=== PATIENT | male | born 1955 | race African-American/Black ===

== ENCOUNTER 2016-10-04 10:30 | Emergency (ER) | payer OTHER ==
--- NOTE | 2016-10-04 15:03 | RAD ---
HISTORY: upper and lower extremity paresthesia COMPARISONS: April 13, 2015 TECHNIQUE: Multiple contiguous axial CT scans were obtained of the head without intravenous contrast. FINDINGS: HEMORRHAGE/INFARCT: There is no hemorrhage or acute infarct. MASSES/SHIFT: There is no mass or shift. EXTRA-AXIAL SPACES: There are no extra-axial fluid collections. SULCI AND VENTRICLES: There is mild diffuse and proportional enlargement of the sulci and ventricles. CEREBRUM: There is a chronic lacunar infarct of the left basal ganglia, stable from 2015. BRAINSTEM: There are no focal parenchymal abnormalities. CEREBELLUM: There are no focal parenchymal abnormalities. VESSELS: The vessels are grossly normal. PARANASAL SINUSES: The paranasal sinuses are clear. ORBITS: The orbits are unremarkable. BONES AND SOFT TISSUE: No bone or soft tissue abnormalities are noted. OTHER: None IMPRESSION: NO ACUTE INTRACRANIAL PATHOLOGY. MILD DIFFUSE INVOLUTIONAL CHANGE WITH CHRONIC SMALL VESSEL ISCHEMIC CHANGES.
[2016-10-04 15:06] LABS: Hematocrit 42 % (42-52); Hemoglobin 14.1 g/dl (14.0-18.0); Mean Corpuscular HGB Conc 34 g/dl (31-36); Mean Corpuscular Hemoglobin 36 pg (27-31); Mean Platelet Volume 9 um3 (7.4-10.4); Red Cell Distribution Width 14 % (10.5-15)
--- NOTE | 2016-10-04 15:06 | RAD ---
HISTORY: upper and lower extremity paresthesia COMPARISONS: MRI of the cervical spine dated September 25, 2008 TECHNIQUE: Multiple contiguous axial CT scans were obtained of the cervical spine without intravenous contrast, with coronal and sagittal multiplanar reformations. FINDINGS: BRAIN: The visualized brain is unremarkable CENTRAL CANAL: Evaluation of the central canal is limited on CT technique; however, there is no obvious canalicular mass or epidural hemorrhage. ALIGNMENT: There is straightening of the cervical lordosis. VERTEBRAL BODIES: The odontoid process is intact. The atlantoaxial intervals are symmetric. The vertebral bodies are normal in attenuation, without fracture. There is multilevel anterolateral marginal osteophyte formation. JOINTS: There is osteoarthritis of the uncovertebral and facet joints. There is mild osteoarthritis of the atlantoaxial articulation. MUSCULATURE: Unremarkable INTERVERTEBRAL DISCS: There is diffuse loss of intervertebral disc height. AXIAL IMAGES: C2-C3: There is no osseous neural foraminal narrowing or central canal stenosis. C3-C4: There is bilateral uncovertebral and facet hypertrophy. There is moderate left and mild right neural foraminal narrowing. There is no osseous central canal stenosis. C4-C5: There is bilateral uncovertebral and facet hypertrophy. There is no significant osseous neural foraminal narrowing or central canal stenosis. C5-C6: There is bilateral uncovertebral and facet hypertrophy. There is no significant osseous neural foraminal narrowing or central canal stenosis. C6-C7: There is bilateral uncovertebral and facet hypertrophy. There is moderate right neural foraminal narrowing. There is no significant osseous central canal stenosis. C7-T1: There is bilateral uncovertebral and facet hypertrophy. There is no significant osseous neural foraminal narrowing or central canal stenosis. SOFT TISSUES: The visualized soft tissues of the neck are unremarkable. The prevertebral fat stripe is preserved. OTHER: None. IMPRESSION: 1. DEGENERATIVE DISC DISEASE AND OSTEOARTHRITIS. 2. THERE IS MULTILEVEL NEURAL FORAMINAL NARROWING DESCRIBED ABOVE. 3. THERE IS NO SIGNIFICANT OSSEOUS CENTRAL CANAL STENOSIS
[2016-10-04 15:07] LABS: Add Diff/Slide Review? Slide Review Added; Comments Flag Yes; White Blood Count 2.5 10^3/ul (3.5-10.8)
[2016-10-04 15:08] LABS: Mean Corpuscular Volume 107 fL (80-94)
[2016-10-04 15:23] LABS: Troponin I 0.01 ng/mL (<0.04)
[2016-10-04 15:35] LABS: ALT 169 U/L (7-52); AST 231 U/L (13-39); Albumin 4.4 g/dL (3.2-5.2); Alkaline Phosphatase 69 U/L (34-104); Anion Gap 11 mmol/L (2-11); BUN/Creatinine Ratio 11.2 (8-20); Blood Urea Nitrogen 10 mg/dL (6-24); CO2 Carbon Dioxide 28 mmol/L (22-32); Chloride 98 mmol/L (101-111); EGFR African American 111.4 (>60); EGFR Non-African American 86.6 (>60); Globulin 4.3 g/dL (2-4); Glucose 113 mg/dL (70-100); Magnesium 1.7 mg/dL (1.9-2.7); Potassium 3.5 mmol/L (3.5-5.0); Sodium 137 mmol/L (133-145); Total Protein 8.7 g/dL (6.4-8.9)
[2016-10-04 15:40] LABS: TSH (Thyroid Stimulating Horm) 3.71 mcIU/mL (0.34-5.60)
[2016-10-04 16:34] VITALS: BP 120/65
[2016-10-04 17:32] LABS: Folate > 20.00 ng/mL (>3.99)
[2016-10-04 17:33] LABS: Vitamin B12 538 pg/mL (180-914)
[2016-10-04] MEDS ORDERED: Magnesium Oxide TAB* 400 MG PO ONE (17:39)
[2016-10-04] MEDS ORDERED: Naproxen TAB* 250 MG PO ONE ×2 (18:11→18:22)
--- NOTE | 2016-10-04 19:23 | ED ---
Georgi Caba Janilya, scribed for Anay Esposito MD on 10/04/16 at 1637 . Lower Extremity - HPI Summary HPI Summary: A 61 y/o male came in to [facility] presenting w/ a gradual onset of waxing and waning pain and numbness of upper and lower extremities for about a year. Pt has tactile sensations and is able to ambulate. He has been here for this reason before. However, the pain has gotten progressively worse, but some days it doesn't bother the pt. Pt denies neck pain, recent injury, n/v/d. EtOH consumption is not as heavy as before. There is EtOH abuse in the past. - History of Current Complaint Chief Complaint: EDGeneral Stated Complaint: WEAKNESS ALL OVER Time Seen by Provider: 10/04/16 16:24 Hx Obtained From: Patient Onset of Pain: Days Onset/Duration: Weeks Severity Initially: Moderate Severity Currently: Moderate Associated Signs And Symptoms: Positive: Weakness - Risk Factors Gout Risk Factors: Age Over 40, Male, Alcohol Abuse DVT Risk Factors: Negative Septic Arthritis Risk Factor: Negative - Allergies/Home Medications Allergies/Adverse Reactions: Allergies Allergy/AdvReac Type Severity Reaction Status Date / Time No Known Allergies Allergy Verified 08/18/16 10:14 PMH/Surg Hx/FS Hx/Imm Hx Endocrine/Hematology History: Denies: Hx Anticoagulant Therapy, Hx Blood Disorders, Hx Blood Transfusions, Hx Bone Marrow Disease, Hx Diabetes, Hx Systemic Lupus Erythematosus, Hx Sickle Cell Disease, Hx Thyroid Disease, Hx Unexplained Bleeding, Other Endocrine/ Hematological Disorders Cardiovascular History: Reports: Hx Hypertension Denies: Hx Pacemaker/ICD Respiratory History: Reports: Hx Asthma GI History: Reports: Other GI Disorders - Hepatitis C, alcohol abuse Denies: Hx Cirrhosis, Hx Crohn's Disease, Hx Diverticulosis, Hx Gall Bladder Disease, Hx Gastroesophageal Reflux Disease, Hx Gastrointestinal Bleed, Hx Hiatal Hernia, Hx Irritable Bowel, Hx Jaundice, Hx Obstructive Bowel, Hx Ileostomy, Hx Pyloric Stenosis, Hx Ulcer History: Denies: Hx Acute Renal Failure, Hx Benign Prostatic Hyperplasia, Hx Chronic Renal Failure, Hx Dialysis, Hx Kidney Infection, Hx Kidney Stones, Other Problems/Disorders Musculoskeletal History: Denies: Hx Arthritis, Hx Back Problems, Hx Bursitis, Hx Congenital Bone Abnormalities, Hx Fibromyalgia, Hx Gout, Hx Orthopedic Injury, Hx Osteoporosis, Hx Scoliosis, Hx Tendonitis, Other Musculoskeletal History Sensory History: Reports: Hx Contacts or Glasses Opthamlomology History: Reports: Hx Contacts or Glasses Neurological History: Reports: Other Neuro Impairments/Disorders - neuropathy Psychiatric History: Reports: Hx Substance Abuse Denies: Hx Attention Deficit Hyperactivity Disorder, Hx Eating Disorder, Hx Depression, Hx Panic Disorder, Hx Post Traumatic Stress Disorder, Hx Inpatient Treatment, Hx Community Mental Health Tx, Hx Schizophrenia, Hx Bipolar Disorder , Hx Suicide Attempt, Hx of Violent Episodes Against Others, Other Psychiatric Issues/Disorders - Surgical History Surgery Procedure, Year, and Place: right ankle-2000 Hx Anesthesia Reactions: No Infectious Disease History: No Infectious Disease History: Reports: Hx Hepatitis Denies: Hx Clostridium Difficile, Hx Human Immunodeficiency Virus (HIV), Hx of Known/Suspected MRSA, Hx Shingles, Hx Tuberculosis, Hx Known/Suspected VRE, Hx Known/Suspected VRSA, History Other Infectious Disease, Traveled Outside the in Last 30 Days - Family History Known Family History: Negative: Cardiac Disease - Social History Alcohol Use: Daily Alcohol Amount: 6 pack and vodka. Hx Substance Use: No Substance Use Type: Reports: None Hx Tobacco Use: Yes Smoking Status (MU): Heavy Every Day Tobacco Smoker Type: Cigarettes Have You Smoked in the Last Year: Yes Review of Systems Constitutional: Other - pt denies any recent injury ENT: Negative - pt denies neck pain Negative: Vomiting, Diarrhea, Nausea Positive: Arthralgia - all extremities, Myalgia - all extremities Positive: Paresthesia - all extremities, Numbness - all extemities All Other Systems Reviewed And Are Negative: Yes Physical Exam Triage Information Reviewed: Yes Vital Signs On Initial Exam: Initial Vitals Temp Pulse Resp BP Pulse Ox 98.2 F 76 18 120/65 99 10/04/16 11:16 10/04/16 11:16 10/04/16 11:16 10/04/16 11:16 10/04/16 11:16 Vital Signs Reviewed: Yes Appearance: Positive: Well-Appearing, No Pain Distress Skin: Positive: Warm, Skin Color Reflects Adequate Perfusion, Dry Eyes: Positive: EOMI, TIMI ENT: Positive: Pharynx normal, TMs normal Neck: Positive: Supple, Nontender Respiratory/Lung Sounds: Positive: Clear to Auscultation, Breath Sounds Present. Negative: Rales, Rhonchi - no wheezes Cardiovascular: Positive: RRR. Negative: Murmur, Rub - no gallops Abdomen Description: Positive: Nontender, Soft. Negative: Distended, Guarding - no rebound Bowel Sounds: Positive: Present Musculoskeletal: Positive: Strength/ROM Intact, Pain @ - subjective pain of all extremities. Negative: Edema Left, Edema Right Neurological: Positive: Sensory/Motor Intact, Alert, Oriented to Person Place, Time, CN Intact II-III Psychiatric: Positive: Affect/Mood Appropriate Diagnostics - Vital Signs Vital Signs Temp Pulse Resp BP Pulse Ox 10/04/16 15:12 98.5 F 78 18 164/84 99 10/04/16 11:16 98.2 F 76 18 120/65 99 - Laboratory Lab Results: Lab Results 10/04/16 10/04/16 Range/Units 14:44 14:44 WBC 2.5 L (3.5-10.8) 10^3/ul RBC 3.90 L (4.0-5.4) 10^6/ul Hgb 14.1 (14.0-18.0) g/dl Hct 42 (42-52) % MCV 107 H (80-94) fL MCH 36 H (27-31) pg MCHC 34 (31-36) g/dl RDW 14 (10.5-15) % Plt Count 77 L (150-450) 10^3/ul MPV 9 (7.4-10.4) um3 Neut % (Auto) 55.5 (38-83) % Lymph % (Auto) 30.8 (25-47) % [place] % (Auto) 12.4 H (1-9) % Eos % (Auto) 0 (0-6) % Baso % (Auto) 1.3 (0-2) % Absolute Neuts (auto) 1.4 L (1.5-7.7) 10^3/ul Absolute Lymphs (auto) 0.8 L (1.0-4.8) 10^3/ul Absolute Monos (auto) 0.3 (0-0.8) 10^3/ul Absolute Eos (auto) 0 (0-0.6) 10^3/ul Absolute Basos (auto) 0 (0-0.2) 10^3/ul Absolute Nucleated RBC 0 10^3/ul Nucleated RBC % 0.1 Sodium 137 (133-145) mmol/L Potassium 3.5 (3.5-5.0) mmol/L Chloride 98 L (101-111) mmol/L Carbon Dioxide 28 (22-32) mmol/L Anion Gap 11 (2-11) mmol/L BUN 10 (6-24) mg/dL Creatinine 0.89 (0.67-1.17) mg/dL Est GFR ( Amer) 111.4 (>60) Est GFR (Non-Af Amer) 86.6 (>60) BUN/Creatinine Ratio 11.2 (8-20) Glucose 113 H (70-100) mg/dL Calcium 10.0 (8.6-10.3) mg/dL Magnesium 1.7 L (1.9-2.7) mg/dL Total Bilirubin 1.10 H (0.2-1.0) mg/dL AST 231 H (13-39) U/L ALT 169 H (7-52) U/L Alkaline Phosphatase 69 (34-104) U/L Troponin I 0.01 (<0.04) ng/mL Total Protein 8.7 (6.4-8.9) g/dL Albumin 4.4 (3.2-5.2) g/dL Globulin 4.3 H (2-4) g/dL Albumin/Globulin Ratio 1.0 (1-3) TSH 3.71 (0.34-5.60) mcIU/mL Result Diagrams: 10/04/16 14:44 10/04/16 14:44 Lab Statement: Any lab studies that have been ordered have been reviewed, and results considered in the medical decision making process. - CT brain CT Interpretation: No Acute Changes - IMPRESSION: NO ACUTE INTRACRANIAL PATHOLOGY. MILD DIFFUSE INVOLUTIONAL CHANGE WITH CHRONIC SMALL VESSEL ISCHEMIC CHANGES. CT Interpretation Completed By: Radiologist cervical spine CT Interpretation: Positive (See Comments) - IMPRESSION: 1. DEGENERATIVE DISC DISEASE AND OSTEOARTHRITIS. 2. THERE IS MULTILEVEL NEURAL FORAMINAL NARROWING DESCRIBED ABOVE. 3. 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 he reports cutting down on his alcohol use and does take a mvi and folate. he does have a low wbc that needs to be followed up on by pmd - Diagnoses Provider Diagnoses: Peripheral neuropathy, low white blood cell count Discharge - Discharge Plan Condition: Stable Disposition: HOME Patient Education Materials: Peripheral Neuropathy (ED) Referrals: Noble Gar MD [Primary Care Provider] - Additional Instructions: Follow up with your primary care provider if symptoms persist or worsen. The documentation as recorded by the Georgi ramirez Janilya accurately reflects the service I personally performed and the decisions made by me, Anay Esposito MD.
== END 2016-10-04 18:10 | disposition home or self-care (01) ==
LOC: ED 10:30
DX: G62.9 Polyneuropathy, unspecified (principal); M51.35 Other intervertebral disc degeneration, thoracolumbar region; R53.1 Weakness; D72.819 Decreased white blood cell count, unspecified; M19.90 Unspecified osteoarthritis, unspecified site
CPT/HCPCS: 36415; 70450; 72125; 80053; 82607; 82652; 82746; 83735; 84443; 84484; 85025; 99283; A9270-GY

== ENCOUNTER 2016-11-23 13:05 | Emergency (ER) | payer OTHER ==
--- NOTE | 2016-11-23 14:26 | ED ---
Medical Screening - HPI Summary HPI Summary: The patient is a 61 year old male presenting to ED for complaint of generalized weakness in bilateral legs "for a long time." Additional complaint of penile swelling after receiving oral sex 1 week ago. Denies trauma, fever, chills, diaphoresis, rhinorrhea, sore throat, cough, shortness of breath, chest pain, leg swelling, abdominal pain, nausea, vomiting, diarrhea, dysuria, change in voiding, hematuria, penile discharge, joint redness or swelling, rash. History of Hepatitis C, chronic alcoholism, resting tremor. Denies FH. SH: Lives alone. Current smoker, weekly alcohol use last used yesterday. Denies IVDU. - History of Current Complaint Chief Complaint: EDExtremityLower Stated Complaint: LEG PAIN PMH/Surg Hx/FS Hx/Imm Hx Endocrine/Hematology History: Denies: Hx Anticoagulant Therapy, Hx Blood Disorders, Hx Blood Transfusions, Hx Bone Marrow Disease, Hx Diabetes, Hx Systemic Lupus Erythematosus, Hx Sickle Cell Disease, Hx Thyroid Disease, Hx Unexplained Bleeding, Other Endocrine/ Hematological Disorders Cardiovascular History: Reports: Hx Hypertension Denies: Hx Pacemaker/ICD Respiratory History: Reports: Hx Asthma GI History: Reports: Other GI Disorders - Hepatitis C, alcohol abuse Denies: Hx Cirrhosis, Hx Crohn's Disease, Hx Diverticulosis, Hx Gall Bladder Disease, Hx Gastroesophageal Reflux Disease, Hx Gastrointestinal Bleed, Hx Hiatal Hernia, Hx Irritable Bowel, Hx Jaundice, Hx Obstructive Bowel, Hx Ileostomy, Hx Pyloric Stenosis, Hx Ulcer History: Denies: Hx Acute Renal Failure, Hx Benign Prostatic Hyperplasia, Hx Chronic Renal Failure, Hx Dialysis, Hx Kidney Infection, Hx Kidney Stones, Other Problems/Disorders Musculoskeletal History: Denies: Hx Arthritis, Hx Back Problems, Hx Bursitis, Hx Congenital Bone Abnormalities, Hx Fibromyalgia, Hx Gout, Hx Orthopedic Injury, Hx Osteoporosis, Hx Scoliosis, Hx Tendonitis, Other Musculoskeletal History Sensory History: Reports: Hx Contacts or Glasses Opthamlomology History: Reports: Hx Contacts or Glasses Neurological History: Reports: Other Neuro Impairments/Disorders - neuropathy Psychiatric History: Reports: Hx Substance Abuse Denies: Hx Attention Deficit Hyperactivity Disorder, Hx Eating Disorder, Hx Depression, Hx Panic Disorder, Hx Post Traumatic Stress Disorder, Hx Inpatient Treatment, Hx Community Mental Health Tx, Hx Schizophrenia, Hx Bipolar Disorder , Hx Suicide Attempt, Hx of Violent Episodes Against Others, Other Psychiatric Issues/Disorders - Surgical History Surgery Procedure, Year, and Place: right ankle-2000 Hx Anesthesia Reactions: No Infectious Disease History: Yes Infectious Disease History: Reports: Hx Hepatitis Denies: Hx Clostridium Difficile, Hx Human Immunodeficiency Virus (HIV), Hx of Known/Suspected MRSA, Hx Shingles, Hx Tuberculosis, Hx Known/Suspected VRE, Hx Known/Suspected VRSA, History Other Infectious Disease, Traveled Outside the [place] in Last 30 Days - Family History Known Family History: Negative: Cardiac Disease - Social History Alcohol Use: Daily Alcohol Amount: 6 pack and 1/2 pint of vodka. Hx Substance Use: No Substance Use Type: Reports: None Hx Tobacco Use: Yes Smoking Status (MU): Heavy Every Day Tobacco Smoker Type: Cigarettes Have You Smoked in the Last Year: Yes Review of Systems Positive: Fatigue. Negative: Fever, Chills ENT: Negative Cardiovascular: Negative Respiratory: Negative Gastrointestinal: Negative Genitourinary: Negative Positive: Myalgia. Negative: Decreased ROM, Edema Skin: Negative Neurological: Negative Psychological: Normal All Other Systems Reviewed And Are Negative: Yes Physical Exam Triage Information Reviewed: Yes Vital Signs On Initial Exam: Initial Vitals Temp Pulse Resp BP Pulse Ox 98.5 F 87 16 175/111 97 11/23/16 13:22 11/23/16 13:22 11/23/16 13:22 11/23/16 13:22 11/23/16 13:22 Vital Signs Reviewed: Yes Appearance: Positive: Well-Appearing, No Pain Distress, Thin Skin: Positive: Warm, Skin Color Reflects Adequate Perfusion, Dry Head/Face: Positive: Normal Head/Face Inspection Eyes: Positive: Normal, EOMI, TIMI, Conjunctiva Clear ENT: Positive: Normal ENT inspection, Hearing grossly normal, Pharynx normal, TMs normal. Negative: Nasal congestion, Nasal drainage Neck: Positive: Supple, Nontender, No Lymphadenopathy Respiratory/Lung Sounds: Positive: Clear to Auscultation, Breath Sounds Present. Negative: Decreased Breath Sounds, Rales, Rhonchi, Wheezes, Unable to speak in full sentences, Fatigue Cardiovascular: Positive: Normal, RRR, Pulses are Symmetrical in both Upper and Lower Extremities, S1, S2. Negative: Murmur, Rub, Leg Edema Left, Leg Edema Right, S3 Abdomen Description: Positive: Nontender, No Organomegaly, Soft. Negative: CVA Tenderness (R), CVA Tenderness (L), Distended, Guarding, Hepatomegaly, Pulsatile Mass, Splenomegaly Bowel Sounds: Positive: Present Male Genital Exam: Positive: no hernia, erythema, other - Performed with male dry house tender, Mahnaz De La Fuente. Poorly cleansed prepuce with debris in folds and faint erythema with 1+ edema of prepuce without phimosis or paraphimosis.. Negative: epididymal tenderness, hernia mass, inguinal tenderness, scrotum tenderness (R) , scrotum tenderness (L), testicular tenderness (R), testicular tenderness (L), urethral discharge Musculoskeletal: Positive: Normal, Strength/ROM Intact - 5/5 muscle strength UE/ LE bilaterally. Negative: Pain @ - no reproducible tenderness Neurological: Positive: Normal, Sensory/Motor Intact, Alert, Oriented to Person Place, Time, CN Intact II-III, Reflexes Intact - brachioradialis and patellar reflex 2+, Babinski Bilateral - downward, Facial Symmetry, Speech Normal. Negative: Babinski Left, Babinski Right, Facial Droop, Slurred Speech Psychiatric: Positive: Normal AVPU Assessment: Alert Diagnostics - Vital Signs Vital Signs Temp Pulse Resp BP Pulse Ox 11/23/16 13:22 98.5 F 87 16 175/111 97 - Laboratory Result Diagrams: 11/23/16 15:44 11/23/16 15:44 Lab Statement: Any lab studies that have been ordered have been reviewed, and results considered in the medical decision making process. Course/Dx - Course Assessment/Plan: The patient is a 61 year old male presenting for complaint of chronic bilateral leg pain and penile swelling. Afebrile without leukocytosis and does not appear to be septic. Labs significant for K 3.4 , Hgb 12.9, Hct 38 , MCV 105. When compared with prior labs anemia appears unchanged. Given KCL oral replacement. Penile exam with balanitis secondary to poor hygiene and marco. Educated on hygiene and use of clotrimazole cream. Advised to follow- up with PCP in 5-7 days. - Diagnoses Provider Diagnoses: Balanitis, Chronic leg pain, Hypokalemia Discharge - Discharge Plan Condition: Stable Disposition: HOME Prescriptions: Clotrimazole 1% CREAM* [Clotrimazole 1%*] 1 applic TOPICAL BID #[id number] Patient Education Materials: Chronic Pain (ED), Balanitis (ED), Hypokalemia (ED ) Referrals: Noble Gar MD [Primary Care Provider] - 5 Days
[2016-11-23 14:33] LABS: Urine Bilirubin Negative (Negative); Urine Glucose 1+(50 mg/dL) (Negative); Urine Nitrite Negative (Negative)
[2016-11-23 15:59] LABS: Add Diff/Slide Review? Slide Review Added; Comments Flag Yes; Hematocrit 38 % (42-52); Hemoglobin 12.9 g/dl (14.0-18.0); Mean Corpuscular HGB Conc 34 g/dl (31-36); Mean Corpuscular Hemoglobin 35 pg (27-31); Mean Corpuscular Volume 105 fL (80-94); Mean Platelet Volume 8 um3 (7.4-10.4); Red Blood Count 3.66 10^6/ul (4.0-5.4); Red Cell Distribution Width 14 % (10.5-15); White Blood Count 4.2 10^3/ul (3.5-10.8)
[2016-11-23 16:13] LABS: Calcium 9.7 mg/dL (8.6-10.3); EGFR African American 149.4 (>60); EGFR Non-African American 116.2 (>60); Potassium 3.4 mmol/L (3.5-5.0)
[2016-11-23] MEDS ORDERED: Potassium Chlor TAB* 20 MEQ TAB.ER PO ONE (16:15)
[2016-11-23 16:40] VITALS: BP 173/97
== END 2016-11-23 16:38 | disposition home or self-care (01) ==
LOC: ED 13:05
DX: N48.1 Balanitis (principal); M79.606 Pain in leg, unspecified; E87.6 Hypokalemia; R53.1 Weakness; F17.210 Nicotine dependence, cigarettes, uncomplicated
CPT/HCPCS: 36415; 80048; 81003; 85025; 99282; A9270-GY

== ENCOUNTER 2017-02-07 12:45 | Emergency (ER) | payer OTHER ==
--- NOTE | 2017-02-07 14:21 | RAD ---
INDICATION: Weakness COMPARISON: April 13, 2015 TECHNIQUE: An AP portable view obtained at 1400 hours is submitted. FINDINGS: Bones/Soft Tissues: There are no acute bony findings. Cardiomediastinal: The cardiomediastinal silhouette is normal. Lungs: There are no infiltrates. Pleura: There are no pleural effusions. Other: None IMPRESSION: NO ACTIVE DISEASE.
--- NOTE | 2017-02-07 14:46 | RAD ---
INDICATION: Difficulty walking COMPARISON: October 04, 2016 TECHNIQUE: Noncontrast axial source images were acquired from the skull base to the vertex. FINDINGS: Ventricles/sulci: There is advanced cortical atrophy with compensatory dilatation of the CSF spaces. Brain parenchyma: There is periventricular and subcortical white matter change compatible with chronic ischemia. There is an old left basal ganglia lacunar type infarct. Intracranial hemorrhage:None. Extra-axial spaces: There are no abnormal extra axial fluid collections or evidence of extra-axial mass. Calvarium: There is no calvarial fracture or other calvarial abnormality. Scalp: There is no evidence of scalp or extracalvarial soft tissue abnormality. Paranasal sinuses/mastoid: The paranasal sinuses and mastoid air cells are clear. Other: None. IMPRESSION: CORTICAL ATROPHY WITH CHRONIC MICROVASCULAR ISCHEMIC CHANGES. NO ACUTE FINDINGS.
[2017-02-07 15:05] LABS: Hematocrit 40 % (42-52); Hemoglobin 13.5 g/dl (14.0-18.0); Mean Corpuscular HGB Conc 34 g/dl (31-36); Mean Corpuscular Hemoglobin 36 pg (27-31); Mean Corpuscular Volume 105 fL (80-94); Mean Platelet Volume 9 um3 (7.4-10.4); Red Blood Count 3.79 10^6/ul (4.0-5.4); Red Cell Distribution Width 14 % (10.5-15); White Blood Count 4.3 10^3/ul (3.5-10.8)
[2017-02-07 15:07] LABS: Add Diff/Slide Review? Slide Review Added; Comments Flag Yes
[2017-02-07] MEDS ORDERED: NS 0.9% 1000 ML* 1,000 ML IV ONE (15:33)
[2017-02-07 15:39] LABS: Troponin I 0.01 ng/mL (<0.04)
[2017-02-07] MEDS ORDERED: LORazepam INJ* 2 MG/ML 1 ML VIAL IV PUSH ONE (15:42)
[2017-02-07 15:49] LABS: Urine Bacteria Absent (Absent); Urine Bilirubin Negative (Negative); Urine Glucose Negative (Negative); Urine Nitrite Negative (Negative)
[2017-02-07 16:06] LABS: ALT 126 U/L (7-52); Albumin 4.5 g/dL (3.2-5.2); Alkaline Phosphatase 61 U/L (34-104); BUN/Creatinine Ratio 10.3 (8-20); Blood Urea Nitrogen 9 mg/dL (6-24); C Reactive Protein < 1.00 mg/L (< 5.00); CO2 Carbon Dioxide 25 mmol/L (22-32); Calcium 10.4 mg/dL (8.6-10.3); Chloride 97 mmol/L (101-111); Creatine Kinase 160 U/L (10-223); EGFR African American 114.4 (>60); EGFR Non-African American 88.9 (>60); Globulin 4.8 g/dL (2-4); Glucose 104 mg/dL (70-100); Sodium 136 mmol/L (133-145); Total Protein 9.3 g/dL (6.4-8.9)
[2017-02-07 16:19] LABS: AST 196 U/L (13-39); Anion Gap 14 mmol/L (2-11); Potassium 4.6 mmol/L (3.5-5.0)
[2017-02-07 17:53] VITALS: BP 171/84
--- NOTE | 2017-02-07 18:12 | ED ---
I, Oh,Ashley, scribed for Anay Esposito MD on 02/07/17 at 1337 . Complex/Multi-Sys Presentation - HPI Summary HPI Summary: Somewhat limited HPI due to pt being poor historian. Pt is alert and oriented to self and time. This 61 y/o male presents to ED for pain in bilat legs and "can't walk" for "weeks". Negative pain at feet. Positive chills. PMHx includes HTN, Hep C, and EtOH abuse. He is not able to recall when the last time he drank. Primary care invovles Dr. Gar at [facility]. Current smoker and drinker. - History Of Current Complaint Chief Complaint: EDGeneral Time Seen by Provider: 02/07/17 13:15 Hx Obtained From: Patient, Medical Records Onset/Duration: Sudden Onset Timing: Constant Associated Signs And Symptoms: Positive: Nausea, Vomiting - Allergies/Home Medications Allergies/Adverse Reactions: Allergies Allergy/AdvReac Type Severity Reaction Status Date / Time No Known Allergies Allergy Verified 08/18/16 10:14 PMH/Surg Hx/FS Hx/Imm Hx Endocrine/Hematology History: Denies: Hx Anticoagulant Therapy, Hx Blood Disorders, Hx Blood Transfusions, Hx Bone Marrow Disease, Hx Diabetes, Hx Systemic Lupus Erythematosus, Hx Sickle Cell Disease, Hx Thyroid Disease, Hx Unexplained Bleeding, Other Endocrine/ Hematological Disorders Cardiovascular History: Reports: Hx Hypertension Denies: Hx Pacemaker/ICD Respiratory History: Reports: Hx Asthma GI History: Reports: Other GI Disorders - Hepatitis C, alcohol abuse Denies: Hx Cirrhosis, Hx Crohn's Disease, Hx Diverticulosis, Hx Gall Bladder Disease, Hx Gastroesophageal Reflux Disease, Hx Gastrointestinal Bleed, Hx Hiatal Hernia, Hx Irritable Bowel, Hx Jaundice, Hx Obstructive Bowel, Hx Ileostomy, Hx Pyloric Stenosis, Hx Ulcer History: Denies: Hx Acute Renal Failure, Hx Benign Prostatic Hyperplasia, Hx Chronic Renal Failure, Hx Dialysis, Hx Kidney Infection, Hx Kidney Stones, Other Problems/Disorders Musculoskeletal History: Denies: Hx Arthritis, Hx Back Problems, Hx Bursitis, Hx Congenital Bone Abnormalities, Hx Fibromyalgia, Hx Gout, Hx Orthopedic Injury, Hx Osteoporosis, Hx Scoliosis, Hx Tendonitis, Other Musculoskeletal History Sensory History: Reports: Hx Contacts or Glasses Opthamlomology History: Reports: Hx Contacts or Glasses Neurological History: Reports: Other Neuro Impairments/Disorders - neuropathy Psychiatric History: Reports: Hx Substance Abuse Denies: Hx Attention Deficit Hyperactivity Disorder, Hx Eating Disorder, Hx Depression, Hx Panic Disorder, Hx Post Traumatic Stress Disorder, Hx Inpatient Treatment, Hx Community Mental Health Tx, Hx Schizophrenia, Hx Bipolar Disorder , Hx Suicide Attempt, Hx of Violent Episodes Against Others, Other Psychiatric Issues/Disorders - Surgical History Surgery Procedure, Year, and Place: right ankle-2000 Hx Anesthesia Reactions: No Infectious Disease History: No Infectious Disease History: Reports: Hx Hepatitis Denies: Hx Clostridium Difficile, Hx Human Immunodeficiency Virus (HIV), Hx of Known/Suspected MRSA, Hx Shingles, Hx Tuberculosis, Hx Known/Suspected VRE, Hx Known/Suspected VRSA, History Other Infectious Disease, Traveled Outside the [place] in Last 30 Days - Family History Known Family History: Negative: Cardiac Disease - Social History Alcohol Use: Daily Alcohol Amount: 6 pack and 1/2 pint of vodka. Hx Substance Use: No Substance Use Type: Reports: None Hx Tobacco Use: Yes Smoking Status (MU): Heavy Every Day Tobacco Smoker Type: Cigarettes Have You Smoked in the Last Year: Yes Review of Systems Positive: Chills. Negative: Fever Positive: Vomiting, Nausea Positive: Other - unspecified pain at bilat legs All Other Systems Reviewed And Are Negative: Yes Physical Exam Triage Information Reviewed: Yes Vital Signs On Initial Exam: Initial Vitals Temp Pulse Resp BP Pulse Ox 100 F 96 18 161/96 96 02/07/17 13:08 02/07/17 13:08 02/07/17 13:08 02/07/17 13:08 02/07/17 13:08 Vital Signs Reviewed: Yes Appearance: Positive: Well-Appearing, No Pain Distress Skin: Positive: Warm, Skin Color Reflects Adequate Perfusion Eyes: Positive: EOMI, TIMI Neck: Positive: Supple, Nontender Cardiovascular: Positive: RRR, Pulses are Symmetrical in both Upper and Lower Extremities - bilat DP Abdomen Description: Positive: Nontender, Soft Musculoskeletal: Positive: Strength/ROM Intact Neurological: Positive: Sensory/Motor Intact, Alert, Oriented to Person Place, Time Psychiatric: Positive: Affect/Mood Appropriate AVPU Assessment: Alert - Alexander Coma Scale Coma Scale Total: 15 Diagnostics - Vital Signs Vital Signs Temp Pulse Resp BP Pulse Ox 02/07/17 13:08 100 F 96 18 161/96 96 - Laboratory Lab Results: Lab Results 0502/07/17 02/07/17 Range/Units 14:45 14:45 14:45 WBC 4.3 (3.5-10.8) 10^3/ul RBC 3.79 L (4.0-5.4) 10^6/ul Hgb 13.5 L (14.0-18.0) g/dl Hct 40 L (42-52) % MCV 105 H (80-94) fL MCH 36 H (27-31) pg MCHC 34 (31-36) g/dl RDW 14 (10.5-15) % Plt Count 74 L (150-450) 10^3/ul MPV 9 (7.4-10.4) um3 Neut % (Auto) 66.0 (38-83) % Lymph % (Auto) 19.8 L (25-47) % [place] % (Auto) 12.3 H (1-9) % Eos % (Auto) 0.1 (0-6) % Baso % (Auto) 1.8 (0-2) % Absolute Neuts (auto) 2.9 (1.5-7.7) 10^3/ul Absolute Lymphs (auto) 0.9 L (1.0-4.8) 10^3/ul Absolute Monos (auto) 0.5 (0-0.8) 10^3/ul Absolute Eos (auto) 0 (0-0.6) 10^3/ul Absolute Basos (auto) 0.1 (0-0.2) 10^3/ul Absolute Nucleated RBC 0.01 10^3/ul Nucleated RBC % 0.1 Hem Pathologist Commnt Pending INR (Anticoag Therapy) 0.97 (0.89-1.11) APTT 32.6 (26.0-36.3) seconds Sodium 136 (133-145) mmol/L Potassium 4.6 (3.5-5.0) mmol/L Chloride 97 L (101-111) mmol/L Carbon Dioxide 25 (22-32) mmol/L Anion Gap 14 H (2-11) mmol/L BUN 9 (6-24) mg/dL Creatinine 0.87 (0.67-1.17) mg/dL Est GFR ( Amer) 114.4 (>60) Est GFR (Non-Af Amer) 88.9 (>60) BUN/Creatinine Ratio 10.3 (8-20) Glucose 104 H (70-100) mg/dL Lactic Acid (0.5-2.0) mmol/L Calcium 10.4 H (8.6-10.3) mg/dL Total Bilirubin 1.50 H (0.2-1.0) mg/dL AST 196 H (13-39) U/L ALT 126 H (7-52) U/L Alkaline Phosphatase 61 (34-104) U/L Total Creatine Kinase 160 (10-223) U/L Troponin I 0.01 (<0.04) ng/mL C-Reactive Protein < 1.00 (< 5.00) mg/L Total Protein 9.3 H (6.4-8.9) g/dL Albumin 4.5 (3.2-5.2) g/dL Globulin 4.8 H (2-4) g/dL Albumin/Globulin Ratio 0.9 L (1-3) Urine Color Urine Appearance Urine pH (5-9) Ur Specific [place] (1.010-1.030) Urine Protein (Negative) Urine Ketones (Negative) Urine Blood (Negative) Urine Nitrate (Negative) Urine Bilirubin (Negative) Urine Urobilinogen (Negative) Ur Leukocyte Esterase (Negative) Urine WBC (Auto) (Absent) Urine RBC (Auto) (Absent) Ur Squamous Epith Cells (Absent) Urine Bacteria (Absent) Hyaline Casts (Absent) Urine Glucose (Negative) 02/07/17 02/07/17 Range/Units 14:45 15:37 WBC (3.5-10.8) 10^3/ul RBC (4.0-5.4) 10^6/ul Hgb (14.0-18.0) g/dl Hct (42-52) % MCV (80-94) fL MCH (27-31) pg MCHC (31-36) g/dl RDW (10.5-15) % Plt Count (150-450) 10^3/ul MPV (7.4-10.4) um3 Neut % (Auto) (38-83) % Lymph % (Auto) (25-47) % [place] % (Auto) (1-9) % Eos % (Auto) (0-6) % Baso % (Auto) (0-2) % Absolute Neuts (auto) (1.5-7.7) 10^3/ul Absolute Lymphs (auto) (1.0-4.8) 10^3/ul Absolute Monos (auto) (0-0.8) 10^3/ul Absolute Eos (auto) (0-0.6) 10^3/ul Absolute Basos (auto) (0-0.2) 10^3/ul Absolute Nucleated RBC 10^3/ul Nucleated RBC % Hem Pathologist Commnt INR (Anticoag Therapy) (0.89-1.11) APTT (26.0-36.3) seconds Sodium (133-145) mmol/L Potassium (3.5-5.0) mmol/L Chloride (101-111) mmol/L Carbon Dioxide (22-32) mmol/L Anion Gap (2-11) mmol/L BUN (6-24) mg/dL Creatinine (0.67-1.17) mg/dL Est GFR ( Amer) (>60) Est GFR (Non-Af Amer) (>60) BUN/Creatinine Ratio (8-20) Glucose (70-100) mg/dL Lactic Acid 1.7 (0.5-2.0) mmol/L Calcium (8.6-10.3) mg/dL Total Bilirubin (0.2-1.0) mg/dL AST (13-39) U/L ALT (7-52) U/L Alkaline Phosphatase (34-104) U/L Total Creatine Kinase (10-223) U/L Troponin I (<0.04) ng/mL C-Reactive Protein (< 5.00) mg/L Total Protein (6.4-8.9) g/dL Albumin (3.2-5.2) g/dL Globulin (2-4) g/dL Albumin/Globulin Ratio (1-3) Urine Color Mony Urine Appearance Cloudy Urine pH 8.0 (5-9) Ur Specific [place] 1.013 (1.010-1.030) Urine Protein 2+(100 mg/dl) H (Negative) Urine Ketones Trace H (Negative) Urine Blood Negative (Negative) Urine Nitrate Negative (Negative) Urine Bilirubin Negative (Negative) Urine Urobilinogen Negative (Negative) Ur Leukocyte Esterase Negative (Negative) Urine WBC (Auto) Absent (Absent) Urine RBC (Auto) Absent (Absent) Ur Squamous Epith Cells Present H (Absent) Urine Bacteria Absent (Absent) Hyaline Casts Present H (Absent) Urine Glucose Negative (Negative) Result Diagrams: 02/07/17 14:45 02/07/17 14:45 Lab Statement: Any lab studies that have been ordered have been reviewed, and results considered in the medical decision making process. - Radiology CXR Xray Interpretation: No Acute Changes Radiology Interpretation Completed By: Radiologist - CT Brain CT Interpretation: No Acute Changes - CORTICAL ATROPHY WITH CHRONIC MICROVASCULAR ISCHEMIC CHANGES. NO ACUTE FINDINGS. CT Interpretation Completed By: Radiologist Re-Evaluation - Re-Evaluation First Eval Re-Evaluation Time: 15:42 Change: Improved Comment: MD in room to re-evaluate pt. Second Eval Re-Evaluation Time: 17:16 Comment: MD in room to re-evaluate pt. Tremor improved, and pt states that he is feeling better. Plan of care involving road test around ED is discussed with pt, and he is agreeable at this time. Complex Multi-Symp Course/Dx Course Of Treatment: pt felt generalized body aches labs here essentially his norm. Given 1 mg of ativan for tremors which might be from withdrawing from etoh. Pt able to ambulate with a walker after fluids, lunch and a spot of ativan - Diagnoses Provider Diagnoses: Alcoholism, Neuropathy - Critical Care Time Critical Care Time: 30-74 min Discharge - Discharge Plan Condition: Stable Disposition: HOME The documentation as recorded by the Miguel ramirez Soohyun accurately reflects the service I personally performed and the decisions made by me, Anay Esposito MD.
== END 2017-02-07 18:48 | disposition home or self-care (01) ==
LOC: ED 12:45
DX: F10.20 Alcohol dependence, uncomplicated (principal); G62.9 Polyneuropathy, unspecified; M79.605 Pain in left leg; M79.604 Pain in right leg; I10 Essential (primary) hypertension; B19.20 Unspecified viral hepatitis C without hepatic coma; F17.210 Nicotine dependence, cigarettes, uncomplicated
CPT/HCPCS: 36415; 70450; 71010; 80053; 81003; 81015; 82550; 83605; 84484; 85025; 85060; 85610; 85730; 86140; 87040; 96361; 96374; 99291; J2060

== ENCOUNTER → 2017-03-10 10:40 | Emergency (ER) | payer OTHER ==
[~2017-03-10 10:40] MED LIST: Magnesium Sulf 4 GM/100 ML IV* 4,000 MG/100 ML BAG IVPB ONE; NS 0.9% 1000 ML* 1,000 ML IV ONE
[2017-03-10 12:11] LABS: Hematocrit 37 % (42-52); Hemoglobin 12.7 g/dl (14.0-18.0); Mean Corpuscular HGB Conc 34 g/dl (31-36); Mean Corpuscular Hemoglobin 38 pg (27-31); Mean Platelet Volume 8 um3 (7.4-10.4); Red Blood Count 3.38 10^6/ul (4.0-5.4); Red Cell Distribution Width 14 % (10.5-15); White Blood Count 3.1 10^3/ul (3.5-10.8)
[2017-03-10 12:14] LABS: Comments Flag Yes; Mean Corpuscular Volume 110 fL (80-94)
[2017-03-10 12:15] LABS: Add Diff/Slide Review? Slide Review Added
[2017-03-10 12:27] LABS: Ammonia 50 mol/L (16-53)
[2017-03-10 12:28] LABS: BUN/Creatinine Ratio 11.9 (8-20); Blood Urea Nitrogen 10 mg/dL (6-24); CO2 Carbon Dioxide 25 mmol/L (22-32); Chloride 107 mmol/L (101-111); EGFR Non-African American 92.6 (>60); Glucose 84 mg/dL (70-100); Potassium 3.8 mmol/L (3.5-5.0)
[2017-03-10 12:29] LABS: ALT 116 U/L (7-52); AST 184 U/L (13-39); Albumin 4.2 g/dL (3.2-5.2); Alkaline Phosphatase 49 U/L (34-104); C Reactive Protein < 1.00 mg/L (< 5.00); Calcium 9.1 mg/dL (8.6-10.3); Creatine Kinase 145 U/L (10-223); EGFR African American 119.1 (>60); Globulin 3.9 g/dL (2-4); Lipase 85 U/L (11.0-82.0); Magnesium 1.1 mg/dL (1.9-2.7); Total Protein 8.1 g/dL (6.4-8.9)
[2017-03-10 12:31] LABS: Troponin I 0.01 ng/mL (<0.04)
[2017-03-10 12:32] LABS: B Type Natriuretic Peptide 75 pg/mL
[2017-03-10 12:54] LABS: Acetaminophen < 15 mcg/mL; Alcohol 104 mg/dL (<10)
[2017-03-10 12:58] LABS: Urine Bilirubin Negative (Negative); Urine Glucose Negative (Negative); Urine Nitrite Negative (Negative)
[2017-03-10 13:04] LABS: TSH (Thyroid Stimulating Horm) 3.72 mcIU/mL (0.34-5.60)
--- NOTE | 2017-03-10 15:31 | ED ---
Romy Caba Salem, scribed for Miles Harrison MD on 03/10/17 at 1159 . Complex/Multi-Sys Presentation - HPI Summary HPI Summary: Patient is a 61 y/o M who presents to the ED per EMS with weakness for the past year. He reports shaking and weakness in bilateral lower extremities (whole leg ), as well as numbness of bilateral hands. He reports trouble walking and states that sx has been worsening. Pt denies CP, SOB, fever, chills, abd pain, back pain, or joint pain. He states that he has been taking Ibuprofen for sx, but he ran out 2 days ago and then had trouble ambulating this morning so he called EMS. He denies a hx of back problems. Pt lives alone in an apartment. - History Of Current Complaint Chief Complaint: EDWeakness Time Seen by Provider: 03/10/17 11:10 Hx Obtained From: Patient Onset/Duration: Gradual Onset, Lasting Weeks, Still Present Timing: Intermittent, Lasting:, Weeks Severity Currently: Moderate Severity Initially: Moderate Location: Negative Aggravating Factor(s): Nothing. Alleviating Factor(s): Nothing. Associated Signs And Symptoms: Positive: Weakness - Allergies/Home Medications Allergies/Adverse Reactions: Allergies Allergy/AdvReac Type Severity Reaction Status Date / Time No Known Allergies Allergy Verified 08/18/16 10:14 PMH/Surg Hx/FS Hx/Imm Hx Endocrine/Hematology History: Denies: Hx Anticoagulant Therapy, Hx Blood Disorders, Hx Blood Transfusions, Hx Bone Marrow Disease, Hx Diabetes, Hx Systemic Lupus Erythematosus, Hx Sickle Cell Disease, Hx Thyroid Disease, Hx Unexplained Bleeding, Other Endocrine/ Hematological Disorders Cardiovascular History: Reports: Hx Hypertension Denies: Hx Pacemaker/ICD Respiratory History: Reports: Hx Asthma GI History: Reports: Other GI Disorders - Hepatitis C, alcohol abuse Denies: Hx Cirrhosis, Hx Crohn's Disease, Hx Diverticulosis, Hx Gall Bladder Disease, Hx Gastroesophageal Reflux Disease, Hx Gastrointestinal Bleed, Hx Hiatal Hernia, Hx Irritable Bowel, Hx Jaundice, Hx Obstructive Bowel, Hx Ileostomy, Hx Pyloric Stenosis, Hx Ulcer History: Denies: Hx Acute Renal Failure, Hx Benign Prostatic Hyperplasia, Hx Chronic Renal Failure, Hx Dialysis, Hx Kidney Infection, Hx Kidney Stones, Other Problems/Disorders Musculoskeletal History: Denies: Hx Arthritis, Hx Back Problems, Hx Bursitis, Hx Congenital Bone Abnormalities, Hx Fibromyalgia, Hx Gout, Hx Orthopedic Injury, Hx Osteoporosis, Hx Scoliosis, Hx Tendonitis, Other Musculoskeletal History Sensory History: Reports: Hx Contacts or Glasses Opthamlomology History: Reports: Hx Contacts or Glasses Neurological History: Reports: Other Neuro Impairments/Disorders - neuropathy Psychiatric History: Reports: Hx Substance Abuse Denies: Hx Attention Deficit Hyperactivity Disorder, Hx Eating Disorder, Hx Depression, Hx Panic Disorder, Hx Post Traumatic Stress Disorder, Hx Inpatient Treatment, Hx Community Mental Health Tx, Hx Schizophrenia, Hx Bipolar Disorder , Hx Suicide Attempt, Hx of Violent Episodes Against Others, Other Psychiatric Issues/Disorders - Surgical History Surgery Procedure, Year, and Place: right ankle-2000 Hx Anesthesia Reactions: No Infectious Disease History: No Infectious Disease History: Reports: Hx Hepatitis Denies: Hx Clostridium Difficile, Hx Human Immunodeficiency Virus (HIV), Hx of Known/Suspected MRSA, Hx Shingles, Hx Tuberculosis, Hx Known/Suspected VRE, Hx Known/Suspected VRSA, History Other Infectious Disease, Traveled Outside the [place] in Last 30 Days - Family History Known Family History: Negative: Cardiac Disease - Social History Alcohol Use: Daily Alcohol Amount: 6 pack and 1/2 pint of vodka. Last drink last night Hx Substance Use: No Substance Use Type: Reports: None Hx Tobacco Use: Yes Smoking Status (MU): Heavy Every Day Tobacco Smoker Type: Cigarettes Have You Smoked in the Last Year: Yes Review of Systems Negative: Fever, Chills Negative: Chest Pain Negative: Shortness Of Breath Negative: Abdominal Pain Musculoskeletal: Other - No back pain or joint pain. Positive: Other - Shaking of lower ext. Trouble walking. Positive: Weakness, Numbness - Bilat - hands. All Other Systems Reviewed And Are Negative: Yes Physical Exam Triage Information Reviewed: Yes Vital Signs On Initial Exam: Initial Vitals Temp Pulse Resp BP Pulse Ox 97.9 F 88 17 164/98 95 03/10/17 10:46 03/10/17 10:46 03/10/17 10:46 03/10/17 10:46 03/10/17 10:46 Vital Signs Reviewed: Yes Appearance: Positive: Well-Appearing, No Pain Distress Skin: Positive: Warm, Skin Color Reflects Adequate Perfusion, Dry Head/Face: Positive: Normal Head/Face Inspection Eyes: Positive: EOMI, TIMI Neck: Positive: Supple, Nontender Respiratory/Lung Sounds: Positive: Clear to Auscultation, Breath Sounds Present Cardiovascular: Positive: RRR, Other - Good capillary refill. Abdomen Description: Positive: Nontender, Soft Bowel Sounds: Positive: Present Musculoskeletal: Positive: Other - Pain with ROM of hands. No obvious swelling. Neurological: Positive: Normal, Sensory/Motor Intact, Alert, Oriented to Person Place, Time Psychiatric: Positive: Affect/Mood Appropriate - Meg Coma Scale Coma Scale Total: 15 Diagnostics - Vital Signs Vital Signs Temp Pulse Resp BP Pulse Ox 03/10/17 11:30 83 13 166/98 95 03/10/17 11:00 79 11 162/97 96 03/10/17 10:49 97.9 F 88 17 169/98 95 03/10/17 10:46 97.9 F 88 17 164/98 95 - Laboratory Lab Results: Lab Results 03/10/17 03/10/17 03/10/17 Range/Units 11:56 11:56 11:56 WBC 3.1 L (3.5-10.8) 10^3/ul RBC 3.38 L (4.0-5.4) 10^6/ul Hgb 12.7 L (14.0-18.0) g/dl Hct 37 L (42-52) % MCV 110 H (80-94) fL MCH 38 H (27-31) pg MCHC 34 (31-36) g/dl RDW 14 (10.5-15) % Plt Count 78 L (150-450) 10^3/ul MPV 8 (7.4-10.4) um3 Neut % (Auto) 47.9 (38-83) % Lymph % (Auto) 35.7 (25-47) % [place] % (Auto) 13.5 H (1-9) % Eos % (Auto) 0.1 (0-6) % Baso % (Auto) 2.8 H (0-2) % Absolute Neuts (auto) 1.5 (1.5-7.7) 10^3/ul Absolute Lymphs (auto) 1.1 (1.0-4.8) 10^3/ul Absolute Monos (auto) 0.4 (0-0.8) 10^3/ul Absolute Eos (auto) 0 (0-0.6) 10^3/ul Absolute Basos (auto) 0.1 (0-0.2) 10^3/ul Absolute Nucleated RBC 0 10^3/ul Nucleated RBC % 0.1 INR (Anticoag Therapy) 1.06 (0.89-1.11) APTT 33.4 (26.0-36.3) seconds Sodium 147 H (133-145) mmol/L Potassium 3.8 (3.5-5.0) mmol/L Chloride 107 (101-111) mmol/L Carbon Dioxide 25 (22-32) mmol/L Anion Gap 15 H (2-11) mmol/L BUN 10 (6-24) mg/dL Creatinine 0.84 (0.67-1.17) mg/dL Est GFR ( Amer) 119.1 (>60) Est GFR (Non-Af Amer) 92.6 (>60) BUN/Creatinine Ratio 11.9 (8-20) Glucose 84 (70-100) mg/dL Lactic Acid (0.5-2.0) mmol/L Calcium 9.1 (8.6-10.3) mg/dL Magnesium 1.1 L (1.9-2.7) mg/dL Total Bilirubin 1.20 H (0.2-1.0) mg/dL AST 184 H (13-39) U/L ALT 116 H (7-52) U/L Alkaline Phosphatase 49 (34-104) U/L Ammonia (16-53) mol/L Total Creatine Kinase 145 (10-223) U/L CK-MB (CK-2) 2.8 (0.6-6.3) ng/mL Troponin I 0.01 (<0.04) ng/mL C-Reactive Protein < 1.00 (< 5.00) mg/L B-Natriuretic Peptide ( - 100) pg/mL Total Protein 8.1 (6.4-8.9) g/dL Albumin 4.2 (3.2-5.2) g/dL Globulin 3.9 (2-4) g/dL Albumin/Globulin Ratio 1.1 (1-3) Lipase 85 H (11.0-82.0) U/L TSH 3.72 (0.34-5.60) mcIU/mL Urine Color Urine Appearance Urine pH (5-9) Ur Specific [place] (1.010-1.030) Urine Protein (Negative) Urine Ketones (Negative) Urine Blood (Negative) Urine Nitrate (Negative) Urine Bilirubin (Negative) Urine Urobilinogen (Negative) Ur Leukocyte Esterase (Negative) Urine Glucose (Negative) Acetaminophen < 15 mcg/mL Serum Alcohol 104 H (<10) mg/dL 03/10/17 03/10/17 03/10/17 Range/Units 11:56 11:56 12:40 WBC (3.5-10.8) 10^3/ul RBC (4.0-5.4) 10^6/ul Hgb (14.0-18.0) g/dl Hct (42-52) % MCV (80-94) fL MCH (27-31) pg MCHC (31-36) g/dl RDW (10.5-15) % Plt Count (150-450) 10^3/ul MPV (7.4-10.4) um3 Neut % (Auto) (38-83) % Lymph % (Auto) (25-47) % [place]ains % (Auto) (1-9) % Eos % (Auto) (0-6) % Baso % (Auto) (0-2) % Absolute Neuts (auto) (1.5-7.7) 10^3/ul Absolute Lymphs (auto) (1.0-4.8) 10^3/ul Absolute Monos (auto) (0-0.8) 10^3/ul Absolute Eos (auto) (0-0.6) 10^3/ul Absolute Basos (auto) (0-0.2) 10^3/ul Absolute Nucleated RBC 10^3/ul Nucleated RBC % INR (Anticoag Therapy) (0.89-1.11) APTT (26.0-36.3) seconds Sodium (133-145) mmol/L Potassium (3.5-5.0) mmol/L Chloride (101-111) mmol/L Carbon Dioxide (22-32) mmol/L Anion Gap (2-11) mmol/L BUN (6-24) mg/dL Creatinine (0.67-1.17) mg/dL Est GFR ( Amer) (>60) Est GFR (Non-Af Amer) (>60) BUN/Creatinine Ratio (8-20) Glucose (70-100) mg/dL Lactic Acid 3.6 H* (0.5-2.0) mmol/L Calcium (8.6-10.3) mg/dL Magnesium (1.9-2.7) mg/dL Total Bilirubin (0.2-1.0) mg/dL AST (13-39) U/L ALT (7-52) U/L Alkaline Phosphatase (34-104) U/L Ammonia 50 (16-53) mol/L Total Creatine Kinase (10-223) U/L CK-MB (CK-2) (0.6-6.3) ng/mL Troponin I (<0.04) ng/mL C-Reactive Protein (< 5.00) mg/L B-Natriuretic Peptide 75 ( - 100) pg/mL Total Protein (6.4-8.9) g/dL Albumin (3.2-5.2) g/dL Globulin (2-4) g/dL Albumin/Globulin Ratio (1-3) Lipase (11.0-82.0) U/L TSH (0.34-5.60) mcIU/mL Urine Color Yellow Urine Appearance Clear Urine pH 7.0 (5-9) Ur Specific [place] 1.011 (1.010-1.030) Urine Protein Negative (Negative) Urine Ketones Trace H (Negative) Urine Blood Negative (Negative) Urine Nitrate Negative (Negative) Urine Bilirubin Negative (Negative) Urine Urobilinogen Negative (Negative) Ur Leukocyte Esterase Negative (Negative) Urine Glucose Negative (Negative) Acetaminophen mcg/mL Serum Alcohol (<10) mg/dL Result Diagrams: 03/10/17 11:56 03/10/17 11:56 Diagnostic Studies Comment: Lactic acid: 3.6 Lab Statement: Any lab studies that have been ordered have been reviewed, and results considered in the medical decision making process. - EKG 1213 EKG Interpretation: NSR @ [address] No ectopy. Complex Multi-Symp Course/Dx Course Of Treatment: NO CRITICAL CARE TIME. DISCUSSED RESULTS WITH PATIENT. SOCIAL WORK SAW KENNA IN ED. DISCHARGE HOME STABLE. - Diagnoses Provider Diagnoses: Arthritis, Hypomagnesemia Discharge - Discharge Plan Condition: Stable Disposition: HOME Prescriptions: Ibuprofen TAB* [Motrin TAB* 600 MG] 600 mg PO Q6H PRN #25 tab PRN Reason: Pain Magnesium Oxide TAB* [MagOx 400 TAB*] 400 mg PO DAILY #30 tab Patient Education Materials: Dehydration (ED), Hypomagnesemia (ED), Arthritis ( ED) Referrals: Noble Gar MD [Primary Care Provider] - Additional Instructions: FOLLOW UP WITH YOUR DOCTOR. RETURN TO THE EMERGENCY DEPARTMENT FOR ANY WORSENING OF YOUR CONDITION OR QUESTIONS OR CONCERNS. The documentation as recorded by the Romy ramirez Salem accurately reflects the service I personally performed and the decisions made by me, Miles Harrison MD.
--- NOTE | 2017-03-10 15:42 | RAD ---
INDICATION: Weakness. COMPARISON: Comparison is made with a prior study from February 07, 2017. TECHNIQUE: A portable view of the chest was obtained. FINDINGS: Cardiac and mediastinal contours appear to be within normal limits. The lungs are clear. No pleural effusion is seen. IMPRESSION: NO EVIDENCE FOR ACUTE DISEASE.
[2017-03-10 16:04] VITALS: BP 167/98
[2017-03-10 17:51] LABS: Anion Gap 7 mmol/L (2-11)
[2017-03-10 22:09] LABS: Sodium 139 mmol/L (133-145)
== END | disposition home or self-care (01) ==
LOC: ED 10:40
DX: M19.90 Unspecified osteoarthritis, unspecified site (principal); E83.42 Hypomagnesemia; R53.1 Weakness; F17.210 Nicotine dependence, cigarettes, uncomplicated
CPT/HCPCS: 36415; 71010; 80053; 80320; 80329; 81003; 82140; 82550; 82553; 83605; 83690; 83735; 83880; 84443; 84484; 85025; 85610; 85730; 86140; 93005; 99284; G0480

== ENCOUNTER 2017-04-21 09:09 | Observation (INO) | payer OTHER ==
[2017-04-21] MEDS ORDERED: Aspirin Low Dose CHEW TAB* 81 MG PO ONE (09:25)
[2017-04-21 09:43] LABS: Comments Flag Yes; Hematocrit 37 % (42-52); Hemoglobin 12.6 g/dl (14.0-18.0); Mean Corpuscular HGB Conc 34 g/dl (31-36); Mean Corpuscular Hemoglobin 37 pg (27-31); Mean Platelet Volume 9 um3 (7.4-10.4); Red Blood Count 3.41 10^6/ul (4.0-5.4); Red Cell Distribution Width 14 % (10.5-15)
[2017-04-21 09:44] LABS: Mean Corpuscular Volume 109 fL (80-94); White Blood Count 2.8 10^3/ul (3.5-10.8)
[2017-04-21] MEDS ORDERED: Nitroglycerin TAB 0.4 MG* 0.4 MG TAB SL ONE (09:53)
[2017-04-21] MEDS ORDERED: LORazepam INJ* 2 MG/ML 1 ML VIAL IV PUSH ONE (09:54)
[2017-04-21 09:59] LABS: Albumin 3.8 g/dL (3.2-5.2); Calcium 9.1 mg/dL (8.6-10.3); EGFR African American 129.7 (>60); EGFR Non-African American 100.9 (>60); Globulin 4.1 g/dL (2-4); Magnesium 1.1 mg/dL (1.9-2.7); Potassium 2.8 mmol/L (3.5-5.0); Total Bilirubin 1.4 mg/dL (0.2-1.0); Total Protein 7.9 g/dL (6.4-8.9)
--- NOTE | 2017-04-21 10:00 | RAD ---
Indication: Chest pain for a long time. History of hypertension, asthma, tobacco use. Comparison: No relevant prior exams available on the [facility] PACS for comparison. Technique: Upright AP 0941 hours Report: Elevated lung volumes and both diffuse mild prominence of the interstitial markings and patchy rarefaction of the mid to upper lung zone interstitial markings. No focal pulmonary lesion, compelling alveolar consolidation, pleural effusion, pneumothorax. The heart, pulmonary vasculature, and mediastinal contours are unremarkable. IMPRESSION: Stigmata of obstructive lung disease. No acute pulmonary or cardiac process evident.
[2017-04-21 10:01] LABS: Troponin I 0.02 ng/mL (<0.04)
--- NOTE | 2017-04-21 10:13 | ED ---
HPI Chest Pain - HPI Summary HPI Summary: 61M presents with syncopal episode and chest pain since last night. He states he has history of chest pain and lower extremity pain. He states last night he took some cocaine and passed out and then he work up with worsening chest pain. He also complains of left side facial pain and headache. He admits to blurry vision in his left eye where there is swelling. He admits to SOB. He denies any palpitations. He states the chest pain is worst when presses on his chest. He is a smoker. He states his leg pain remains unchanged in past 6 months. He states it it achy in nature. He denies any swelling. He states his only medical history is HTN and leg pain but he does not have a primary. He denies any family cardiac history. - History of Current Complaint Chief Complaint: EDChestPainROMI Time Seen by Provider: 04/21/17 09:12 Pain Intensity: 9 - Additional Pertinent History Primary Care Physician: [id number] - Allergy/Home Medications Allergies/Adverse Reactions: Allergies Allergy/AdvReac Type Severity Reaction Status Date / Time No Known Allergies Allergy Verified 08/18/16 10:14 PMH/Surg Hx/FS Hx/Imm Hx Endocrine/Hematology History: Denies: Hx Anticoagulant Therapy, Hx Blood Disorders, Hx Blood Transfusions, Hx Bone Marrow Disease, Hx Diabetes, Hx Systemic Lupus Erythematosus, Hx Sickle Cell Disease, Hx Thyroid Disease, Hx Unexplained Bleeding, Other Endocrine/ Hematological Disorders Cardiovascular History: Reports: Hx Hypertension Denies: Hx Pacemaker/ICD Respiratory History: Reports: Hx Asthma GI History: Reports: Other GI Disorders - Hepatitis C, alcohol abuse Denies: Hx Cirrhosis, Hx Crohn's Disease, Hx Diverticulosis, Hx Gall Bladder Disease, Hx Gastroesophageal Reflux Disease, Hx Gastrointestinal Bleed, Hx Hiatal Hernia, Hx Irritable Bowel, Hx Jaundice, Hx Obstructive Bowel, Hx Ileostomy, Hx Pyloric Stenosis, Hx Ulcer History: Denies: Hx Acute Renal Failure, Hx Benign Prostatic Hyperplasia, Hx Chronic Renal Failure, Hx Dialysis, Hx Kidney Infection, Hx Kidney Stones, Other Problems/Disorders Musculoskeletal History: Denies: Hx Arthritis, Hx Back Problems, Hx Bursitis, Hx Congenital Bone Abnormalities, Hx Fibromyalgia, Hx Gout, Hx Orthopedic Injury, Hx Osteoporosis, Hx Scoliosis, Hx Tendonitis, Other Musculoskeletal History Sensory History: Reports: Hx Contacts or Glasses Opthamlomology History: Reports: Hx Contacts or Glasses Neurological History: Reports: Other Neuro Impairments/Disorders - neuropathy Psychiatric History: Reports: Hx Substance Abuse Denies: Hx Attention Deficit Hyperactivity Disorder, Hx Eating Disorder, Hx Depression, Hx Panic Disorder, Hx Post Traumatic Stress Disorder, Hx Inpatient Treatment, Hx Community Mental Health Tx, Hx Schizophrenia, Hx Bipolar Disorder , Hx Suicide Attempt, Hx of Violent Episodes Against Others, Other Psychiatric Issues/Disorders - Surgical History Surgery Procedure, Year, and Place: right ankle-2000 Hx Anesthesia Reactions: No Infectious Disease History: Yes Infectious Disease History: Reports: Hx Hepatitis Denies: Hx Clostridium Difficile, Hx Human Immunodeficiency Virus (HIV), Hx of Known/Suspected MRSA, Hx Shingles, Hx Tuberculosis, Hx Known/Suspected VRE, Hx Known/Suspected VRSA, History Other Infectious Disease, Traveled Outside the [place] in Last 30 Days - Family History Known Family History: Negative: Cardiac Disease - Social History Alcohol Use: Daily Alcohol Amount: 6 pack and 1/2 pint of vodka. Last drink last night Hx Substance Use: No Substance Use Type: Reports: None Hx Tobacco Use: Yes Smoking Status (MU): Heavy Every Day Tobacco Smoker Type: Cigarettes Have You Smoked in the Last Year: Yes Review of Systems Negative: Fever Positive: Chest Pain Negative: Shortness Of Breath Negative: Abdominal Pain Positive: Myalgia - lower leg pain Positive: Headache All Other Systems Reviewed And Are Negative: Yes Physical Exam Triage Information Reviewed: Yes Vital Signs On Initial Exam: Initial Vitals Temp Pulse Resp BP Pulse Ox 98.8 F 86 10 184/91 97 04/21/17 09:18 04/21/17 09:18 04/21/17 09:18 04/21/17 09:18 04/21/17 09:18 Vital Signs Reviewed: Yes Appearance: Positive: Well-Appearing Skin: Positive: Warm, Dry Head/Face: Positive: Other - swelling noted around left eye, no step off, clemens sign Eyes: Positive: Normal, EOMI, TIMI, Conjunctiva Clear ENT: Positive: Normal ENT inspection, Pharynx normal, TMs normal Respiratory/Lung Sounds: Positive: Clear to Auscultation, Breath Sounds Present , Other - reproducible chest pain on exam Cardiovascular: Positive: Normal, RRR Abdomen Description: Positive: Nontender, Soft Bowel Sounds: Positive: Present Musculoskeletal: Positive: Strength/ROM Intact - lower extermities, Other - good pulses. Negative: Micheal Sign Left, Micheal Sign Right, Edema Left, Edema Right Diagnostics - Vital Signs Vital Signs Temp Pulse Resp BP Pulse Ox 04/21/17 09:18 98.8 F 87 10 184/91 97 - Laboratory Lab Results: Lab Results 04/21/17 04/21/17 04/21/17 Range/Units 09:31 09:31 09:31 WBC 2.8 L (3.5-10.8) 10^3/ul RBC 3.41 L (4.0-5.4) 10^6/ul Hgb 12.6 L (14.0-18.0) g/dl Hct 37 L (42-52) % MCV 109 H (80-94) fL MCH 37 H (27-31) pg MCHC 34 (31-36) g/dl RDW 14 (10.5-15) % Plt Count 75 L (150-450) 10^3/ul MPV 9 (7.4-10.4) um3 Neut % (Auto) 48.6 (38-83) % Lymph % (Auto) 39.0 (25-47) % Hood % (Auto) 11.8 H (1-9) % Eos % (Auto) 0.2 (0-6) % Baso % (Auto) 0.4 (0-2) % Absolute Neuts (auto) 1.3 L (1.5-7.7) 10^3/ul Absolute Lymphs (auto) 1.1 (1.0-4.8) 10^3/ul Absolute Monos (auto) 0.3 (0-0.8) 10^3/ul Absolute Eos (auto) 0 (0-0.6) 10^3/ul Absolute Basos (auto) 0 (0-0.2) 10^3/ul Absolute Nucleated RBC 0.01 10^3/ul Nucleated RBC % 0.2 INR (Anticoag Therapy) 1.03 (0.89-1.11) Sodium 137 (133-145) mmol/L Potassium 2.8 L (3.5-5.0) mmol/L Chloride 100 L (101-111) mmol/L Carbon Dioxide 24 (22-32) mmol/L Anion Gap 13 H (2-11) mmol/L BUN 7 (6-24) mg/dL Creatinine 0.78 (0.67-1.17) mg/dL Est GFR ( Amer) 129.7 (>60) Est GFR (Non-Af Amer) 100.9 (>60) BUN/Creatinine Ratio 9.0 (8-20) Glucose 99 (70-100) mg/dL Calcium 9.1 (8.6-10.3) mg/dL Magnesium 1.1 L (1.9-2.7) mg/dL Total Bilirubin 1.40 H (0.2-1.0) mg/dL AST 293 H (13-39) U/L ALT 154 H (7-52) U/L Alkaline Phosphatase 61 (34-104) U/L Total Creatine Kinase 158 (10-223) U/L CK-MB (CK-2) 2.3 (0.6-6.3) ng/mL Troponin I 0.02 (<0.04) ng/mL Total Protein 7.9 (6.4-8.9) g/dL Albumin 3.8 (3.2-5.2) g/dL Globulin 4.1 H (2-4) g/dL Albumin/Globulin Ratio 0.9 L (1-3) Result Diagrams: 04/21/17 09:31 04/21/17 09:31 Lab Statement: Any lab studies that have been ordered have been reviewed, and results considered in the medical decision making process. - CT brain CT Interpretation: No Acute Changes CT Interpretation Completed By: Radiologist maxillaryfacial CT Interpretation: No Acute Changes - IMPRESSION: LEFT-SIDED PREORBITAL SOFT TISSUE SWELLING. NO FACIAL FRACTURE CT Interpretation Completed By: Radiologist - EKG No standard instances Cardiac Rate: NL EKG Rhythm: Sinus Rhythm ST Segment: Non-Specific - depression in V4-V6 Ectopy: None EKG Comparison: Other - new ST depression in V5-V6 Re-Evaluation - Re-Evaluation First Eval Re-Evaluation Time: 11:30 Change: Improved Comment: feeling better after nitro Chest Pain Course/Dx - Course Course Of Treatment: 61M presents with syncopal episode and chest pain since last night. He states he has history of chest pain and lower extremity pain. He states last night he took some cocaine and passed out and then he work up with worsening chest pain. He also complains of left side facial pain and headache. He admits to urry vision in his left eye where there is swelling. He admits to SOB. He denies any palpitations. He states the chest pain is worst when presses on his chest. He is a smoker. He states his leg pain remains unchanged in past 6 months. He states it it achy in nature. He denies any swelling. ekg shows new depression in v4-v6. gave ASA, nitro and ativan and patient feels better. reproducible chest pain on exam. discussed with dr steel who will admit due to syncope and chest pain. patient understands and agrees with plan. - Chest Pain Differential Diagnosis/HQI/PQRI: Acute TN, Chest Wall, Lower Respiratory Infection, Other: - syncope - Diagnoses Provider Diagnoses: Syncope, Chest pain, Facial contusion - Provider Notifications Discussed Care Of Patient With: dr steel Time Discussed With Above Provider: 11:20 - will see in ED Discharge - Discharge Plan Condition: Stable Disposition: ADMITTED TO HEALTH SYSTEM
--- NOTE | 2017-04-21 10:22 | RAD ---
HISTORY: Head injury COMPARISONS: February 07, 2017 TECHNIQUE: Multiple contiguous axial CT scans were obtained of the head without intravenous contrast. FINDINGS: HEMORRHAGE/INFARCT: There is no hemorrhage or acute infarct. MASSES/SHIFT: There is no mass or shift. EXTRA-AXIAL SPACES: There are no extra-axial fluid collections. SULCI AND VENTRICLES: There is mild diffuse and proportional enlargement of the sulci and ventricles. CEREBRUM: There is a chronic lacunar infarct of the left basal ganglia, stable BRAINSTEM: There are no focal parenchymal abnormalities. CEREBELLUM: There are no focal parenchymal abnormalities. VESSELS: The vessels are grossly normal. PARANASAL SINUSES: The paranasal sinuses are clear. ORBITS: The orbits are unremarkable. BONES AND SOFT TISSUE: There is left preorbital soft tissue swelling OTHER: None IMPRESSION: NO ACUTE INTRACRANIAL PATHOLOGY.
--- NOTE | 2017-04-21 10:25 | RAD ---
HISTORY: Head injury, left facial trauma COMPARISONS: October 23, 2014 TECHNIQUE: Multiple contiguous axial CT scans were obtained of the face without intravenous contrast, with coronal and sagittal multiplanar reformations. FINDINGS: BONES: There is no displaced fracture or dislocation. The orbital rim is intact. The zygomatic arch is intact. The pterygoid plates are intact. ORBITS: There is extensive preorbital soft tissue swelling on the left The globes are round. The optic nerves are symmetric. The extraocular musculature is normal. There is no post septal or intraconal inflammatory change. There is no retrobulbar hematoma. PARANASAL SINUSES: The paranasal sinuses are clear. BRAIN AND SOFT TISSUE: Unremarkable. OTHER: None. IMPRESSION: LEFT-SIDED PREORBITAL SOFT TISSUE SWELLING. NO FACIAL FRACTURE
[2017-04-21] MEDS ORDERED: Magnesium Chloride EC TAB* 64 MG PO ONE (10:50)
[2017-04-21] MEDS ORDERED: Potassium Chlor TAB* 20 MEQ TAB.ER PO ONE (10:50)
[2017-04-21] MEDS ORDERED: NS 0.9% 1000 ML* 2,000 ML IV ONE (11:19)
[2017-04-21] MEDS ORDERED: Magnesium Sulf 4 GM/100 ML IV* 4,000 MG/100 ML BAG IVPB ONE (11:37)
[2017-04-21 11:44] LABS: Urine Bilirubin Negative (Negative); Urine Glucose Negative (Negative); Urine Nitrite Negative (Negative)
[2017-04-21 12:00] LABS: Benzodiazepine Urine Screen None Detected (None Detect)
[2017-04-21] MEDS ORDERED: NS 0.9% w/ 40 Meq KCL 1000 ML* 1,000 ML IV SCH (12:00)
[2017-04-21] MEDS: amLODIPine TAB* 5 MG PO SCH (12:41)
[2017-04-21] MEDS ORDERED: LORazepam TAB(*) 1 MG PO SCH (13:00)
[2017-04-21] MEDS: Acetaminophen TAB* 325 MG PO PRN (14:10)
--- NOTE | 2017-04-21 15:25 | HP ---
CC: Dr. Oliveira * [facility] MEDICINE HISTORY AND PHYSICAL: DATE OF ADMISSION: 04/21/17. PRIMARY CARE PHYSICIAN: Dr. Oliveira. ATTENDING PHYSICIAN: Noble Gar MD * (dictation provided by Sneha Jaquez NP ). CHIEF COMPLAINT: Fall with pain about his left eye and left chest wall. HISTORY OF PRESENT ILLNESS: Mr. Mccarthy is a 61-year-old male with a past medical history of alcoholism, chronic drug use, hepatitis C and hypertension as well as duodenal ulcer with GI bleed, who presents to the hospital today with concern for fall and subsequent left eye and left chest wall pain. Mr. Mccarthy states that he continues to drink vodka and beer on a daily basis. He is a continued half a pack a day smoker. He continues to abuse cocaine occasionally. He used cocaine last evening and at some point "passed out" and fell onto his left side. He has no clear recollection of the events. In the morning he woke up and had significant pain and swelling about his left eye and also pain in his left chest and therefore came in for evaluation. He denies any recent concern including no recent shortness of breath, nausea, vomiting, abdominal pain, or diarrhea. He has had no dysuria and no fever. In the emergency room, Mr. Mccarthy had a first troponin, which was 0.02. He is evidencing signs of chronic alcoholism with thrombocytopenia and mild elevation in his LFTs as well as hypomagnesemia and hypokalemia, all of which are consistent with previous. His vitals are stable. He is in no acute distress. He continues to report left-sided chest pain, which is reproducible on palpation. PAST MEDICAL HISTORY: 1. Hepatitis C. 2. Chronic alcoholism. 3. Chronic tobacco use. 4. Chronic drug use. 5. Duodenal ulcer with GI bleed, requiring 5 units of packed red blood cells in 2015. 6. Hypertension. MEDICATIONS: The patient states he has not had his medication for at least a week. He takes, 1. Folic acid 1 mg p.o. daily. 2. Multivitamin with mineral 1 tab p.o. daily. 3. Magnesium oxide 400 mg p.o. daily. 4. Potassium chloride 20 mEq p.o. daily. He confirms that he has been on blood pressure medications in the past, but has no current prescription for that. ALLERGIES: No known drug allergies. FAMILY HISTORY: Unknown. The patient states both of his parents have . SOCIAL HISTORY: The patient is a continued half a pack a day smoker. He is a continued daily drinker, drinking both vodka and beer. He continues to use cocaine intermittently including last night. He lives alone. He is unable to provide a healthcare proxy. REVIEW OF SYSTEMS: A 14-point review of systems was completed with Mr. Mccarthy and all those not mentioned above were negative. PHYSICAL EXAMINATION GENERAL: Mr. Mccarthy is lying in the bed, in no acute distress. VITAL SIGNS: Temperature 98.8, heart rate 87, respiratory rate 10, O2 saturation 97% on room air, blood pressure 184/91. LUNGS: Clear to auscultation bilaterally with no accessory muscle use and good aeration. HEART: S1, S2. No murmur, rub, or gallop and regular. ABDOMEN: Soft, nontender with bowel sounds positive x4. EXTREMITIES: No cyanosis or edema. NEURO: He is alert. He is oriented x3. He moves all extremities equally. There is facial asymmetry related to trauma about the left orbit with swelling. Pupils equal and reactive. Denies any diplopia. SKIN: Intact. DIAGNOSTIC STUDIES/LAB DATA: Cocaine screen is positive. WBC 2.8, hemoglobin 12.6, hematocrit 37, platelet count 75. INR 1.03. Sodium 137, potassium 2.8, chloride 100, serum bicarbonate 24, BUN 7, creatinine 0.78, glucose was 99, lactic acid 2.9, magnesium 1.1. T-bili 1.4, AST 293, ALT 154. Urine shows no evidence of infection. Chest x-ray shows stigmata of obstructive lung disease. No acute pulmonary or cardiac process evident. CT brain showed no acute intracranial pathology. Maxillofacial CT shows left- sided periorbital soft tissue swelling and no facial fracture. The EKG shows sinus rhythm and no evidence of ischemia and heart rate of about 75. ASSESSMENT AND PLAN: Mr. Mccarthy is a 61-year-old male with a past medical history of chronic alcoholism, chronic drug use, tobacco abuse, hypertension and a bleeding duodenal ulcer, who presents today to the hospital with concern for left eye pain and left-sided chest pain. Our plans are for observation in the hospital for the followin. Left-sided chest pain. The patient's pain is reproducible on examination and he also appears to have fallen towards that left side as evidenced by his left eye swelling. I suspect this is a musculoskeletal injury. However, he is having persistent pain and would like to at least cycle troponins. In the setting of his cocaine use, he could be having significant demand ischemia. I have discussed with him that if he were have to have elevated troponins that intervention with cardiac catheterization and stent placement would likely not be indicated as he would not be a good candidate for antiplatelet therapy. Regardless plan for now to repeat troponins, monitor on telemetry and repeat EKG in the a.m. 2. Left eye edema: The patient has significant soft tissue injury there; however, fortunately he has no fracture. Plan for acetaminophen p.r.n. 3. Alcoholism: Plan to monitor patient for signs of withdrawal with [facility] protocol. He will have Ativan as needed. He will also have multivitamin, folate , and thiamine replacement. Patient reports no current interest in alcohol/ drug counseling or rehabilitation progrsm. 4. Electrolyte abnormalities: Plan to continue potassium and magnesium supplementation intravenously. The patient will have a basic metabolic panel in the a.m. 5. Elevated LFTs. I suspect this is secondary to alcoholic hepatitis. The patient also has hepatitis C. Plan to recheck labs in the a.m. 6. Thrombocytopenia. I suspect this is secondary to chronic alcoholism. Plan to recheck labs in the morning. He has no evidence of bleeding. 7. DVT prophylaxis with SCDs. 8. Code status is full code. TIME SPENT: Approximately 60 minutes was spent on the admission of this patient , more than half that time spent with the patient at the bedside reviewing the events leading up to this hospitalization, performing the physical examination, and reviewing the plan of care. SNEHA JAQUEZ, MATT [id number]/CPS #: [id number] BILL
[2017-04-22] MEDS: Acetaminophen TAB* 325 MG PO PRN ×2 (02:06→08:46)
[2017-04-22 05:19] LABS: Hematocrit 37 % (42-52); Hemoglobin 12.6 g/dl (14.0-18.0); Mean Corpuscular HGB Conc 34 g/dl (31-36); Mean Corpuscular Hemoglobin 37 pg (27-31); Mean Platelet Volume 9 um3 (7.4-10.4); Red Blood Count 3.41 10^6/ul (4.0-5.4); Red Cell Distribution Width 13 % (10.5-15)
[2017-04-22 05:22] LABS: Comments Flag Yes; Mean Corpuscular Volume 109 fL (80-94); White Blood Count 2.5 10^3/ul (3.5-10.8)
[2017-04-22 05:34] LABS: Albumin 3.7 g/dL (3.2-5.2); Calcium 8.7 mg/dL (8.6-10.3); EGFR African American 154.6 (>60); EGFR Non-African American 120.2 (>60); Globulin 3.8 g/dL (2-4); Potassium 3.3 mmol/L (3.5-5.0); Total Bilirubin 1.7 mg/dL (0.2-1.0); Total Protein 7.5 g/dL (6.4-8.9)
[2017-04-22] MEDS: amLODIPine TAB* 5 MG PO SCH (08:48)
[2017-04-22] MEDS ORDERED: Multivitamins/Minerals TAB PO SCH (09:00)
[2017-04-22] MEDS ORDERED: Folic Acid TAB* 1 MG PO SCH (09:00)
[2017-04-22] MEDS ORDERED: Potassium Chlor TAB* 20 MEQ TAB.ER PO SCH (09:00)
[2017-04-22] MEDS ORDERED: Thiamine TAB* 100 MG TAB PO SCH (09:00)
[2017-04-22] MEDS ORDERED: Magnesium Oxide TAB* 400 MG PO SCH (09:00)
[2017-04-22 10:17] VITALS: BP 139/83
--- NOTE | 2017-04-22 13:49 | DCNOTE ---
Patient seen this morning and again in the afternoon. Reports continued reproducible chest pain. Reported fatigue but eventually agreed to ambulate around the unit which he did well. Had some associated tachycardia which he has had in the past. On exam, RRR, s1 and s2 present, no m/g/r, swelling and bruising around L eye from fall, lungs CTA B/L, no w/r/r Troponins negative, chest pain likely from fall. Patient has no interest in stopping EtOH or drug use. Will discharge home with PCP follow-up in place. Will discharge on low dose metoprolol which he was sent on in the past but is no longer taking.
--- NOTE | 2017-04-23 04:50 | DS ---
CC: Dr. Oliveira DISCHARGE SUMMARY: DATE OF ADMISSION: 04/21/17 DATE OF DISCHARGE: 04/22/17 PRINCIPAL DISCHARGE DIAGNOSES: 1. Mechanical fall. 2. Reproducible chest pain. 3. Alcoholic hepatitis. 4. Cocaine abuse. 5. Hypertension. 6. Sinus tachycardia. STUDIES DONE DURING HOSPITALIZATION: 1. Chest x-ray: Impression: Stigmata of obstructive lung disease. No acute pulmonary or cardiac process is evident. 2. CT of the brain: Impression: No acute intracranial pathology. 3. CT of maxillofacial: Impression: Left-sided periorbital soft tissue swelling. No facial fractu re. DISCHARGE MEDICATION REGIMEN: 1. Toprol-XL 25 mg by mouth daily. 2. Folate 1 mg by mouth daily. 3. Magnesium oxide 400 mg by mouth daily. 4. Multivitamin 1 tablet by mouth daily. 5. Potassium chloride 20 mEq by mouth daily. HISTORY OF PRESENT ILLNESS AND HOSPITAL SUMMARY: Please see the full history and physical by Dr. Kelle Jaquez TRAVEL REGISTERED NURSE NICU for full details. Briefly, Mr. Mccarthy is a 61-year- old male with a past medical histo ry of alcohol abuse, chronic drug use, hepatitis C, hypertension and history of GI bleed, who presen louann to the hospital after a fall. 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 The patient de nies any loss of consciousness. In the emergency room, he was complaining of chest pain; however, t his was reproducible. His troponins were trended, which remained negative. He was monitored on tel emetry. The patient did have some episodes of tachycardia with ambulation, which he has been known to have in the past. He had been prescribed metoprolol in the past before; however, he is not curre ntly on this. This will be restarted on discharge. The patient was very hesitant to leave the hospital, although it was not felt that there was any add itional treatment or workup for the patient here. He insists that he needed to stay because his eye was swollen, but I indicated to him this could be treated along with ice. The patient will be disc harged home with metoprolol and a close followup was scheduled with Dr. Oliveira early next week. The patient will be discharged home as he has no further need for hospitalization. He shows no evid ence of any alcohol withdrawal while here. Follow up with his PCP as an outpatient. TIME SPENT: Total time spent on this discharge 45 minutes. This is a summary of the hospitalization. Please see the full medical record for further details. [id number]/[facility] #: [id number]
== END 2017-04-22 16:26 | disposition home or self-care (01) ==
LOC: ED 09:09 → MEDTELE 12:09
PROVIDERS: ADMIT Internal Medicine; ATTEND Hospitalist
DX: R07.9 Chest pain, unspecified (principal); R94.31 Abnormal electrocardiogram [ECG] [EKG]; R00.0 Tachycardia, unspecified; K70.10 Alcoholic hepatitis without ascites; F14.10 Cocaine abuse, uncomplicated; G50.1 Atypical facial pain; R51 Headache; F17.210 Nicotine dependence, cigarettes, uncomplicated; R06.02 Shortness of breath; S00.10XA Contusion of unspecified eyelid and periocular area, initial encounter; W19.XXXA Unspecified fall, initial encounter; Y92.9 Unspecified place or not applicable; F10.20 Alcohol dependence, uncomplicated
CPT/HCPCS: 36415; 70450; 70486; 71010; 80053; 80307; 81003; 82550; 82553; 83605; 83735; 84484; 85025; 85610; 93005; 96361; 96365; 96366; 96375; 99283; A9270-GY; G0378; J2060; J3475

== ENCOUNTER → 2017-04-24 03:59 | Emergency (ER) | payer OTHER ==
[2017-04-24 04:04] VITALS: BP 113/74
--- NOTE | 2017-04-24 04:15 | ED ---
IMiguel,Ashley, scribed for Donnell Gustafson MD on 04/24/17 at 0415 . Throat Pain/Nasal Congestion - HPI Summary HPI Summary: This 61 y/o male presents to ED for persistent left eye swelling since 2 days ago. Pt states that he was sleeping on garbage when he fell onto his left side. He was seen at [facility] for chest wall pain and left eye pain 2 days ago, and was discharged with instruction to ice the swelling. - History of Current Complaint Chief Complaint: EDEyeProblem Time Seen by Provider: 04/24/17 04:09 - Allergies/Home Medications Allergies/Adverse Reactions: Allergies Allergy/AdvReac Type Severity Reaction Status Date / Time No Known Allergies Allergy Verified 04/24/17 04:00 PMH/Surg Hx/FS Hx/Imm Hx Endocrine/Hematology History: Denies: Hx Anticoagulant Therapy, Hx Blood Disorders, Hx Blood Transfusions, Hx Bone Marrow Disease, Hx Diabetes, Hx Systemic Lupus Erythematosus, Hx Sickle Cell Disease, Hx Thyroid Disease, Hx Unexplained Bleeding, Other Endocrine/ Hematological Disorders Cardiovascular History: Reports: Hx Hypertension Denies: Hx Pacemaker/ICD Respiratory History: Reports: Hx Asthma GI History: Reports: Other GI Disorders - Hepatitis C, alcohol abuse Denies: Hx Cirrhosis, Hx Crohn's Disease, Hx Diverticulosis, Hx Gall Bladder Disease, Hx Gastroesophageal Reflux Disease, Hx Gastrointestinal Bleed, Hx Hiatal Hernia, Hx Irritable Bowel, Hx Jaundice, Hx Obstructive Bowel, Hx Ileostomy, Hx Pyloric Stenosis, Hx Ulcer History: Denies: Hx Acute Renal Failure, Hx Benign Prostatic Hyperplasia, Hx Chronic Renal Failure, Hx Dialysis, Hx Kidney Infection, Hx Kidney Stones, Other Problems/Disorders Musculoskeletal History: Denies: Hx Arthritis, Hx Back Problems, Hx Bursitis, Hx Congenital Bone Abnormalities, Hx Fibromyalgia, Hx Gout, Hx Orthopedic Injury, Hx Osteoporosis, Hx Scoliosis, Hx Tendonitis, Other Musculoskeletal History Sensory History: Reports: Hx Contacts or Glasses Denies: Hx Hearing Aid Opthamlomology History: Reports: Hx Contacts or Glasses Neurological History: Reports: Other Neuro Impairments/Disorders - neuropathy Psychiatric History: Reports: Hx Substance Abuse Denies: Hx Attention Deficit Hyperactivity Disorder, Hx Eating Disorder, Hx Depression, Hx Panic Disorder, Hx Post Traumatic Stress Disorder, Hx Inpatient Treatment, Hx Community Mental Health Tx, Hx Schizophrenia, Hx Bipolar Disorder , Hx Suicide Attempt, Hx of Violent Episodes Against Others, Other Psychiatric Issues/Disorders - Surgical History Surgery Procedure, Year, and Place: right ankle-2000 Hx Anesthesia Reactions: No Infectious Disease History: No Infectious Disease History: Reports: Hx Hepatitis Denies: Hx Clostridium Difficile, Hx Human Immunodeficiency Virus (HIV), Hx of Known/Suspected MRSA, Hx Shingles, Hx Tuberculosis, Hx Known/Suspected VRE, Hx Known/Suspected VRSA, History Other Infectious Disease, Traveled Outside the [place] in Last 30 Days - Family History Known Family History: Negative: Cardiac Disease - Social History Alcohol Use: Daily Alcohol Amount: 6 pack and 1/2 pint of vodka. Last drink last night Hx Substance Use: No Substance Use Type: Reports: None Hx Tobacco Use: Yes Smoking Status (MU): Heavy Every Day Tobacco Smoker Type: Cigarettes Have You Smoked in the Last Year: Yes Review of Systems All Other Systems Reviewed And Are Negative: Yes Physical Exam Triage Information Reviewed: Yes Vital Signs On Initial Exam: Initial Vitals Temp Pulse Resp BP Pulse Ox 98 F 65 16 113/74 97 04/24/17 04:02 04/24/17 04:02 04/24/17 04:02 04/24/17 04:02 04/24/17 04:02 Vital Signs Reviewed: Yes Appearance: Positive: Well-Appearing, No Pain Distress Skin: Positive: Warm Head/Face: Positive: Other - MILD SWELLING, TENDERNESS LT SUPERIOR ORBIT Eyes: Positive: EOMI, TIMI ENT: Positive: Hearing grossly normal Neck: Positive: Supple Cardiovascular: Positive: RRR Abdomen Description: Positive: Soft Musculoskeletal: Positive: Strength/ROM Intact Neurological: Positive: Alert, Oriented to Person Place, Time Diagnostics - Vital Signs Vital Signs Temp Pulse Resp BP Pulse Ox 04/24/17 04:02 98 F 65 16 113/74 97 - Laboratory Lab Statement: Any lab studies that have been ordered have been reviewed, and results considered in the medical decision making process. EENT Course/Dx - Diagnoses Provider Diagnoses: Facial contusion Discharge - Discharge Plan Condition: Stable Disposition: HOME Patient Education Materials: Facial Contusion (ED) Referrals: Noble Gar MD [Primary Care Provider] - 2 Days The documentation as recorded by the Miguel ramirez Soohyun accurately reflects the service I personally performed and the decisions made by , Donnell Gustafson MD.
== END | disposition home or self-care (01) ==
LOC: ED 03:59
DX: S00.83XA Contusion of other part of head, initial encounter (principal); W19.XXXA Unspecified fall, initial encounter; Y93.9 Activity, unspecified; Y92.9 Unspecified place or not applicable; F17.210 Nicotine dependence, cigarettes, uncomplicated
CPT/HCPCS: 99281

== ENCOUNTER → 2017-04-28 00:34 | Emergency (ER) | payer OTHER ==
[2017-04-28 00:51] VITALS: BP 128/79
--- NOTE | 2017-04-28 01:16 | ED ---
Head Injury - HPI Summary HPI Summary: 61M presents with "bug bite" on left side of face two weeks ago. He states that he has been picking at it and occasionally it has been bleeding. He denies any change in vision, blurry vision, or double vision. He denies any fall. I saw patient 6 days ago and he had a syncopal episode and landed on his face. He had no abrasion at that time. The swelling has improved since that time. He had negative facial CT and denies falling since. He denies any headache. He has been drinking tonight. He denies any head injury. He has been placing ice on area. - History Of Current Complaint Chief Complaint: EDFacialInjury Stated Complaint: FACIAL INJURY Time Seen by Provider: 04/28/17 00:40 Pain Intensity: 0 - Allergies/Home Medications Allergies/Adverse Reactions: Allergies Allergy/AdvReac Type Severity Reaction Status Date / Time No Known Allergies Allergy Verified 04/24/17 04:00 PMH/Surg Hx/FS Hx/Imm Hx Endocrine/Hematology History: Denies: Hx Anticoagulant Therapy, Hx Blood Disorders, Hx Blood Transfusions, Hx Bone Marrow Disease, Hx Diabetes, Hx Systemic Lupus Erythematosus, Hx Sickle Cell Disease, Hx Thyroid Disease, Hx Unexplained Bleeding, Other Endocrine/ Hematological Disorders Cardiovascular History: Reports: Hx Hypertension Denies: Hx Pacemaker/ICD Respiratory History: Reports: Hx Asthma GI History: Reports: Other GI Disorders - Hepatitis C, alcohol abuse Denies: Hx Cirrhosis, Hx Crohn's Disease, Hx Diverticulosis, Hx Gall Bladder Disease, Hx Gastroesophageal Reflux Disease, Hx Gastrointestinal Bleed, Hx Hiatal Hernia, Hx Irritable Bowel, Hx Jaundice, Hx Obstructive Bowel, Hx Ileostomy, Hx Pyloric Stenosis, Hx Ulcer History: Denies: Hx Acute Renal Failure, Hx Benign Prostatic Hyperplasia, Hx Chronic Renal Failure, Hx Dialysis, Hx Kidney Infection, Hx Kidney Stones, Other Problems/Disorders Musculoskeletal History: Denies: Hx Arthritis, Hx Back Problems, Hx Bursitis, Hx Congenital Bone Abnormalities, Hx Fibromyalgia, Hx Gout, Hx Orthopedic Injury, Hx Osteoporosis, Hx Scoliosis, Hx Tendonitis, Other Musculoskeletal History Sensory History: Reports: Hx Contacts or Glasses Denies: Hx Hearing Aid Opthamlomology History: Reports: Hx Contacts or Glasses Neurological History: Reports: Other Neuro Impairments/Disorders - neuropathy Psychiatric History: Reports: Hx Substance Abuse Denies: Hx Attention Deficit Hyperactivity Disorder, Hx Eating Disorder, Hx Depression, Hx Panic Disorder, Hx Post Traumatic Stress Disorder, Hx Inpatient Treatment, Hx Community Mental Health Tx, Hx Schizophrenia, Hx Bipolar Disorder , Hx Suicide Attempt, Hx of Violent Episodes Against Others, Other Psychiatric Issues/Disorders - Surgical History Surgery Procedure, Year, and Place: right ankle-2000 Hx Anesthesia Reactions: No Infectious Disease History: No Infectious Disease History: Reports: Hx Hepatitis Denies: Hx Clostridium Difficile, Hx Human Immunodeficiency Virus (HIV), Hx of Known/Suspected MRSA, Hx Shingles, Hx Tuberculosis, Hx Known/Suspected VRE, Hx Known/Suspected VRSA, History Other Infectious Disease, Traveled Outside the [place] in Last 30 Days - Family History Known Family History: Negative: Cardiac Disease - Social History Alcohol Use: Daily Alcohol Amount: 6 pack and 1/2 pint of vodka. Last drink last night Hx Substance Use: No Substance Use Type: Reports: None Hx Tobacco Use: Yes Smoking Status (MU): Heavy Every Day Tobacco Smoker Type: Cigarettes Have You Smoked in the Last Year: Yes Review of Systems Negative: Fever Negative: Chest Pain Negative: Shortness Of Breath Positive: Other - swelling around left eye All Other Systems Reviewed And Are Negative: Yes Physical Exam Triage Information Reviewed: Yes Vital Signs On Initial Exam: Initial Vitals Temp Pulse Resp BP Pulse Ox 97.6 F 72 16 128/79 97 04/28/17 00:46 04/28/17 00:46 04/28/17 00:46 04/28/17 00:46 04/28/17 00:46 Vital Signs Reviewed: Yes Appearance: Positive: Well-Appearing Skin: Positive: Warm, Dry Head/Face: Positive: Other - swelling around left eye with abrasion in middle of hematoma Eyes: Positive: Normal, EOMI, TIMI, Conjunctiva Clear ENT: Positive: Normal ENT inspection, Pharynx normal, TMs normal Respiratory/Lung Sounds: Positive: Clear to Auscultation, Breath Sounds Present Cardiovascular: Positive: Normal, RRR Neurological: Positive: Sensory/Motor Intact, Alert, Oriented to Person Place, Time, CN Intact II-III - [place] Coma Scale Best Eye Response: 4 - Spontaneous Best Motor Response: 6 - Obeys Commands Best Verbal Response: 5 - Oriented Coma Scale Total: 15 Diagnostics - Vital Signs Vital Signs Temp Pulse Resp BP Pulse Ox 04/28/17 00:46 97.6 F 72 16 128/79 97 - Laboratory Lab Statement: Any lab studies that have been ordered have been reviewed, and results considered in the medical decision making process. Head Injury Course/Dx Course Of Treatment: 61M presents with "bug bite" on left side of face two weeks ago. He states that he has been picking at it and occasionally it has been bleeding. He denies any change in vision, blurry vision, or double vision. He denies any fall. I saw patient 6 days ago and he had a syncopal episode and landed on his face. He had no abrasion at that time. The swelling has improved since that time. He had negative facial CT and denies falling since. He denies any headache. He has been drinking tonight. He denies any head injury. He has been placing ice on area. on exam facial swelling has improved. has new abrasion in center of hematoma. normal neuro exam. did not get a CT brain as no new injury. told to follow up with primary. patient understands and agrees with plan. - Diagnoses Differential Diagnosis/HQI/PQRI: Contusion, Orbital Fracture, Other - abscess Provider Diagnoses: Contusion of face Discharge - Discharge Plan Condition: Good Disposition: HOME Patient Education Materials: Black Eye (ED) Referrals: Noble Gar MD [Primary Care Provider] - [facility] [place] PHYSICIAN REFERRAL [Outside] Additional Instructions: You need to establish care with a primary to follow up with Stop picking at swelling as will become infected apply ice Can take up to a month for swelling to go away Return to ED if develop fever or any new or worsening symptoms
== END | disposition home or self-care (01) ==
LOC: ED 00:34
DX: S00.12XA Contusion of left eyelid and periocular area, initial encounter (principal); X58.XXXA Exposure to other specified factors, initial encounter; Y93.9 Activity, unspecified; Y92.9 Unspecified place or not applicable; F17.210 Nicotine dependence, cigarettes, uncomplicated
CPT/HCPCS: 99281

== ENCOUNTER 2017-05-09 21:08 | Emergency (ER) | payer OTHER ==
--- NOTE | 2017-05-09 23:15 | ED ---
Head Injury - HPI Summary HPI Summary: Pt here w/ Lt eye wound. Pt reports this is from a bug bite a few weeks ago - not sure if it's healing well? Has bruising around eye as well. Reports his fell after the bug bite - possibly struck face here? Chart reveals h/o ETOH - possibly poor historian. Denies FOWLER, visual change, neck pain, trouble breathing or swallowing, otlagia, ST, rhinorrhea, N/V/D, ab pain, chest pain tonight. Has chronic LE's pain - no change today. - History Of Current Complaint Chief Complaint: EDExtremityLower Stated Complaint: PAIN Time Seen by Provider: 05/09/17 22:58 Hx Obtained From: Patient Pain Intensity: 3 - Allergies/Home Medications Allergies/Adverse Reactions: Allergies Allergy/AdvReac Type Severity Reaction Status Date / Time No Known Allergies Allergy Verified 05/09/17 21:14 PMH/Surg Hx/FS Hx/Imm Hx Previously Healthy: Yes Endocrine/Hematology History: Denies: Hx Anticoagulant Therapy, Hx Blood Disorders, Hx Blood Transfusions, Hx Bone Marrow Disease, Hx Diabetes, Hx Systemic Lupus Erythematosus, Hx Sickle Cell Disease, Hx Thyroid Disease, Hx Unexplained Bleeding, Other Endocrine/ Hematological Disorders Cardiovascular History: Reports: Hx Hypertension Denies: Hx Pacemaker/ICD Respiratory History: Reports: Hx Asthma GI History: Reports: Other GI Disorders - Hepatitis C, alcohol abuse Denies: Hx Cirrhosis, Hx Crohn's Disease, Hx Diverticulosis, Hx Gall Bladder Disease, Hx Gastroesophageal Reflux Disease, Hx Gastrointestinal Bleed, Hx Hiatal Hernia, Hx Irritable Bowel, Hx Jaundice, Hx Obstructive Bowel, Hx Ileostomy, Hx Pyloric Stenosis, Hx Ulcer History: Denies: Hx Acute Renal Failure, Hx Benign Prostatic Hyperplasia, Hx Chronic Renal Failure, Hx Dialysis, Hx Kidney Infection, Hx Kidney Stones, Other Problems/Disorders Musculoskeletal History: Denies: Hx Arthritis, Hx Back Problems, Hx Bursitis, Hx Congenital Bone Abnormalities, Hx Fibromyalgia, Hx Gout, Hx Orthopedic Injury, Hx Osteoporosis, Hx Scoliosis, Hx Tendonitis, Other Musculoskeletal History Sensory History: Reports: Hx Contacts or Glasses Denies: Hx Hearing Aid Opthamlomology History: Reports: Hx Contacts or Glasses Neurological History: Reports: Other Neuro Impairments/Disorders - neuropathy Psychiatric History: Reports: Hx Substance Abuse Denies: Hx Attention Deficit Hyperactivity Disorder, Hx Eating Disorder, Hx Depression, Hx Panic Disorder, Hx Post Traumatic Stress Disorder, Hx Inpatient Treatment, Hx Community Mental Health Tx, Hx Schizophrenia, Hx Bipolar Disorder , Hx Suicide Attempt, Hx of Violent Episodes Against Others, Other Psychiatric Issues/Disorders - Surgical History Surgery Procedure, Year, and Place: right ankle-2000 Hx Anesthesia Reactions: No Infectious Disease History: No Infectious Disease History: Reports: Hx Hepatitis - C Denies: Hx Clostridium Difficile, Hx Human Immunodeficiency Virus (HIV), Hx of Known/Suspected MRSA, Hx Shingles, Hx Tuberculosis, Hx Known/Suspected VRE, Hx Known/Suspected VRSA, History Other Infectious Disease, Traveled Outside the [place] in Last 30 Days - Family History Known Family History: Negative: Cardiac Disease - Social History Alcohol Use: Daily Alcohol Amount: 6 pack and 1/2 pint of vodka Hx Substance Use: No Substance Use Type: Reports: None Hx Tobacco Use: Yes Smoking Status (MU): Heavy Every Day Tobacco Smoker Type: Cigarettes Have You Smoked in the Last Year: Yes Review of Systems Constitutional: Negative Negative: Fever, Chills, Fatigue Eyes: Negative Negative: Photophobia, Blurred Vision, Diplopia ENT: Negative Negative: Dental Pain, Sore Throat, Ear Ache Cardiovascular: Negative Negative: Chest Pain Respiratory: Negative Negative: Shortness Of Breath Gastrointestinal: Negative Positive: no symptoms reported Musculoskeletal: Other - see HPI Skin: Other - see HPI Neurological: Negative Psychological: Normal All Other Systems Reviewed And Are Negative: Yes Physical Exam Triage Information Reviewed: Yes Vital Signs On Initial Exam: Initial Vitals Temp Pulse Resp BP Pulse Ox 97.6 F 70 16 113/75 96 05/09/17 21:05/09/17 21:05/09/17 21:05/09/17 21:05/09/17 21:16 Vital Signs Reviewed: Yes Appearance: Positive: Well-Appearing - unkempt, No Pain Distress, Thin Skin: Positive: Warm - area of focal firm edema w/ central ulcer over Lt supraorabital ridge -no active drainage - appears scabbed within; ecchymosis about this area and infraorbital region as well. Head/Face: Positive: Other - see above Eyes: Positive: Normal, EOMI, TIMI, Conjunctiva Clear ENT: Positive: Normal ENT inspection, Hearing grossly normal, Pharynx normal, TMs normal - no hemotympanum Dental: Negative: Dental Fracture @ Neck: Positive: Supple, Nontender, No Lymphadenopathy Respiratory/Lung Sounds: Positive: Breath Sounds Present Cardiovascular: Positive: Normal Musculoskeletal: Positive: Normal, Strength/ROM Intact Neurological: Positive: Normal, Sensory/Motor Intact, Alert, Oriented to Person Place, Time, CN Intact II-III Psychiatric: Positive: Normal Diagnostics - Vital Signs Vital Signs Temp Pulse Resp BP Pulse Ox 05/09/17 21:16 97.6 F 70 16 113/75 96 - Laboratory Lab Statement: Any lab studies that have been ordered have been reviewed, and results considered in the medical decision making process. Head Injury Course/Dx Course Of Treatment: Pt presents w/ wound over Lt eye. Reports he's had this for weeks and suspects a bug bit him. He also reports a fall. Wound appears to be an old perorbital hematoma w/ scar tissue and overlying ulceration. Does not appear infected and no abscess per PE and CT scan. Also negative for facial fracture or cerebral hemorrhage. Pt was d/c'd w/ instructions to f/u w/ PCP and danger s/sx of when to return to ED provided. - Diagnoses Provider Diagnoses: Chronic wound of head Discharge - Discharge Plan Condition: Stable Disposition: HOME Patient Education Materials: Chronic Wound Care (ED) Referrals: Noble Gar MD [Primary Care Provider] - Additional Instructions: You appear to have a chronic wound over your Lt eye. You may wash daily with soap and water. Follow-up with PCP if wound persists *If you develop fever, chills, nausea, vomiting, eye pain, vision change, headache, return to ED
[2017-05-10 01:01] VITALS: BP 138/71
--- NOTE | 2017-05-10 07:44 | RAD ---
HISTORY: Left orbital injury, intoxication COMPARISONS: April 21, 2017 TECHNIQUE: Multiple contiguous axial CT scans were obtained of the head without intravenous contrast. FINDINGS: HEMORRHAGE/INFARCT: There is no hemorrhage or acute infarct. MASSES/SHIFT: There is no mass or shift. EXTRA-AXIAL SPACES: There are no extra-axial fluid collections. SULCI AND VENTRICLES: There is diffuse and proportional enlargement of the sulci and ventricles. CEREBRUM: There is a chronic lacunar infarct of left basal ganglia. BRAINSTEM: There are no focal parenchymal abnormalities. CEREBELLUM: There are no focal parenchymal abnormalities. VESSELS: The vessels are grossly normal. PARANASAL SINUSES: The paranasal sinuses are clear. ORBITS: The orbits are unremarkable. BONES AND SOFT TISSUE: There is persistent but decreasing left preorbital soft tissue swelling. OTHER: None IMPRESSION: NO ACUTE INTRACRANIAL PATHOLOGY.
--- NOTE | 2017-05-10 07:47 | RAD ---
HISTORY: April 21, 2017 COMPARISONS: None TECHNIQUE: Multiple contiguous axial CT scans were obtained of the face without intravenous contrast, with coronal and sagittal multiplanar reformations. FINDINGS: BONES: There is no displaced fracture or dislocation. The orbital rim is intact. The zygomatic arch is intact. The pterygoid plates are intact. ORBITS: The globes are round. The optic nerves are symmetric. The extraocular musculature is normal. There is no post septal or intraconal inflammatory change. There is no retrobulbar hematoma. PARANASAL SINUSES: The paranasal sinuses are clear. BRAIN AND SOFT TISSUE: Again noted is probable soft tissue swelling on the left this is decreased compared to the previous examination OTHER: None. IMPRESSION: PERSISTENT, BUT DECREASING, LEFT PREORBITAL SOFT TISSUE SWELLING. NO FACIAL FRACTURE
== END 2017-05-10 01:02 | disposition home or self-care (01) ==
LOC: ED 21:08
DX: S00.262A Insect bite (nonvenomous) of left eyelid and periocular area, initial encounter (principal); W57.XXXA Bitten or stung by nonvenomous insect and other nonvenomous arthropods, initial encounter; Y93.89 Activity, other specified; Y92.89 Other specified places as the place of occurrence of the external cause; F17.210 Nicotine dependence, cigarettes, uncomplicated
CPT/HCPCS: 70450; 70486; 99281

== ENCOUNTER 2017-05-23 00:38 | Inpatient (IN) | payer OTHER ==
[2017-05-23] MEDS ORDERED: NS 0.9% 1000 ML* 1,000 ML IV ONE (01:13)
[2017-05-23 01:53] LABS: Hematocrit 37 % (42-52); Hemoglobin 12.5 g/dl (14.0-18.0); Mean Corpuscular HGB Conc 34 g/dl (31-36); Mean Corpuscular Hemoglobin 37 pg (27-31); Mean Platelet Volume 8 um3 (7.4-10.4); Red Blood Count 3.43 10^6/ul (4.0-5.4); Red Cell Distribution Width 13 % (10.5-15); White Blood Count 4.1 10^3/ul (3.5-10.8)
[2017-05-23 01:58] LABS: Comments Flag Yes
[2017-05-23 01:59] LABS: Mean Corpuscular Volume 107 fL (80-94)
[2017-05-23 02:03] LABS: ALT 121 U/L (7-52); AST 176 U/L (13-39); Albumin 4.3 g/dL (3.2-5.2); Alkaline Phosphatase 68 U/L (34-104); Anion Gap 13 mmol/L (2-11); BUN/Creatinine Ratio 8.1 (8-20); Blood Urea Nitrogen 7 mg/dL (6-24); C Reactive Protein < 1.00 mg/L (< 5.00); CO2 Carbon Dioxide 25 mmol/L (22-32); Calcium 9.5 mg/dL (8.6-10.3); Chloride 97 mmol/L (101-111); Creatine Kinase 129 U/L (10-223); EGFR African American 115.5 (>60); EGFR Non-African American 89.8 (>60); Globulin 4.4 g/dL (2-4); Glucose 101 mg/dL (70-100); Magnesium 1.1 mg/dL (1.9-2.7); Potassium 3.1 mmol/L (3.5-5.0); Sodium 135 mmol/L (133-145); Total Protein 8.7 g/dL (6.4-8.9); Urine Bilirubin Negative (Negative); Urine Glucose Negative (Negative); Urine Nitrite Negative (Negative)
[2017-05-23 02:04] LABS: Alcohol 30 mg/dL (<10); Benzodiazepine Urine Screen None Detected (None Detect)
[2017-05-23 02:05] LABS: Troponin I 0.01 ng/mL (<0.04)
[2017-05-23 02:11] LABS: Urine Bacteria Absent (Absent)
[2017-05-23] MEDS ORDERED: Ketorolac INJ* 30 MG/ML 1 ML VIAL IV PUSH ONE (02:12)
[2017-05-23 02:13] LABS: TSH (Thyroid Stimulating Horm) 2.88 mcIU/mL (0.34-5.60)
[2017-05-23] MEDS ORDERED: Potassium Chlor TAB* 20 MEQ TAB.ER PO ONE (02:51)
[2017-05-23] MEDS ORDERED: Magnesium Sulfate 2 GM IV* 2 GM/50 ML BAG IVPB ONE ×2 (02:52→03:00)
[2017-05-23] MEDS ORDERED: Melatonin (NF) 3 MG TAB PO PRN (03:05)
[2017-05-23] MEDS ORDERED: Albuterol 2.5 MG/3 ML NEB.SOL* (0.083%) INH PRN (03:05)
[2017-05-23] MEDS ORDERED: Ondansetron INJ* 2 MG/ML VIAL IV PRN (03:05)
[2017-05-23] MEDS: NS 0.9% 1000 ML* 1,000 ML IV SCH ×2 (03:24→04:49)
--- NOTE | 2017-05-23 04:08 | HP ---
H&P (Free Text) History and Physical: PCP: Augusta Oliveira MD Date/Time of Evaluation: 05/22/2017 0300 CC: generalized weakness HPI: Mr Mccarthy is a 62YO male admitted 04/21 - 04/22/2017 for chest pain who presents tonight for 2 months of progressive generalized weakness, worst in BLE which he states left him "almost unable to walk" tonight. He reports BLE cramping. He also reports some SOB and abdominal pain, but denies chest pain, F/ C, N/V/D, palpitations, change in speech, decreased PO intake, cough, congestion , or other issues. PMedHx hepatitis C HTN duodenal ulcer s/p hemorrhage 2014 alcoholism, active polysubstance abuse tobacco use disorder Ambulatory Orders Folic Acid TAB* [Folvite TAB*] 1 mg PO DAILY 10/04/16 Multiple Vitamins W/ Minerals [Multivitamin Men] 1 tab PO DAILY 10/04/16 Potassium Chlor TAB* [Potassium Chlor TAB 20 MEQ*] 20 meq PO DAILY 10/04/16 Magnesium Oxide TAB* [MagOx 400 TAB*] 400 mg PO DAILY #30 tab 03/10/17 Metoprolol Succinate XL TAB* [Toprol XL TAB*] 25 mg PO DAILY #30 tab.xl Allergies No Known Allergies Allergy (Verified 05/09/17 21:14) PSurgHx SocHx: 1/2PPD cigarettes, daily alcohol consumption which he cannot quantify, denies recreational drug use despite confrontation with positive cocaine screen ; lives alone; full code status FamHx: unknown to patient ROS: as above, otherwise reviewed and all were negative Constitutional: NAD, normally developed, thin black male vitals: Vital Signs Temp 36.8 C 05/23/17 00:42 Pulse 77 05/23/17 03:30 Resp 18 05/23/17 00:42 BP 172/80 05/23/17 03:30 Pulse Ox 97 05/23/17 03:30 Intake & Output 05/22/17 05/22/17 05/23/17 11:59 23:59 11:59 Intake Total 1000 Balance 1000 Weight 56.699 kg Intake: IV Fluids 1000 HEENM: atraumatic; sclera/conjunctiva: non-icteric/clear; hearing: clinically mildly decreased; oropharynx: clear, mucosa moist Neck: soft tissue: non-tender; thyroid: normal Pulmonary: clear to auscultation bilaterally, good aeration, no accessory muscle use CV: RR/RR, normal S1S2, no carotid bruit, no jugular venous distention, 2+ B DP/ PT, no edema Abdominal: soft, non-distended, non-tender, no rebound/guarding/rigidity, normoactive bowel sounds, no hepatosplenomegaly or masses, no costovertebral angle tenderness Musculoskeletal: general: grossly intact, no palpable tenderness Integumental: normal appearance and texture of exposed skin Psychiatric orientation: AA&O to PPS affect: calm mood: cooperative eye contact: fair content: unreliable responses: timely insight: poor Testing: Lab Results 05/23/17 05/23/17 05/23/17 Range/Units 01:35 01:35 01:35 WBC (3.5-10.8) 10^3/ul RBC (4.0-5.4) 10^6/ul Hgb (14.0-18.0) g/dl Hct (42-52) % MCV (80-94) fL MCH (27-31) pg MCHC (31-36) g/dl RDW (10.5-15) % Plt Count (150-450) 10^3/ul MPV (7.4-10.4) um3 Neut % (Auto) (38-83) % Lymph % (Auto) (25-47) % [place] % (Auto) (1-9) % Eos % (Auto) (0-6) % Baso % (Auto) (0-2) % Absolute Neuts (auto) (1.5-7.7) 10^3/ul Absolute Lymphs (auto) (1.0-4.8) 10^3/ul Absolute Monos (auto) (0-0.8) 10^3/ul Absolute Eos (auto) (0-0.6) 10^3/ul Absolute Basos (auto) (0-0.2) 10^3/ul Absolute Nucleated RBC 10^3/ul Nucleated RBC % INR (Anticoag Therapy) 1.10 (0.89-1.11) APTT 33.6 (26.0-36.3) seconds Sodium 135 (133-145) mmol/L Potassium 3.1 L (3.5-5.0) mmol/L Chloride 97 L (101-111) mmol/L Carbon Dioxide 25 (22-32) mmol/L Anion Gap 13 H (2-11) mmol/L BUN 7 (6-24) mg/dL Creatinine 0.86 (0.67-1.17) mg/dL Est GFR ( Amer) 115.5 (>60) Est GFR (Non-Af Amer) 89.8 (>60) BUN/Creatinine Ratio 8.1 (8-20) Glucose 101 H (70-100) mg/dL Lactic Acid (0.5-2.0) mmol/L Calcium 9.5 (8.6-10.3) mg/dL Magnesium 1.1 L (1.9-2.7) mg/dL Total Bilirubin 1.30 H (0.2-1.0) mg/dL AST 176 H (13-39) U/L ALT 121 H (7-52) U/L Alkaline Phosphatase 68 (34-104) U/L Total Creatine Kinase 129 (10-223) U/L Troponin I 0.01 (<0.04) ng/mL C-Reactive Protein < 1.00 (< 5.00) mg/L B-Natriuretic Peptide 74 ( - 100) pg/mL Total Protein 8.7 (6.4-8.9) g/dL Albumin 4.3 (3.2-5.2) g/dL Globulin 4.4 H (2-4) g/dL Albumin/Globulin Ratio 1.0 (1-3) TSH 2.88 (0.34-5.60) mcIU/mL Urine Color Urine Appearance Urine pH (5-9) Ur Specific [place] (1.010-1.030) Urine Protein (Negative) Urine Ketones (Negative) Urine Blood (Negative) Urine Nitrate (Negative) Urine Bilirubin (Negative) Urine Urobilinogen (Negative) Ur Leukocyte Esterase (Negative) Urine WBC (Auto) (Absent) Urine RBC (Auto) (Absent) Ur Squamous Epith Cells (Absent) Urine Bacteria (Absent) Urine Glucose (Negative) Urine Opiates Screen (None Detect) Ur Barbiturates Screen (None Detect) Ur Phencyclidine Scrn (None Detect) Ur Amphetamines Screen (None Detect) U Benzodiazepines Scrn (None Detect) Urine Cocaine Screen (None Detect) U Cannabinoids Screen (None Detect) Serum Alcohol 30 H (<10) mg/dL 05/23/17 05/23/17 05/23/17 Range/Units 01:35 01:35 01:35 WBC 4.1 (3.5-10.8) 10^3/ul RBC 3.43 L (4.0-5.4) 10^6/ul Hgb 12.5 L (14.0-18.0) g/dl Hct 37 L (42-52) % MCV 107 H (80-94) fL MCH 37 H (27-31) pg MCHC 34 (31-36) g/dl RDW 13 (10.5-15) % Plt Count 91 L (150-450) 10^3/ul MPV 8 (7.4-10.4) um3 Neut % (Auto) 55.4 (38-83) % Lymph % (Auto) 30.3 (25-47) % [place] % (Auto) 12.6 H (1-9) % Eos % (Auto) 0.1 (0-6) % Baso % (Auto) 1.6 (0-2) % Absolute Neuts (auto) 2.3 (1.5-7.7) 10^3/ul Absolute Lymphs (auto) 1.2 (1.0-4.8) 10^3/ul Absolute Monos (auto) 0.5 (0-0.8) 10^3/ul Absolute Eos (auto) 0 (0-0.6) 10^3/ul Absolute Basos (auto) 0.1 (0-0.2) 10^3/ul Absolute Nucleated RBC 0 10^3/ul Nucleated RBC % 0.1 INR (Anticoag Therapy) (0.89-1.11) APTT (26.0-36.3) seconds Sodium (133-145) mmol/L Potassium (3.5-5.0) mmol/L Chloride (101-111) mmol/L Carbon Dioxide (22-32) mmol/L Anion Gap (2-11) mmol/L BUN (6-24) mg/dL Creatinine (0.67-1.17) mg/dL Est GFR ( Amer) (>60) Est GFR (Non-Af Amer) (>60) BUN/Creatinine Ratio (8-20) Glucose (70-100) mg/dL Lactic Acid 3.2 H* (0.5-2.0) mmol/L Calcium (8.6-10.3) mg/dL Magnesium (1.9-2.7) mg/dL Total Bilirubin (0.2-1.0) mg/dL AST (13-39) U/L ALT (7-52) U/L Alkaline Phosphatase (34-104) U/L Total Creatine Kinase (10-223) U/L Troponin I (<0.04) ng/mL C-Reactive Protein (< 5.00) mg/L B-Natriuretic Peptide ( - 100) pg/mL Total Protein (6.4-8.9) g/dL Albumin (3.2-5.2) g/dL Globulin (2-4) g/dL Albumin/Globulin Ratio (1-3) TSH (0.34-5.60) mcIU/mL Urine Color Urine Appearance Urine pH (5-9) Ur Specific [place] (1.010-1.030) Urine Protein (Negative) Urine Ketones (Negative) Urine Blood (Negative) Urine Nitrate (Negative) Urine Bilirubin (Negative) Urine Urobilinogen (Negative) Ur Leukocyte Esterase (Negative) Urine WBC (Auto) (Absent) Urine RBC (Auto) (Absent) Ur Squamous Epith Cells (Absent) Urine Bacteria (Absent) Urine Glucose (Negative) Urine Opiates Screen None detected (None Detect) Ur Barbiturates Screen None detected (None Detect) Ur Phencyclidine Scrn None detected (None Detect) Ur Amphetamines Screen None detected (None Detect) U Benzodiazepines Scrn None detected (None Detect) Urine Cocaine Screen Presumptive positive H (None Detect) U Cannabinoids Screen None detected (None Detect) Serum Alcohol (<10) mg/dL 05/23/17 Range/Units 01:35 WBC (3.5-10.8) 10^3/ul RBC (4.0-5.4) 10^6/ul Hgb (14.0-18.0) g/dl Hct (42-52) % MCV (80-94) fL MCH (27-31) pg MCHC (31-36) g/dl RDW (10.5-15) % Plt Count (150-450) 10^3/ul MPV (7.4-10.4) um3 Neut % (Auto) (38-83) % Lymph % (Auto) (25-47) % [place] % (Auto) (1-9) % Eos % (Auto) (0-6) % Baso % (Auto) (0-2) % Absolute Neuts (auto) (1.5-7.7) 10^3/ul Absolute Lymphs (auto) (1.0-4.8) 10^3/ul Absolute Monos (auto) (0-0.8) 10^3/ul Absolute Eos (auto) (0-0.6) 10^3/ul Absolute Basos (auto) (0-0.2) 10^3/ul Absolute Nucleated RBC 10^3/ul Nucleated RBC % INR (Anticoag Therapy) (0.89-1.11) APTT (26.0-36.3) seconds Sodium (133-145) mmol/L Potassium (3.5-5.0) mmol/L Chloride (101-111) mmol/L Carbon Dioxide (22-32) mmol/L Anion Gap (2-11) mmol/L BUN (6-24) mg/dL Creatinine (0.67-1.17) mg/dL Est GFR ( Amer) (>60) Est GFR (Non-Af Amer) (>60) BUN/Creatinine Ratio (8-20) Glucose (70-100) mg/dL Lactic Acid (0.5-2.0) mmol/L Calcium (8.6-10.3) mg/dL Magnesium (1.9-2.7) mg/dL Total Bilirubin (0.2-1.0) mg/dL AST (13-39) U/L ALT (7-52) U/L Alkaline Phosphatase (34-104) U/L Total Creatine Kinase (10-223) U/L Troponin I (<0.04) ng/mL C-Reactive Protein (< 5.00) mg/L B-Natriuretic Peptide ( - 100) pg/mL Total Protein (6.4-8.9) g/dL Albumin (3.2-5.2) g/dL Globulin (2-4) g/dL Albumin/Globulin Ratio (1-3) TSH (0.34-5.60) mcIU/mL Urine Color Straw Urine Appearance Clear Urine pH 7.0 (5-9) Ur Specific [place] 1.010 (1.010-1.030) Urine Protein 1+(30 mg/dl) H (Negative) Urine Ketones Trace H (Negative) Urine Blood Negative (Negative) Urine Nitrate Negative (Negative) Urine Bilirubin Negative (Negative) Urine Urobilinogen Negative (Negative) Ur Leukocyte Esterase Negative (Negative) Urine WBC (Auto) Absent (Absent) Urine RBC (Auto) Absent (Absent) Ur Squamous Epith Cells Present H (Absent) Urine Bacteria Absent (Absent) Urine Glucose Negative (Negative) Urine Opiates Screen (None Detect) Ur Barbiturates Screen (None Detect) Ur Phencyclidine Scrn (None Detect) Ur Amphetamines Screen (None Detect) U Benzodiazepines Scrn (None Detect) Urine Cocaine Screen (None Detect) U Cannabinoids Screen (None Detect) Serum Alcohol (<10) mg/dL ECG, personally reviewed: NSR rate 85, no ischemia CXR, personally reviewed: no acute process Impression: 62M alcoholic polysubstance abuser presents with progressive generalized weakness worst in BLE found to be markedly orthostatic with hypoMagnesemia and hypoKalemia DIAGNOSIS & PLAN Primary orthostasis : suspect 2nd dehydration from poor PO intake 2nd alcoholism : IVFs : monitor vitals, recheck orthostatics in AM electrolyte disorder : replace & recheck : ordered 4g magnesium in ED : received 40mEq KCl PO in ED generalized weakness 2nd above : PT evaluation Secondary hepatitis C : no acute issues chronic transaminitis : 2nd hepatitis C & active alcoholism HTN : review meds once reconciled HX duodenal ulcer s/p hemorrhage 2015 : no acute issues alcoholism, active : cessation recommended, low motivation : social sciences department chair consult : [facility] protocol polysubstance abuse : denies ongoing use despite positive cocaine screen and admitting ongoing use at last admission 04/21/2017 : social sciences department chair consult tobacco use disorder : cessation recommended, low motivation Admission Rational: observation for electrolyte replacement & IVFs DVTp: SCDs Code Status: full HCP: declines to designate
[2017-05-23] MEDS ORDERED: Thiamine IV* 100 MG/ML 2 ML VIAL IM ONE (04:29)
[2017-05-23 05:52] LABS: Comments Flag Yes; Hematocrit 36 % (42-52); Hemoglobin 12.4 g/dl (14.0-18.0); Mean Corpuscular HGB Conc 34 g/dl (31-36); Mean Corpuscular Hemoglobin 37 pg (27-31); Mean Platelet Volume 8 um3 (7.4-10.4); Red Blood Count 3.36 10^6/ul (4.0-5.4); Red Cell Distribution Width 14 % (10.5-15); White Blood Count 3.8 10^3/ul (3.5-10.8)
[2017-05-23 05:53] LABS: Mean Corpuscular Volume 107 fL (80-94)
[2017-05-23 06:07] LABS: Albumin 3.9 g/dL (3.2-5.2); BUN/Creatinine Ratio 9.6 (8-20); Calcium 8.6 mg/dL (8.6-10.3); Direct Bilirubin 0.7 mg/dL (0.03-0.18); EGFR African American 139.6 (>60); EGFR Non-African American 108.5 (>60); Globulin 4.2 g/dL (2-4); Indirect Bilirubin 0.7 mg/dL (0.3-1.0); Magnesium 2.2 mg/dL (1.9-2.7); Potassium 3.2 mmol/L (3.5-5.0); Total Bilirubin 1.4 mg/dL (0.2-1.0); Total Protein 8.1 g/dL (6.4-8.9)
[2017-05-23] MEDS: Omeprazole CAP* 20 MG PO SCH (06:10)
[2017-05-23] MEDS: Multivitamins/Minerals TAB PO SCH (07:58)
[2017-05-23] MEDS: Docusate CAP* 100 MG PO SCH ×2 (07:58→20:10)
--- NOTE | 2017-05-23 07:58 | RAD ---
INDICATION: Weakness. COMPARISON: Comparison is made with a prior chest x-ray study from April 21, 2017. TECHNIQUE: A portable view of the chest was obtained. FINDINGS: Cardiac and mediastinal contours appear to be within normal limits. The lungs are clear. No pleural effusion is seen. IMPRESSION: NO EVIDENCE FOR ACUTE DISEASE.
[2017-05-23] MEDS: Thiamine TAB* 100 MG TAB PO SCH (07:59)
[2017-05-23] MEDS: traMADol TAB* 50 MG PO PRN ×2 (07:59→18:09)
[2017-05-23] MEDS: Folic Acid TAB* 1 MG PO SCH (07:59)
[2017-05-23] MEDS ORDERED: Influenza VAC *QUAD* 2017-18* 0.5 ML SYRINGE IM ONE (08:00)
--- NOTE | 2017-05-23 09:49 | PN ---
Subjective Date of Service: 05/23/17 Interval History: Patient seen and examined at bedside. Mr. Mccarthy is a 62 yo gentleman who lives alone that presented to the ED with concern for BLE weakness and inability to ambulate. He does endorse daily alcohol use, stating "I drink a few cans a day. " This is progressive weakness that has continued to worsen over the past several weeks. He has a walker but has to lift that walker, stating, "I think I would do better with wheels." Currently he denies fever/chills, CP, SOB. He feels a little better after fluid but "still feels weak." Family History: Unchanged from Admission Social History: Unchanged from Admission Past Medical History: Unchanged from Admission Objective Active Medications: Acetaminophen (Tylenol Tab*) 650 mg PO Q6H PRN PRN Reason: FEVER/PAIN Albuterol (Ventolin 2.5 Mg/3 Ml Neb.Mar*) 2.5 mg INH Q2H PRN PRN Reason: SOB/WHEEZING Docusate Sodium (Colace Cap*) 200 mg PO BID [facility] Last Admin: 05/23/17 07:58 Dose: 200 mg Folic Acid (Folvite Tab*) 1 mg PO DAILY [facility] Last Admin: 05/23/17 07:59 Dose: 1 mg Sodium Chloride (Ns 0.9% 1000 Ml*) 1,000 mls @ 0 mls/hr IV WIDE OPEN HALI PRN Reason: Wide Open Stop: 05/24/17 03:16 Last Admin: 05/23/17 04:49 Dose: 999 mls/hr Lorazepam (Ativan Inj*) 0 - 6 mg IM .PER [facility] PROTOCOL HALI PRN Reason: Protocol Melatonin (Melatonin (Nf)) 3 mg PO BEDTIME PRN; Protocol PRN Reason: Sleep Multivitamins/Minerals (Theragran/Minerals Tab*) 1 tab PO DAILY [facility] Last Admin: 05/23/17 07:58 Dose: 1 tab Omeprazole (Prilosec Cap*) 20 mg PO DAILY@0600 [facility] Last Admin: 05/23/17 06:10 Dose: 20 mg Ondansetron HCl (Zofran Inj*) 4 mg IV Q6H PRN PRN Reason: NAUSEA Thiamine HCl (Vitamin B-1 Tab*) 100 mg PO DAILY [facility] Last Admin: 05/23/17 07:59 Dose: 100 mg Tramadol HCl (Ultram*) 50 mg PO Q6H PRN PRN Reason: PAIN Last Admin: 05/23/17 07:59 Dose: 50 mg Vital Signs 05/23/17 05/23/17 05/23/17 03:30 04:15 07:23 Temperature 98 F 98.0 F 98.6 F Pulse Rate 77 79 75 Respiratory 18 18 16 Rate Blood Pressure 172/80 168/82 152/73 (mmHg) O2 Sat by Pulse 97 99 99 Oximetry 05/23/17 05/23/17 07:47 07:59 Temperature Pulse Rate 75 Respiratory 16 12 Rate Blood Pressure (mmHg) O2 Sat by Pulse 99 Oximetry Oxygen Devices in Use Now: None Appearance: male, sitting up in bed, NAD, pleasant Eyes: No Scleral Icterus Ears/Nose/Mouth/Throat: Clear Oropharnyx, Mucous Membranes Moist Neck: NL Appearance and Movements; NL JVP Respiratory: Symmetrical Chest Expansion and Respiratory Effort, Clear to Auscultation Cardiovascular: NL Sounds; No Murmurs; No JVD, RRR Abdominal: NL Sounds; No Tenderness; No Distention Extremities: No Edema Skin: No Rash or Ulcers, - - right brooks old abrasion Neurological: Alert and Oriented x 3, NL Muscle Strength and Tone Lines/Tubes/Other Access: Clean, Dry and Intact Peripheral IV Nutrition: Taking PO's Result Diagrams: 05/23/17 05:39 05/23/17 05:39 Assess/Plan/Problems-Billing Assessment: Mr. Mccarthy is a 62 yo male with a PMH significant for ETOH and polysubstance abuse, HTN, hepatitis C, duodenal ulcer with hemorrhage, and tobacco abuse who presented to the hospital on 05/23 with progressive generalized weakness, hypomagnesemia, hypokalemia, and positive orthostasis. - Patient Problems (1) Orthostatic hypotension Code(s): I95.1 - ORTHOSTATIC HYPOTENSION Comment: Likely secondary to poor PO intake and ETOH abuse Continue IVF, recheck orthostatic VS PT/OT (2) Weakness Code(s): R53.1 - WEAKNESS Comment: Suspect multifactorial causes, incl. electrolyte abnormalities, ETOH abuse, dehydration Likely physical deconditioning PT/OT consults (3) Hypokalemia Code(s): E87.6 - HYPOKALEMIA Comment: Continue repletion Recheck BMP. (4) Hypomagnesemia Code(s): E83.42 - HYPOMAGNESEMIA Comment: Repleted Now resolved (5) Muscular deconditioning Code(s): R29.898 - OTH SYMPTOMS AND SIGNS INVOLVING THE MUSCULOSKELETAL SYSTEM Comment: PT/OT eval (6) Alcoholism Code(s): F10.20 - ALCOHOL DEPENDENCE, UNCOMPLICATED Comment: No s/s of withdrawal at this time Cont [facility] protocol (7) HTN (hypertension) Code(s): I10 - ESSENTIAL (PRIMARY) HYPERTENSION Comment: Hypertensive Patient was started on metoprolol succinate in April. Resume metoprolol. (8) Transaminitis Code(s): R74.0 - NONSPEC ELEV OF LEVELS OF TRANSAMNS & LACTIC ACID DEHYDRGNSE Comment: Appears chronic Likely secondary to ETOH use and Hep C (9) History of hepatitis C Code(s): Z86.19 - PERSONAL HISTORY OF OTHER INFECTIOUS AND PARASITIC DISEASES (10) DVT prophylaxis Comment: SCDs (11) Full code status Code(s): Z78.9 - OTHER SPECIFIED HEALTH STATUS Status and Disposition: OBV to inpatient admission. Anticipate LOS 2-3 days.
--- NOTE | 2017-05-23 13:00 | ED ---
Kenzie Caba Rebecca, scribed for Martha Gómez MD on 05/23/17 at 0100 . Complex/Multi-Sys Presentation - HPI Summary HPI Summary: Pt is a 62 y/o M BIBA who presents to ED c/o generalized weakness, particularly in the LE. Pt reports that his legs "hurt often" and that he is intermittently weak. Associated pain is currently severe, ranked 10/10. Sx worsened tonight when he could barely walk. Additionally c/o SOB. Denies CP. States that he lives alone in an apartment and does not have family in the area. - History Of Current Complaint Chief Complaint: EDGeneral Hx Obtained From: Patient, Medical Records Onset/Duration: Gradual Onset, Still Present Timing: Intermittent, Lasting: Severity Currently: Severe - 06/21 Location: Pain At: - Bilateral LE Character: Dull Aggravating Factor(s): Nothing Alleviating Factor(s): Nothing Associated Signs And Symptoms: Positive: SOB. Negative: Chest Pain - Allergies/Home Medications Allergies/Adverse Reactions: Allergies Allergy/AdvReac Type Severity Reaction Status Date / Time No Known Allergies Allergy Verified 05/09/17 21:14 Home Medications: Home Medications Naproxen 500 mg 500 mg PO BID 05/23/17 [History Confirmed 05/23/17] PMH/Surg Hx/FS Hx/Imm Hx Previously Healthy: No Endocrine/Hematology History: Denies: Hx Anticoagulant Therapy, Hx Blood Disorders, Hx Blood Transfusions, Hx Bone Marrow Disease, Hx Diabetes, Hx Systemic Lupus Erythematosus, Hx Sickle Cell Disease, Hx Thyroid Disease, Hx Unexplained Bleeding, Other Endocrine/ Hematological Disorders Cardiovascular History: Reports: Hx Hypertension Denies: Hx Pacemaker/ICD Respiratory History: Reports: Hx Asthma GI History: Reports: Other GI Disorders - Hepatitis C, alcohol abuse Denies: Hx Cirrhosis, Hx Crohn's Disease, Hx Diverticulosis, Hx Gall Bladder Disease, Hx Gastroesophageal Reflux Disease, Hx Gastrointestinal Bleed, Hx Hiatal Hernia, Hx Irritable Bowel, Hx Jaundice, Hx Obstructive Bowel, Hx Ileostomy, Hx Pyloric Stenosis, Hx Ulcer History: Denies: Hx Acute Renal Failure, Hx Benign Prostatic Hyperplasia, Hx Chronic Renal Failure, Hx Dialysis, Hx Kidney Infection, Hx Kidney Stones, Other Problems/Disorders Musculoskeletal History: Denies: Hx Arthritis, Hx Back Problems, Hx Bursitis, Hx Congenital Bone Abnormalities, Hx Fibromyalgia, Hx Gout, Hx Orthopedic Injury, Hx Osteoporosis, Hx Scoliosis, Hx Tendonitis, Other Musculoskeletal History Sensory History: Reports: Hx Contacts or Glasses Denies: Hx Hearing Aid Opthamlomology History: Reports: Hx Contacts or Glasses Neurological History: Reports: Other Neuro Impairments/Disorders - neuropathy Psychiatric History: Reports: Hx Substance Abuse - alcohol Denies: Hx Attention Deficit Hyperactivity Disorder, Hx Eating Disorder, Hx Depression, Hx Panic Disorder, Hx Post Traumatic Stress Disorder, Hx Inpatient Treatment, Hx Community Mental Health Tx, Hx Schizophrenia, Hx Bipolar Disorder , Hx Suicide Attempt, Hx of Violent Episodes Against Others, Other Psychiatric Issues/Disorders - Surgical History Surgery Procedure, Year, and Place: right ankle-2000 Hx Anesthesia Reactions: No Infectious Disease History: Yes Infectious Disease History: Reports: Hx Hepatitis - C Denies: Hx Clostridium Difficile, Hx Human Immunodeficiency Virus (HIV), Hx of Known/Suspected MRSA, Hx Shingles, Hx Tuberculosis, Hx Known/Suspected VRE, Hx Known/Suspected VRSA, History Other Infectious Disease, Traveled Outside the in Last 30 Days - Family History Known Family History: Negative: Cardiac Disease - Social History Lives: Alone Alcohol Use: Daily Alcohol Amount: 6 pack and 1/2 pint of vodka Hx Substance Use: No Substance Use Type: Reports: None Hx Tobacco Use: Yes Smoking Status (MU): Heavy Every Day Tobacco Smoker Type: Cigarettes Have You Smoked in the Last Year: Yes Review of Systems Positive: Other - generalized weakness Negative: Chest Pain Positive: Shortness Of Breath Gastrointestinal: Negative Positive: Other - Bialteral LE pain Neurological: Negative All Other Systems Reviewed And Are Negative: Yes Physical Exam Triage Information Reviewed: Yes Vital Signs On Initial Exam: Initial Vitals Temp Pulse Resp BP Pulse Ox 98.3 F 103 18 182/112 97 05/23/17 00:42 05/23/17 00:42 05/23/17 00:42 05/23/17 00:42 05/23/17 00:42 Vital Signs Reviewed: Yes Appearance: Positive: Thin - Frail, shaky upon standing, dissheveled Skin: Positive: Warm, Skin Color Reflects Adequate Perfusion, Other - Lesion on top of his anterior tibia with a scab, on the RLE Head/Face: Positive: Normal Head/Face Inspection Eyes: Positive: Normal ENT: Positive: Normal ENT inspection Neck: Positive: Supple Respiratory/Lung Sounds: Positive: Clear to Auscultation, Breath Sounds Present , Other - respirations unlabored Cardiovascular: Positive: Tachycardia - HR increases to 170s with standing. Negative: Murmur Abdomen Description: Positive: Nontender, Soft Bowel Sounds: Positive: Present Musculoskeletal: Positive: Strength/ROM Intact, Other - Shaky upon standing Neurological: Positive: Alert, Oriented to Person Place, Time, Abnormal Gait, Facial Symmetry, Speech Normal Psychiatric: Positive: Normal - [place] Coma Scale Coma Scale Total: 15 Diagnostics - Vital Signs Vital Signs Temp Pulse Resp BP Pulse Ox 05/23/17 00:42 98.3 F 103 18 182/112 97 - Laboratory Lab Results: Lab Results 05/23/17 05/23/17 05/23/17 Range/Units 01:35 01:35 01:35 WBC (3.5-10.8) 10^3/ul RBC (4.0-5.4) 10^6/ul Hgb (14.0-18.0) g/dl Hct (42-52) % MCV (80-94) fL MCH (27-31) pg MCHC (31-36) g/dl RDW (10.5-15) % Plt Count (150-450) 10^3/ul MPV (7.4-10.4) um3 Neut % (Auto) (38-83) % Lymph % (Auto) (25-47) % Bucks % (Auto) (1-9) % Eos % (Auto) (0-6) % Baso % (Auto) (0-2) % Absolute Neuts (auto) (1.5-7.7) 10^3/ul Absolute Lymphs (auto) (1.0-4.8) 10^3/ul Absolute Monos (auto) (0-0.8) 10^3/ul Absolute Eos (auto) (0-0.6) 10^3/ul Absolute Basos (auto) (0-0.2) 10^3/ul Absolute Nucleated RBC 10^3/ul Nucleated RBC % INR (Anticoag Therapy) 1.10 (0.89-1.11) APTT 33.6 (26.0-36.3) seconds Sodium 135 (133-145) mmol/L Potassium 3.1 L (3.5-5.0) mmol/L Chloride 97 L (101-111) mmol/L Carbon Dioxide 25 (22-32) mmol/L Anion Gap 13 H (2-11) mmol/L BUN 7 (6-24) mg/dL Creatinine 0.86 (0.67-1.17) mg/dL Est GFR ( Amer) 115.5 (>60) Est GFR (Non-Af Amer) 89.8 (>60) BUN/Creatinine Ratio 8.1 (8-20) Glucose 101 H (70-100) mg/dL Lactic Acid (0.5-2.0) mmol/L Calcium 9.5 (8.6-10.3) mg/dL Magnesium 1.1 L (1.9-2.7) mg/dL Total Bilirubin 1.30 H (0.2-1.0) mg/dL AST 176 H (13-39) U/L ALT 121 H (7-52) U/L Alkaline Phosphatase 68 (34-104) U/L Total Creatine Kinase 129 (10-223) U/L Troponin I 0.01 (<0.04) ng/mL C-Reactive Protein < 1.00 (< 5.00) mg/L B-Natriuretic Peptide 74 ( - 100) pg/mL Total Protein 8.7 (6.4-8.9) g/dL Albumin 4.3 (3.2-5.2) g/dL Globulin 4.4 H (2-4) g/dL Albumin/Globulin Ratio 1.0 (1-3) TSH 2.88 (0.34-5.60) mcIU/mL Urine Color Urine Appearance Urine pH (5-9) Ur Specific [place] (1.010-1.030) Urine Protein (Negative) Urine Ketones (Negative) Urine Blood (Negative) Urine Nitrate (Negative) Urine Bilirubin (Negative) Urine Urobilinogen (Negative) Ur Leukocyte Esterase (Negative) Urine WBC (Auto) (Absent) Urine RBC (Auto) (Absent) Ur Squamous Epith Cells (Absent) Urine Bacteria (Absent) Urine Glucose (Negative) Urine Opiates Screen (None Detect) Ur Barbiturates Screen (None Detect) Ur Phencyclidine Scrn (None Detect) Ur Amphetamines Screen (None Detect) U Benzodiazepines Scrn (None Detect) Urine Cocaine Screen (None Detect) U Cannabinoids Screen (None Detect) Serum Alcohol 30 H (<10) mg/dL 05/23/17 05/23/17 05/23/17 Range/Units 01:35 01:35 01:35 WBC 4.1 (3.5-10.8) 10^3/ul RBC 3.43 L (4.0-5.4) 10^6/ul Hgb 12.5 L (14.0-18.0) g/dl Hct 37 L (42-52) % MCV 107 H (80-94) fL MCH 37 H (27-31) pg MCHC 34 (31-36) g/dl RDW 13 (10.5-15) % Plt Count 91 L (150-450) 10^3/ul MPV 8 (7.4-10.4) um3 Neut % (Auto) 55.4 (38-83) % Lymph % (Auto) 30.3 (25-47) % Bucks % (Auto) 12.6 H (1-9) % Eos % (Auto) 0.1 (0-6) % Baso % (Auto) 1.6 (0-2) % Absolute Neuts (auto) 2.3 (1.5-7.7) 10^3/ul Absolute Lymphs (auto) 1.2 (1.0-4.8) 10^3/ul Absolute Monos (auto) 0.5 (0-0.8) 10^3/ul Absolute Eos (auto) 0 (0-0.6) 10^3/ul Absolute Basos (auto) 0.1 (0-0.2) 10^3/ul Absolute Nucleated RBC 0 10^3/ul Nucleated RBC % 0.1 INR (Anticoag Therapy) (0.89-1.11) APTT (26.0-36.3) seconds Sodium (133-145) mmol/L Potassium (3.5-5.0) mmol/L Chloride (101-111) mmol/L Carbon Dioxide (22-32) mmol/L Anion Gap (2-11) mmol/L BUN (6-24) mg/dL Creatinine (0.67-1.17) mg/dL Est GFR ( Amer) (>60) Est GFR (Non-Af Amer) (>60) BUN/Creatinine Ratio (8-20) Glucose (70-100) mg/dL Lactic Acid 3.2 H* (0.5-2.0) mmol/L Calcium (8.6-10.3) mg/dL Magnesium (1.9-2.7) mg/dL Total Bilirubin (0.2-1.0) mg/dL AST (13-39) U/L ALT (7-52) U/L Alkaline Phosphatase (34-104) U/L Total Creatine Kinase (10-223) U/L Troponin I (<0.04) ng/mL C-Reactive Protein (< 5.00) mg/L B-Natriuretic Peptide ( - 100) pg/mL Total Protein (6.4-8.9) g/dL Albumin (3.2-5.2) g/dL Globulin (2-4) g/dL Albumin/Globulin Ratio (1-3) TSH (0.34-5.60) mcIU/mL Urine Color Urine Appearance Urine pH (5-9) Ur Specific [place] (1.010-1.030) Urine Protein (Negative) Urine Ketones (Negative) Urine Blood (Negative) Urine Nitrate (Negative) Urine Bilirubin (Negative) Urine Urobilinogen (Negative) Ur Leukocyte Esterase (Negative) Urine WBC (Auto) (Absent) Urine RBC (Auto) (Absent) Ur Squamous Epith Cells (Absent) Urine Bacteria (Absent) Urine Glucose (Negative) Urine Opiates Screen None detected (None Detect) Ur Barbiturates Screen None detected (None Detect) Ur Phencyclidine Scrn None detected (None Detect) Ur Amphetamines Screen None detected (None Detect) U Benzodiazepines Scrn None detected (None Detect) Urine Cocaine Screen Presumptive positive H (None Detect) U Cannabinoids Screen None detected (None Detect) Serum Alcohol (<10) mg/dL 05/23/17 Range/Units 01:35 WBC (3.5-10.8) 10^3/ul RBC (4.0-5.4) 10^6/ul Hgb (14.0-18.0) g/dl Hct (42-52) % MCV (80-94) fL MCH (27-31) pg MCHC (31-36) g/dl RDW (10.5-15) % Plt Count (150-450) 10^3/ul MPV (7.4-10.4) um3 Neut % (Auto) (38-83) % Lymph % (Auto) (25-47) % Bucks % (Auto) (1-9) % Eos % (Auto) (0-6) % Baso % (Auto) (0-2) % Absolute Neuts (auto) (1.5-7.7) 10^3/ul Absolute Lymphs (auto) (1.0-4.8) 10^3/ul Absolute Monos (auto) (0-0.8) 10^3/ul Absolute Eos (auto) (0-0.6) 10^3/ul Absolute Basos (auto) (0-0.2) 10^3/ul Absolute Nucleated RBC 10^3/ul Nucleated RBC % INR (Anticoag Therapy) (0.89-1.11) APTT (26.0-36.3) seconds Sodium (133-145) mmol/L Potassium (3.5-5.0) mmol/L Chloride (101-111) mmol/L Carbon Dioxide (22-32) mmol/L Anion Gap (2-11) mmol/L BUN (6-24) mg/dL Creatinine (0.67-1.17) mg/dL Est GFR ( Amer) (>60) Est GFR (Non-Af Amer) (>60) BUN/Creatinine Ratio (8-20) Glucose (70-100) mg/dL Lactic Acid (0.5-2.0) mmol/L Calcium (8.6-10.3) mg/dL Magnesium (1.9-2.7) mg/dL Total Bilirubin (0.2-1.0) mg/dL AST (13-39) U/L ALT (7-52) U/L Alkaline Phosphatase (34-104) U/L Total Creatine Kinase (10-223) U/L Troponin I (<0.04) ng/mL C-Reactive Protein (< 5.00) mg/L B-Natriuretic Peptide ( - 100) pg/mL Total Protein (6.4-8.9) g/dL Albumin (3.2-5.2) g/dL Globulin (2-4) g/dL Albumin/Globulin Ratio (1-3) TSH (0.34-5.60) mcIU/mL Urine Color Straw Urine Appearance Clear Urine pH 7.0 (5-9) Ur Specific [place] 1.010 (1.010-1.030) Urine Protein 1+(30 mg/dl) H (Negative) Urine Ketones Trace H (Negative) Urine Blood Negative (Negative) Urine Nitrate Negative (Negative) Urine Bilirubin Negative (Negative) Urine Urobilinogen Negative (Negative) Ur Leukocyte Esterase Negative (Negative) Urine WBC (Auto) Absent (Absent) Urine RBC (Auto) Absent (Absent) Ur Squamous Epith Cells Present H (Absent) Urine Bacteria Absent (Absent) Urine Glucose Negative (Negative) Urine Opiates Screen (None Detect) Ur Barbiturates Screen (None Detect) Ur Phencyclidine Scrn (None Detect) Ur Amphetamines Screen (None Detect) U Benzodiazepines Scrn (None Detect) Urine Cocaine Screen (None Detect) U Cannabinoids Screen (None Detect) Serum Alcohol (<10) mg/dL Result Diagrams: 05/31/17 04:44 05/31/17 04:44 Lab Statement: Any lab studies that have been ordered have been reviewed, and results considered in the medical decision making process. - Radiology CXR Xray Interpretation: No Acute Changes - No acute disease Radiology Interpretation Completed By: ED Physician - EKG 0151 Cardiac Rate: NL - 85 bpm EKG Rhythm: Sinus Rhythm EKG Interpretation: Nl AV/IV CT, nl QTC, negative axis (-4), Q in lead 3 0202 Cardiac Rate: NL - [address] Segment: Non-Specific - Non-specific ST T wave changes Ectopy: PVCs EKG Interpretation: Sinus arrhythmia, nl Av/IV CT, nl QTC, negative axis (-18) EKG Comparison: No Significant Change - No acute changes as compared iwth EKG done earlier this visit Complex Multi-Symp Course/Dx Assessment/Plan: Pt is a 62 y/o M BIBA who presents to ED c/o generalized weakness, particularly in the LE. Pt reports that his legs "hurt often" and that he is intermittently weak. Associated pain is currently severe, ranked 10/ 10. Sx worsened tonight when he could barely walk. Additionally c/o SOB. Denies CP. States that he lives alone in an apartment and does not have family in the area. Orthostatics are: Layin bpm, 179/93, sittin bpm, 170//105, standin bpm, 158/106. The first EKG is sinus rhythm with nl AV/IV CT, nl QTC, negative axis (-4), Q in lead 3 with the second EKG being sinus arrhythmia with nl Av/IV CT, nl QTC, negative axis (-18). CXR as read by ED physician shows no acute disease. Lactic acid of 3.2, sodium of 135, potassium of 3.1, presumptive positive urine cocaine. In the ED course, pt received Toradol, magnesium sulfate and potassium chloride. Discussed care of pt with Dr. Roca who accepts pt for admission. He will be admitted with Dx of generalized weakness, orthostatic hypotension, hypokalemia and hypomagnesemia and elevated LFTs. He understands and agrees. Patient medications reviewed this visit. Elevated BP noted and advised to f/u with PCP. - Diagnoses Provider Diagnoses: Generalized weakness, Orthostatic hypotension, Hypokalemia, Elevated LFTs, Hypomagnesemia - Physician Notifications Discussed Care Of Patient With: Brian Roca Time Discussed With Above Provider: 03:01 Instructed by Provider To: Other - Accepts pt for admission - Critical Care Time Critical Care Time: 30-74 min - 30 minutes Discharge - Discharge Plan Condition: Guarded Disposition: ADMITTED TO [facility] documentation as recorded by the Kenzie ramirez Rebecca accurately reflects the service I personally performed and the decisions made by , Martha Gómez MD.
[2017-05-23] MEDS: Acetaminophen TAB* 325 MG PO PRN ×2 (14:16→20:10)
[2017-05-23] MEDS: Metoprolol Succinate XL TAB* 25 MG PO SCH (16:49)
[2017-05-24] MEDS: traMADol TAB* 50 MG PO PRN
[2017-05-24] MEDS: LORazepam INJ* 2 MG/ML 1 ML VIAL IM SCH ×5 (00:13→23:51)
[2017-05-24] MEDS: Omeprazole CAP* 20 MG PO SCH (06:26)
[2017-05-24 08:21] LABS: Hematocrit 36 % (42-52); Mean Corpuscular HGB Conc 34 g/dl (31-36); Mean Corpuscular Hemoglobin 36 pg (27-31); Mean Platelet Volume 9 um3 (7.4-10.4); Red Blood Count 3.31 10^6/ul (4.0-5.4); Red Cell Distribution Width 14 % (10.5-15); White Blood Count 3.5 10^3/ul (3.5-10.8)
[2017-05-24 08:31] LABS: Comments Flag Yes
[2017-05-24 08:32] LABS: Mean Corpuscular Volume 107 fL (80-94)
[2017-05-24 08:39] LABS: BUN/Creatinine Ratio 12.9 (8-20); Calcium 9.3 mg/dL (8.6-10.3); EGFR African American 146.5 (>60); EGFR Non-African American 113.9 (>60); Potassium 3.3 mmol/L (3.5-5.0)
[2017-05-24] MEDS ORDERED: Potassium Chlor TAB* 20 MEQ TAB.ER PO ONE (10:17)
[2017-05-24] MEDS ORDERED: NS 0.9% 1000 ML* 1,000 ML IV SCH (10:30)
[2017-05-24 10:39] LABS: Albumin 3.8 g/dL (3.2-5.2); Direct Bilirubin 0.6 mg/dL (0.03-0.18); Globulin 4.1 g/dL (2-4); Indirect Bilirubin 0.8 mg/dL (0.3-1.0); Magnesium 1.5 mg/dL (1.9-2.7); Total Bilirubin 1.4 mg/dL (0.2-1.0); Total Protein 7.9 g/dL (6.4-8.9)
[2017-05-24] MEDS: Folic Acid TAB* 1 MG PO SCH (11:20)
[2017-05-24] MEDS: Docusate CAP* 100 MG PO SCH ×2 (11:20→21:27)
[2017-05-24] MEDS: Multivitamins/Minerals TAB PO SCH (11:20)
[2017-05-24] MEDS: Thiamine TAB* 100 MG TAB PO SCH (11:20)
[2017-05-24] MEDS: Metoprolol Succinate XL TAB* 25 MG PO SCH (11:20)
[2017-05-24] MEDS: chlordiazePOXIDE CAP* 25 MG PO SCH ×3 (11:21→21:26)
--- NOTE | 2017-05-24 11:40 | RAD ---
HISTORY: Altered mental status COMPARISONS: May 09, 2017 TECHNIQUE: Multiple contiguous axial CT scans were obtained of the head without intravenous contrast. Evaluation is somewhat limited by positioning FINDINGS: HEMORRHAGE/INFARCT: There is no hemorrhage or acute infarct. MASSES/SHIFT: There is no mass or shift. EXTRA-AXIAL SPACES: There are no extra-axial fluid collections. SULCI AND VENTRICLES: There is diffuse and proportional enlargement of the sulci and ventricles. CEREBRUM: The intima noted is a chronic lacunar infarct of the left basal ganglia. BRAINSTEM: There are no focal parenchymal abnormalities. CEREBELLUM: There are no focal parenchymal abnormalities. VESSELS: The vessels are grossly normal. PARANASAL SINUSES: The paranasal sinuses are clear. ORBITS: The orbits are unremarkable. BONES AND SOFT TISSUE: No bone or soft tissue abnormalities are noted. OTHER: None IMPRESSION: NO ACUTE INTRACRANIAL PATHOLOGY.
[2017-05-24] MEDS ORDERED: Magnesium Sulfate 2 GM IV* 2 GM/50 ML BAG IVPB ONE ×3 (12:00→17:00)
--- NOTE | 2017-05-24 12:07 | PN ---
Subjective Date of Service: 05/24/17 Interval History: Patient's status has deteriorated significantly since yesterday. Patient is now very unstable on his feet per PT and is getting more confused. Patient scored 11 on 0000 [facility] assessment. Patient receiving ativan per protocol and was not awake enough to receive morning medications. Patient hypertensive, not tachycardic. Patient arousable but does not stay awake long enough to answer questions. Patient states his vision has changed, but cannot elaborate on how. Patient feels weak, but cannot describe the weakness. Family History: Unchanged from Admission Social History: Unchanged from Admission Past Medical History: Unchanged from Admission Objective Active Medications: Acetaminophen (Tylenol Tab*) 650 mg PO Q6H PRN PRN Reason: FEVER/PAIN Last Admin: 05/23/17 20:10 Dose: 650 mg Albuterol (Ventolin 2.5 Mg/3 Ml Neb.Mar*) 2.5 mg INH Q2H PRN PRN Reason: SOB/WHEEZING Chlordiazepoxide (Librium Cap*) 50 mg PO TID [facility] Last Admin: 05/24/17 11:21 Dose: Not Given Docusate Sodium (Colace Cap*) 200 mg PO BID [facility] Last Admin: 05/24/17 11:20 Dose: Not Given Folic Acid (Folvite Tab*) 1 mg PO DAILY [facility] Last Admin: 05/24/17 11:20 Dose: Not Given Hydralazine HCl (Apresoline Iv*) 5 mg IV SLOW PU Q6H PRN PRN Reason: SYSTOLIC BP GREATER THAN: Magnesium Sulfate (Magnesium Sulfate 2 Gm Iv*) 2 gm in 50 mls @ 50 mls/hr IVPB ONCE ONE Stop: 05/24/17 12:59 Magnesium Sulfate (Magnesium Sulfate 2 Gm Iv*) 2 gm in 50 mls @ 50 mls/hr IVPB ONCE ONE Stop: 05/24/17 17:59 Potassium Chloride/Sodium Chloride (Ns 0.9% W/ 40 Meq Kcl 1000 Ml*) 1,000 mls @ 100 mls/hr IV PER RATE [facility] Lorazepam (Ativan Inj*) 0 - 6 mg IM .PER [facility] PROTOCOL HALI PRN Reason: Protocol Last Admin: 05/24/17 06:19 Dose: 3 mg Melatonin (Melatonin (Nf)) 3 mg PO BEDTIME PRN; Protocol PRN Reason: Sleep Metoprolol Succinate (Toprol Xl Tab*) 25 mg PO DAILY [facility] Last Admin: 05/24/17 11:20 Dose: Not Given Multivitamins/Minerals (Theragran/Minerals Tab*) 1 tab PO DAILY [facility] Last Admin: 05/24/17 11:20 Dose: Not Given Omeprazole (Prilosec Cap*) 20 mg PO DAILY@0600 [facility] Last Admin: 05/24/17 06:26 Dose: 20 mg Ondansetron HCl (Zofran Inj*) 4 mg IV Q6H PRN PRN Reason: NAUSEA Potassium Chloride (Klor Con Er Tab*) 10 meq PO BID [facility] Thiamine HCl (Vitamin B-1 Tab*) 100 mg PO DAILY [facility] Last Admin: 05/24/17 11:20 Dose: Not Given Tramadol HCl (Ultram*) 50 mg PO Q6H PRN PRN Reason: PAIN Last Admin: 05/24/17 00:00 Dose: 50 mg Vital Signs 05/23/17 05/23/17 05/23/17 15:53 15:54 15:56 Temperature 98.2 F Pulse Rate 66 80 94 Respiratory 18 Rate Blood Pressure 153/85 150/90 158/90 (mmHg) O2 Sat by Pulse 99 Oximetry 05/23/17 05/23/17 05/23/17 18:09 19:33 20:00 Temperature 98.0 F Pulse Rate 77 Respiratory 16 20 20 Rate Blood Pressure 172/93 (mmHg) O2 Sat by Pulse 100 Oximetry 05/23/17 05/23/17 05/24/17 20:09 23:20 00:00 Temperature 98.0 F Pulse Rate 81 77 Respiratory 20 16 16 Rate Blood Pressure 157/93 148/88 (mmHg) O2 Sat by Pulse 100 100 Oximetry 05/24/17 05/24/17 05/24/17 00:13 01:13 02:00 Temperature 98.7 F Pulse Rate 69 Respiratory 16 16 16 Rate Blood Pressure 151/89 (mmHg) O2 Sat by Pulse 99 Oximetry 05/24/17 05/24/17 05/24/17 03:43 06:14 06:19 Temperature 98.8 F 98.1 F Pulse Rate 57 77 Respiratory 16 20 16 Rate Blood Pressure 171/82 167/101 (mmHg) O2 Sat by Pulse 98 100 Oximetry 05/24/17 05/24/17 05/24/17 07:19 08:13 11:21 Temperature Pulse Rate 68 Respiratory 16 18 18 Rate Blood Pressure 150/88 (mmHg) O2 Sat by Pulse 100 Oximetry Oxygen Devices in Use Now: None Appearance: Patient is a 62yo male who appears stated age who is laying in his bed. Eyes: No Scleral Icterus, PERRLA Ears/Nose/Mouth/Throat: NL Teeth, Lips, Gums, Clear Oropharnyx, Mucous Membranes Moist Neck: NL Appearance and Movements; NL JVP, Trachea Midline Respiratory: Symmetrical Chest Expansion and Respiratory Effort, Clear to Auscultation Cardiovascular: NL Sounds; No Murmurs; No JVD, RRR, No Edema Abdominal: NL Sounds; No Tenderness; No Distention, No Hepatosplenomegaly Lymphatic: No Cervical Adenopathy Skin: No Rash or Ulcers Neurological: NL Muscle Strength and Tone, - - CN II-XII grossly intact. Medical Chief Technician strength 4/5 bilaterally. Result Diagrams: 05/24/17 07:58 05/24/17 07:58 Additional Lab and Data: Lab Results 05/23/17 05/23/17 05/23/17 Range/Units 01:35 01:35 01:35 WBC (3.5-10.8) 10^3/ul RBC (4.0-5.4) 10^6/ul Hgb (14.0-18.0) g/dl Hct (42-52) % MCV (80-94) fL MCH (27-31) pg MCHC (31-36) g/dl RDW (10.5-15) % Plt Count (150-450) 10^3/ul MPV (7.4-10.4) um3 Neut % (Auto) (38-83) % Lymph % (Auto) (25-47) % [place] % (Auto) (1-9) % Eos % (Auto) (0-6) % Baso % (Auto) (0-2) % Absolute Neuts (auto) (1.5-7.7) 10^3/ul Absolute Lymphs (auto) (1.0-4.8) 10^3/ul Absolute Monos (auto) (0-0.8) 10^3/ul Absolute Eos (auto) (0-0.6) 10^3/ul Absolute Basos (auto) (0-0.2) 10^3/ul Absolute Nucleated RBC 10^3/ul Nucleated RBC % INR (Anticoag Therapy) 1.10 (0.89-1.11) APTT 33.6 (26.0-36.3) seconds Sodium 135 (133-145) mmol/L Potassium 3.1 L (3.5-5.0) mmol/L Chloride 97 L (101-111) mmol/L Carbon Dioxide 25 (22-32) mmol/L Anion Gap 13 H (2-11) mmol/L BUN 7 (6-24) mg/dL Creatinine 0.86 (0.67-1.17) mg/dL Est GFR ( Amer) 115.5 (>60) Est GFR (Non-Af Amer) 89.8 (>60) BUN/Creatinine Ratio 8.1 (8-20) Glucose 101 H (70-100) mg/dL Lactic Acid (0.5-2.0) mmol/L Calcium 9.5 (8.6-10.3) mg/dL Magnesium 1.1 L (1.9-2.7) mg/dL Total Bilirubin 1.30 H (0.2-1.0) mg/dL AST 176 H (13-39) U/L ALT 121 H (7-52) U/L Alkaline Phosphatase 68 (34-104) U/L Total Creatine Kinase 129 (10-223) U/L Troponin I 0.01 (<0.04) ng/mL C-Reactive Protein < 1.00 (< 5.00) mg/L B-Natriuretic Peptide 74 ( - 100) pg/mL Total Protein 8.7 (6.4-8.9) g/dL Albumin 4.3 (3.2-5.2) g/dL Globulin 4.4 H (2-4) g/dL Albumin/Globulin Ratio 1.0 (1-3) TSH 2.88 (0.34-5.60) mcIU/mL Urine Color Urine Appearance Urine pH (5-9) Ur Specific [place] (1.010-1.030) Urine Protein (Negative) Urine Ketones (Negative) Urine Blood (Negative) Urine Nitrate (Negative) Urine Bilirubin (Negative) Urine Urobilinogen (Negative) Ur Leukocyte Esterase (Negative) Urine WBC (Auto) (Absent) Urine RBC (Auto) (Absent) Ur Squamous Epith Cells (Absent) Urine Bacteria (Absent) Urine Glucose (Negative) Urine Opiates Screen (None Detect) Ur Barbiturates Screen (None Detect) Ur Phencyclidine Scrn (None Detect) Ur Amphetamines Screen (None Detect) U Benzodiazepines Scrn (None Detect) Urine Cocaine Screen (None Detect) U Cannabinoids Screen (None Detect) Serum Alcohol 30 H (<10) mg/dL 05/23/17 05/23/17 05/23/17 Range/Units 01:35 01:35 01:35 WBC 4.1 (3.5-10.8) 10^3/ul RBC 3.43 L (4.0-5.4) 10^6/ul Hgb 12.5 L (14.0-18.0) g/dl Hct 37 L (42-52) % MCV 107 H (80-94) fL MCH 37 H (27-31) pg MCHC 34 (31-36) g/dl RDW 13 (10.5-15) % Plt Count 91 L (150-450) 10^3/ul MPV 8 (7.4-10.4) um3 Neut % (Auto) 55.4 (38-83) % Lymph % (Auto) 30.3 (25-47) % [place] % (Auto) 12.6 H (1-9) % Eos % (Auto) 0.1 (0-6) % Baso % (Auto) 1.6 (0-2) % Absolute Neuts (auto) 2.3 (1.5-7.7) 10^3/ul Absolute Lymphs (auto) 1.2 (1.0-4.8) 10^3/ul Absolute Monos (auto) 0.5 (0-0.8) 10^3/ul Absolute Eos (auto) 0 (0-0.6) 10^3/ul Absolute Basos (auto) 0.1 (0-0.2) 10^3/ul Absolute Nucleated RBC 0 10^3/ul Nucleated RBC % 0.1 INR (Anticoag Therapy) (0.89-1.11) APTT (26.0-36.3) seconds Sodium (133-145) mmol/L Potassium (3.5-5.0) mmol/L Chloride (101-111) mmol/L Carbon Dioxide (22-32) mmol/L Anion Gap (2-11) mmol/L BUN (6-24) mg/dL Creatinine (0.67-1.17) mg/dL Est GFR ( Amer) (>60) Est GFR (Non-Af Amer) (>60) BUN/Creatinine Ratio (8-20) Glucose (70-100) mg/dL Lactic Acid 3.2 H* (0.5-2.0) mmol/L Calcium (8.6-10.3) mg/dL Magnesium (1.9-2.7) mg/dL Total Bilirubin (0.2-1.0) mg/dL AST (13-39) U/L ALT (7-52) U/L Alkaline Phosphatase (34-104) U/L Total Creatine Kinase (10-223) U/L Troponin I (<0.04) ng/mL C-Reactive Protein (< 5.00) mg/L B-Natriuretic Peptide ( - 100) pg/mL Total Protein (6.4-8.9) g/dL Albumin (3.2-5.2) g/dL Globulin (2-4) g/dL Albumin/Globulin Ratio (1-3) TSH (0.34-5.60) mcIU/mL Urine Color Urine Appearance Urine pH (5-9) Ur Specific [place] (1.010-1.030) Urine Protein (Negative) Urine Ketones (Negative) Urine Blood (Negative) Urine Nitrate (Negative) Urine Bilirubin (Negative) Urine Urobilinogen (Negative) Ur Leukocyte Esterase (Negative) Urine WBC (Auto) (Absent) Urine RBC (Auto) (Absent) Ur Squamous Epith Cells (Absent) Urine Bacteria (Absent) Urine Glucose (Negative) Urine Opiates Screen None detected (None Detect) Ur Barbiturates Screen None detected (None Detect) Ur Phencyclidine Scrn None detected (None Detect) Ur Amphetamines Screen None detected (None Detect) U Benzodiazepines Scrn None detected (None Detect) Urine Cocaine Screen Presumptive positive H (None Detect) U Cannabinoids Screen None detected (None Detect) Serum Alcohol (<10) mg/dL 05/23/17 Range/Units 01:35 WBC (3.5-10.8) 10^3/ul RBC (4.0-5.4) 10^6/ul Hgb (14.0-18.0) g/dl Hct (42-52) % MCV (80-94) fL MCH (27-31) pg MCHC (31-36) g/dl RDW (10.5-15) % Plt Count (150-450) 10^3/ul MPV (7.4-10.4) um3 Neut % (Auto) (38-83) % Lymph % (Auto) (25-47) % [place] % (Auto) (1-9) % Eos % (Auto) (0-6) % Baso % (Auto) (0-2) % Absolute Neuts (auto) (1.5-7.7) 10^3/ul Absolute Lymphs (auto) (1.0-4.8) 10^3/ul Absolute Monos (auto) (0-0.8) 10^3/ul Absolute Eos (auto) (0-0.6) 10^3/ul Absolute Basos (auto) (0-0.2) 10^3/ul Absolute Nucleated RBC 10^3/ul Nucleated RBC % INR (Anticoag Therapy) (0.89-1.11) APTT (26.0-36.3) seconds Sodium (133-145) mmol/L Potassium (3.5-5.0) mmol/L Chloride (101-111) mmol/L Carbon Dioxide (22-32) mmol/L Anion Gap (2-11) mmol/L BUN (6-24) mg/dL Creatinine (0.67-1.17) mg/dL Est GFR ( Amer) (>60) Est GFR (Non-Af Amer) (>60) BUN/Creatinine Ratio (8-20) Glucose (70-100) mg/dL Lactic Acid (0.5-2.0) mmol/L Calcium (8.6-10.3) mg/dL Magnesium (1.9-2.7) mg/dL Total Bilirubin (0.2-1.0) mg/dL AST (13-39) U/L ALT (7-52) U/L Alkaline Phosphatase (34-104) U/L Total Creatine Kinase (10-223) U/L Troponin I (<0.04) ng/mL C-Reactive Protein (< 5.00) mg/L B-Natriuretic Peptide ( - 100) pg/mL Total Protein (6.4-8.9) g/dL Albumin (3.2-5.2) g/dL Globulin (2-4) g/dL Albumin/Globulin Ratio (1-3) TSH (0.34-5.60) mcIU/mL Urine Color Straw Urine Appearance Clear Urine pH 7.0 (5-9) Ur Specific [place] 1.010 (1.010-1.030) Urine Protein 1+(30 mg/dl) H (Negative) Urine Ketones Trace H (Negative) Urine Blood Negative (Negative) Urine Nitrate Negative (Negative) Urine Bilirubin Negative (Negative) Urine Urobilinogen Negative (Negative) Ur Leukocyte Esterase Negative (Negative) Urine WBC (Auto) Absent (Absent) Urine RBC (Auto) Absent (Absent) Ur Squamous Epith Cells Present H (Absent) Urine Bacteria Absent (Absent) Urine Glucose Negative (Negative) Urine Opiates Screen (None Detect) Ur Barbiturates Screen (None Detect) Ur Phencyclidine Scrn (None Detect) Ur Amphetamines Screen (None Detect) U Benzodiazepines Scrn (None Detect) Urine Cocaine Screen (None Detect) U Cannabinoids Screen (None Detect) Serum Alcohol (<10) mg/dL 05/23/17 05/23/17 05/23/17 01:35 01:35 01:35 WBC RBC Hgb Hct MCV MCH MCHC RDW Plt Count MPV Neut % (Auto) Lymph % (Auto) [place] % (Auto) Eos % (Auto) Baso % (Auto) Absolute Neuts (auto) Absolute Lymphs (auto) Absolute Monos (auto) Absolute Eos (auto) Absolute Basos (auto) Absolute Nucleated RBC Nucleated RBC % INR (Anticoag Therapy) 1.10 APTT 33.6 Sodium 135 Potassium 3.1 L Chloride 97 L Carbon Dioxide 25 Anion Gap 13 H BUN 7 Creatinine 0.86 Est GFR ( Amer) 115.5 Est GFR (Non-Af Amer) 89.8 BUN/Creatinine Ratio 8.1 Glucose 101 H Lactic Acid Calcium 9.5 Magnesium 1.1 L Total Bilirubin 1.30 H Direct Bilirubin Indirect Bilirubin AST 176 H ALT 121 H Alkaline Phosphatase 68 Ammonia Total Creatine Kinase 129 Troponin I 0.01 C-Reactive Protein < 1.00 B-Natriuretic Peptide 74 Total Protein 8.7 Albumin 4.3 Globulin 4.4 H Albumin/Globulin Ratio 1.0 TSH 2.88 Urine Color Urine Appearance Urine pH Ur Specific [place] Urine Protein Urine Ketones Urine Blood Urine Nitrate Urine Bilirubin Urine Urobilinogen Ur Leukocyte Esterase Urine WBC (Auto) Urine RBC (Auto) Ur Squamous Epith Cells Urine Bacteria Urine Glucose Urine Opiates Screen Ur Barbiturates Screen Ur Phencyclidine Scrn Ur Amphetamines Screen U Benzodiazepines Scrn Urine Cocaine Screen U Cannabinoids Screen Serum Alcohol 30 H 05/23/17 05/23/17 05/23/17 01:35 01:35 01:35 WBC 4.1 RBC 3.43 L Hgb 12.5 L Hct 37 L MCV 107 H MCH 37 H MCHC 34 RDW 13 Plt Count 91 L MPV 8 Neut % (Auto) 55.4 Lymph % (Auto) 30.3 [place] % (Auto) 12.6 H Eos % (Auto) 0.1 Baso % (Auto) 1.6 Absolute Neuts (auto) 2.3 Absolute Lymphs (auto) 1.2 Absolute Monos (auto) 0.5 Absolute Eos (auto) 0 Absolute Basos (auto) 0.1 Absolute Nucleated RBC 0 Nucleated RBC % 0.1 INR (Anticoag Therapy) APTT Sodium Potassium Chloride Carbon Dioxide Anion Gap BUN Creatinine Est GFR ( Amer) Est GFR (Non-Af Amer) BUN/Creatinine Ratio Glucose Lactic Acid 3.2 H* Calcium Magnesium Total Bilirubin Direct Bilirubin Indirect Bilirubin AST ALT Alkaline Phosphatase Ammonia Total Creatine Kinase Troponin I C-Reactive Protein B-Natriuretic Peptide Total Protein Albumin Globulin Albumin/Globulin Ratio TSH Urine Color Urine Appearance Urine pH Ur Specific [place] Urine Protein Urine Ketones Urine Blood Urine Nitrate Urine Bilirubin Urine Urobilinogen Ur Leukocyte Esterase Urine WBC (Auto) Urine RBC (Auto) Ur Squamous Epith Cells Urine Bacteria Urine Glucose Urine Opiates Screen None detected Ur Barbiturates Screen None detected Ur Phencyclidine Scrn None detected Ur Amphetamines Screen None detected U Benzodiazepines Scrn None detected Urine Cocaine Screen Presumptive positive H U Cannabinoids Screen None detected Serum Alcohol 05/23/17 05/23/17 05/23/17 01:35 05:39 05:39 WBC 3.8 RBC 3.36 L Hgb 12.4 L Hct 36 L MCV 107 H MCH 37 H MCHC 34 RDW 14 Plt Count 80 L MPV 8 Neut % (Auto) 54.6 Lymph % (Auto) 33.5 [place] % (Auto) 10.4 H Eos % (Auto) 0.2 Baso % (Auto) 1.3 Absolute Neuts (auto) 2.1 Absolute Lymphs (auto) 1.3 Absolute Monos (auto) 0.4 Absolute Eos (auto) 0 Absolute Basos (auto) 0.1 Absolute Nucleated RBC 0 Nucleated RBC % 0.1 INR (Anticoag Therapy) APTT Sodium 135 Potassium 3.2 L Chloride 101 Carbon Dioxide 22 Anion Gap 12 H BUN 7 Creatinine 0.73 Est GFR ( Amer) 139.6 Est GFR (Non-Af Amer) 108.5 BUN/Creatinine Ratio 9.6 Glucose 108 H Lactic Acid Calcium 8.6 Magnesium 2.2 Total Bilirubin 1.40 H Direct Bilirubin 0.70 H Indirect Bilirubin 0.7 AST 147 H ALT 103 H Alkaline Phosphatase 68 Ammonia Total Creatine Kinase Troponin I C-Reactive Protein B-Natriuretic Peptide Total Protein 8.1 Albumin 3.9 Globulin 4.2 H Albumin/Globulin Ratio 0.9 L TSH Urine Color Straw Urine Appearance Clear Urine pH 7.0 Ur Specific [place] 1.010 Urine Protein 1+(30 mg/dl) H Urine Ketones Trace H Urine Blood Negative Urine Nitrate Negative Urine Bilirubin Negative Urine Urobilinogen Negative Ur Leukocyte Esterase Negative Urine WBC (Auto) Absent Urine RBC (Auto) Absent Ur Squamous Epith Cells Present H Urine Bacteria Absent Urine Glucose Negative Urine Opiates Screen Ur Barbiturates Screen Ur Phencyclidine Scrn Ur Amphetamines Screen U Benzodiazepines Scrn Urine Cocaine Screen U Cannabinoids Screen Serum Alcohol 05/23/17 05/24/17 05/24/17 05:39 07:58 07:58 WBC 3.5 RBC 3.31 L Hgb 12.0 L Hct 36 L MCV 107 H MCH 36 H MCHC 34 RDW 14 Plt Count 83 L MPV 9 Neut % (Auto) 63.6 Lymph % (Auto) 23.2 L [place] % (Auto) 11.7 H Eos % (Auto) 0.4 Baso % (Auto) 1.1 Absolute Neuts (auto) 2.2 Absolute Lymphs (auto) 0.8 L Absolute Monos (auto) 0.4 Absolute Eos (auto) 0 Absolute Basos (auto) 0 Absolute Nucleated RBC 0.01 Nucleated RBC % 0.3 INR (Anticoag Therapy) APTT Sodium 128 L Potassium 3.3 L Chloride 96 L Carbon Dioxide 26 Anion Gap 6 BUN 9 Creatinine 0.70 Est GFR ( Amer) 146.5 Est GFR (Non-Af Amer) 113.9 BUN/Creatinine Ratio 12.9 Glucose 134 H Lactic Acid 1.2 Calcium 9.3 Magnesium 1.5 L Total Bilirubin 1.40 H Direct Bilirubin 0.60 H Indirect Bilirubin 0.8 AST 121 H ALT 92 H Alkaline Phosphatase 61 Ammonia Total Creatine Kinase Troponin I C-Reactive Protein B-Natriuretic Peptide Total Protein 7.9 Albumin 3.8 Globulin 4.1 H Albumin/Globulin Ratio 0.9 L TSH Urine Color Urine Appearance Urine pH Ur Specific [place] Urine Protein Urine Ketones Urine Blood Urine Nitrate Urine Bilirubin Urine Urobilinogen Ur Leukocyte Esterase Urine WBC (Auto) Urine RBC (Auto) Ur Squamous Epith Cells Urine Bacteria Urine Glucose Urine Opiates Screen Ur Barbiturates Screen Ur Phencyclidine Scrn Ur Amphetamines Screen U Benzodiazepines Scrn Urine Cocaine Screen U Cannabinoids Screen Serum Alcohol 05/24/17 12:01 WBC RBC Hgb Hct MCV MCH MCHC RDW Plt Count MPV Neut % (Auto) Lymph % (Auto) [place] % (Auto) Eos % (Auto) Baso % (Auto) Absolute Neuts (auto) Absolute Lymphs (auto) Absolute Monos (auto) Absolute Eos (auto) Absolute Basos (auto) Absolute Nucleated RBC Nucleated RBC % INR (Anticoag Therapy) APTT Sodium Potassium Chloride Carbon Dioxide Anion Gap BUN Creatinine Est GFR ( Amer) Est GFR (Non-Af Amer) BUN/Creatinine Ratio Glucose Lactic Acid Calcium Magnesium Total Bilirubin Direct Bilirubin Indirect Bilirubin AST ALT Alkaline Phosphatase Ammonia 50 Total Creatine Kinase Troponin I C-Reactive Protein B-Natriuretic Peptide Total Protein Albumin Globulin Albumin/Globulin Ratio TSH Urine Color Urine Appearance Urine pH Ur Specific [place] Urine Protein Urine Ketones Urine Blood Urine Nitrate Urine Bilirubin Urine Urobilinogen Ur Leukocyte Esterase Urine WBC (Auto) Urine RBC (Auto) Ur Squamous Epith Cells Urine Bacteria Urine Glucose Urine Opiates Screen Ur Barbiturates Screen Ur Phencyclidine Scrn Ur Amphetamines Screen U Benzodiazepines Scrn Urine Cocaine Screen U Cannabinoids Screen Serum Alcohol Assess/Plan/Problems-Billing Assessment: Mr. Mccarthy is a 62 yo male with a PMH significant for ETOH and polysubstance abuse, HTN, hepatitis C, duodenal ulcer with hemorrhage, and tobacco abuse who presented to the hospital on 05/23 with progressive generalized weakness, hypomagnesemia, hypokalemia, and positive orthostasis. Patient has since deteriorated with symptoms consistent with alcohol withdrawal. - Patient Problems (1) Withdrawal symptoms, alcohol Current Visit: Yes Status: Acute Code(s): F10.239 - ALCOHOL DEPENDENCE WITH WITHDRAWAL, UNSPECIFIED SNOMED Code(s): 610173682 Comment: Patient began to show symptoms consistent with alcohol withdrawal overnight. CT of the head shows no acute intracranial process. Continue ativan per [facility] protocol. Librium 50mg PO TID ordered when awake enough to tolerate PO intake. Will consider Banana Bag for vitamin replacement if unable to take PO vitamins tomorrow as well. (2) HTN (hypertension) Current Visit: Yes Status: Chronic Code(s): I10 - ESSENTIAL (PRIMARY) HYPERTENSION SNOMED Code(s): 02310594 Comment: Hypertensive Patient unable to take PO metoprolol. IV hydralazine PRN for SBP >170. Will resume PO metoprolol when able. (3) Transaminitis Current Visit: Yes Status: Acute Code(s): R74.0 - NONSPEC ELEV OF LEVELS OF TRANSAMNS & LACTIC ACID DEHYDRGNSE SNOMED Code(s): 636558643 Comment: Appears chronic Likely secondary to ETOH use and Hep C Will continue to monitor. (4) Weakness Current Visit: Yes Status: Chronic Code(s): R53.1 - WEAKNESS SNOMED Code(s ): 73235940 Comment: Suspect multifactorial causes, incl. electrolyte abnormalities, ETOH abuse, dehydration Likely physical deconditioning PT/OT consults ordered, will evaluate when patient able. (5) Hypokalemia Current Visit: No Status: Acute Code(s): E87.6 - HYPOKALEMIA SNOMED Code(s ): 38872071 Comment: Continue repletion 10meq PO BID NS 40meq K+ running at 100ml/hr Recheck BMP in morning (6) Hypomagnesemia Current Visit: No Status: Acute Code(s): E83.42 - HYPOMAGNESEMIA SNOMED Code(s): 947935264 Comment: Mg++ this morning was back to 1.5 Will order Magnesium 2g IV x2 and recheck level (7) Thrombocytopenia Current Visit: No Status: Acute Code(s): D69.6 - THROMBOCYTOPENIA, UNSPECIFIED SNOMED Code(s): 435884545 Comment: Likely associated with ETOH and liver disease. Stable (8) DVT prophylaxis Current Visit: No Status: Acute Code(s): XWF1603 - SNOMED Code(s): 776336802 Comment: Heparin contraindicated d/t thrombocytopenia SCDs (9) Full code status Current Visit: No Status: Acute Code(s): Z78.9 - OTHER SPECIFIED HEALTH STATUS SNOMED Code(s): 337427494 Status and Disposition: Inpatient admission. Anticipate LOS 3-5 days.
[2017-05-24] MEDS: NS 0.9% w/ 40 Meq KCL 1000 ML* 1,000 ML IV SCH (13:37)
[2017-05-24] MEDS: Potassium Chlor TAB* 10 MEQ TAB.ER PO SCH (21:27)
[2017-05-25] MEDS: NS 0.9% w/ 40 Meq KCL 1000 ML* 1,000 ML IV SCH ×2 (03:44→14:36)
[2017-05-25] MEDS: LORazepam INJ* 2 MG/ML 1 ML VIAL IM SCH ×3 (05:16→20:10)
[2017-05-25 06:39] LABS: Hematocrit 36 % (42-52); Mean Corpuscular HGB Conc 34 g/dl (31-36); Mean Corpuscular Hemoglobin 36 pg (27-31); Mean Platelet Volume 9 um3 (7.4-10.4); Red Cell Distribution Width 13 % (10.5-15); White Blood Count 6.6 10^3/ul (3.5-10.8)
[2017-05-25 06:41] LABS: Comments Flag Yes
[2017-05-25 06:42] LABS: Mean Corpuscular Volume 107 fL (80-94)
[2017-05-25] MEDS: Omeprazole CAP* 20 MG PO SCH (06:55)
[2017-05-25 06:58] LABS: Albumin 3.2 g/dL (3.2-5.2); BUN/Creatinine Ratio 12.3 (8-20); Calcium 8.8 mg/dL (8.6-10.3); EGFR African American 139.6 (>60); EGFR Non-African American 108.5 (>60); Magnesium 1.9 mg/dL (1.9-2.7); Total Bilirubin 1.4 mg/dL (0.2-1.0); Total Protein 7.2 g/dL (6.4-8.9)
[2017-05-25] MEDS: chlordiazePOXIDE CAP* 25 MG PO SCH (08:50)
[2017-05-25] MEDS: Folic Acid TAB* 1 MG PO SCH (08:50)
[2017-05-25] MEDS: Metoprolol Succinate XL TAB* 25 MG PO SCH (08:50)
[2017-05-25] MEDS: Docusate CAP* 100 MG PO SCH ×2 (08:50→20:11)
[2017-05-25] MEDS: Multivitamins/Minerals TAB PO SCH (08:51)
[2017-05-25] MEDS: Thiamine TAB* 100 MG TAB PO SCH (08:51)
[2017-05-25] MEDS: Potassium Chlor TAB* 10 MEQ TAB.ER PO SCH ×2 (08:51→20:11)
--- NOTE | 2017-05-25 12:29 | PN ---
Subjective Date of Service: 05/25/17 Interval History: Patient continues to score on the [facility] protocol. Tremor, hypertension, tachycardia overnight. Minimal behavioral disturbance. Patient difficult to arouse to conduct an interview. Patient shook his head when asked about any new complaints. Family History: Unchanged from Admission Social History: Unchanged from Admission Past Medical History: Unchanged from Admission Objective Active Medications: Acetaminophen (Tylenol Tab*) 650 mg PO Q6H PRN PRN Reason: FEVER/PAIN Last Admin: 05/23/17 20:10 Dose: 650 mg Albuterol (Ventolin 2.5 Mg/3 Ml Neb.Mar*) 2.5 mg INH Q2H PRN PRN Reason: SOB/WHEEZING Docusate Sodium (Colace Cap*) 200 mg PO BID [facility] Last Admin: 05/25/17 08:50 Dose: 200 mg Folic Acid (Folvite Tab*) 1 mg PO DAILY [facility] Last Admin: 05/25/17 08:50 Dose: 1 mg Hydralazine HCl (Apresoline Iv*) 5 mg IV SLOW PU Q6H PRN PRN Reason: SYSTOLIC BP GREATER THAN: Potassium Chloride/Sodium Chloride (Ns 0.9% W/ 40 Meq Kcl 1000 Ml*) 1,000 mls @ 100 mls/hr IV PER RATE [facility] Last Admin: 05/25/17 03:44 Dose: 100 mls/hr Lorazepam (Ativan Inj*) 0 - 6 mg IM .PER [facility] PROTOCOL [facility] PRN Reason: Protocol Last Admin: 05/25/17 09:04 Dose: 2 mg Melatonin (Melatonin (Nf)) 3 mg PO BEDTIME PRN; Protocol PRN Reason: Sleep Metoprolol Succinate (Toprol Xl Tab*) 25 mg PO DAILY [facility] Last Admin: 05/25/17 08:50 Dose: 25 mg Multivitamins/Minerals (Theragran/Minerals Tab*) 1 tab PO DAILY [facility] Last Admin: 05/25/17 08:51 Dose: 1 tab Omeprazole (Prilosec Cap*) 20 mg PO DAILY@0600 [facility] Last Admin: 05/25/17 06:55 Dose: Not Given Ondansetron HCl (Zofran Inj*) 4 mg IV Q6H PRN PRN Reason: NAUSEA Potassium Chloride (Klor Con Er Tab*) 10 meq PO BID [facility] Last Admin: 05/25/17 08:51 Dose: 10 meq Thiamine HCl (Vitamin B-1 Tab*) 100 mg PO DAILY [facility] Last Admin: 05/25/17 08:51 Dose: 100 mg Tramadol HCl (Ultram*) 50 mg PO Q6H PRN PRN Reason: PAIN Last Admin: 05/24/17 00:00 Dose: 50 mg Vital Signs 05/24/17 05/24/17 05/24/17 13:23 14:01 15:10 Temperature 98.2 F Pulse Rate 94 Respiratory 21 18 16 Rate Blood Pressure 148/97 (mmHg) O2 Sat by Pulse 100 Oximetry 05/24/17 05/24/17 05/24/17 16:01 16:12 18:16 Temperature 97.6 F 98.6 F Pulse Rate 90 87 Respiratory 16 18 16 Rate Blood Pressure 146/75 149/87 (mmHg) O2 Sat by Pulse 98 98 Oximetry 05/24/17 05/24/17 05/24/17 20:16 21:10 21:20 Temperature 98.3 F Pulse Rate 86 Respiratory 16 18 Rate Blood Pressure 155/95 (mmHg) O2 Sat by Pulse 99 Oximetry 05/24/17 05/24/17 05/24/17 21:22 21:26 22:22 Temperature Pulse Rate Respiratory 20 20 16 Rate Blood Pressure (mmHg) O2 Sat by Pulse Oximetry 05/24/17 05/24/17 05/24/17 22:29 23:26 23:51 Temperature 99.9 F Pulse Rate 110 Respiratory 16 16 16 Rate Blood Pressure 146/111 (mmHg) O2 Sat by Pulse 98 Oximetry 05/24/17 05/25/17 05/25/17 23:52 00:51 02:16 Temperature 99.4 F 100.3 F Pulse Rate 91 106 Respiratory 16 16 17 Rate Blood Pressure 137/97 150/74 (mmHg) O2 Sat by Pulse 97 96 Oximetry 05/25/17 05/25/17 05/25/17 04:23 05:16 06:24 Temperature 97.5 F 99.4 F Pulse Rate 116 117 Respiratory 16 18 17 Rate Blood Pressure 145/92 158/92 (mmHg) O2 Sat by Pulse 97 98 Oximetry 05/25/17 05/25/17 05/25/17 08:15 08:50 09:04 Temperature Pulse Rate 100 Respiratory 16 18 18 Rate Blood Pressure 149/94 (mmHg) O2 Sat by Pulse 98 Oximetry 05/25/17 05/25/17 10:04 10:08 Temperature Pulse Rate 88 Respiratory 18 16 Rate Blood Pressure 136/86 (mmHg) O2 Sat by Pulse 98 Oximetry Oxygen Devices in Use Now: None Appearance: Patient is a 62yo unkempt male resting comfortably in bed. Eyes: No Scleral Icterus, PERRLA Ears/Nose/Mouth/Throat: NL Teeth, Lips, Gums, Clear Oropharnyx, Mucous Membranes Moist Neck: NL Appearance and Movements; NL JVP Respiratory: Symmetrical Chest Expansion and Respiratory Effort, Clear to Auscultation Cardiovascular: NL Sounds; No Murmurs; No JVD, RRR, No Edema Abdominal: NL Sounds; No Tenderness; No Distention Lymphatic: No Cervical Adenopathy Skin: - - several spots of ecchymosis with surrounding erythema noted on lower legs. Neurological: - - Patient aroused with difficulty, unable to assess orientation. Result Diagrams: 05/25/17 06:07 05/25/17 06:07 Additional Lab and Data: Lab Results 05/23/17 05/23/17 05/23/17 Range/Units 01:35 01:35 01:35 WBC (3.5-10.8) 10^3/ul RBC (4.0-5.4) 10^6/ul Hgb (14.0-18.0) g/dl Hct (42-52) % MCV (80-94) fL MCH (27-31) pg MCHC (31-36) g/dl RDW (10.5-15) % Plt Count (150-450) 10^3/ul MPV (7.4-10.4) um3 Neut % (Auto) (38-83) % Lymph % (Auto) (25-47) % [place] % (Auto) (1-9) % Eos % (Auto) (0-6) % Baso % (Auto) (0-2) % Absolute Neuts (auto) (1.5-7.7) 10^3/ul Absolute Lymphs (auto) (1.0-4.8) 10^3/ul Absolute Monos (auto) (0-0.8) 10^3/ul Absolute Eos (auto) (0-0.6) 10^3/ul Absolute Basos (auto) (0-0.2) 10^3/ul Absolute Nucleated RBC 10^3/ul Nucleated RBC % INR (Anticoag Therapy) 1.10 (0.89-1.11) APTT 33.6 (26.0-36.3) seconds Sodium 135 (133-145) mmol/L Potassium 3.1 L (3.5-5.0) mmol/L Chloride 97 L (101-111) mmol/L Carbon Dioxide 25 (22-32) mmol/L Anion Gap 13 H (2-11) mmol/L BUN 7 (6-24) mg/dL Creatinine 0.86 (0.67-1.17) mg/dL Est GFR ( Amer) 115.5 (>60) Est GFR (Non-Af Amer) 89.8 (>60) BUN/Creatinine Ratio 8.1 (8-20) Glucose 101 H (70-100) mg/dL Lactic Acid (0.5-2.0) mmol/L Calcium 9.5 (8.6-10.3) mg/dL Magnesium 1.1 L (1.9-2.7) mg/dL Total Bilirubin 1.30 H (0.2-1.0) mg/dL AST 176 H (13-39) U/L ALT 121 H (7-52) U/L Alkaline Phosphatase 68 (34-104) U/L Total Creatine Kinase 129 (10-223) U/L Troponin I 0.01 (<0.04) ng/mL C-Reactive Protein < 1.00 (< 5.00) mg/L B-Natriuretic Peptide 74 ( - 100) pg/mL Total Protein 8.7 (6.4-8.9) g/dL Albumin 4.3 (3.2-5.2) g/dL Globulin 4.4 H (2-4) g/dL Albumin/Globulin Ratio 1.0 (1-3) TSH 2.88 (0.34-5.60) mcIU/mL Urine Color Urine Appearance Urine pH (5-9) Ur Specific [place] (1.010-1.030) Urine Protein (Negative) Urine Ketones (Negative) Urine Blood (Negative) Urine Nitrate (Negative) Urine Bilirubin (Negative) Urine Urobilinogen (Negative) Ur Leukocyte Esterase (Negative) Urine WBC (Auto) (Absent) Urine RBC (Auto) (Absent) Ur Squamous Epith Cells (Absent) Urine Bacteria (Absent) Urine Glucose (Negative) Urine Opiates Screen (None Detect) Ur Barbiturates Screen (None Detect) Ur Phencyclidine Scrn (None Detect) Ur Amphetamines Screen (None Detect) U Benzodiazepines Scrn (None Detect) Urine Cocaine Screen (None Detect) U Cannabinoids Screen (None Detect) Serum Alcohol 30 H (<10) mg/dL 05/23/17 05/23/17 05/23/17 Range/Units 01:35 01:35 01:35 WBC 4.1 (3.5-10.8) 10^3/ul RBC 3.43 L (4.0-5.4) 10^6/ul Hgb 12.5 L (14.0-18.0) g/dl Hct 37 L (42-52) % MCV 107 H (80-94) fL MCH 37 H (27-31) pg MCHC 34 (31-36) g/dl RDW 13 (10.5-15) % Plt Count 91 L (150-450) 10^3/ul MPV 8 (7.4-10.4) um3 Neut % (Auto) 55.4 (38-83) % Lymph % (Auto) 30.3 (25-47) % [place] % (Auto) 12.6 H (1-9) % Eos % (Auto) 0.1 (0-6) % Baso % (Auto) 1.6 (0-2) % Absolute Neuts (auto) 2.3 (1.5-7.7) 10^3/ul Absolute Lymphs (auto) 1.2 (1.0-4.8) 10^3/ul Absolute Monos (auto) 0.5 (0-0.8) 10^3/ul Absolute Eos (auto) 0 (0-0.6) 10^3/ul Absolute Basos (auto) 0.1 (0-0.2) 10^3/ul Absolute Nucleated RBC 0 10^3/ul Nucleated RBC % 0.1 INR (Anticoag Therapy) (0.89-1.11) APTT (26.0-36.3) seconds Sodium (133-145) mmol/L Potassium (3.5-5.0) mmol/L Chloride (101-111) mmol/L Carbon Dioxide (22-32) mmol/L Anion Gap (2-11) mmol/L BUN (6-24) mg/dL Creatinine (0.67-1.17) mg/dL Est GFR ( Amer) (>60) Est GFR (Non-Af Amer) (>60) BUN/Creatinine Ratio (8-20) Glucose (70-100) mg/dL Lactic Acid 3.2 H* (0.5-2.0) mmol/L Calcium (8.6-10.3) mg/dL Magnesium (1.9-2.7) mg/dL Total Bilirubin (0.2-1.0) mg/dL AST (13-39) U/L ALT (7-52) U/L Alkaline Phosphatase (34-104) U/L Total Creatine Kinase (10-223) U/L Troponin I (<0.04) ng/mL C-Reactive Protein (< 5.00) mg/L B-Natriuretic Peptide ( - 100) pg/mL Total Protein (6.4-8.9) g/dL Albumin (3.2-5.2) g/dL Globulin (2-4) g/dL Albumin/Globulin Ratio (1-3) TSH (0.34-5.60) mcIU/mL Urine Color Urine Appearance Urine pH (5-9) Ur Specific [place] (1.010-1.030) Urine Protein (Negative) Urine Ketones (Negative) Urine Blood (Negative) Urine Nitrate (Negative) Urine Bilirubin (Negative) Urine Urobilinogen (Negative) Ur Leukocyte Esterase (Negative) Urine WBC (Auto) (Absent) Urine RBC (Auto) (Absent) Ur Squamous Epith Cells (Absent) Urine Bacteria (Absent) Urine Glucose (Negative) Urine Opiates Screen None detected (None Detect) Ur Barbiturates Screen None detected (None Detect) Ur Phencyclidine Scrn None detected (None Detect) Ur Amphetamines Screen None detected (None Detect) U Benzodiazepines Scrn None detected (None Detect) Urine Cocaine Screen Presumptive positive H (None Detect) U Cannabinoids Screen None detected (None Detect) Serum Alcohol (<10) mg/dL 05/23/17 Range/Units 01:35 WBC (3.5-10.8) 10^3/ul RBC (4.0-5.4) 10^6/ul Hgb (14.0-18.0) g/dl Hct (42-52) % MCV (80-94) fL MCH (27-31) pg MCHC (31-36) g/dl RDW (10.5-15) % Plt Count (150-450) 10^3/ul MPV (7.4-10.4) um3 Neut % (Auto) (38-83) % Lymph % (Auto) (25-47) % [place] % (Auto) (1-9) % Eos % (Auto) (0-6) % Baso % (Auto) (0-2) % Absolute Neuts (auto) (1.5-7.7) 10^3/ul Absolute Lymphs (auto) (1.0-4.8) 10^3/ul Absolute Monos (auto) (0-0.8) 10^3/ul Absolute Eos (auto) (0-0.6) 10^3/ul Absolute Basos (auto) (0-0.2) 10^3/ul Absolute Nucleated RBC 10^3/ul Nucleated RBC % INR (Anticoag Therapy) (0.89-1.11) APTT (26.0-36.3) seconds Sodium (133-145) mmol/L Potassium (3.5-5.0) mmol/L Chloride (101-111) mmol/L Carbon Dioxide (22-32) mmol/L Anion Gap (2-11) mmol/L BUN (6-24) mg/dL Creatinine (0.67-1.17) mg/dL Est GFR ( Amer) (>60) Est GFR (Non-Af Amer) (>60) BUN/Creatinine Ratio (8-20) Glucose (70-100) mg/dL Lactic Acid (0.5-2.0) mmol/L Calcium (8.6-10.3) mg/dL Magnesium (1.9-2.7) mg/dL Total Bilirubin (0.2-1.0) mg/dL AST (13-39) U/L ALT (7-52) U/L Alkaline Phosphatase (34-104) U/L Total Creatine Kinase (10-223) U/L Troponin I (<0.04) ng/mL C-Reactive Protein (< 5.00) mg/L B-Natriuretic Peptide ( - 100) pg/mL Total Protein (6.4-8.9) g/dL Albumin (3.2-5.2) g/dL Globulin (2-4) g/dL Albumin/Globulin Ratio (1-3) TSH (0.34-5.60) mcIU/mL Urine Color Straw Urine Appearance Clear Urine pH 7.0 (5-9) Ur Specific [place] 1.010 (1.010-1.030) Urine Protein 1+(30 mg/dl) H (Negative) Urine Ketones Trace H (Negative) Urine Blood Negative (Negative) Urine Nitrate Negative (Negative) Urine Bilirubin Negative (Negative) Urine Urobilinogen Negative (Negative) Ur Leukocyte Esterase Negative (Negative) Urine WBC (Auto) Absent (Absent) Urine RBC (Auto) Absent (Absent) Ur Squamous Epith Cells Present H (Absent) Urine Bacteria Absent (Absent) Urine Glucose Negative (Negative) Urine Opiates Screen (None Detect) Ur Barbiturates Screen (None Detect) Ur Phencyclidine Scrn (None Detect) Ur Amphetamines Screen (None Detect) U Benzodiazepines Scrn (None Detect) Urine Cocaine Screen (None Detect) U Cannabinoids Screen (None Detect) Serum Alcohol (<10) mg/dL 05/23/17 05/23/17 05/23/17 01:35 01:35 01:35 WBC RBC Hgb Hct MCV MCH MCHC RDW Plt Count MPV Neut % (Auto) Lymph % (Auto) [place] % (Auto) Eos % (Auto) Baso % (Auto) Absolute Neuts (auto) Absolute Lymphs (auto) Absolute Monos (auto) Absolute Eos (auto) Absolute Basos (auto) Absolute Nucleated RBC Nucleated RBC % INR (Anticoag Therapy) 1.10 APTT 33.6 Sodium 135 Potassium 3.1 L Chloride 97 L Carbon Dioxide 25 Anion Gap 13 H BUN 7 Creatinine 0.86 Est GFR ( Amer) 115.5 Est GFR (Non-Af Amer) 89.8 BUN/Creatinine Ratio 8.1 Glucose 101 H Lactic Acid Calcium 9.5 Magnesium 1.1 L Total Bilirubin 1.30 H Direct Bilirubin Indirect Bilirubin AST 176 H ALT 121 H Alkaline Phosphatase 68 Ammonia Total Creatine Kinase 129 Troponin I 0.01 C-Reactive Protein < 1.00 B-Natriuretic Peptide 74 Total Protein 8.7 Albumin 4.3 Globulin 4.4 H Albumin/Globulin Ratio 1.0 TSH 2.88 Urine Color Urine Appearance Urine pH Ur Specific [place] Urine Protein Urine Ketones Urine Blood Urine Nitrate Urine Bilirubin Urine Urobilinogen Ur Leukocyte Esterase Urine WBC (Auto) Urine RBC (Auto) Ur Squamous Epith Cells Urine Bacteria Urine Glucose Urine Opiates Screen Ur Barbiturates Screen Ur Phencyclidine Scrn Ur Amphetamines Screen U Benzodiazepines Scrn Urine Cocaine Screen U Cannabinoids Screen Serum Alcohol 30 H 05/23/17 05/23/17 05/23/17 01:35 01:35 01:35 WBC 4.1 RBC 3.43 L Hgb 12.5 L Hct 37 L MCV 107 H MCH 37 H MCHC 34 RDW 13 Plt Count 91 L MPV 8 Neut % (Auto) 55.4 Lymph % (Auto) 30.3 [place] % (Auto) 12.6 H Eos % (Auto) 0.1 Baso % (Auto) 1.6 Absolute Neuts (auto) 2.3 Absolute Lymphs (auto) 1.2 Absolute Monos (auto) 0.5 Absolute Eos (auto) 0 Absolute Basos (auto) 0.1 Absolute Nucleated RBC 0 Nucleated RBC % 0.1 INR (Anticoag Therapy) APTT Sodium Potassium Chloride Carbon Dioxide Anion Gap BUN Creatinine Est GFR ( Amer) Est GFR (Non-Af Amer) BUN/Creatinine Ratio Glucose Lactic Acid 3.2 H* Calcium Magnesium Total Bilirubin Direct Bilirubin Indirect Bilirubin AST ALT Alkaline Phosphatase Ammonia Total Creatine Kinase Troponin I C-Reactive Protein B-Natriuretic Peptide Total Protein Albumin Globulin Albumin/Globulin Ratio TSH Urine Color Urine Appearance Urine pH Ur Specific [place] Urine Protein Urine Ketones Urine Blood Urine Nitrate Urine Bilirubin Urine Urobilinogen Ur Leukocyte Esterase Urine WBC (Auto) Urine RBC (Auto) Ur Squamous Epith Cells Urine Bacteria Urine Glucose Urine Opiates Screen None detected Ur Barbiturates Screen None detected Ur Phencyclidine Scrn None detected Ur Amphetamines Screen None detected U Benzodiazepines Scrn None detected Urine Cocaine Screen Presumptive positive H U Cannabinoids Screen None detected Serum Alcohol 05/23/17 05/23/17 05/23/17 01:35 05:39 05:39 WBC 3.8 RBC 3.36 L Hgb 12.4 L Hct 36 L MCV 107 H MCH 37 H MCHC 34 RDW 14 Plt Count 80 L MPV 8 Neut % (Auto) 54.6 Lymph % (Auto) 33.5 [place] % (Auto) 10.4 H Eos % (Auto) 0.2 Baso % (Auto) 1.3 Absolute Neuts (auto) 2.1 Absolute Lymphs (auto) 1.3 Absolute Monos (auto) 0.4 Absolute Eos (auto) 0 Absolute Basos (auto) 0.1 Absolute Nucleated RBC 0 Nucleated RBC % 0.1 INR (Anticoag Therapy) APTT Sodium 135 Potassium 3.2 L Chloride 101 Carbon Dioxide 22 Anion Gap 12 H BUN 7 Creatinine 0.73 Est GFR ( Amer) 139.6 Est GFR (Non-Af Amer) 108.5 BUN/Creatinine Ratio 9.6 Glucose 108 H Lactic Acid Calcium 8.6 Magnesium 2.2 Total Bilirubin 1.40 H Direct Bilirubin 0.70 H Indirect Bilirubin 0.7 AST 147 H ALT 103 H Alkaline Phosphatase 68 Ammonia Total Creatine Kinase Troponin I C-Reactive Protein B-Natriuretic Peptide Total Protein 8.1 Albumin 3.9 Globulin 4.2 H Albumin/Globulin Ratio 0.9 L TSH Urine Color Straw Urine Appearance Clear Urine pH 7.0 Ur Specific [place] 1.010 Urine Protein 1+(30 mg/dl) H Urine Ketones Trace H Urine Blood Negative Urine Nitrate Negative Urine Bilirubin Negative Urine Urobilinogen Negative Ur Leukocyte Esterase Negative Urine WBC (Auto) Absent Urine RBC (Auto) Absent Ur Squamous Epith Cells Present H Urine Bacteria Absent Urine Glucose Negative Urine Opiates Screen Ur Barbiturates Screen Ur Phencyclidine Scrn Ur Amphetamines Screen U Benzodiazepines Scrn Urine Cocaine Screen U Cannabinoids Screen Serum Alcohol 05/23/17 05/24/17 05/24/17 05:39 07:58 07:58 WBC 3.5 RBC 3.31 L Hgb 12.0 L Hct 36 L MCV 107 H MCH 36 H MCHC 34 RDW 14 Plt Count 83 L MPV 9 Neut % (Auto) 63.6 Lymph % (Auto) 23.2 L [place] % (Auto) 11.7 H Eos % (Auto) 0.4 Baso % (Auto) 1.1 Absolute Neuts (auto) 2.2 Absolute Lymphs (auto) 0.8 L Absolute Monos (auto) 0.4 Absolute Eos (auto) 0 Absolute Basos (auto) 0 Absolute Nucleated RBC 0.01 Nucleated RBC % 0.3 INR (Anticoag Therapy) APTT Sodium 128 L Potassium 3.3 L Chloride 96 L Carbon Dioxide 26 Anion Gap 6 BUN 9 Creatinine 0.70 Est GFR ( Amer) 146.5 Est GFR (Non-Af Amer) 113.9 BUN/Creatinine Ratio 12.9 Glucose 134 H Lactic Acid 1.2 Calcium 9.3 Magnesium 1.5 L Total Bilirubin 1.40 H Direct Bilirubin 0.60 H Indirect Bilirubin 0.8 AST 121 H ALT 92 H Alkaline Phosphatase 61 Ammonia Total Creatine Kinase Troponin I C-Reactive Protein B-Natriuretic Peptide Total Protein 7.9 Albumin 3.8 Globulin 4.1 H Albumin/Globulin Ratio 0.9 L TSH Urine Color Urine Appearance Urine pH Ur Specific [place] Urine Protein Urine Ketones Urine Blood Urine Nitrate Urine Bilirubin Urine Urobilinogen Ur Leukocyte Esterase Urine WBC (Auto) Urine RBC (Auto) Ur Squamous Epith Cells Urine Bacteria Urine Glucose Urine Opiates Screen Ur Barbiturates Screen Ur Phencyclidine Scrn Ur Amphetamines Screen U Benzodiazepines Scrn Urine Cocaine Screen U Cannabinoids Screen Serum Alcohol 05/24/17 12:01 WBC RBC Hgb Hct MCV MCH MCHC RDW Plt Count MPV Neut % (Auto) Lymph % (Auto) [place] % (Auto) Eos % (Auto) Baso % (Auto) Absolute Neuts (auto) Absolute Lymphs (auto) Absolute Monos (auto) Absolute Eos (auto) Absolute Basos (auto) Absolute Nucleated RBC Nucleated RBC % INR (Anticoag Therapy) APTT Sodium Potassium Chloride Carbon Dioxide Anion Gap BUN Creatinine Est GFR ( Amer) Est GFR (Non-Af Amer) BUN/Creatinine Ratio Glucose Lactic Acid Calcium Magnesium Total Bilirubin Direct Bilirubin Indirect Bilirubin AST ALT Alkaline Phosphatase Ammonia 50 Total Creatine Kinase Troponin I C-Reactive Protein B-Natriuretic Peptide Total Protein Albumin Globulin Albumin/Globulin Ratio TSH Urine Color Urine Appearance Urine pH Ur Specific [place] Urine Protein Urine Ketones Urine Blood Urine Nitrate Urine Bilirubin Urine Urobilinogen Ur Leukocyte Esterase Urine WBC (Auto) Urine RBC (Auto) Ur Squamous Epith Cells Urine Bacteria Urine Glucose Urine Opiates Screen Ur Barbiturates Screen Ur Phencyclidine Scrn Ur Amphetamines Screen U Benzodiazepines Scrn Urine Cocaine Screen U Cannabinoids Screen Serum Alcohol Assess/Plan/Problems-Billing Assessment: Mr. Mccarthy is a 62 yo male with a PMH significant for ETOH and polysubstance abuse, HTN, hepatitis C, duodenal ulcer with hemorrhage, and tobacco abuse who presented to the hospital on 05/23 with progressive generalized weakness, hypomagnesemia, hypokalemia, and positive orthostasis. Patient has since deteriorated with symptoms consistent with alcohol withdrawal and continues to score on the WAM scale. Patient is currently very sedated from benzodiazepine dosing. - Patient Problems (1) Withdrawal symptoms, alcohol Current Visit: Yes Status: Acute Code(s): F10.239 - ALCOHOL DEPENDENCE WITH WITHDRAWAL, UNSPECIFIED SNOMED Code(s): 396050129 Comment: Patient continues to show signs of withdrawal. Continue ativan per [facility] protocol. Discontinue Librium. Patient was able to take vitamins this morning. (2) HTN (hypertension) Current Visit: Yes Status: Chronic Code(s): I10 - ESSENTIAL (PRIMARY) HYPERTENSION SNOMED Code(s): 67225441 Comment: Fluctuating Blood Pressure Patient able to take PO metoprolol today. IV hydralazine PRN for SBP >170. (3) Transaminitis Current Visit: Yes Status: Acute Code(s): R74.0 - NONSPEC ELEV OF LEVELS OF TRANSAMNS & LACTIC ACID DEHYDRGNSE SNOMED Code(s): 338157466 Comment: Appears chronic, declining daily. Likely secondary to ETOH use and Hep C (4) Weakness Current Visit: Yes Status: Chronic Code(s): R53.1 - WEAKNESS SNOMED Code(s ): 59266963 Comment: Suspect multifactorial causes, incl. electrolyte abnormalities, ETOH abuse, dehydration Likely physical deconditioning PT/OT consults ordered, will evaluate when patient able. (5) Hypokalemia Current Visit: No Status: Acute Code(s): E87.6 - HYPOKALEMIA SNOMED Code(s ): 77916116 Comment: 4.0 this morning, patient taking oral intake Recheck BMP in morning (6) Hypomagnesemia Current Visit: No Status: Acute Code(s): E83.42 - HYPOMAGNESEMIA SNOMED Code(s): 722727948 Comment: 1.9 this morning, patient taking in oral intake. Will recheck in morning. (7) Thrombocytopenia Current Visit: No Status: Acute Code(s): D69.6 - THROMBOCYTOPENIA, UNSPECIFIED SNOMED Code(s): 214815238 Comment: Likely associated with ETOH and liver disease. Stable (8) DVT prophylaxis Current Visit: No Status: Acute Code(s): MQC2524 - SNOMED Code(s): 439799818 Comment: Heparin contraindicated d/t thrombocytopenia SCDs (9) Full code status Current Visit: No Status: Acute Code(s): Z78.9 - OTHER SPECIFIED HEALTH STATUS SNOMED Code(s): 253133842 Status and Disposition: Inpatient admission. Anticipate LOS 3-5 days.
[2017-05-25] MEDS: hydrALAZINE IV* 20 MG/ML VIAL IV SLOW PU PRN (23:07)
[2017-05-26] MEDS: NS 0.9% w/ 40 Meq KCL 1000 ML* 1,000 ML IV SCH ×2 (01:16→17:31)
[2017-05-26] MEDS: LORazepam INJ* 2 MG/ML 1 ML VIAL IM SCH ×2 (02:55→06:40)
[2017-05-26] MEDS: Omeprazole CAP* 20 MG PO SCH (06:42)
[2017-05-26] MEDS ORDERED: LORazepam INJ* 2 MG/ML 1 ML VIAL IV PUSH SCH (10:06)
[2017-05-26] MEDS: Potassium Chlor TAB* 10 MEQ TAB.ER PO SCH ×2 (10:25→20:37)
[2017-05-26] MEDS: Metoprolol Succinate XL TAB* 25 MG PO SCH (10:25)
[2017-05-26] MEDS: Thiamine TAB* 100 MG TAB PO SCH (10:26)
[2017-05-26] MEDS: Multivitamins/Minerals TAB PO SCH (10:26)
[2017-05-26] MEDS: Docusate CAP* 100 MG PO SCH ×2 (10:26→20:37)
[2017-05-26] MEDS: Folic Acid TAB* 1 MG PO SCH (10:26)
[2017-05-26 13:01] LABS: Hematocrit 32 % (42-52); Hemoglobin 11.1 g/dl (14.0-18.0); Mean Corpuscular HGB Conc 34 g/dl (31-36); Mean Corpuscular Hemoglobin 37 pg (27-31); Mean Platelet Volume 8 um3 (7.4-10.4); Red Blood Count 3.02 10^6/ul (4.0-5.4); Red Cell Distribution Width 13 % (10.5-15); White Blood Count 5.7 10^3/ul (3.5-10.8)
[2017-05-26 13:05] LABS: Comments Flag Yes
[2017-05-26 13:06] LABS: Mean Corpuscular Volume 107 fL (80-94)
[2017-05-26 13:21] LABS: Albumin 3.2 g/dL (3.2-5.2); BUN/Creatinine Ratio 14.3 (8-20); Calcium 8.9 mg/dL (8.6-10.3); EGFR African American 165.4 (>60); EGFR Non-African American 128.6 (>60); Globulin 3.5 g/dL (2-4); Total Protein 6.7 g/dL (6.4-8.9)
--- NOTE | 2017-05-26 16:05 | PN ---
Subjective Date of Service: 05/26/17 Interval History: Patient continued to score on WAM protocol overnight due to tachycardia, hypertension, tremor and agitation. Continued to receive ativan per protocol. Patient heavily sedated at approximately 10am when first seen. Patient more alert, eating and talking when seen around 1300. Patient denies any acute complaints including CP, SOB, N/V, and abdominal pain. Patient had many questions about when his discharge would be and about money that he had in his pocket. These were answered to his satisfaction. Patient also stated that it was his intention to resume drinking "A few beers every couple days" when he returned home. Patient states he was also willing to "consider" going to alcohol rehab after the health effects of alcohol were explained to him fully. Patient was primarily concerned about who would look after his apartment when he was in rehab. Family History: Unchanged from Admission Social History: Unchanged from Admission Past Medical History: Unchanged from Admission Objective Active Medications: Acetaminophen (Tylenol Tab*) 650 mg PO Q6H PRN PRN Reason: FEVER/PAIN Last Admin: 05/23/17 20:10 Dose: 650 mg Albuterol (Ventolin 2.5 Mg/3 Ml Neb.Mar*) 2.5 mg INH Q2H PRN PRN Reason: SOB/WHEEZING Docusate Sodium (Colace Cap*) 200 mg PO BID [facility] Last Admin: 05/26/17 10:26 Dose: 200 mg Folic Acid (Folvite Tab*) 1 mg PO DAILY [facility] Last Admin: 05/26/17 10:26 Dose: 1 mg Hydralazine HCl (Apresoline Iv*) 5 mg IV SLOW PU Q6H PRN PRN Reason: SYSTOLIC BP GREATER THAN: Last Admin: 05/25/17 23:07 Dose: 5 mg Potassium Chloride/Sodium Chloride (Ns 0.9% W/ 40 Meq Kcl 1000 Ml*) 1,000 mls @ 100 mls/hr IV PER RATE [facility] Last Admin: 05/26/17 01:16 Dose: 100 mls/hr Lorazepam (Ativan Inj*) 0 - 6 mg IV PUSH .PER [facility] PROTOCOL [facility] PRN Reason: Protocol Melatonin (Melatonin (Nf)) 3 mg PO BEDTIME PRN; Protocol PRN Reason: Sleep Metoprolol Succinate (Toprol Xl Tab*) 25 mg PO DAILY [facility] Last Admin: 05/26/17 10:25 Dose: 25 mg Multivitamins/Minerals (Theragran/Minerals Tab*) 1 tab PO DAILY [facility] Last Admin: 05/26/17 10:26 Dose: 1 tab Omeprazole (Prilosec Cap*) 20 mg PO DAILY@0600 [facility] Last Admin: 05/26/17 06:42 Dose: Not Given Ondansetron HCl (Zofran Inj*) 4 mg IV Q6H PRN PRN Reason: NAUSEA Potassium Chloride (Klor Con Er Tab*) 10 meq PO BID [facility] Last Admin: 05/26/17 10:25 Dose: 10 meq Thiamine HCl (Vitamin B-1 Tab*) 100 mg PO DAILY [facility] Last Admin: 05/26/17 10:26 Dose: 100 mg Tramadol HCl (Ultram*) 50 mg PO Q6H PRN PRN Reason: PAIN Last Admin: 05/24/17 00:00 Dose: 50 mg Vital Signs 05/25/17 05/25/17 05/25/17 16:00 16:24 18:00 Temperature 98.4 F Pulse Rate 66 Respiratory 18 20 17 Rate Blood Pressure 135/72 (mmHg) O2 Sat by Pulse 100 Oximetry 05/25/17 05/25/17 05/25/17 18:21 20:10 21:10 Temperature 98.4 F Pulse Rate 80 Respiratory 18 20 20 Rate Blood Pressure 153/87 (mmHg) O2 Sat by Pulse 97 Oximetry 05/25/17 05/26/17 05/26/17 22:17 00:15 02:03 Temperature 96.8 F 98.3 F 98.8 F Pulse Rate 70 77 80 Respiratory 20 16 24 Rate Blood Pressure 175/97 167/92 172/93 (mmHg) O2 Sat by Pulse 99 98 100 Oximetry 05/26/17 05/26/17 05/26/17 02:55 03:55 04:19 Temperature 97.6 F Pulse Rate 60 Respiratory 18 18 20 Rate Blood Pressure 177/83 (mmHg) O2 Sat by Pulse 99 Oximetry 05/26/17 05/26/17 05/26/17 06:23 06:40 08:09 Temperature 98.5 F 98.5 F Pulse Rate 85 84 Respiratory 20 18 18 Rate Blood Pressure 165/96 158/85 (mmHg) O2 Sat by Pulse 100 99 Oximetry 05/26/17 05/26/17 05/26/17 10:24 11:24 12:39 Temperature 98.6 F Pulse Rate 94 Respiratory 14 18 14 Rate Blood Pressure 112/83 (mmHg) O2 Sat by Pulse 100 Oximetry 05/26/17 14:06 Temperature 98.8 F Pulse Rate 98 Respiratory 12 Rate Blood Pressure 112/63 (mmHg) O2 Sat by Pulse 100 Oximetry Oxygen Devices in Use Now: None Appearance: Patient is a 62yo emaciated male who is slumped in the hospital bed eating cake in no acute distress. Eyes: No Scleral Icterus, PERRLA Ears/Nose/Mouth/Throat: NL Teeth, Lips, Gums, Clear Oropharnyx, Mucous Membranes Moist Neck: NL Appearance and Movements; NL JVP Respiratory: Symmetrical Chest Expansion and Respiratory Effort, Clear to Auscultation Cardiovascular: NL Sounds; No Murmurs; No JVD, RRR, No Edema Abdominal: NL Sounds; No Tenderness; No Distention, No Hepatosplenomegaly Lymphatic: No Cervical Adenopathy Skin: No Rash or Ulcers Neurological: Alert and Oriented x 3, - - Patient has a significant tremor in his hands and head. Patient has 4/5 strength in bilateral upper and lower extremities both distally and proximally. Nutrition: Taking PO's Result Diagrams: 05/26/17 12:44 05/26/17 12:48 Additional Lab and Data: Lab Results 05/23/17 05/23/17 05/23/17 Range/Units 01:35 01:35 01:35 WBC (3.5-10.8) 10^3/ul RBC (4.0-5.4) 10^6/ul Hgb (14.0-18.0) g/dl Hct (42-52) % MCV (80-94) fL MCH (27-31) pg MCHC (31-36) g/dl RDW (10.5-15) % Plt Count (150-450) 10^3/ul MPV (7.4-10.4) um3 Neut % (Auto) (38-83) % Lymph % (Auto) (25-47) % [place] % (Auto) (1-9) % Eos % (Auto) (0-6) % Baso % (Auto) (0-2) % Absolute Neuts (auto) (1.5-7.7) 10^3/ul Absolute Lymphs (auto) (1.0-4.8) 10^3/ul Absolute Monos (auto) (0-0.8) 10^3/ul Absolute Eos (auto) (0-0.6) 10^3/ul Absolute Basos (auto) (0-0.2) 10^3/ul Absolute Nucleated RBC 10^3/ul Nucleated RBC % INR (Anticoag Therapy) 1.10 (0.89-1.11) APTT 33.6 (26.0-36.3) seconds Sodium 135 (133-145) mmol/L Potassium 3.1 L (3.5-5.0) mmol/L Chloride 97 L (101-111) mmol/L Carbon Dioxide 25 (22-32) mmol/L Anion Gap 13 H (2-11) mmol/L BUN 7 (6-24) mg/dL Creatinine 0.86 (0.67-1.17) mg/dL Est GFR ( Amer) 115.5 (>60) Est GFR (Non-Af Amer) 89.8 (>60) BUN/Creatinine Ratio 8.1 (8-20) Glucose 101 H (70-100) mg/dL Lactic Acid (0.5-2.0) mmol/L Calcium 9.5 (8.6-10.3) mg/dL Magnesium 1.1 L (1.9-2.7) mg/dL Total Bilirubin 1.30 H (0.2-1.0) mg/dL AST 176 H (13-39) U/L ALT 121 H (7-52) U/L Alkaline Phosphatase 68 (34-104) U/L Total Creatine Kinase 129 (10-223) U/L Troponin I 0.01 (<0.04) ng/mL C-Reactive Protein < 1.00 (< 5.00) mg/L B-Natriuretic Peptide 74 ( - 100) pg/mL Total Protein 8.7 (6.4-8.9) g/dL Albumin 4.3 (3.2-5.2) g/dL Globulin 4.4 H (2-4) g/dL Albumin/Globulin Ratio 1.0 (1-3) TSH 2.88 (0.34-5.60) mcIU/mL Urine Color Urine Appearance Urine pH (5-9) Ur Specific [place] (1.010-1.030) Urine Protein (Negative) Urine Ketones (Negative) Urine Blood (Negative) Urine Nitrate (Negative) Urine Bilirubin (Negative) Urine Urobilinogen (Negative) Ur Leukocyte Esterase (Negative) Urine WBC (Auto) (Absent) Urine RBC (Auto) (Absent) Ur Squamous Epith Cells (Absent) Urine Bacteria (Absent) Urine Glucose (Negative) Urine Opiates Screen (None Detect) Ur Barbiturates Screen (None Detect) Ur Phencyclidine Scrn (None Detect) Ur Amphetamines Screen (None Detect) U Benzodiazepines Scrn (None Detect) Urine Cocaine Screen (None Detect) U Cannabinoids Screen (None Detect) Serum Alcohol 30 H (<10) mg/dL 05/23/17 05/23/17 05/23/17 Range/Units 01:35 01:35 01:35 WBC 4.1 (3.5-10.8) 10^3/ul RBC 3.43 L (4.0-5.4) 10^6/ul Hgb 12.5 L (14.0-18.0) g/dl Hct 37 L (42-52) % MCV 107 H (80-94) fL MCH 37 H (27-31) pg MCHC 34 (31-36) g/dl RDW 13 (10.5-15) % Plt Count 91 L (150-450) 10^3/ul MPV 8 (7.4-10.4) um3 Neut % (Auto) 55.4 (38-83) % Lymph % (Auto) 30.3 (25-47) % [place] % (Auto) 12.6 H (1-9) % Eos % (Auto) 0.1 (0-6) % Baso % (Auto) 1.6 (0-2) % Absolute Neuts (auto) 2.3 (1.5-7.7) 10^3/ul Absolute Lymphs (auto) 1.2 (1.0-4.8) 10^3/ul Absolute Monos (auto) 0.5 (0-0.8) 10^3/ul Absolute Eos (auto) 0 (0-0.6) 10^3/ul Absolute Basos (auto) 0.1 (0-0.2) 10^3/ul Absolute Nucleated RBC 0 10^3/ul Nucleated RBC % 0.1 INR (Anticoag Therapy) (0.89-1.11) APTT (26.0-36.3) seconds Sodium (133-145) mmol/L Potassium (3.5-5.0) mmol/L Chloride (101-111) mmol/L Carbon Dioxide (22-32) mmol/L Anion Gap (2-11) mmol/L BUN (6-24) mg/dL Creatinine (0.67-1.17) mg/dL Est GFR ( Amer) (>60) Est GFR (Non-Af Amer) (>60) BUN/Creatinine Ratio (8-20) Glucose (70-100) mg/dL Lactic Acid 3.2 H* (0.5-2.0) mmol/L Calcium (8.6-10.3) mg/dL Magnesium (1.9-2.7) mg/dL Total Bilirubin (0.2-1.0) mg/dL AST (13-39) U/L ALT (7-52) U/L Alkaline Phosphatase (34-104) U/L Total Creatine Kinase (10-223) U/L Troponin I (<0.04) ng/mL C-Reactive Protein (< 5.00) mg/L B-Natriuretic Peptide ( - 100) pg/mL Total Protein (6.4-8.9) g/dL Albumin (3.2-5.2) g/dL Globulin (2-4) g/dL Albumin/Globulin Ratio (1-3) TSH (0.34-5.60) mcIU/mL Urine Color Urine Appearance Urine pH (5-9) Ur Specific [place] (1.010-1.030) Urine Protein (Negative) Urine Ketones (Negative) Urine Blood (Negative) Urine Nitrate (Negative) Urine Bilirubin (Negative) Urine Urobilinogen (Negative) Ur Leukocyte Esterase (Negative) Urine WBC (Auto) (Absent) Urine RBC (Auto) (Absent) Ur Squamous Epith Cells (Absent) Urine Bacteria (Absent) Urine Glucose (Negative) Urine Opiates Screen None detected (None Detect) Ur Barbiturates Screen None detected (None Detect) Ur Phencyclidine Scrn None detected (None Detect) Ur Amphetamines Screen None detected (None Detect) U Benzodiazepines Scrn None detected (None Detect) Urine Cocaine Screen Presumptive positive H (None Detect) U Cannabinoids Screen None detected (None Detect) Serum Alcohol (<10) mg/dL 05/23/17 Range/Units 01:35 WBC (3.5-10.8) 10^3/ul RBC (4.0-5.4) 10^6/ul Hgb (14.0-18.0) g/dl Hct (42-52) % MCV (80-94) fL MCH (27-31) pg MCHC (31-36) g/dl RDW (10.5-15) % Plt Count (150-450) 10^3/ul MPV (7.4-10.4) um3 Neut % (Auto) (38-83) % Lymph % (Auto) (25-47) % [place] % (Auto) (1-9) % Eos % (Auto) (0-6) % Baso % (Auto) (0-2) % Absolute Neuts (auto) (1.5-7.7) 10^3/ul Absolute Lymphs (auto) (1.0-4.8) 10^3/ul Absolute Monos (auto) (0-0.8) 10^3/ul Absolute Eos (auto) (0-0.6) 10^3/ul Absolute Basos (auto) (0-0.2) 10^3/ul Absolute Nucleated RBC 10^3/ul Nucleated RBC % INR (Anticoag Therapy) (0.89-1.11) APTT (26.0-36.3) seconds Sodium (133-145) mmol/L Potassium (3.5-5.0) mmol/L Chloride (101-111) mmol/L Carbon Dioxide (22-32) mmol/L Anion Gap (2-11) mmol/L BUN (6-24) mg/dL Creatinine (0.67-1.17) mg/dL Est GFR ( Amer) (>60) Est GFR (Non-Af Amer) (>60) BUN/Creatinine Ratio (8-20) Glucose (70-100) mg/dL Lactic Acid (0.5-2.0) mmol/L Calcium (8.6-10.3) mg/dL Magnesium (1.9-2.7) mg/dL Total Bilirubin (0.2-1.0) mg/dL AST (13-39) U/L ALT (7-52) U/L Alkaline Phosphatase (34-104) U/L Total Creatine Kinase (10-223) U/L Troponin I (<0.04) ng/mL C-Reactive Protein (< 5.00) mg/L B-Natriuretic Peptide ( - 100) pg/mL Total Protein (6.4-8.9) g/dL Albumin (3.2-5.2) g/dL Globulin (2-4) g/dL Albumin/Globulin Ratio (1-3) TSH (0.34-5.60) mcIU/mL Urine Color Straw Urine Appearance Clear Urine pH 7.0 (5-9) Ur Specific [place] 1.010 (1.010-1.030) Urine Protein 1+(30 mg/dl) H (Negative) Urine Ketones Trace H (Negative) Urine Blood Negative (Negative) Urine Nitrate Negative (Negative) Urine Bilirubin Negative (Negative) Urine Urobilinogen Negative (Negative) Ur Leukocyte Esterase Negative (Negative) Urine WBC (Auto) Absent (Absent) Urine RBC (Auto) Absent (Absent) Ur Squamous Epith Cells Present H (Absent) Urine Bacteria Absent (Absent) Urine Glucose Negative (Negative) Urine Opiates Screen (None Detect) Ur Barbiturates Screen (None Detect) Ur Phencyclidine Scrn (None Detect) Ur Amphetamines Screen (None Detect) U Benzodiazepines Scrn (None Detect) Urine Cocaine Screen (None Detect) U Cannabinoids Screen (None Detect) Serum Alcohol (<10) mg/dL 05/23/17 05/23/17 05/23/17 01:35 01:35 01:35 WBC RBC Hgb Hct MCV MCH MCHC RDW Plt Count MPV Neut % (Auto) Lymph % (Auto) [place] % (Auto) Eos % (Auto) Baso % (Auto) Absolute Neuts (auto) Absolute Lymphs (auto) Absolute Monos (auto) Absolute Eos (auto) Absolute Basos (auto) Absolute Nucleated RBC Nucleated RBC % INR (Anticoag Therapy) 1.10 APTT 33.6 Sodium 135 Potassium 3.1 L Chloride 97 L Carbon Dioxide 25 Anion Gap 13 H BUN 7 Creatinine 0.86 Est GFR ( Amer) 115.5 Est GFR (Non-Af Amer) 89.8 BUN/Creatinine Ratio 8.1 Glucose 101 H Lactic Acid Calcium 9.5 Magnesium 1.1 L Total Bilirubin 1.30 H Direct Bilirubin Indirect Bilirubin AST 176 H ALT 121 H Alkaline Phosphatase 68 Ammonia Total Creatine Kinase 129 Troponin I 0.01 C-Reactive Protein < 1.00 B-Natriuretic Peptide 74 Total Protein 8.7 Albumin 4.3 Globulin 4.4 H Albumin/Globulin Ratio 1.0 TSH 2.88 Urine Color Urine Appearance Urine pH Ur Specific [place] Urine Protein Urine Ketones Urine Blood Urine Nitrate Urine Bilirubin Urine Urobilinogen Ur Leukocyte Esterase Urine WBC (Auto) Urine RBC (Auto) Ur Squamous Epith Cells Urine Bacteria Urine Glucose Urine Opiates Screen Ur Barbiturates Screen Ur Phencyclidine Scrn Ur Amphetamines Screen U Benzodiazepines Scrn Urine Cocaine Screen U Cannabinoids Screen Serum Alcohol 30 H 05/23/17 05/23/17 05/23/17 01:35 01:35 01:35 WBC 4.1 RBC 3.43 L Hgb 12.5 L Hct 37 L MCV 107 H MCH 37 H MCHC 34 RDW 13 Plt Count 91 L MPV 8 Neut % (Auto) 55.4 Lymph % (Auto) 30.3 [place] % (Auto) 12.6 H Eos % (Auto) 0.1 Baso % (Auto) 1.6 Absolute Neuts (auto) 2.3 Absolute Lymphs (auto) 1.2 Absolute Monos (auto) 0.5 Absolute Eos (auto) 0 Absolute Basos (auto) 0.1 Absolute Nucleated RBC 0 Nucleated RBC % 0.1 INR (Anticoag Therapy) APTT Sodium Potassium Chloride Carbon Dioxide Anion Gap BUN Creatinine Est GFR ( Amer) Est GFR (Non-Af Amer) BUN/Creatinine Ratio Glucose Lactic Acid 3.2 H* Calcium Magnesium Total Bilirubin Direct Bilirubin Indirect Bilirubin AST ALT Alkaline Phosphatase Ammonia Total Creatine Kinase Troponin I C-Reactive Protein B-Natriuretic Peptide Total Protein Albumin Globulin Albumin/Globulin Ratio TSH Urine Color Urine Appearance Urine pH Ur Specific [place] Urine Protein Urine Ketones Urine Blood Urine Nitrate Urine Bilirubin Urine Urobilinogen Ur Leukocyte Esterase Urine WBC (Auto) Urine RBC (Auto) Ur Squamous Epith Cells Urine Bacteria Urine Glucose Urine Opiates Screen None detected Ur Barbiturates Screen None detected Ur Phencyclidine Scrn None detected Ur Amphetamines Screen None detected U Benzodiazepines Scrn None detected Urine Cocaine Screen Presumptive positive H U Cannabinoids Screen None detected Serum Alcohol 05/23/17 05/23/17 05/23/17 01:35 05:39 05:39 WBC 3.8 RBC 3.36 L Hgb 12.4 L Hct 36 L MCV 107 H MCH 37 H MCHC 34 RDW 14 Plt Count 80 L MPV 8 Neut % (Auto) 54.6 Lymph % (Auto) 33.5 [place] % (Auto) 10.4 H Eos % (Auto) 0.2 Baso % (Auto) 1.3 Absolute Neuts (auto) 2.1 Absolute Lymphs (auto) 1.3 Absolute Monos (auto) 0.4 Absolute Eos (auto) 0 Absolute Basos (auto) 0.1 Absolute Nucleated RBC 0 Nucleated RBC % 0.1 INR (Anticoag Therapy) APTT Sodium 135 Potassium 3.2 L Chloride 101 Carbon Dioxide 22 Anion Gap 12 H BUN 7 Creatinine 0.73 Est GFR ( Amer) 139.6 Est GFR (Non-Af Amer) 108.5 BUN/Creatinine Ratio 9.6 Glucose 108 H Lactic Acid Calcium 8.6 Magnesium 2.2 Total Bilirubin 1.40 H Direct Bilirubin 0.70 H Indirect Bilirubin 0.7 AST 147 H ALT 103 H Alkaline Phosphatase 68 Ammonia Total Creatine Kinase Troponin I C-Reactive Protein B-Natriuretic Peptide Total Protein 8.1 Albumin 3.9 Globulin 4.2 H Albumin/Globulin Ratio 0.9 L TSH Urine Color Straw Urine Appearance Clear Urine pH 7.0 Ur Specific [place] 1.010 Urine Protein 1+(30 mg/dl) H Urine Ketones Trace H Urine Blood Negative Urine Nitrate Negative Urine Bilirubin Negative Urine Urobilinogen Negative Ur Leukocyte Esterase Negative Urine WBC (Auto) Absent Urine RBC (Auto) Absent Ur Squamous Epith Cells Present H Urine Bacteria Absent Urine Glucose Negative Urine Opiates Screen Ur Barbiturates Screen Ur Phencyclidine Scrn Ur Amphetamines Screen U Benzodiazepines Scrn Urine Cocaine Screen U Cannabinoids Screen Serum Alcohol 05/23/17 05/24/17 05/24/17 05:39 07:58 07:58 WBC 3.5 RBC 3.31 L Hgb 12.0 L Hct 36 L MCV 107 H MCH 36 H MCHC 34 RDW 14 Plt Count 83 L MPV 9 Neut % (Auto) 63.6 Lymph % (Auto) 23.2 L [place] % (Auto) 11.7 H Eos % (Auto) 0.4 Baso % (Auto) 1.1 Absolute Neuts (auto) 2.2 Absolute Lymphs (auto) 0.8 L Absolute Monos (auto) 0.4 Absolute Eos (auto) 0 Absolute Basos (auto) 0 Absolute Nucleated RBC 0.01 Nucleated RBC % 0.3 INR (Anticoag Therapy) APTT Sodium 128 L Potassium 3.3 L Chloride 96 L Carbon Dioxide 26 Anion Gap 6 BUN 9 Creatinine 0.70 Est GFR ( Amer) 146.5 Est GFR (Non-Af Amer) 113.9 BUN/Creatinine Ratio 12.9 Glucose 134 H Lactic Acid 1.2 Calcium 9.3 Magnesium 1.5 L Total Bilirubin 1.40 H Direct Bilirubin 0.60 H Indirect Bilirubin 0.8 AST 121 H ALT 92 H Alkaline Phosphatase 61 Ammonia Total Creatine Kinase Troponin I C-Reactive Protein B-Natriuretic Peptide Total Protein 7.9 Albumin 3.8 Globulin 4.1 H Albumin/Globulin Ratio 0.9 L TSH Urine Color Urine Appearance Urine pH Ur Specific [place] Urine Protein Urine Ketones Urine Blood Urine Nitrate Urine Bilirubin Urine Urobilinogen Ur Leukocyte Esterase Urine WBC (Auto) Urine RBC (Auto) Ur Squamous Epith Cells Urine Bacteria Urine Glucose Urine Opiates Screen Ur Barbiturates Screen Ur Phencyclidine Scrn Ur Amphetamines Screen U Benzodiazepines Scrn Urine Cocaine Screen U Cannabinoids Screen Serum Alcohol 05/24/17 12:01 WBC RBC Hgb Hct MCV MCH MCHC RDW Plt Count MPV Neut % (Auto) Lymph % (Auto) [place] % (Auto) Eos % (Auto) Baso % (Auto) Absolute Neuts (auto) Absolute Lymphs (auto) Absolute Monos (auto) Absolute Eos (auto) Absolute Basos (auto) Absolute Nucleated RBC Nucleated RBC % INR (Anticoag Therapy) APTT Sodium Potassium Chloride Carbon Dioxide Anion Gap BUN Creatinine Est GFR ( Amer) Est GFR (Non-Af Amer) BUN/Creatinine Ratio Glucose Lactic Acid Calcium Magnesium Total Bilirubin Direct Bilirubin Indirect Bilirubin AST ALT Alkaline Phosphatase Ammonia 50 Total Creatine Kinase Troponin I C-Reactive Protein B-Natriuretic Peptide Total Protein Albumin Globulin Albumin/Globulin Ratio TSH Urine Color Urine Appearance Urine pH Ur Specific [place] Urine Protein Urine Ketones Urine Blood Urine Nitrate Urine Bilirubin Urine Urobilinogen Ur Leukocyte Esterase Urine WBC (Auto) Urine RBC (Auto) Ur Squamous Epith Cells Urine Bacteria Urine Glucose Urine Opiates Screen Ur Barbiturates Screen Ur Phencyclidine Scrn Ur Amphetamines Screen U Benzodiazepines Scrn Urine Cocaine Screen U Cannabinoids Screen Serum Alcohol 05/24/17 05/24/17 05/24/17 07:58 07:58 12:01 WBC 3.5 RBC 3.31 L Hgb 12.0 L Hct 36 L MCV 107 H MCH 36 H MCHC 34 RDW 14 Plt Count 83 L MPV 9 Neut % (Auto) 63.6 Lymph % (Auto) 23.2 L [place] % (Auto) 11.7 H Eos % (Auto) 0.4 Baso % (Auto) 1.1 Absolute Neuts (auto) 2.2 Absolute Lymphs (auto) 0.8 L Absolute Monos (auto) 0.4 Absolute Eos (auto) 0 Absolute Basos (auto) 0 Absolute Nucleated RBC 0.01 Nucleated RBC % 0.3 Sodium 128 L Potassium 3.3 L Chloride 96 L Carbon Dioxide 26 Anion Gap 6 BUN 9 Creatinine 0.70 Est GFR ( Amer) 146.5 Est GFR (Non-Af Amer) 113.9 BUN/Creatinine Ratio 12.9 Glucose 134 H Calcium 9.3 Magnesium 1.5 L Total Bilirubin 1.40 H Direct Bilirubin 0.60 H Indirect Bilirubin 0.8 AST 121 H ALT 92 H Alkaline Phosphatase 61 Ammonia 50 Total Protein 7.9 Albumin 3.8 Globulin 4.1 H Albumin/Globulin Ratio 0.9 L 05/25/17 05/25/17 05/26/17 06:07 06:07 12:44 WBC 6.6 5.7 RBC 3.30 L 3.02 L Hgb 12.0 L 11.1 L Hct 36 L 32 L MCV 107 H 107 H MCH 36 H 37 H MCHC 34 34 RDW 13 13 Plt Count 84 L 87 L MPV 9 8 Neut % (Auto) 73.5 67.9 Lymph % (Auto) 16.4 L 16.7 L [place] % (Auto) 9.7 H 14.5 H Eos % (Auto) 0.1 0.3 Baso % (Auto) 0.3 0.6 Absolute Neuts (auto) 4.9 3.9 Absolute Lymphs (auto) 1.1 1.0 Absolute Monos (auto) 0.6 0.8 Absolute Eos (auto) 0 0 Absolute Basos (auto) 0 0 Absolute Nucleated RBC 0.01 0 Nucleated RBC % 0.1 0 Sodium 130 L Potassium 4.0 Chloride 99 L Carbon Dioxide 25 Anion Gap 6 BUN 9 Creatinine 0.73 Est GFR ( Amer) 139.6 Est GFR (Non-Af Amer) 108.5 BUN/Creatinine Ratio 12.3 Glucose 92 Calcium 8.8 Magnesium 1.9 Total Bilirubin 1.40 H Direct Bilirubin Indirect Bilirubin AST 103 H ALT 84 H Alkaline Phosphatase 57 Ammonia Total Protein 7.2 Albumin 3.2 Globulin 4.0 Albumin/Globulin Ratio 0.8 L 05/26/17 12:48 WBC RBC Hgb Hct MCV MCH MCHC RDW Plt Count MPV Neut % (Auto) Lymph % (Auto) [place] % (Auto) Eos % (Auto) Baso % (Auto) Absolute Neuts (auto) Absolute Lymphs (auto) Absolute Monos (auto) Absolute Eos (auto) Absolute Basos (auto) Absolute Nucleated RBC Nucleated RBC % Sodium 131 L Potassium 4.0 Chloride 104 Carbon Dioxide 21 L Anion Gap 6 BUN 9 Creatinine 0.63 L Est GFR ( Amer) 165.4 Est GFR (Non-Af Amer) 128.6 BUN/Creatinine Ratio 14.3 Glucose 114 H Calcium 8.9 Magnesium Total Bilirubin 1.00 Direct Bilirubin Indirect Bilirubin AST 72 H ALT 64 H Alkaline Phosphatase 53 Ammonia Total Protein 6.7 Albumin 3.2 Globulin 3.5 Albumin/Globulin Ratio 0.9 L Assess/Plan/Problems-Billing Assessment: Mr. Mccarthy is a 62 yo male with a PMH significant for ETOH and polysubstance abuse, HTN, hepatitis C, duodenal ulcer with hemorrhage, and tobacco abuse who presented to the hospital on 05/23 with progressive generalized weakness, hypomagnesemia, hypokalemia, and positive orthostasis. Patient has since deteriorated with symptoms consistent with alcohol withdrawal and continues to score on the WAM scale. Patient is improving clinically and is willing to consider alcohol rehab when discharged. - Patient Problems (1) Withdrawal symptoms, alcohol Current Visit: Yes Status: Acute Code(s): F10.239 - ALCOHOL DEPENDENCE WITH WITHDRAWAL, UNSPECIFIED SNOMED Code(s): 269454386 Comment: Patient continues to show signs of withdrawal. Continue ativan per [place] protocol. Patient willing to consider alcohol rehab after discharge. (2) HTN (hypertension) Current Visit: Yes Status: Chronic Code(s): I10 - ESSENTIAL (PRIMARY) HYPERTENSION SNOMED Code(s): 73073673 Comment: Currently normotensive Patient able to take PO metoprolol today. IV hydralazine given at 2307 on 05/25 with good effect. continue IV hydralazine PRN for SBP >170. (3) Transaminitis Current Visit: Yes Status: Acute Code(s): R74.0 - NONSPEC ELEV OF LEVELS OF TRANSAMNS & LACTIC ACID DEHYDRGNSE SNOMED Code(s): 044204053 Comment: Appears chronic, declining daily. Almost back to normal range. Likely secondary to ETOH use and Hep C Will recheck tomorrow. (4) Weakness Current Visit: Yes Status: Chronic Code(s): R53.1 - WEAKNESS SNOMED Code(s ): 28556500 Comment: Suspect multifactorial causes, incl. electrolyte abnormalities, ETOH abuse, dehydration, and malnutrition. Continue PT/OT (5) Hypokalemia Current Visit: No Status: Resolved Code(s): E87.6 - HYPOKALEMIA SNOMED Code(s): 41186276 Comment: 4.0 this morning, patient taking oral intake Recheck BMP in morning (6) Thrombocytopenia Current Visit: No Status: Acute Code(s): D69.6 - THROMBOCYTOPENIA, UNSPECIFIED SNOMED Code(s): 478904506 Comment: Likely associated with ETOH and liver disease. Stable (7) Lactic acidosis Current Visit: Yes Status: Resolved Code(s): E87.2 - ACIDOSIS SNOMED Code( s): 83494932 Comment: Most likely due to dehydration. Resolved after fluids given in hospital. (8) Malnutrition of moderate degree Current Visit: Yes Status: Acute Code(s): E44.0 - MODERATE PROTEIN-CALORIE MALNUTRITION SNOMED Code(s): 152299545 Comment: Patient appears emaciated. Weight decreased to 102lb from 110lb in 04/28 and 120lb in 04/26. [employer] strength decreased bilaterally. Patient most likely not eating well due to alcoholism. Albumin low end of normal. Patient eating well in hospital. (9) Orthostatic hypotension Current Visit: Yes Status: Acute Code(s): I95.1 - ORTHOSTATIC HYPOTENSION SNOMED Code(s): 28497679 Comment: Likely secondary to poor PO intake and ETOH abuse. PO intake improved. Repeat orthostatic vital signs. Continue PT/OT as tolerated. (10) Hypomagnesemia Current Visit: Yes Status: Resolved Code(s): E83.42 - HYPOMAGNESEMIA SNOMED Code(s): 746113195 Comment: Resolved, will not recheck due to oral intake. (11) Full code status Current Visit: Yes Status: Acute Code(s): Z78.9 - OTHER SPECIFIED HEALTH STATUS SNOMED Code(s): 440798017 (12) DVT prophylaxis Current Visit: Yes Status: Acute Code(s): [id number] - SNOMED Code(s): 662629303 Comment: Heparin contraindicated d/t thrombocytopenia SCDs Status and Disposition: Inpatient admission. Anticipate LOS 3-5 days. Patient should be discharged to [facility] rehab if feasible.
[2017-05-26] MEDS: hydrALAZINE IV* 20 MG/ML VIAL IV SLOW PU PRN (20:08)
[2017-05-27] MEDS: LORazepam INJ* 2 MG/ML 1 ML VIAL IV PUSH SCH ×2 (04:23→06:12)
[2017-05-27] MEDS: Omeprazole CAP* 20 MG PO SCH (06:12)
[2017-05-27] MEDS: hydrALAZINE IV* 20 MG/ML VIAL IV SLOW PU PRN (06:13)
[2017-05-27 06:48] LABS: Hematocrit 35 % (42-52); Hemoglobin 11.9 g/dl (14.0-18.0); Mean Corpuscular HGB Conc 34 g/dl (31-36); Mean Corpuscular Hemoglobin 37 pg (27-31); Mean Platelet Volume 8 um3 (7.4-10.4); Red Blood Count 3.24 10^6/ul (4.0-5.4); Red Cell Distribution Width 13 % (10.5-15); White Blood Count 4.6 10^3/ul (3.5-10.8)
[2017-05-27 06:49] LABS: Comments Flag Yes; Mean Corpuscular Volume 107 fL (80-94)
[2017-05-27 07:00] LABS: Albumin 3.4 g/dL (3.2-5.2); BUN/Creatinine Ratio 9.7 (8-20); Calcium 9.4 mg/dL (8.6-10.3); EGFR African American 168.5 (>60); Potassium 4.3 mmol/L (3.5-5.0); Total Protein 7.4 g/dL (6.4-8.9)
[2017-05-27 09:36] LABS: Magnesium 1.3 mg/dL (1.9-2.7)
[2017-05-27] MEDS ORDERED: Magnesium Sulf 4 GM/100 ML IV* 4,000 MG/100 ML BAG IVPB ONE (10:11)
[2017-05-27] MEDS: NS 0.9% w/ 40 Meq KCL 1000 ML* 1,000 ML IV SCH ×2 (10:41→23:27)
[2017-05-27] MEDS: Thiamine TAB* 100 MG TAB PO SCH (10:42)
[2017-05-27] MEDS: Docusate CAP* 100 MG PO SCH ×2 (10:42→19:36)
[2017-05-27] MEDS: Potassium Chlor TAB* 10 MEQ TAB.ER PO SCH ×2 (10:42→19:36)
[2017-05-27] MEDS: Multivitamins/Minerals TAB PO SCH (10:42)
[2017-05-27] MEDS: Folic Acid TAB* 1 MG PO SCH (10:42)
[2017-05-27] MEDS: Metoprolol Succinate XL TAB* 25 MG PO SCH (10:42)
--- NOTE | 2017-05-27 13:45 | PN ---
Subjective Date of Service: 05/27/17 Interval History: This is a 62 yo gentleman here for treatment of acute alcohol withdrawal. Noted to be somewhat confused overnight and is still intermittently hypertensive. Required 2 doses of Ativan during overnight shift. Patient is up eating lunch at the time of evaluation. He denies any acute concerns. Noted to be shaky. Desires discharge to home when appropriate. Objective Active Medications: Acetaminophen (Tylenol Tab*) 650 mg PO Q6H PRN PRN Reason: FEVER/PAIN Last Admin: 05/23/17 20:10 Dose: 650 mg Albuterol (Ventolin 2.5 Mg/3 Ml Neb.Mar*) 2.5 mg INH Q2H PRN PRN Reason: SOB/WHEEZING Docusate Sodium (Colace Cap*) 200 mg PO BID [facility] Last Admin: 05/27/17 10:42 Dose: 200 mg Folic Acid (Folvite Tab*) 1 mg PO DAILY [facility] Last Admin: 05/27/17 10:42 Dose: 1 mg Hydralazine HCl (Apresoline Iv*) 5 mg IV SLOW PU Q6H PRN PRN Reason: SYSTOLIC BP GREATER THAN: Last Admin: 05/27/17 06:13 Dose: 5 mg Potassium Chloride/Sodium Chloride (Ns 0.9% W/ 40 Meq Kcl 1000 Ml*) 1,000 mls @ 100 mls/hr IV PER RATE [facility] Last Admin: 05/27/17 10:41 Dose: 100 mls/hr Lorazepam (Ativan Inj*) 0 - 6 mg IV PUSH .PER [facility] PROTOCOL [facility] PRN Reason: Protocol Last Admin: 05/27/17 06:12 Dose: 1 mg Melatonin (Melatonin (Nf)) 3 mg PO BEDTIME PRN; Protocol PRN Reason: Sleep Metoprolol Succinate (Toprol Xl Tab*) 25 mg PO DAILY [facility] Last Admin: 05/27/17 10:42 Dose: 25 mg Multivitamins/Minerals (Theragran/Minerals Tab*) 1 tab PO DAILY [facility] Last Admin: 05/27/17 10:42 Dose: 1 tab Omeprazole (Prilosec Cap*) 20 mg PO DAILY@0600 [facility] Last Admin: 05/27/17 06:12 Dose: 20 mg Ondansetron HCl (Zofran Inj*) 4 mg IV Q6H PRN PRN Reason: NAUSEA Potassium Chloride (Klor Con Er Tab*) 10 meq PO BID [facility] Last Admin: 05/27/17 10:42 Dose: 10 meq Thiamine HCl (Vitamin B-1 Tab*) 100 mg PO DAILY [facility] Last Admin: 05/27/17 10:42 Dose: 100 mg Tramadol HCl (Ultram*) 50 mg PO Q6H PRN PRN Reason: PAIN Last Admin: 05/24/17 00:00 Dose: 50 mg Vital Signs: Temp Pulse Resp BP Pulse Ox 98.4 F 114 17 136/84 100 05/27/17 08:08 05/27/17 10:33 05/27/17 10:33 05/27/17 10:33 05/27/17 10:33 Oxygen Devices in Use Now: None Appearance: Middle aged gentleman in NAD. Shaky, attempting to eat lunch. Respiratory: Symmetrical Chest Expansion and Respiratory Effort, Clear to Auscultation Cardiovascular: NL Sounds; No Murmurs; No JVD, RRR Abdominal: - - soft Extremities: No Edema Skin: No Rash or Ulcers Neurological: Alert and Oriented x 3 Result Diagrams: 05/27/17 06:22 05/27/17 06:22 Additional Lab and Data: . Assess/Plan/Problems-Billing Assessment: Mr. Mccarthy is a 62 yo male with a PMH significant for ETOH and polysubstance abuse, HTN, hepatitis C, duodenal ulcer with hemorrhage, and tobacco abuse who presented to the hospital on 05/23 with progressive generalized weakness, hypomagnesemia, hypokalemia, and positive orthostasis. Patient has since deteriorated with symptoms consistent with alcohol withdrawal and continues to score on the WAM scale. Patient is improving clinically and is willing to consider alcohol rehab when discharged. - Patient Problems (1) Withdrawal symptoms, alcohol Comment: Patient continues to show signs of withdrawal. Continue ativan per WAM protocol. (2) Transaminitis Comment: Appears chronic, stable Likely secondary to ETOH use and Hep C (3) Malnutrition of moderate degree Comment: Patient appears emaciated. BMI 15.5 Weight decreased to 102lb from 110lb in 04/28 and 120lb in 04/26. Crystal Grinder strength decreased bilaterally. Patient most likely not eating well due to alcoholism. Albumin low end of normal. Patient eating well in hospital. (4) HTN (hypertension) Comment: Still intermittently hypertensive, likely due to w/d Oral antihypertensives have been restarted (5) Hypomagnesemia Comment: Cont to replete as necessary (6) Lactic acidosis Comment: Resolved Secondary to hypovolemia No signs of sepsis (7) Thrombocytopenia Comment: Likely associated with ETOH and liver disease. Improving (8) Hypokalemia Comment: Resolved (9) History of hepatitis C Comment: Unsure of tx hx (10) DVT prophylaxis Comment: SCDs Start SQ Lovenox (11) Full code status Status and Disposition: Inpatient admission. Anticipate dc in 1-2d. Appreciate SW help with dc planning. Patient wishes to return home when appropriate per today's conversation.
[2017-05-27] MEDS ORDERED: LORazepam TAB(*) 1 MG PO SCH (15:00)
[2017-05-27] MEDS: Enoxaparin(*) 40 MG/0.4 ML SYR SUBCUT SCH (17:11)
[2017-05-28] MEDS: hydrALAZINE IV* 20 MG/ML VIAL IV SLOW PU PRN (02:18)
[2017-05-28] MEDS: Omeprazole CAP* 20 MG PO SCH (05:56)
[2017-05-28] MEDS: Multivitamins/Minerals TAB PO SCH (08:30)
[2017-05-28] MEDS: Metoprolol Succinate XL TAB* 25 MG PO SCH (08:30)
[2017-05-28] MEDS: Thiamine TAB* 100 MG TAB PO SCH (08:31)
[2017-05-28] MEDS: Docusate CAP* 100 MG PO SCH (08:31)
[2017-05-28] MEDS: traMADol TAB* 50 MG PO PRN (08:31)
[2017-05-28] MEDS: Potassium Chlor TAB* 10 MEQ TAB.ER PO SCH (08:31)
[2017-05-28] MEDS: Folic Acid TAB* 1 MG PO SCH (08:31)
[2017-05-28 09:32] LABS: BUN/Creatinine Ratio 14.5 (8-20); Calcium 9.9 mg/dL (8.6-10.3); EGFR African American 168.5 (>60); Magnesium 1.4 mg/dL (1.9-2.7); Potassium 4.2 mmol/L (3.5-5.0)
[2017-05-28] MEDS: NS 0.9% w/ 40 Meq KCL 1000 ML* 1,000 ML IV SCH (10:07)
[2017-05-28] MEDS: Enoxaparin(*) 40 MG/0.4 ML SYR SUBCUT SCH (14:01)
--- NOTE | 2017-05-28 15:38 | PN ---
Subjective Date of Service: 05/28/17 Interval History: C/O malaise due to "all my ailments" Family History: Unchanged from Admission Social History: Unchanged from Admission Past Medical History: Unchanged from Admission Objective Active Medications: Acetaminophen (Tylenol Tab*) 650 mg PO Q6H PRN PRN Reason: FEVER/PAIN Last Admin: 05/23/17 20:10 Dose: 650 mg Albuterol (Ventolin 2.5 Mg/3 Ml Neb.Mar*) 2.5 mg INH Q2H PRN PRN Reason: SOB/WHEEZING Enoxaparin Sodium (Lovenox(*)) 40 mg SUBCUT Q24H [facility] Last Admin: 05/28/17 14:01 Dose: 40 mg Folic Acid (Folvite Tab*) 1 mg PO DAILY [facility] Last Admin: 05/28/17 08:31 Dose: 1 mg Multivitamins/Minerals (Theragran/Minerals Tab*) 1 tab PO DAILY [facility] Last Admin: 05/28/17 08:30 Dose: 1 tab Ondansetron HCl (Zofran Inj*) 4 mg IV Q6H PRN PRN Reason: NAUSEA Thiamine HCl (Vitamin B-1 Tab*) 100 mg PO DAILY [facility] Last Admin: 05/28/17 08:31 Dose: 100 mg Vital Signs 05/27/17 05/27/17 05/27/17 16:05 19:37 19:39 Temperature 98.2 F 97.4 F Pulse Rate 70 75 Respiratory 18 20 15 Rate Blood Pressure 144/71 150/89 (mmHg) O2 Sat by Pulse 100 100 Oximetry 05/27/17 05/27/17 05/28/17 20:00 22:31 00:00 Temperature 98.4 F Pulse Rate 67 Respiratory 16 16 16 Rate Blood Pressure 156/86 (mmHg) O2 Sat by Pulse 100 Oximetry 05/28/17 05/28/17 05/28/17 00:41 02:00 02:14 Temperature 98.2 F 97.5 F Pulse Rate 96 72 Respiratory 16 16 16 Rate Blood Pressure 145/96 176/94 (mmHg) O2 Sat by Pulse 100 100 Oximetry 05/28/17 05/28/17 05/28/17 04:39 06:32 08:00 Temperature 97.4 F 98.3 F Pulse Rate 81 76 Respiratory 16 16 20 Rate Blood Pressure 164/79 170/90 (mmHg) O2 Sat by Pulse 100 100 Oximetry 05/28/17 05/28/17 05/28/17 08:20 08:30 08:31 Temperature 97.5 F Pulse Rate 88 Respiratory 20 20 20 Rate Blood Pressure 143/93 (mmHg) O2 Sat by Pulse 100 Oximetry 05/28/17 05/28/17 05/28/17 08:43 10:30 10:31 Temperature Pulse Rate 80 Respiratory 18 17 17 Rate Blood Pressure (mmHg) O2 Sat by Pulse 98 Oximetry 05/28/17 05/28/17 05/28/17 10:44 12:00 12:50 Temperature 98.5 F 98.6 F Pulse Rate 72 67 Respiratory 17 16 16 Rate Blood Pressure 146/83 133/71 (mmHg) O2 Sat by Pulse 100 100 Oximetry 05/28/17 05/28/17 14:00 14:05 Temperature 98.4 F Pulse Rate 60 Respiratory 17 17 Rate Blood Pressure 138/73 (mmHg) O2 Sat by Pulse 100 Oximetry Oxygen Devices in Use Now: None Appearance: Alert, partly up in bed. Neutral affect. Looks comfortable. Eyes: No Scleral Icterus Respiratory: Symmetrical Chest Expansion and Respiratory Effort, Clear to Auscultation, Clear to Percussion Cardiovascular: NL Sounds; No Murmurs; No JVD, RRR, No Edema, - Abdominal: NL Sounds; No Tenderness; No Distention, No Hepatosplenomegaly, - Extremities: No Edema, No Clubbing, Cyanosis, - Skin: No Rash or Ulcers, No Nodules or Sclerosis, - Neurological: Alert and Oriented x 3, NL Sensation - Slow to answer, somewhat apathetic. No tremor. Result Diagrams: 05/27/17 06:22 05/28/17 09:09 Additional Lab and Data: . Assess/Plan/Problems-Billing Assessment: Mr. Mccarthy is a 62 yo male with a PMH significant for ETOH and polysubstance abuse, HTN, hepatitis C, duodenal ulcer with hemorrhage, and tobacco abuse who presented to the hospital on 05/23 with progressive generalized weakness, hypomagnesemia, hypokalemia, and positive orthostasis. Patient has since deteriorated with symptoms consistent with alcohol withdrawal and continues to score on the WAM scale. Patient is improving clinically and is willing to consider alcohol rehab when discharged. - Patient Problems (1) History of hepatitis C Current Visit: Yes Status: Acute Code(s): Z86.19 - PERSONAL HISTORY OF OTHER INFECTIOUS AND PARASITIC DISEASES SNOMED Code(s): 34588789296254 Comment: Unsure of tx hx. Needs GI fup. (2) Alcoholism Current Visit: No Status: Acute Code(s): F10.20 - ALCOHOL DEPENDENCE, UNCOMPLICATED SNOMED Code(s): 7760961 Comment: Last had lorazepam 05/26, [facility] protocol d/c'd. Not actively withdrawaing as of . (3) HTN (hypertension) Current Visit: Yes Status: Chronic Code(s): I10 - ESSENTIAL (PRIMARY) HYPERTENSION SNOMED Code(s): 49437788 Comment: Off BP meds. (4) Chronic anemia Current Visit: Yes Status: Acute Code(s): D64.9 - ANEMIA, UNSPECIFIED SNOMED Code(s): 439222722 Comment: B12 wnl 09/2016. Status and Disposition: Inpatient admission. Anticipate dc in 1-2d. Appreciate SW help with dc planning. Patient wishes to return home when appropriate per today's conversation.
[2017-05-29] MEDS: Folic Acid TAB* 1 MG PO SCH (09:40)
[2017-05-29] MEDS: Multivitamins/Minerals TAB PO SCH (09:40)
[2017-05-29] MEDS: Thiamine TAB* 100 MG TAB PO SCH (09:41)
[2017-05-29] MEDS: Magnesium Oxide TAB* 400 MG PO SCH (12:50)
[2017-05-29] MEDS: Enoxaparin(*) 40 MG/0.4 ML SYR SUBCUT SCH (14:33)
[2017-05-29] MEDS: Acetaminophen TAB* 325 MG PO PRN (19:22)
[2017-05-30] MEDS: Multivitamins/Minerals TAB PO SCH (10:32)
[2017-05-30] MEDS: Folic Acid TAB* 1 MG PO SCH (10:33)
[2017-05-30] MEDS: Magnesium Oxide TAB* 400 MG PO SCH (10:33)
[2017-05-30] MEDS: Thiamine TAB* 100 MG TAB PO SCH (10:33)
[2017-05-30] MEDS: Acetaminophen TAB* 325 MG PO PRN (10:39)
[2017-05-30] MEDS: Enoxaparin(*) 40 MG/0.4 ML SYR SUBCUT SCH (15:30)
--- NOTE | 2017-05-30 17:11 | PN ---
Subjective Date of Service: 05/30/17 Interval History: No new c/o. Appetite OK. He denies pain. Family History: Unchanged from Admission Social History: Unchanged from Admission Past Medical History: Unchanged from Admission Objective Active Medications: Acetaminophen (Tylenol Tab*) 650 mg PO Q6H PRN PRN Reason: FEVER/PAIN Last Admin: 05/30/17 10:39 Dose: 650 mg Albuterol (Ventolin 2.5 Mg/3 Ml Neb.Mar*) 2.5 mg INH Q2H PRN PRN Reason: SOB/WHEEZING Enoxaparin Sodium (Lovenox(*)) 40 mg SUBCUT Q24H [facility] Last Admin: 05/30/17 15:30 Dose: 40 mg Folic Acid (Folvite Tab*) 1 mg PO DAILY [facility] Last Admin: 05/30/17 10:33 Dose: 1 mg Magnesium Oxide (Magox 400 Tab*) 400 mg PO DAILY [facility] Last Admin: 05/30/17 10:33 Dose: 400 mg Multivitamins/Minerals (Theragran/Minerals Tab*) 1 tab PO DAILY [facility] Last Admin: 05/30/17 10:32 Dose: 1 tab Ondansetron HCl (Zofran Inj*) 4 mg IV Q6H PRN PRN Reason: NAUSEA Thiamine HCl (Vitamin B-1 Tab*) 100 mg PO DAILY [facility] Last Admin: 05/30/17 10:33 Dose: 100 mg Vital Signs 05/29/17 05/29/17 05/29/17 19:23 19:34 23:18 Temperature 98.1 F Pulse Rate 80 77 Respiratory 18 18 16 Rate Blood Pressure 139/54 132/57 (mmHg) O2 Sat by Pulse 99 98 Oximetry 05/30/17 05/30/17 05/30/17 02:57 06:24 08:00 Temperature 98.8 F Pulse Rate 69 68 Respiratory 16 16 16 Rate Blood Pressure 127/64 144/65 (mmHg) O2 Sat by Pulse 98 100 Oximetry Oxygen Devices in Use Now: None Appearance: Lying on his side in bed. Alert, in good spirits. Looks comfortable. Extremities: No Edema, No Clubbing, Cyanosis, - Skin: No Rash or Ulcers, No Nodules or Sclerosis Neurological: Alert and Oriented x 3, NL Sensation Result Diagrams: 05/27/17 06:22 05/28/17 09:09 Additional Lab and Data: . Assess/Plan/Problems-Billing Assessment: Mr. Mccarthy is a 62 yo male with a PMH significant for ETOH and polysubstance abuse, HTN, hepatitis C, duodenal ulcer with hemorrhage, and tobacco abuse who presented to the hospital on 05/23 with progressive generalized weakness, hypomagnesemia, hypokalemia, and positive orthostasis. Patient has since deteriorated with symptoms consistent with alcohol withdrawal and continues to score on the WAM scale. Patient is improving clinically and is willing to consider alcohol rehab when discharged. - Patient Problems (1) History of hepatitis C Current Visit: Yes Status: Acute Code(s): Z86.19 - PERSONAL HISTORY OF OTHER INFECTIOUS AND PARASITIC DISEASES SNOMED Code(s): 45101039581850 Comment: Unsure of tx jignesh. Needs GI fup, needs to establish he can stay sober and keep fup appts. (2) Alcoholism Current Visit: No Status: Acute Code(s): F10.20 - ALCOHOL DEPENDENCE, UNCOMPLICATED SNOMED Code(s): 9616188 Comment: Last had lorazepam 05/26, [facility] protocol d/c'd. Not actively withdrawaing as of . (3) HTN (hypertension) Current Visit: Yes Status: Chronic Code(s): I10 - ESSENTIAL (PRIMARY) HYPERTENSION SNOMED Code(s): 64971613 Comment: Off BP meds. (4) Chronic anemia Current Visit: Yes Status: Acute Code(s): D64.9 - ANEMIA, UNSPECIFIED SNOMED Code(s): 517200112 Comment: B12 wnl 09/2016. CBC 05/31/17 ordered. (5) Hyponatremia Current Visit: Yes Status: Acute Code(s): E87.1 - HYPO-OSMOLALITY AND HYPONATREMIA SNOMED Code(s): 77946756 Comment: BMP 05/31/17 ordered. Status and Disposition: Inpatient admission. Anticipate dc in 1-2d. Appreciate SW help with dc planning. Patient wishes to return home when appropriate per today's conversation.
[2017-05-30] MEDS ORDERED: Ibuprofen TAB* 800 MG PO ONE (21:22)
[2017-05-31 05:26] LABS: Hematocrit 32 % (42-52); Mean Corpuscular HGB Conc 34 g/dl (31-36); Mean Corpuscular Hemoglobin 36 pg (27-31); Mean Platelet Volume 8 um3 (7.4-10.4); Red Blood Count 3.02 10^6/ul (4.0-5.4); Red Cell Distribution Width 13 % (10.5-15); White Blood Count 4.4 10^3/ul (3.5-10.8)
[2017-05-31 05:29] LABS: Comments Flag Yes
[2017-05-31 05:30] LABS: Mean Corpuscular Volume 107 fL (80-94)
[2017-05-31 06:08] LABS: BUN/Creatinine Ratio 23.6 (8-20); Calcium 9.5 mg/dL (8.6-10.3); EGFR African American 141.8 (>60); EGFR Non-African American 110.3 (>60); Potassium 3.7 mmol/L (3.5-5.0)
[2017-05-31] MEDS: Multivitamins/Minerals TAB PO SCH (09:50)
[2017-05-31] MEDS: Folic Acid TAB* 1 MG PO SCH (09:51)
[2017-05-31] MEDS: Magnesium Oxide TAB* 400 MG PO SCH (09:51)
[2017-05-31] MEDS: Thiamine TAB* 100 MG TAB PO SCH (09:51)
[2017-05-31] MEDS: Enoxaparin(*) 40 MG/0.4 ML SYR SUBCUT SCH (14:04)
--- NOTE | 2017-05-31 20:44 | PN ---
Subjective Date of Service: 05/31/17 Interval History: Pt without new complaint but with leg pain in thighs and shins x 1 year and loss of 20lbs over ?2weeks prior to admission (though says appetite was intact) . Wanting to go home. Attests to only 2 beers prior to admission. No ativan since 05/26 Family History: Unchanged from Admission Social History: Unchanged from Admission Past Medical History: Unchanged from Admission Objective Active Medications: Acetaminophen (Tylenol Tab*) 650 mg PO Q6H PRN PRN Reason: FEVER/PAIN Last Admin: 05/30/17 10:39 Dose: 650 mg Albuterol (Ventolin 2.5 Mg/3 Ml Neb.Mar*) 2.5 mg INH Q2H PRN PRN Reason: SOB/WHEEZING Enoxaparin Sodium (Lovenox(*)) 40 mg SUBCUT Q24H [facility] Last Admin: 05/31/17 14:04 Dose: 40 mg Folic Acid (Folvite Tab*) 1 mg PO DAILY [facility] Last Admin: 05/31/17 09:51 Dose: 1 mg Magnesium Oxide (Magox 400 Tab*) 400 mg PO DAILY [facility] Last Admin: 05/31/17 09:51 Dose: 400 mg Multivitamins/Minerals (Theragran/Minerals Tab*) 1 tab PO DAILY [facility] Last Admin: 05/31/17 09:50 Dose: 1 tab Ondansetron HCl (Zofran Inj*) 4 mg IV Q6H PRN PRN Reason: NAUSEA Thiamine HCl (Vitamin B-1 Tab*) 100 mg PO DAILY [facility] Last Admin: 05/31/17 09:51 Dose: 100 mg Vital Signs 05/30/17 05/31/17 05/31/17 23:17 03:21 06:09 Temperature 98.2 F 98.2 F 98.9 F Pulse Rate 70 73 70 Respiratory 12 14 15 Rate Blood Pressure 139/79 136/73 152/79 (mmHg) O2 Sat by Pulse 100 97 100 Oximetry 05/31/17 05/31/17 05/31/17 08:00 12:45 12:48 Temperature 98.5 F 98.1 F Pulse Rate 68 63 Respiratory 16 16 Rate Blood Pressure (mmHg) O2 Sat by Pulse 99 100 Oximetry 05/31/17 05/31/17 12:49 15:23 Temperature 98.4 F Pulse Rate 72 Respiratory 20 Rate Blood Pressure 149/86 125/63 (mmHg) O2 Sat by Pulse 100 Oximetry Oxygen Devices in Use Now: None Appearance: chronically ill appearing. no acute distress. Eyes: No Scleral Icterus, PERRLA Ears/Nose/Mouth/Throat: NL Teeth, Lips, Gums, Mucous Membranes Moist Neck: NL Appearance and Movements; NL JVP Respiratory: Symmetrical Chest Expansion and Respiratory Effort, Clear to Auscultation Cardiovascular: NL Sounds; No Murmurs; No JVD, RRR Abdominal: NL Sounds; No Tenderness; No Distention, No Hepatosplenomegaly Extremities: No Edema, No Clubbing, Cyanosis Skin: No Rash or Ulcers, No Nodules or Sclerosis Neurological: Alert and Oriented x 3 Result Diagrams: 05/31/17 04:44 05/31/17 04:44 Additional Lab and Data: . Laboratory Results - last 24 hr 05/31/17 05/31/17 04:44 04:44 WBC 4.4 RBC 3.02 L Hgb 11.0 L Hct 32 L MCV 107 H MCH 36 H MCHC 34 RDW 13 Plt Count 173 MPV 8 Neut % (Auto) 39.4 Lymph % (Auto) 32.2 [place] % (Auto) 26.6 H Eos % (Auto) 0.6 Baso % (Auto) 1.2 Absolute Neuts (auto) 1.7 Absolute Lymphs (auto) 1.4 Absolute Monos (auto) 1.2 H Absolute Eos (auto) 0 Absolute Basos (auto) 0.1 Absolute Nucleated RBC 0 Nucleated RBC % 0.1 Sodium 135 Potassium 3.7 Chloride 102 Carbon Dioxide 27 Anion Gap 6 BUN 17 Creatinine 0.72 Est GFR ( Amer) 141.8 Est GFR (Non-Af Amer) 110.3 BUN/Creatinine Ratio 23.6 H Glucose 110 H Calcium 9.5 Assess/Plan/Problems-Billing Assessment: Mr. Mccarthy is a 62 yo male with a PMH significant for ETOH and polysubstance abuse, HTN, hepatitis C, duodenal ulcer with hemorrhage, and tobacco abuse who presented to the hospital on 05/23 with progressive generalized weakness, hypomagnesemia, hypokalemia, and positive orthostasis. UrineTox presumptive + for cocaine. Course complicated by symptoms of alcohol withdrawal, last ativan . OT recommending [facility], placements pending. - Patient Problems (1) Chronic anemia Current Visit: Yes Status: Acute Code(s): D64.9 - ANEMIA, UNSPECIFIED SNOMED Code(s): 466233423 Comment: B12 wnl 09/2016. folate wnl. consistently macrocytic. Consider methylmalonic acid but likely 2/2 alcohol abuse (2) DVT prophylaxis Current Visit: Yes Status: Acute Code(s): JAX8141 - SNOMED Code(s): 914066916 Comment: SCDs SQ Lovenox (3) Full code status Current Visit: Yes Status: Acute Code(s): Z78.9 - OTHER SPECIFIED HEALTH STATUS SNOMED Code(s): 515088693 (4) History of hepatitis C Current Visit: Yes Status: Acute Code(s): Z86.19 - PERSONAL HISTORY OF OTHER INFECTIOUS AND PARASITIC DISEASES SNOMED Code(s): 57461969065567 Comment: Unsure of tx hx. Needs GI f/u, needs to establish he can stay sober and keep f/ u appts. (5) Hyponatremia Current Visit: Yes Status: Acute Code(s): E87.1 - HYPO-OSMOLALITY AND HYPONATREMIA SNOMED Code(s): 14594587 Comment: resolved. (6) Malnutrition of moderate degree Current Visit: Yes Status: Acute Code(s): E44.0 - MODERATE PROTEIN-CALORIE MALNUTRITION SNOMED Code(s): 173944790 Comment: Patient appears emaciated. BMI 16.4 Weight decreased to 102lb from 110lb in 04/28 and 120lb in 04/26. Shift Production Associate strength decreased bilaterally. Patient most likely not eating well due to alcoholism. Albumin low end of normal. Patient eating well in hospital. (7) Orthostatic hypotension Current Visit: Yes Status: Acute Code(s): I95.1 - ORTHOSTATIC HYPOTENSION SNOMED Code(s): 02610113 Comment: Likely secondary to poor PO intake and ETOH abuse. PO intake improved. Repeat orthostatic vital signs. Continue PT/OT as tolerated. (8) Withdrawal symptoms, alcohol Current Visit: Yes Status: Acute Code(s): F10.239 - ALCOHOL DEPENDENCE WITH WITHDRAWAL, UNSPECIFIED SNOMED Code(s): 371372889 Comment: no longer needing ativan. (9) Transaminitis Current Visit: Yes Status: Acute Code(s): R74.0 - NONSPEC ELEV OF LEVELS OF TRANSAMNS & LACTIC ACID DEHYDRGNSE SNOMED Code(s): 993500995 Comment: Appears chronic, stable Likely secondary to ETOH use and Hep C Status and Disposition: Inpatient admission. Anticipate d/c 06/01. Appreciate SW help with dc planning. Patient wishes to return home but OT recommending SNF. Attending: Tone Wagner
[2017-05-31] MEDS: Acetaminophen TAB* 325 MG PO PRN (21:03)
[2017-06-01] MEDS: Multivitamins/Minerals TAB PO SCH (09:40)
[2017-06-01] MEDS: Magnesium Oxide TAB* 400 MG PO SCH (09:40)
[2017-06-01] MEDS: Folic Acid TAB* 1 MG PO SCH (09:40)
[2017-06-01] MEDS: Thiamine TAB* 100 MG TAB PO SCH (09:41)
[2017-06-01] MEDS: Enoxaparin(*) 40 MG/0.4 ML SYR SUBCUT SCH (12:24)
[2017-06-01] MEDS: Acetaminophen TAB* 325 MG PO PRN ×2 (12:24→21:31)
--- NOTE | 2017-06-01 17:32 | PN ---
Subjective Date of Service: 06/01/17 Interval History: Pt denies new complaints. leg pain unchanged. Walked with PT. Family History: Unchanged from Admission Social History: Unchanged from Admission Past Medical History: Unchanged from Admission Objective Active Medications: Acetaminophen (Tylenol Tab*) 650 mg PO Q6H PRN PRN Reason: FEVER/PAIN Last Admin: 06/01/17 12:24 Dose: 650 mg Albuterol (Ventolin 2.5 Mg/3 Ml Neb.Mar*) 2.5 mg INH Q2H PRN PRN Reason: SOB/WHEEZING Enoxaparin Sodium (Lovenox(*)) 40 mg SUBCUT Q24H [facility] Last Admin: 06/01/17 12:24 Dose: 40 mg Folic Acid (Folvite Tab*) 1 mg PO DAILY [facility] Last Admin: 06/01/17 09:40 Dose: 1 mg Magnesium Oxide (Magox 400 Tab*) 400 mg PO DAILY [facility] Last Admin: 06/01/17 09:40 Dose: 400 mg Multivitamins/Minerals (Theragran/Minerals Tab*) 1 tab PO DAILY [facility] Last Admin: 06/01/17 09:40 Dose: 1 tab Ondansetron HCl (Zofran Inj*) 4 mg IV Q6H PRN PRN Reason: NAUSEA Thiamine HCl (Vitamin B-1 Tab*) 100 mg PO DAILY [facility] Last Admin: 06/01/17 09:41 Dose: 100 mg Vital Signs 05/31/17 05/31/17 05/31/17 19:35 20:00 23:19 Temperature 98.5 F 98.3 F Pulse Rate 74 72 Respiratory 12 16 16 Rate Blood Pressure 114/64 145/75 (mmHg) O2 Sat by Pulse 98 99 Oximetry 06/01/17 06/01/17 06/01/17 03:59 07:57 08:00 Temperature 98.4 F 98.0 F Pulse Rate 62 94 Respiratory 16 18 16 Rate Blood Pressure 135/55 138/66 (mmHg) O2 Sat by Pulse 100 99 Oximetry 06/01/17 15:16 Temperature 98.5 F Pulse Rate 70 Respiratory 18 Rate Blood Pressure 122/64 (mmHg) O2 Sat by Pulse 100 Oximetry Oxygen Devices in Use Now: None Appearance: Cachetic, no acute distress. Ears/Nose/Mouth/Throat: NL Teeth, Lips, Gums, Mucous Membranes Moist Neck: NL Appearance and Movements; NL JVP, Trachea Midline Respiratory: Symmetrical Chest Expansion and Respiratory Effort, Clear to Auscultation Cardiovascular: NL Sounds; No Murmurs; No JVD, RRR Abdominal: NL Sounds; No Tenderness; No Distention Extremities: No Edema, No Clubbing, Cyanosis Neurological: Alert and Oriented x 3 Result Diagrams: 05/31/17 04:44 05/31/17 04:44 Additional Lab and Data: . Laboratory Results - last 24 hr 05/31/17 05/31/17 04:44 04:44 WBC 4.4 RBC 3.02 L Hgb 11.0 L Hct 32 L MCV 107 H MCH 36 H MCHC 34 RDW 13 Plt Count 173 MPV 8 Neut % (Auto) 39.4 Lymph % (Auto) 32.2 [place] % (Auto) 26.6 H Eos % (Auto) 0.6 Baso % (Auto) 1.2 Absolute Neuts (auto) 1.7 Absolute Lymphs (auto) 1.4 Absolute Monos (auto) 1.2 H Absolute Eos (auto) 0 Absolute Basos (auto) 0.1 Absolute Nucleated RBC 0 Nucleated RBC % 0.1 Sodium 135 Potassium 3.7 Chloride 102 Carbon Dioxide 27 Anion Gap 6 BUN 17 Creatinine 0.72 Est GFR ( Amer) 141.8 Est GFR (Non-Af Amer) 110.3 BUN/Creatinine Ratio 23.6 H Glucose 110 H Calcium 9.5 Assess/Plan/Problems-Billing Assessment: Mr. Mccarthy is a 62 yo male with a PMH significant for ETOH and polysubstance abuse, HTN, hepatitis C, duodenal ulcer with hemorrhage, and tobacco abuse who presented to the hospital on 05/23 with progressive generalized weakness, hypomagnesemia, hypokalemia, and positive orthostasis. UrineTox presumptive + for cocaine. Course complicated by symptoms of alcohol withdrawal, last ativan . OT recommending AJAY, placements pending (Guillermo). - Patient Problems (1) Withdrawal symptoms, alcohol Current Visit: Yes Status: Acute Code(s): F10.239 - ALCOHOL DEPENDENCE WITH WITHDRAWAL, UNSPECIFIED SNOMED Code(s): 483777676 Comment: no longer needing ativan. (2) Chronic anemia Current Visit: Yes Status: Acute Code(s): D64.9 - ANEMIA, UNSPECIFIED SNOMED Code(s): 458119357 Comment: B12 wnl 09/2016. folate wnl. consistently macrocytic. Consider methylmalonic acid but likely 2/2 alcohol abuse (3) DVT prophylaxis Current Visit: Yes Status: Acute Code(s): YHT0179 - SNOMED Code(s): 328390228 Comment: SCDs SQ Lovenox (4) Full code status Current Visit: Yes Status: Acute Code(s): Z78.9 - OTHER SPECIFIED HEALTH STATUS SNOMED Code(s): 978397368 (5) History of hepatitis C Current Visit: Yes Status: Acute Code(s): Z86.19 - PERSONAL HISTORY OF OTHER INFECTIOUS AND PARASITIC DISEASES SNOMED Code(s): 54909234775256 Comment: Unsure of tx hx. Needs GI f/u, needs to establish he can stay sober and keep f/ u appts. (6) Hyponatremia Current Visit: Yes Status: Acute Code(s): E87.1 - HYPO-OSMOLALITY AND HYPONATREMIA SNOMED Code(s): 53646743 Comment: resolved. (7) Malnutrition of moderate degree Current Visit: Yes Status: Acute Code(s): E44.0 - MODERATE PROTEIN-CALORIE MALNUTRITION SNOMED Code(s): 421764231 Comment: Patient appears emaciated. BMI 16.4 Weight decreased to 102lb from 110lb in 04/28 and 120lb in 04/26. Pediatric Psychologist strength decreased bilaterally. Patient most likely not eating well due to alcoholism. Albumin low end of normal. Patient eating well in hospital. (8) Orthostatic hypotension Current Visit: Yes Status: Acute Code(s): I95.1 - ORTHOSTATIC HYPOTENSION SNOMED Code(s): 77896845 Comment: Likely secondary to poor PO intake and ETOH abuse. PO intake improved. Repeat orthostatic vital signs. Continue PT/OT as tolerated. (9) Transaminitis Current Visit: Yes Status: Acute Code(s): R74.0 - NONSPEC ELEV OF LEVELS OF TRANSAMNS & LACTIC ACID DEHYDRGNSE SNOMED Code(s): 750265361 Comment: Appears chronic, stable Likely secondary to ETOH use and Hep C Status and Disposition: Inpatient admission. Anticipate d/c 06/01. Appreciate SW help with dc planning. Patient wishes to return home but OT recommending SNF. Attending: Tone Wagner
[2017-06-02 08:04] VITALS: BP 144/79
[2017-06-02] MEDS: Folic Acid TAB* 1 MG PO SCH (09:10)
[2017-06-02] MEDS: Magnesium Oxide TAB* 400 MG PO SCH (09:10)
[2017-06-02] MEDS: Thiamine TAB* 100 MG TAB PO SCH (09:10)
[2017-06-02] MEDS: Multivitamins/Minerals TAB PO SCH (09:10)
[2017-06-02] MEDS: Acetaminophen TAB* 325 MG PO PRN (09:12)
--- NOTE | 2017-06-02 12:09 | DS ---
CC: Dr. Michael Oliveira * DATE OF ADMISSION: 05/23/2017. DATE OF LEAVING AMA: 06/02/2017. ADMITTING PROVIDER: Dr. Brian Roca. CHIEF COMPLAINT: Generalized weakness. PRIMARY DIAGNOSIS: Generalized weakness secondary to moderate malnutrition and polysubstance abuse, including alcohol and presumptive cocaine (positive). PAST MEDICAL HISTORY: Hepatitis C, hypertension, duodenal ulcer status post hemorrhage in 2014, alcoholism, tobacco use disorder, polysubstance abuse. HISTORY OF PRESENT ILLNESS AND HOSPITAL COURSE: Mr. Mccarthy is a 62-year-old male with a past medical history as above who presented with two months of progressive generalized weakness, worse in the bilateral lower extremities leaving him "almost unable to walk" on the day of admission, additionally tested to bilateral lower extremity cramping, some shortness of breath and abdominal pain, but denied chest pain. Please see history and physical of May 23 for full details. The patient was noted to have electrolyte disturbances with hypomagnesium and hypokalemia. He was positive for orthostatic hypotension and received IV fluids with improvement. He was significantly weak and worked with Physical Therapy and Occupational Therapy throughout the admission and they thought he needed subacute rehabilitation for complete safety. He attested to alcohol use and had symptoms of alcohol withdrawal and required Ativan, with the last administration May 26. He was give folic acid, thiamin and multivitamin. 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 The patient with a history hepatitis C, was unsure of history of treatment. Will need GI follow-up as an outpatient. Alcohol abstinence was stressed. With a history chronic anemia, B12 was within normal limits September 2016, folate within normal limits. Macrocytic likely secondary to alcohol abuse. Hemoglobin on discharge was 11.0, hematocrit 32, this was May 31 labs. The patient was hyponatremic with improvement during hospital course. Last sodium 135 on May 31, low was 128 on May 24. The patient has no family in the area and closest relative and medical surrogate decision-maker is [id number], Eddie Styles, living in [place], [place]. Despite strong objections from the entire care team, the patient decided to leave against medical advice rather than be discharged to [facility]. DISCHARGE MEDICATIONS: 1. Thiamin 100 mg p.o. daily. 2. Naproxen 500 mg p.o. b.i.d. prn. 3. Magnesium Oxide 400 mg p.o. daily (new medication). 4. Folic acid 1 mg p.o. daily. 5. Multivitamin tab one tab p.o. daily. DISCHARGE DIET: Unrestricted, supplemental nutrition and alcohol abstinence encouraged. ACTIVITY: No restriction. [id number]/[facility] #: [id number] [facility]
== END 2017-06-02 13:20 | disposition left against medical advice (07) | DRG 204 ==
LOC: ED 00:38 → MED 03:01 → OBSVTOIN 14:48 → MED 05-24 14:53
PROVIDERS: ADMIT Hospitalist; ATTEND Internal Medicine
DX: I95.1 Orthostatic hypotension (principal); E87.2 Acidosis; D69.6 Thrombocytopenia, unspecified; E44.0 Moderate protein-calorie malnutrition; K26.9 Duodenal ulcer, unspecified as acute or chronic, without hemorrhage or perforation; E87.1 Hypo-osmolality and hyponatremia; F10.239 Alcohol dependence with withdrawal, unspecified; Z68.1 Body mass index [BMI] 19.9 or less, adult; F14.10 Cocaine abuse, uncomplicated; I10 Essential (primary) hypertension; J45.909 Unspecified asthma, uncomplicated; B19.20 Unspecified viral hepatitis C without hepatic coma; G62.9 Polyneuropathy, unspecified; F17.210 Nicotine dependence, cigarettes, uncomplicated; R40.2412 Glasgow coma scale score 13-15, at arrival to emergency department; Y90.1 Blood alcohol level of 20-39 mg/100 ml; E87.6 Hypokalemia; E83.42 Hypomagnesemia; D53.9 Nutritional anemia, unspecified; R74.0 Nonspecific elevation of levels of transaminase and lactic acid dehydrogenase [LDH]; E86.1 Hypovolemia; R45.1 Restlessness and agitation; R00.0 Tachycardia, unspecified
CPT/HCPCS: 36415; 70450; 71010; 80048; 80053; 80076; 80307; 80320; 81003; 81015; 82140; 82550; 83605; 83735; 83880; 84443; 84484; 85025; 85610; 85730; 86140; 90686; 93005; 99406; A9270-GY; G0480; G8978-GP-CI; G8979-GP-CI; G8980-GP-CI; J0360; J1650; J1885; J2060; J3411; J3475; J3480

== ENCOUNTER 2017-07-31 19:04 | Emergency (ER) | payer OTHER ==
[2017-07-31] MEDS ORDERED: Thiamine IV* 100 MG, Folic Acid IV* 1 MG, Multiple Vitamin IV ADULT* 10 ML in NS 0.9% 1... IV ONE (19:24)
--- NOTE | 2017-07-31 20:16 | RAD ---
INDICATION: Shortness of breath COMPARISON: Most recent comparison chest x-ray May 23, 2017 TECHNIQUE: PA and lateral views of the chest were obtained. FINDINGS: The heart and mediastinum are normal in size and contour. The lungs are grossly clear. There is no evidence of large pleural effusion. Visualized bones are normal for the patient's age. There is no radiographic evidence of free air beneath the diaphragm IMPRESSION: No radiographic evidence of acute cardiopulmonary disease.
[2017-07-31 20:17] LABS: Comments Flag Yes; Hematocrit 41 % (42-52); Hemoglobin 13.9 g/dl (14.0-18.0); Mean Corpuscular HGB Conc 34 g/dl (31-36); Mean Corpuscular Hemoglobin 35 pg (27-31); Mean Corpuscular Volume 103 fL (80-94); Mean Platelet Volume 8 um3 (7.4-10.4); Red Blood Count 3.94 10^6/ul (4.0-5.4); Red Cell Distribution Width 15 % (10.5-15); White Blood Count 3.3 10^3/ul (3.5-10.8)
[2017-07-31 20:18] LABS: Add Diff/Slide Review? Slide Review Added
[2017-07-31 20:24] LABS: ALT 80 U/L (7-52); AST 116 U/L (13-39); Albumin 4.6 g/dL (3.2-5.2); Alkaline Phosphatase 63 U/L (34-104); Anion Gap 16 mmol/L (2-11); BUN/Creatinine Ratio 9.3 (8-20); Blood Urea Nitrogen 10 mg/dL (6-24); C Reactive Protein < 1.00 mg/L (< 5.00); CO2 Carbon Dioxide 25 mmol/L (22-32); Calcium 10.7 mg/dL (8.6-10.3); Chloride 96 mmol/L (101-111); EGFR African American 88.8 (>60); EGFR Non-African American 69.1 (>60); Globulin 4.4 g/dL (2-4); Glucose 108 mg/dL (70-100); Magnesium 1.2 mg/dL (1.9-2.7); Potassium 3.7 mmol/L (3.5-5.0); Sodium 137 mmol/L (133-145)
[2017-07-31 20:26] LABS: Troponin I 0.01 ng/mL (<0.04)
[2017-07-31 20:45] LABS: Alcohol < 10 mg/dL (<10)
[2017-07-31 21:01] LABS: TSH (Thyroid Stimulating Horm) 2.64 mcIU/mL (0.34-5.60)
[2017-07-31] MEDS ORDERED: Albuterol/Ipratropium NEB.SOL* Albuterol 2.5 MG/Ipratropium 0.5 MG 3 ML INH ONE (21:16)
[2017-07-31 21:21] LABS: Urine Bacteria Absent (Absent); Urine Bilirubin Negative (Negative); Urine Glucose Negative (Negative); Urine Nitrite Negative (Negative)
[2017-07-31] MEDS ORDERED: Ketorolac INJ* 30 MG/ML 1 ML VIAL IV ONE (21:44)
[2017-07-31] MEDS ORDERED: NS 0.9% 1000 ML* 1,000 ML IV ONE (22:27)
--- NOTE | 2017-07-31 22:31 | ED ---
Nate Caba SooYoung, scribed for Amilcar Gallardo MD on 07/31/17 at 1920 . Lower Extremity - HPI Summary HPI Summary: A 62 y/o M KARY presents to ED with c/o bilat lower extremity pain onset this AM when he woke up. Associated sx: LE weakness, SOB, fever, chills. Denies cough , CP, pedal edema, urinary sx. Pt states he was OK and at baseline yesterday. Aggravating factors: moment. Pt states it's difficult to ambulate. He is on daily medication but unable to recall what he takes. Smoker. - History of Current Complaint Chief Complaint: EDExtremityLower Stated Complaint: LEG PAIN Time Seen by Provider: 07/31/17 19:11 Hx Obtained From: Patient Onset/Duration: Still Present Severity Currently: Severe Pain Intensity: 10 Pain Scale Used: 0-10 Numeric Timing: Constant Location: Is Discrete @ - bilat LE Associated Signs And Symptoms: Positive: Fever, Other - Pos: chills, SOB, LE weakness. Neg: CP, cough, urinary sx. Negative: Swelling - LE edema Aggravating Factor(s): Movement Able to Bear Weight: No - not well - Allergies/Home Medications Allergies/Adverse Reactions: Allergies Allergy/AdvReac Type Severity Reaction Status Date / Time No Known Allergies Allergy Verified 05/09/17 21:14 PMH/Surg Hx/FS Hx/Imm Hx Previously Healthy: No Endocrine/Hematology History: Denies: Hx Anticoagulant Therapy, Hx Blood Disorders, Hx Blood Transfusions, Hx Bone Marrow Disease, Hx Diabetes, Hx Systemic Lupus Erythematosus, Hx Sickle Cell Disease, Hx Thyroid Disease, Hx Unexplained Bleeding, Other Endocrine/ Hematological Disorders Cardiovascular History: Reports: Hx Hypertension Denies: Hx Pacemaker/ICD Respiratory History: Reports: Hx Asthma GI History: Reports: Other GI Disorders - Hepatitis C, alcohol abuse Denies: Hx Cirrhosis, Hx Crohn's Disease, Hx Diverticulosis, Hx Gall Bladder Disease, Hx Gastroesophageal Reflux Disease, Hx Gastrointestinal Bleed, Hx Hiatal Hernia, Hx Irritable Bowel, Hx Jaundice, Hx Obstructive Bowel, Hx Ileostomy, Hx Pyloric Stenosis, Hx Ulcer History: Denies: Hx Acute Renal Failure, Hx Benign Prostatic Hyperplasia, Hx Chronic Renal Failure, Hx Dialysis, Hx Kidney Infection, Hx Kidney Stones, Other Problems/Disorders Musculoskeletal History: Denies: Hx Arthritis, Hx Back Problems, Hx Bursitis, Hx Congenital Bone Abnormalities, Hx Fibromyalgia, Hx Gout, Hx Orthopedic Injury, Hx Osteoporosis, Hx Scoliosis, Hx Tendonitis, Other Musculoskeletal History Sensory History: Reports: Hx Contacts or Glasses Denies: Hx Hearing Aid Opthamlomology History: Reports: Hx Contacts or Glasses Neurological History: Reports: Other Neuro Impairments/Disorders - neuropathy Psychiatric History: Reports: Hx Substance Abuse - alcohol Denies: Hx Attention Deficit Hyperactivity Disorder, Hx Eating Disorder, Hx Depression, Hx Panic Disorder, Hx Post Traumatic Stress Disorder, Hx Inpatient Treatment, Hx Community Mental Health Tx, Hx Schizophrenia, Hx Bipolar Disorder , Hx Suicide Attempt, Hx of Violent Episodes Against Others, Other Psychiatric Issues/Disorders - Surgical History Surgery Procedure, Year, and Place: right ankle-2000 Hx Anesthesia Reactions: No Infectious Disease History: No Infectious Disease History: Reports: Hx Hepatitis - C Denies: Hx Clostridium Difficile, Hx Human Immunodeficiency Virus (HIV), Hx of Known/Suspected MRSA, Hx Shingles, Hx Tuberculosis, Hx Known/Suspected VRE, Hx Known/Suspected VRSA, History Other Infectious Disease, Traveled Outside the [place] in Last 30 Days - Family History Known Family History: Negative: Cardiac Disease - Social History Occupation: Unemployed Lives: Alone Alcohol Use: Daily Alcohol Amount: 6 pack and 1/2 pint of vodka Hx Substance Use: No Substance Use Type: Reports: None Hx Tobacco Use: Yes Smoking Status (MU): Heavy Every Day Tobacco Smoker Type: Cigarettes Have You Smoked in the Last Year: Yes Review of Systems Positive: Fever, Chills Negative: Chest Pain Positive: Shortness Of Breath. Negative: Cough Negative: other - neg: urinary sx Positive: Other - pos: LE pain. Negative: Edema Positive: Weakness - LE All Other Systems Reviewed And Are Negative: Yes Physical Exam - Summary Physical Exam Summary: The patient is cachetic, in no acute distress and in no acute pain. The skin is warm and dry and skin color reflects adequate perfusion. HEENT: The head is normocephalic and atraumatic. The pupils are equal and reactive. The conjunctivae are clear and without drainage. Nares are patent and without drainage. Mouth reveals moist mucous membranes and the throat is without erythema and exudate. The external ears are intact. The ear canals are patent and without drainage. The tympanic membranes are intact. Neck is supple with full range of motion and non-tender. There are no carotid bruits. There is no neck vein distension. Respiratory: Chest is non-tender. Lungs are clear to auscultation and breath sounds are symmetrical and equal. Cardiovascular: Heart is regular rate and rhythm. There is no murmur or rub auscultated. There is no peripheral edema and pulses are symmetrical and equal. Abdomen: The abdomen is soft and non-tender. There are normal bowel sounds heard in all four quadrants and there is no organomegaly palpated. Musculoskeletal: There is no back pain noted. Extremities are non-tender with full range of motion. There is good capillary refill. There is no peripheral edema or calf tenderness elicited. Neurological: Patient is alert and oriented to person, place and time. The patient has symmetrical motor strength in all four extremities. Cranial nerves are grossly intact. Deep tendon reflexes are symmetrical and equal in all four extremities. Psychiatric: The patient has an appropriate affect and does not exhibit any anxiety or depression. Triage Information Reviewed: Yes Vital Signs On Initial Exam: Initial Vitals Temp Pulse Resp BP Pulse Ox 99 F 94 16 170/105 99 07/31/17 19:11 07/31/17 19:11 07/31/17 19:11 07/31/17 19:11 07/31/17 19:11 Vital Signs Reviewed: Yes - [place] Coma Scale Coma Scale Total: 15 Diagnostics - Vital Signs Vital Signs Temp Pulse Resp BP Pulse Ox 07/31/17 19:11 99 F 94 16 170/105 99 - Laboratory Lab Results: Lab Results 07/31/17 07/31/17 07/31/17 Range/Units 20:03 20:03 20:03 WBC 3.3 L (3.5-10.8) 10^3/ul RBC 3.94 L (4.0-5.4) 10^6/ul Hgb 13.9 L (14.0-18.0) g/dl Hct 41 L (42-52) % MCV 103 H (80-94) fL MCH 35 H (27-31) pg MCHC 34 (31-36) g/dl RDW 15 (10.5-15) % Plt Count 82 L (150-450) 10^3/ul MPV 8 (7.4-10.4) um3 Neut % (Auto) 74.8 (38-83) % Lymph % (Auto) 16.7 L (25-47) % [place] % (Auto) 7.8 (1-9) % Eos % (Auto) 0 (0-6) % Baso % (Auto) 0.7 (0-2) % Absolute Neuts (auto) 2.5 (1.5-7.7) 10^3/ul Absolute Lymphs (auto) 0.5 L (1.0-4.8) 10^3/ul Absolute Monos (auto) 0.3 (0-0.8) 10^3/ul Absolute Eos (auto) 0 (0-0.6) 10^3/ul Absolute Basos (auto) 0 (0-0.2) 10^3/ul Absolute Nucleated RBC 0.01 10^3/ul Nucleated RBC % 0.2 INR (Anticoag Therapy) (0.89-1.11) Sodium 137 (133-145) mmol/L Potassium 3.7 (3.5-5.0) mmol/L Chloride 96 L (101-111) mmol/L Carbon Dioxide 25 (22-32) mmol/L Anion Gap 16 H (2-11) mmol/L BUN 10 (6-24) mg/dL Creatinine 1.08 (0.67-1.17) mg/dL Est GFR ( Amer) 88.8 (>60) Est GFR (Non-Af Amer) 69.1 (>60) BUN/Creatinine Ratio 9.3 (8-20) Glucose 108 H (70-100) mg/dL Lactic Acid 3.2 H* (0.5-2.0) mmol/L Calcium 10.7 H (8.6-10.3) mg/dL Magnesium 1.2 L (1.9-2.7) mg/dL Total Bilirubin 1.40 H (0.2-1.0) mg/dL AST 116 H (13-39) U/L ALT 80 H (7-52) U/L Alkaline Phosphatase 63 (34-104) U/L Troponin I 0.01 (<0.04) ng/mL C-Reactive Protein < 1.00 (< 5.00) mg/L B-Natriuretic Peptide ( - 100) pg/mL Total Protein 9.0 H (6.4-8.9) g/dL Albumin 4.6 (3.2-5.2) g/dL Globulin 4.4 H (2-4) g/dL Albumin/Globulin Ratio 1.0 (1-3) TSH 2.64 (0.34-5.60) mcIU/mL Urine Color Urine Appearance Urine pH (5-9) Ur Specific [place] (1.010-1.030) Urine Protein (Negative) Urine Ketones (Negative) Urine Blood (Negative) Urine Nitrate (Negative) Urine Bilirubin (Negative) Urine Urobilinogen (Negative) Ur Leukocyte Esterase (Negative) Urine WBC (Auto) (Absent) Urine RBC (Auto) (Absent) Ur Squamous Epith Cells (Absent) Urine Bacteria (Absent) Hyaline Casts (Absent) Urine Glucose (Negative) Serum Alcohol < 10 (<10) mg/dL 07/31/17 07/31/17 07/31/17 Range/Units 20:03 20:03 21:01 WBC (3.5-10.8) 10^3/ul RBC (4.0-5.4) 10^6/ul Hgb (14.0-18.0) g/dl Hct (42-52) % MCV (80-94) fL MCH (27-31) pg MCHC (31-36) g/dl RDW (10.5-15) % Plt Count (150-450) 10^3/ul MPV (7.4-10.4) um3 Neut % (Auto) (38-83) % Lymph % (Auto) (25-47) % [place] % (Auto) (1-9) % Eos % (Auto) (0-6) % Baso % (Auto) (0-2) % Absolute Neuts (auto) (1.5-7.7) 10^3/ul Absolute Lymphs (auto) (1.0-4.8) 10^3/ul Absolute Monos (auto) (0-0.8) 10^3/ul Absolute Eos (auto) (0-0.6) 10^3/ul Absolute Basos (auto) (0-0.2) 10^3/ul Absolute Nucleated RBC 10^3/ul Nucleated RBC % INR (Anticoag Therapy) 1.10 (0.89-1.11) Sodium (133-145) mmol/L Potassium (3.5-5.0) mmol/L Chloride (101-111) mmol/L Carbon Dioxide (22-32) mmol/L Anion Gap (2-11) mmol/L BUN (6-24) mg/dL Creatinine (0.67-1.17) mg/dL Est GFR ( Amer) (>60) Est GFR (Non-Af Amer) (>60) BUN/Creatinine Ratio (8-20) Glucose (70-100) mg/dL Lactic Acid (0.5-2.0) mmol/L Calcium (8.6-10.3) mg/dL Magnesium (1.9-2.7) mg/dL Total Bilirubin (0.2-1.0) mg/dL AST (13-39) U/L ALT (7-52) U/L Alkaline Phosphatase (34-104) U/L Troponin I (<0.04) ng/mL C-Reactive Protein (< 5.00) mg/L B-Natriuretic Peptide 119 H ( - 100) pg/mL Total Protein (6.4-8.9) g/dL Albumin (3.2-5.2) g/dL Globulin (2-4) g/dL Albumin/Globulin Ratio (1-3) TSH (0.34-5.60) mcIU/mL Urine Color Yellow Urine Appearance Clear Urine pH 7.0 (5-9) Ur Specific [place] 1.013 (1.010-1.030) Urine Protein 2+(100 mg/dl) H (Negative) Urine Ketones 1+ H (Negative) Urine Blood 1+ H (Negative) Urine Nitrate Negative (Negative) Urine Bilirubin Negative (Negative) Urine Urobilinogen Positive H (Negative) Ur Leukocyte Esterase Negative (Negative) Urine WBC (Auto) Trace(0-5/hpf) (Absent) Urine RBC (Auto) Trace(0-2/hpf) (Absent) Ur Squamous Epith Cells Present H (Absent) Urine Bacteria Absent (Absent) Hyaline Casts Present H (Absent) Urine Glucose Negative (Negative) Serum Alcohol (<10) mg/dL Result Diagrams: 07/31/17 20:03 07/31/17 20:03 Lab Statement: Any lab studies that have been ordered have been reviewed, and results considered in the medical decision making process. - Radiology CXR Xray Interpretation: No Acute Changes - IMPRESSION: No radiographic evidence of acute cardiopulmonary dz. ED physician has reviewed this radiology report and agrees. Radiology Interpretation Completed By: Radiologist - EKG 1935 Cardiac Rate: NL EKG Rhythm: Sinus Rhythm - 86bpm EKG Interpretation: LAD, prolonged QTC Lower Extremity Course/Dx - Course Course Of Treatment: Mr. Mccarthy presented C/O waking up this AM with his legs hurting and weak. His exam was unremarkable and his labs similar to the past aside from a lactic acid of 3.2. He is getting hydrated with NS and a 'banana bag' and we will recheck his lactate and see how he is doing. - Diagnoses Provider Diagnoses: Dehydration - Physician Notifications Discussed Care Of Patient With: Brian Roca - Hospitalist Time Discussed With Above Provider: 21:15 Instructed by Provider To: MD Will See In ED Discharge - Discharge Plan Condition: Stable Disposition: HOME Discharge Disposition Comment: Signed out to Dr. Lai at change of shift Patient Education Materials: Dehydration (ED) Referrals: Michael Oliveira MD [Primary Care Provider] - Additional Instructions: Please return to the ED if you experience new or worsening symptoms. The documentation as recorded by the Nate ramirez SooYoung accurately reflects the service I personally performed and the decisions made by me, Amilcar Gallardo MD.
[2017-08-01 01:01] LABS: Albumin 4.1 g/dL (3.2-5.2); BUN/Creatinine Ratio 9.7 (8-20); Calcium 9.3 mg/dL (8.6-10.3); EGFR African American 105.5 (>60); EGFR Non-African American 82.1 (>60); Globulin 3.8 g/dL (2-4); Potassium 3.1 mmol/L (3.5-5.0); Total Bilirubin 1.1 mg/dL (0.2-1.0); Total Protein 7.9 g/dL (6.4-8.9)
[2017-08-01] MEDS ORDERED: Magnesium Sulfate 2 GM IV* 2 GM/50 ML BAG IVPB ONE (01:13)
[2017-08-01] MEDS ORDERED: Potassium Chlor TAB* 20 MEQ TAB.ER PO ONE (01:14)
[2017-08-01 02:31] VITALS: BP 167/86
--- NOTE | 2017-08-01 02:37 | ED ---
Iraida Caba Thomas, scribed for Jessie Lai MD on 08/01/17 at 0216 . Progress - Progress Note Progress Note: The patient is a sign out from Dr. Gallardo at shift change. At re-evaluation at 02:15, the patient is feeling better and wants to go home. He is stable and will be discharged home. Course/Dx - Diagnoses Provider Diagnoses: Alcohol abuse, Dehydration The documentation as recorded by the Iraida ramirez Thomas accurately reflects the service I personally performed and the decisions made by Ming pagan Abdul, MD.
== END 2017-08-01 03:14 | disposition home or self-care (01) ==
LOC: ED 19:04
DX: F10.10 Alcohol abuse, uncomplicated (principal); E86.0 Dehydration; I10 Essential (primary) hypertension; J45.909 Unspecified asthma, uncomplicated; F17.210 Nicotine dependence, cigarettes, uncomplicated
CPT/HCPCS: 36415; 71020; 80053; 80320; 81003; 81015; 83605; 83735; 83880; 84443; 84484; 85025; 85610; 86140; 93005; 96360; 96374; 96375; 99284; A9270-GY; G0480; J1885; J3411; J3475

== ENCOUNTER 2017-10-04 03:19 | Emergency (ER) | payer OTHER ==
[2017-10-04] MEDS ORDERED: hydrALAZINE IV* 20 MG/ML VIAL IV SLOW PU ONE (03:25)
[2017-10-04] MEDS ORDERED: Nitroglycerin 2% OINT* 1 GM PAK TOPICAL ONE (03:26)
[2017-10-04 03:56] LABS: ABS Basophils 0.1 10^3/ul (0-0.2); ABS Eosinophils 0 10^3/ul (0-0.6); ABS Monocytes 0.5 10^3/ul (0-0.8); ABS Neutrophils 1.6 10^3/ul (1.5-7.7); ABS Nucleated RBC 0 10^3/ul; EGFR Non-African American 79.1 (>60); Eosinophil % 0.3 % (0-6); Hematocrit 38 % (42-52); Hemoglobin 13.2 g/dl (14.0-18.0); Lymphocyte % 48.3 % (25-47); Mean Corpuscular HGB Conc 35 g/dl (31-36); Mean Corpuscular Hemoglobin 36 pg (27-31); Mean Corpuscular Volume 103 fL (80-94); Mean Platelet Volume 8 um3 (7.4-10.4); Nucleated Red Blood Cells % 0.3; Platelet Count 75 10^3/ul (150-450); Red Cell Distribution Width 15 % (10.5-15); White Blood Count 4.2 10^3/ul (3.5-10.8)
[2017-10-04] MEDS ORDERED: NS 0.9% 1000 ML* 1,000 ML IV ONE (04:24)
--- NOTE | 2017-10-04 07:03 | ED ---
Melia Caba Edward, scribed for Jessie Lai MD on 10/04/17 at 0329 . Shortness of Breath - HPI Summary HPI Summary: 62 y/o male BIBA c/o SOB starting earlier this evening. Associated sx: fever. Symptoms not aggravated or alleviated by anything. Denies pain currently. Pt does not use O2 at home. Pt is a current smoker. PMHx COPD. Pt states he has had 2 drinkes tonight. - History of Current Complaint Hx Obtained From: Patient Onset/Duration: Lasting Hours Timing: Constant Dyspnea At: Rest Aggrevating Factors: Nothing Alleviating Factors: Nothing Associated Signs & Symptoms: Fever - Allergy/Home Medications Allergies/Adverse Reactions: Allergies Allergy/AdvReac Type Severity Reaction Status Date / Time No Known Allergies Allergy Verified 05/09/17 21:14 PMH/Surg Hx/FS Hx/Imm Hx Previously Healthy: No Endocrine/Hematology History: Denies: Hx Anticoagulant Therapy, Hx Blood Disorders, Hx Blood Transfusions, Hx Bone Marrow Disease, Hx Diabetes, Hx Systemic Lupus Erythematosus, Hx Sickle Cell Disease, Hx Thyroid Disease, Hx Unexplained Bleeding, Other Endocrine/ Hematological Disorders Cardiovascular History: Reports: Hx Hypertension Denies: Hx Pacemaker/ICD Respiratory History: Reports: Hx Asthma GI History: Reports: Other GI Disorders - Hepatitis C, alcohol abuse Denies: Hx Cirrhosis, Hx Crohn's Disease, Hx Diverticulosis, Hx Gall Bladder Disease, Hx Gastroesophageal Reflux Disease, Hx Gastrointestinal Bleed, Hx Hiatal Hernia, Hx Irritable Bowel, Hx Jaundice, Hx Obstructive Bowel, Hx Ileostomy, Hx Pyloric Stenosis, Hx Ulcer History: Denies: Hx Acute Renal Failure, Hx Benign Prostatic Hyperplasia, Hx Chronic Renal Failure, Hx Dialysis, Hx Kidney Infection, Hx Kidney Stones, Other Problems/Disorders Musculoskeletal History: Denies: Hx Arthritis, Hx Back Problems, Hx Bursitis, Hx Congenital Bone Abnormalities, Hx Fibromyalgia, Hx Gout, Hx Orthopedic Injury, Hx Osteoporosis, Hx Scoliosis, Hx Tendonitis, Other Musculoskeletal History Sensory History: Reports: Hx Contacts or Glasses Denies: Hx Hearing Aid Opthamlomology History: Reports: Hx Contacts or Glasses Neurological History: Reports: Other Neuro Impairments/Disorders - neuropathy Psychiatric History: Reports: Hx Substance Abuse - alcohol Denies: Hx Attention Deficit Hyperactivity Disorder, Hx Eating Disorder, Hx Depression, Hx Panic Disorder, Hx Post Traumatic Stress Disorder, Hx Inpatient Treatment, Hx Community Mental Health Tx, Hx Schizophrenia, Hx Bipolar Disorder , Hx Suicide Attempt, Hx of Violent Episodes Against Others, Other Psychiatric Issues/Disorders - Surgical History Surgery Procedure, Year, and Place: right ankle-2000 Hx Anesthesia Reactions: No Infectious Disease History: No Infectious Disease History: Reports: Hx Hepatitis - C Denies: Hx Clostridium Difficile, Hx Human Immunodeficiency Virus (HIV), Hx of Known/Suspected MRSA, Hx Shingles, Hx Tuberculosis, Hx Known/Suspected VRE, Hx Known/Suspected VRSA, History Other Infectious Disease, Traveled Outside the [place] in Last 30 Days - Family History Known Family History: Negative: Cardiac Disease - Social History Alcohol Use: Daily Alcohol Amount: 6 pack and 1/2 pint of vodka Hx Substance Use: No Substance Use Type: Reports: None Hx Tobacco Use: Yes Smoking Status (MU): Heavy Every Day Tobacco Smoker Type: Cigarettes Have You Smoked in the Last Year: Yes Review of Systems Positive: Fever Eyes: Negative ENT: Negative Cardiovascular: Negative Positive: Shortness Of Breath Gastrointestinal: Negative Genitourinary: Negative Musculoskeletal: Negative Skin: Negative Neurological: Negative Psychological: Normal All Other Systems Reviewed And Are Negative: Yes Physical Exam - Summary Physical Exam Summary: VITAL SIGNS: Reviewed. GENERAL: Patient is a well-developed and nourished male who is lying comfortable in the stretcher. Patient is not in any acute respiratory distress. Patient is anxious. HEAD AND FACE: No signs of trauma. No ecchymosis, hematomas or skull depressions. No sinus tenderness. EYES: PERRLA, EOMI x 2, No injected conjunctiva, no nystagmus. EARS: Hearing grossly intact. Ear canals and tympanic membranes are within normal limits. MOUTH: Oropharynx within normal limits. NECK: Supple, trachea is midline, no adenopathy, no JVD, no carotid bruit, no c- spine tenderness, neck with full ROM. CHEST: Symmetric, no tenderness at palpation LUNGS: Clear to auscultation bilaterally. No wheezing or crackles. CVS: Regular rate and rhythm, S1 and S2 present, no murmurs or gallops appreciated. ABDOMEN: Soft, non-tender. No signs of distention. No rebound no guarding, and no masses palpated. Bowel sounds are normal. EXTREMITIES: FROM in all major joints, no edema, no cyanosis or clubbing. NEURO: Alert and oriented x 3. No acute neurological deficits. Speech is normal and follows commands. SKIN: Dry and warm Triage Information Reviewed: Yes Vital Signs On Initial Exam: Initial Vitals Temp Pulse Resp BP Pulse Ox 99.1 F 83 26 211/99 100 10/04/17 03:21 10/04/17 03:21 10/04/17 03:21 10/04/17 03:21 10/04/17 03:21 Vital Signs Reviewed: Yes Diagnostics - Vital Signs Vital Signs Temp Pulse Resp BP Pulse Ox 10/04/17 03:21 99.1 F 83 26 211/99 100 - Laboratory Result Diagrams: 10/04/17 03:30 10/04/17 03:30 Lab Statement: Any lab studies that have been ordered have been reviewed, and results considered in the medical decision making process. - Radiology CXR Xray Interpretation: No Acute Changes - Hyperinflation. No acute processes. Radiology Interpretation Completed By: ED Physician - EKG 1 EKG Interpretation: SR @ 85 BPM. PAC's. No ischemic changes. Course/Dx - Course Assessment/Plan: 62 y/o male BIBA c/o SOB starting earlier this evening. EKG shows SR @ 85 BPM. PAC's. No ischemic changes. CXR shows no acute processes. Test results show serum alcohol of 235. Pt will be d/c once he is sober. - Diagnoses Provider Diagnoses: Alcohol intoxication Discharge - Discharge Plan Condition: Stable Disposition: HOME Patient Education Materials: Abuse of Alcohol (ED), Alcohol Intoxication (ED) Referrals: Michael Oliveira MD [Primary Care Provider] - If Needed (PLEASE F/U NEEDED) Additional Instructions: RETURN TO THE ED FOR WORSENING OF SYMPTOMS The documentation as recorded by the Melia ramirez Edward accurately reflects the service I personally performed and the decisions made by , Jessie Lai MD.
--- NOTE | 2017-10-04 07:53 | RAD ---
INDICATION: Short of breath COMPARISON: July 31, 2017 TECHNIQUE: An AP portable view obtained at 0348 hours is submitted. FINDINGS: Bones/Soft Tissues: There are no acute bony findings. Cardiomediastinal: The cardiomediastinal silhouette is normal. Lungs: There are no infiltrates. Pleura: There are no pleural effusions. Other: None IMPRESSION: NO ACTIVE DISEASE.
[2017-10-04] MEDS ORDERED: Ibuprofen TAB* 400 MG PO ONE (08:57)
[2017-10-04 09:13] VITALS: BP 154/87
== END 2017-10-04 09:12 | disposition home or self-care (01) ==
LOC: ED 03:19
DX: F10.129 Alcohol abuse with intoxication, unspecified (principal); R50.9 Fever, unspecified; F17.210 Nicotine dependence, cigarettes, uncomplicated; Z86.79 Personal history of other diseases of the circulatory system; R06.02 Shortness of breath
CPT/HCPCS: 36415; 71045; 80053; 80320; 83880; 84484; 85025; 93005; 96374; 99283; A9270-GY; G0480; J0360

== ENCOUNTER 2017-10-04 11:58 | Inpatient (IN) | payer OTHER ==
[2017-10-04] MEDS ORDERED: NS 0.9% 1000 ML* 1,000 ML IV ONE (12:23)
[2017-10-04 13:18] LABS: ABS Basophils 0.1 10^3/ul (0-0.2); ABS Eosinophils 0 10^3/ul (0-0.6); ABS Monocytes 0.4 10^3/ul (0-0.8); ABS Neutrophils 2.3 10^3/ul (1.5-7.7); ABS Nucleated RBC 0 10^3/ul; Eosinophil % 0.3 % (0-6); Hematocrit 37 % (42-52); Hemoglobin 12.5 g/dl (14.0-18.0); Lymphocyte % 27.7 % (25-47); Mean Corpuscular HGB Conc 34 g/dl (31-36); Mean Corpuscular Hemoglobin 35 pg (27-31); Mean Corpuscular Volume 103 fL (80-94); Mean Platelet Volume 8 um3 (7.4-10.4); Nucleated Red Blood Cells % 0; Platelet Count 67 10^3/ul (150-450); Red Cell Distribution Width 15 % (10.5-15); White Blood Count 3.8 10^3/ul (3.5-10.8)
[2017-10-04] MEDS ORDERED: Thiamine TAB* 100 MG TAB PO ONE (13:56)
[2017-10-04] MEDS ORDERED: Folic Acid TAB* 1 MG PO ONE (13:56)
[2017-10-04] MEDS ORDERED: LORazepam INJ* 2 MG/ML 1 ML VIAL IV PUSH ONE (14:01)
[2017-10-04 14:46] LABS: Urine Appearance Clear; Urine Blood Negative (Negative); Urine Color Straw; Urine Ketones Trace (Negative); Urine Protein Negative (Negative); Urine Specific Gravity 1.008 (1.010-1.030); Urine Urobilinogen Negative (Negative)
[2017-10-04] MEDS ORDERED: Potassium Chlor TAB* 20 MEQ TAB.ER PO ONE (17:11)
[2017-10-04] MEDS ORDERED: NS 0.9% 1000 ML* 1,000 ML IV SCH (17:15)
[2017-10-04] MEDS: LORazepam TAB(*) 0.5 MG PO SCH (18:11)
[2017-10-04] MEDS: Lactulose* 15 ML UDC PO SCH (20:30)
--- NOTE | 2017-10-04 20:41 | HP ---
CC: Dr. Oliveira * HISTORY AND PHYSICAL: DATE OF ADMISSION: 10/04/17 PRIMARY CARE PROVIDER: Dr. Oliveira. CHIEF COMPLAINT: Shortness of breath. HISTORY OF PRESENT ILLNESS: Mr. Verdin is a 62-year-old male with history of alcoholism who presented to the hospital complaining of shortness of breath twice in the past 24 hours. His workup is basically negative apart from that the patient started withdrawing from alcohol during his ER stay. The patient stated that he last drank alcohol 2 days ago and he stated that he stopped because he "ran out." He denies any problems with finances that made him stop. He is a very poor historian and it is almost impossible to get any more information from the patient. He has mild tremors during his evaluation and he is going to be admitted for an overnight observation with his diagnosis of alcohol withdrawal. PAST MEDICAL HISTORY: 1. History of hepatitis C. 2. Hypertension. 3. History of duodenal ulcer and GI hemorrhage due to that in 2014. 4. History of active alcoholism. 5. Questionable polysubstance abuse in the past. 6. History of ongoing tobacco use. MEDICATIONS AT HOME: Include; 1. Thiamine 100 mg daily. 2. Potassium chloride 20 mEq daily. 3. Multivitamin 1 tablet daily. 4. Magnesium oxide 400 mg daily. 5. Folic acid 1 mg daily. The patient stated that he takes his medications, but he has not seen his primary care provider for "a while." ALLERGIES: No known drug allergies. FAMILY HISTORY: Unknown. SOCIAL HISTORY: The patient smokes anywhere from half a pack to a pack of cigarettes a day. He is very nonspecific when I am trying to quantify the amount of alcohol he drinks. He stated that he drinks 1 bottle of vodka in 3 days and a 6 pack of beer in 3 days. He lives in an apartment. He stated that he has a brother in [facility] and children in [place], but he does not remember their names nor their phone numbers. He is unable to give me the name or phone number of a chosen surrogate. He wants to think about it. REVIEW OF SYSTEMS: Please see history of present illness. The patient himself was a very poor historian. He stated that he had generalized weakness and unsteadiness and he fell a couple of days ago. He did not lose consciousness or hit his head. Once again, his last alcohol intake was 2 to 3 days ago. All the remaining 12 systems were reviewed with the patient and limited due to the patient being a poor historian and were otherwise negative. PHYSICAL EXAMINATION GENERAL: This is a very pleasant 62-year-old male of thin body habitus who is in no acute distress. Alert, awake, and oriented x3. VITAL SIGNS: Blood pressure 163/89, heart rate of 67 and regular, respiratory rate 18, oxygen saturation 99% on room air, and temperature 98.9. HEENT: Head is atraumatic, normocephalic. Eyes: Pupils are equal and reactive to light and accommodation. Oropharynx clear. Mucosa moist. NECK: Supple. No JVD. No bruits bilaterally. RESPIRATORY: Clear to auscultation bilaterally. CARDIOVASCULAR: Regular rate and rhythm. No murmur. ABDOMEN: Soft, nontender. Bowel sounds present in all 4 quadrants. No hepatosplenomegaly on palpation. EXTREMITIES: There is no edema. Pulses +2 bilaterally. No clubbing or cyanosis. NEUROLOGIC: Fine tremors noted in bilateral upper extremities. Cranial nerves II through XII grossly intact. Motor strength is 5/5 bilaterally. SKIN: On evaluation of the skin, the patient has superficial small excoriations in bilateral calves area, appear to be self infected. No other abnormalities noted. LABORATORY DATA: Laboratory data show white blood cell count of 3.8, hemoglobin 12.5, hematocrit 37, MCV of 103, and platelets of 67,000. Sodium 138, potassium 3.2, chloride 100, carbon dioxide 23, BUN 6, creatinine 0.89. Liver function tests showed total bilirubin of 1.3, AST of 175, ALT of 110. Ammonia was not obtained today. His serum alcohol at 3 a.m. in the morning was noted to be 235. IMAGING: Portable chest x-ray obtained at admission shows "no active disease." ASSESSMENT AND PLAN: 1. For acute alcohol withdrawal, the patient is going to be placed on scheduled dose of Ativan as well WAM protocol. Thiamine and folate is going to be continued. 2. The patient's confusion and generalized weakness is most likely due to alcohol withdrawal. 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 At this point, I will ask social work to see the patient in evaluation. I will also ask Physical Therapy and Occupational Therapy to see the patient in consultation. 3. For DVT prophylaxis due to thrombocytopenia, sequential compression devices are going to be provided only. 4. The patient's liver function test elevation is most likely due to mild alcoholic hepatitis. We will continue to treat supportively. 5. The patient's code status is full and he does not have a surrogate. TIME SPENT: Approximately 60 minutes were spent on evaluation of this patient, more than half that time was spent [id number] with the patient during the interview and physical exam. [id number][place] [place] [id number] B[place]
[2017-10-04] MEDS: LORazepam TAB(*) 1 MG PO SCH (22:29)
[2017-10-05] MEDS: LORazepam TAB(*) 1 MG PO SCH ×7 (02:31→20:47)
[2017-10-05] MEDS: LORazepam TAB(*) 0.5 MG PO SCH ×2 (02:35→11:01)
[2017-10-05] MEDS ORDERED: hydrALAZINE IV* 20 MG/ML VIAL IV PRN (05:46)
[2017-10-05 06:12] LABS: ABS Basophils 0 10^3/ul (0-0.2); ABS Eosinophils 0 10^3/ul (0-0.6); ABS Lymphocytes 1.3 10^3/ul (1.0-4.8); ABS Monocytes 0.4 10^3/ul (0-0.8); ABS Neutrophils 1.7 10^3/ul (1.5-7.7); ABS Nucleated RBC 0 10^3/ul; Eosinophil % 0.5 % (0-6); Hematocrit 41 % (42-52); Hemoglobin 14.3 g/dl (14.0-18.0); Lymphocyte % 36.8 % (25-47); Mean Corpuscular HGB Conc 35 g/dl (31-36); Mean Corpuscular Hemoglobin 36 pg (27-31); Mean Corpuscular Volume 103 fL (80-94); Mean Platelet Volume 9 um3 (7.4-10.4); Nucleated Red Blood Cells % 0.1; Platelet Count 69 10^3/ul (150-450); Red Cell Distribution Width 16 % (10.5-15); White Blood Count 3.5 10^3/ul (3.5-10.8)
[2017-10-05 06:32] LABS: EGFR Non-African American 97.6 (>60)
[2017-10-05] MEDS ORDERED: Potassium Chlor TAB* 10 MEQ TAB.ER PO ONE (07:19)
--- NOTE | 2017-10-05 08:11 | ED ---
Nito Caba Angela, scribed for Abdullahi Snow MD on 10/04/17 at 1219 . Shortness of Breath - HPI Summary HPI Summary: This pt is a 62 y/o male presenting to [facility] via EMS c/o SOB today. Pt was seen last night for the same complaint in the ED. He was recently discharged (approx 3 hours ago) from the ED with diagnosis of alcohol intoxication. He denies drinking alcohol today. Pt additionally notes his hands are numb and has leg pain. PMHx: COPD. Pt is a current smoker. - History of Current Complaint Chief Complaint: EDShortnessOfBreath Time Seen by Provider: 10/04/17 12:07 Hx Obtained From: Patient Onset/Duration: Lasting Hours, Still Present Timing: Constant Dyspnea At: Rest Aggrevating Factors: Nothing Alleviating Factors: Nothing Associated Signs & Symptoms: Negative - Allergy/Home Medications Allergies/Adverse Reactions: Allergies Allergy/AdvReac Type Severity Reaction Status Date / Time No Known Allergies Allergy Verified 05/09/17 21:14 Home Medications: Home Medications Potassium Chlor TAB* [Klor Con ER TAB*] 20 meq PO DAILY 10/04/17 [History Confirmed 10/04/17] PMH/Surg Hx/FS Hx/Imm Hx Endocrine/Hematology History: Denies: Hx Anticoagulant Therapy, Hx Blood Disorders, Hx Blood Transfusions, Hx Bone Marrow Disease, Hx Diabetes, Hx Systemic Lupus Erythematosus, Hx Sickle Cell Disease, Hx Thyroid Disease, Hx Unexplained Bleeding, Other Endocrine/ Hematological Disorders Cardiovascular History: Reports: Hx Hypertension Denies: Hx Pacemaker/ICD Respiratory History: Reports: Hx Asthma GI History: Reports: Other GI Disorders - Hepatitis C, alcohol abuse Denies: Hx Cirrhosis, Hx Crohn's Disease, Hx Diverticulosis, Hx Gall Bladder Disease, Hx Gastroesophageal Reflux Disease, Hx Gastrointestinal Bleed, Hx Hiatal Hernia, Hx Irritable Bowel, Hx Jaundice, Hx Obstructive Bowel, Hx Ileostomy, Hx Pyloric Stenosis, Hx Ulcer History: Denies: Hx Acute Renal Failure, Hx Benign Prostatic Hyperplasia, Hx Chronic Renal Failure, Hx Dialysis, Hx Kidney Infection, Hx Kidney Stones, Other Problems/Disorders Musculoskeletal History: Denies: Hx Arthritis, Hx Back Problems, Hx Bursitis, Hx Congenital Bone Abnormalities, Hx Fibromyalgia, Hx Gout, Hx Orthopedic Injury, Hx Osteoporosis, Hx Scoliosis, Hx Tendonitis, Other Musculoskeletal History Sensory History: Reports: Hx Contacts or Glasses Denies: Hx Hearing Aid Opthamlomology History: Reports: Hx Contacts or Glasses Neurological History: Reports: Other Neuro Impairments/Disorders - neuropathy Psychiatric History: Reports: Hx Substance Abuse - alcohol Denies: Hx Attention Deficit Hyperactivity Disorder, Hx Eating Disorder, Hx Depression, Hx Panic Disorder, Hx Post Traumatic Stress Disorder, Hx Inpatient Treatment, Hx Community Mental Health Tx, Hx Schizophrenia, Hx Bipolar Disorder , Hx Suicide Attempt, Hx of Violent Episodes Against Others, Other Psychiatric Issues/Disorders - Surgical History Surgery Procedure, Year, and Place: right ankle-2000 Hx Anesthesia Reactions: No Infectious Disease History: No Infectious Disease History: Reports: Hx Hepatitis - C Denies: Hx Clostridium Difficile, Hx Human Immunodeficiency Virus (HIV), Hx of Known/Suspected MRSA, Hx Shingles, Hx Tuberculosis, Hx Known/Suspected VRE, Hx Known/Suspected VRSA, History Other Infectious Disease, Traveled Outside the [place] in Last 30 Days - Family History Known Family History: Negative: Cardiac Disease - Social History Alcohol Use: Daily Alcohol Amount: 6 pack and 1/2 pint of vodka Hx Substance Use: No Substance Use Type: Reports: None Hx Tobacco Use: Yes Smoking Status (MU): Heavy Every Day Tobacco Smoker Type: Cigarettes Have You Smoked in the Last Year: Yes Review of Systems Negative: Fever, Chills Positive: Shortness Of Breath Musculoskeletal: Other - Leg pain bilaterally Positive: Numbness - bilateral hands All Other Systems Reviewed And Are Negative: Yes Physical Exam - Summary Physical Exam Summary: VITAL SIGNS: Reviewed. GENERAL: Patient is an elderly and thin male who is lying comfortable in the stretcher. Patient is not in any acute respiratory distress. Pt has poor hygiene. HEAD AND FACE: No signs of trauma. No ecchymosis, hematomas or skull depressions. No sinus tenderness. EYES: PERRLA, EOMI x 2, No injected conjunctiva, no nystagmus. EARS: Hearing grossly intact. Ear canals and tympanic membranes are within normal limits. MOUTH: Oropharynx within normal limits. Poor dental hygiene with missing teeth. NECK: Supple, trachea is midline, no adenopathy, no JVD, no carotid bruit, no c- spine tenderness, neck with full ROM. CHEST: Symmetric, no tenderness at palpation LUNGS: Clear to auscultation bilaterally. No wheezing or crackles. CVS: Regular rate and rhythm, S1 and S2 present, no murmurs or gallops appreciated. ABDOMEN: Soft, non-tender. No signs of distention. No rebound no guarding, and no masses palpated. Bowel sounds are normal. EXTREMITIES: FROM in all major joints, no edema, no cyanosis or clubbing. NEURO: Alert and oriented x 3. No acute neurological deficits. Speech is normal and follows commands. SKIN: Dry and warm Triage Information Reviewed: Yes Vital Signs On Initial Exam: Initial Vitals Temp Pulse Resp BP Pulse Ox 98.7 F 94 22 177/103 98 10/04/17 12:01 10/04/17 12:01 10/04/17 12:01 10/04/17 12:01 10/04/17 12:01 Vital Signs Reviewed: Yes Diagnostics - Vital Signs Vital Signs Temp Pulse Resp BP Pulse Ox 10/04/17 12:01 98.7 F 94 22 177/103 98 - Laboratory Lab Results: Lab Results 10/04/17 10/04/17 10/04/17 Range/Units 12:44 12:44 13:08 WBC 3.8 (3.5-10.8) 10^3/ul RBC 3.60 L (4.0-5.4) 10^6/ul Hgb 12.5 L (14.0-18.0) g/dl Hct 37 L (42-52) % MCV 103 H (80-94) fL MCH 35 H (27-31) pg MCHC 34 (31-36) g/dl RDW 15 (10.5-15) % Plt Count 67 L (150-450) 10^3/ul MPV 8 (7.4-10.4) um3 Neut % (Auto) 60.5 (38-83) % Lymph % (Auto) 27.7 (25-47) % [place] % (Auto) 9.6 H (1-9) % Eos % (Auto) 0.3 (0-6) % Baso % (Auto) 1.9 (0-2) % Absolute Neuts (auto) 2.3 (1.5-7.7) 10^3/ul Absolute Lymphs (auto) 1.0 (1.0-4.8) 10^3/ul Absolute Monos (auto) 0.4 (0-0.8) 10^3/ul Absolute Eos (auto) 0 (0-0.6) 10^3/ul Absolute Basos (auto) 0.1 (0-0.2) 10^3/ul Absolute Nucleated RBC 0 10^3/ul Nucleated RBC % 0 Sodium 138 (133-145) mmol/L Potassium 3.2 L (3.5-5.0) mmol/L Chloride 100 L (101-111) mmol/L Carbon Dioxide 23 (22-32) mmol/L Anion Gap 15 H (2-11) mmol/L BUN 6 (6-24) mg/dL Creatinine 0.85 (0.67-1.17) mg/dL Est GFR ( Amer) 117.1 (>60) Est GFR (Non-Af Amer) 91.0 (>60) BUN/Creatinine Ratio 7.1 L (8-20) Glucose 89 (70-100) mg/dL Calcium 9.3 (8.6-10.3) mg/dL Total Bilirubin 1.30 H (0.2-1.0) mg/dL AST 175 H (13-39) U/L ALT 110 H (7-52) U/L Alkaline Phosphatase 55 (34-104) U/L Total Creatine Kinase 158 (10-223) U/L C-Reactive Protein < 1.00 (< 5.00) mg/L Total Protein 8.3 (6.4-8.9) g/dL Albumin 4.2 (3.2-5.2) g/dL Globulin 4.1 H (2-4) g/dL Albumin/Globulin Ratio 1.0 (1-3) Urine Color Urine Appearance Urine pH (5-9) Ur Specific [place] (1.010-1.030) Urine Protein (Negative) Urine Ketones (Negative) Urine Blood (Negative) Urine Nitrate (Negative) Urine Bilirubin (Negative) Urine Urobilinogen (Negative) Ur Leukocyte Esterase (Negative) Urine Glucose (Negative) Influenza A (Rapid) Negative (Negative) Influenza B (Rapid) Negative (Negative) 10/04/17 Range/Units 14:26 WBC (3.5-10.8) 10^3/ul RBC (4.0-5.4) 10^6/ul Hgb (14.0-18.0) g/dl Hct (42-52) % MCV (80-94) fL MCH (27-31) pg MCHC (31-36) g/dl RDW (10.5-15) % Plt Count (150-450) 10^3/ul MPV (7.4-10.4) um3 Neut % (Auto) (38-83) % Lymph % (Auto) (25-47) % [place] % (Auto) (1-9) % Eos % (Auto) (0-6) % Baso % (Auto) (0-2) % Absolute Neuts (auto) (1.5-7.7) 10^3/ul Absolute Lymphs (auto) (1.0-4.8) 10^3/ul Absolute Monos (auto) (0-0.8) 10^3/ul Absolute Eos (auto) (0-0.6) 10^3/ul Absolute Basos (auto) (0-0.2) 10^3/ul Absolute Nucleated RBC 10^3/ul Nucleated RBC % Sodium (133-145) mmol/L Potassium (3.5-5.0) mmol/L Chloride (101-111) mmol/L Carbon Dioxide (22-32) mmol/L Anion Gap (2-11) mmol/L BUN (6-24) mg/dL Creatinine (0.67-1.17) mg/dL Est GFR ( Amer) (>60) Est GFR (Non-Af Amer) (>60) BUN/Creatinine Ratio (8-20) Glucose (70-100) mg/dL Calcium (8.6-10.3) mg/dL Total Bilirubin (0.2-1.0) mg/dL AST (13-39) U/L ALT (7-52) U/L Alkaline Phosphatase (34-104) U/L Total Creatine Kinase (10-223) U/L C-Reactive Protein (< 5.00) mg/L Total Protein (6.4-8.9) g/dL Albumin (3.2-5.2) g/dL Globulin (2-4) g/dL Albumin/Globulin Ratio (1-3) Urine Color Straw Urine Appearance Clear Urine pH 7.0 (5-9) Ur Specific [place] 1.008 L (1.010-1.030) Urine Protein Negative (Negative) Urine Ketones Trace H (Negative) Urine Blood Negative (Negative) Urine Nitrate Negative (Negative) Urine Bilirubin Negative (Negative) Urine Urobilinogen Negative (Negative) Ur Leukocyte Esterase Negative (Negative) Urine Glucose Negative (Negative) Influenza A (Rapid) (Negative) Influenza B (Rapid) (Negative) Result Diagrams: 10/05/17 05:51 10/05/17 05:51 Lab Statement: Any lab studies that have been ordered have been reviewed, and results considered in the medical decision making process. - EKG 12:30 Cardiac Rate: NL EKG Rhythm: Sinus Rhythm - at 92 bpm EKG Interpretation: No ST elevation Re-Evaluation - Re-Evaluation First Eval Re-Evaluation Time: 14:19 Change: Worse Comment: Pt is having tremors, is diaphoretic, and is tachycardic. Pt looks like he is withdrawing. Course/Dx - Course Course Of Treatment: This pt is a 62 y/o male presenting to [facility] via EMS c/o SOB today. Pt was seen last night for the same complaint in the ED. He was recently discharged (approx 3 hours ago) from the ED with diagnosis of alcohol intoxication. He denies drinking alcohol today. Pt additionally notes his hands are numb and has leg pain. PMHx: COPD. Pt is a current smoker. Test results without significant abnormalities, chronic anemia, potassium of 3.2, increased in LFTs. Urinalysis is negative for UTI. Influenza A and B are negative. The pt is a chronic alcoholic, therefore he was given folic acid, thiamine and IV fluids. When he was in the ED, he had tachycardia, asterixis, diaphoresis, and hypertension therefore he was given Ativan. I believe the pt is having an alcohol withdrawal. At this time I discussed the test results and findings with Dr. Portillo, who has agreed to admit the pt. - Diagnoses Provider Diagnoses: Alcohol withdrawal - Physician Notifications Discussed Care of Patient With: Moira Portillo Time Discussed With Above Provider: 14:18 Instructed by Provider To: Other - I discussed pt care with Dr. Portillo, hospitalist, who has agreed to admit the pt. Discharge - Discharge Plan Condition: Stable Disposition: ADMITTED TO [facility] documentation as recorded by the Nito ramirez Angela accurately reflects the service I personally performed and the decisions made by me, Abdullahi Snow MD.
[2017-10-05] MEDS: Potassium Chlor TAB* 20 MEQ TAB.ER PO SCH (08:24)
[2017-10-05] MEDS: Folic Acid TAB* 1 MG PO SCH (08:24)
[2017-10-05] MEDS: Lactulose* 15 ML UDC PO SCH ×3 (08:24→21:00)
[2017-10-05] MEDS: Thiamine TAB* 100 MG TAB PO SCH (08:25)
[2017-10-05] MEDS: Magnesium Oxide TAB* 400 MG PO SCH (08:25)
--- NOTE | 2017-10-05 11:18 | PN ---
Subjective Date of Service: 10/05/17 Interval History: Pt feels better, but realizes his overall deconditioning is a problem. Objective Active Medications: Acetaminophen (Tylenol Tab*) 650 mg PO Q6H PRN PRN Reason: FEVER/PAIN Folic Acid (Folvite Tab*) 1 mg PO DAILY [facility] Last Admin: 10/05/17 08:24 Dose: 1 mg Hydralazine HCl (Apresoline Iv*) 10 mg IV Q4H PRN PRN Reason: Systolic >170 Lactulose (Lactulose*) 15 ml PO TID [facility] Last Admin: 10/05/17 08:24 Dose: 15 ml Lorazepam (Ativan Tab(*)) 0.5 mg PO Q8H [facility] Last Admin: 10/05/17 11:01 Dose: Not Given Lorazepam (Ativan Tab(*)) 0 - 6 mg PO .PER [facility] PROTOCOL [facility] PRN Reason: Protocol Last Admin: 10/05/17 08:37 Dose: 2 mg Magnesium Oxide (Magox 400 Tab*) 400 mg PO DAILY [facility] Last Admin: 10/05/17 08:25 Dose: 400 mg Potassium Chloride (Klor Con Er Tab*) 20 meq PO DAILY [facility] Last Admin: 10/05/17 08:24 Dose: 20 meq Thiamine HCl (Vitamin B-1 Tab*) 100 mg PO DAILY [facility] Last Admin: 10/05/17 08:25 Dose: 100 mg Vital Signs - 8 hr 10/05/17 10/05/17 10/05/17 04:06 06:00 06:25 Temperature 98.7 F 98.8 F Pulse Rate 72 74 Respiratory 18 14 20 Rate Blood Pressure 171/97 174/94 (mmHg) O2 Sat by Pulse 100 100 Oximetry 10/05/17 10/05/17 10/05/17 07:52 08:25 08:37 Temperature 99.2 F Pulse Rate 92 Respiratory 16 16 20 Rate Blood Pressure 162/106 (mmHg) O2 Sat by Pulse 99 Oximetry 10/05/17 10/05/17 10/05/17 08:45 10:13 11:01 Temperature 98.4 F Pulse Rate 95 Respiratory 20 16 16 Rate Blood Pressure 153/103 (mmHg) O2 Sat by Pulse 100 Oximetry Oxygen Devices in Use Now: None Appearance: 62 yo M in nAD, AAOx3, poor historian Eyes: No Scleral Icterus, PERRLA Ears/Nose/Mouth/Throat: NL Teeth, Lips, Gums, Mucous Membranes Moist Neck: NL Appearance and Movements; NL JVP, Trachea Midline Respiratory: Symmetrical Chest Expansion and Respiratory Effort, Clear to Auscultation Cardiovascular: NL Sounds; No Murmurs; No JVD, RRR Abdominal: NL Sounds; No Tenderness; No Distention Lymphatic: No Cervical Adenopathy, No Auricular Adenopathy Extremities: No Edema, No Clubbing, Cyanosis Skin: No Rash or Ulcers Neurological: Alert and Oriented x 3, - - notable generalized weakness Result Diagrams: 10/05/17 05:51 10/05/17 05:51 Additional Lab and Data: Lab Results 10/04/17 10/04/17 10/04/17 Range/Units 12:44 12:44 13:08 WBC 3.8 (3.5-10.8) 10^3/ul RBC 3.60 L (4.0-5.4) 10^6/ul Hgb 12.5 L (14.0-18.0) g/dl Hct 37 L (42-52) % MCV 103 H (80-94) fL MCH 35 H (27-31) pg MCHC 34 (31-36) g/dl RDW 15 (10.5-15) % Plt Count 67 L (150-450) 10^3/ul MPV 8 (7.4-10.4) um3 Neut % (Auto) 60.5 (38-83) % Lymph % (Auto) 27.7 (25-47) % [place] % (Auto) 9.6 H (1-9) % Eos % (Auto) 0.3 (0-6) % Baso % (Auto) 1.9 (0-2) % Absolute Neuts (auto) 2.3 (1.5-7.7) 10^3/ul Absolute Lymphs (auto) 1.0 (1.0-4.8) 10^3/ul Absolute Monos (auto) 0.4 (0-0.8) 10^3/ul Absolute Eos (auto) 0 (0-0.6) 10^3/ul Absolute Basos (auto) 0.1 (0-0.2) 10^3/ul Absolute Nucleated RBC 0 10^3/ul Nucleated RBC % 0 Sodium 138 (133-145) mmol/L Potassium 3.2 L (3.5-5.0) mmol/L Chloride 100 L (101-111) mmol/L Carbon Dioxide 23 (22-32) mmol/L Anion Gap 15 H (2-11) mmol/L BUN 6 (6-24) mg/dL Creatinine 0.85 (0.67-1.17) mg/dL Est GFR ( Amer) 117.1 (>60) Est GFR (Non-Af Amer) 91.0 (>60) BUN/Creatinine Ratio 7.1 L (8-20) Glucose 89 (70-100) mg/dL Calcium 9.3 (8.6-10.3) mg/dL Total Bilirubin 1.30 H (0.2-1.0) mg/dL AST 175 H (13-39) U/L ALT 110 H (7-52) U/L Alkaline Phosphatase 55 (34-104) U/L Total Creatine Kinase 158 (10-223) U/L C-Reactive Protein < 1.00 (< 5.00) mg/L Total Protein 8.3 (6.4-8.9) g/dL Albumin 4.2 (3.2-5.2) g/dL Globulin 4.1 H (2-4) g/dL Albumin/Globulin Ratio 1.0 (1-3) Urine Color Urine Appearance Urine pH (5-9) Ur Specific [place] (1.010-1.030) Urine Protein (Negative) Urine Ketones (Negative) Urine Blood (Negative) Urine Nitrate (Negative) Urine Bilirubin (Negative) Urine Urobilinogen (Negative) Ur Leukocyte Esterase (Negative) Urine Glucose (Negative) Influenza A (Rapid) Negative (Negative) Influenza B (Rapid) Negative (Negative) 10/04/17 Range/Units 14:26 WBC (3.5-10.8) 10^3/ul RBC (4.0-5.4) 10^6/ul Hgb (14.0-18.0) g/dl Hct (42-52) % MCV (80-94) fL MCH (27-31) pg MCHC (31-36) g/dl RDW (10.5-15) % Plt Count (150-450) 10^3/ul MPV (7.4-10.4) um3 Neut % (Auto) (38-83) % Lymph % (Auto) (25-47) % [place] % (Auto) (1-9) % Eos % (Auto) (0-6) % Baso % (Auto) (0-2) % Absolute Neuts (auto) (1.5-7.7) 10^3/ul Absolute Lymphs (auto) (1.0-4.8) 10^3/ul Absolute Monos (auto) (0-0.8) 10^3/ul Absolute Eos (auto) (0-0.6) 10^3/ul Absolute Basos (auto) (0-0.2) 10^3/ul Absolute Nucleated RBC 10^3/ul Nucleated RBC % Sodium (133-145) mmol/L Potassium (3.5-5.0) mmol/L Chloride (101-111) mmol/L Carbon Dioxide (22-32) mmol/L Anion Gap (2-11) mmol/L BUN (6-24) mg/dL Creatinine (0.67-1.17) mg/dL Est GFR ( Amer) (>60) Est GFR (Non-Af Amer) (>60) BUN/Creatinine Ratio (8-20) Glucose (70-100) mg/dL Calcium (8.6-10.3) mg/dL Total Bilirubin (0.2-1.0) mg/dL AST (13-39) U/L ALT (7-52) U/L Alkaline Phosphatase (34-104) U/L Total Creatine Kinase (10-223) U/L C-Reactive Protein (< 5.00) mg/L Total Protein (6.4-8.9) g/dL Albumin (3.2-5.2) g/dL Globulin (2-4) g/dL Albumin/Globulin Ratio (1-3) Urine Color Straw Urine Appearance Clear Urine pH 7.0 (5-9) Ur Specific [place] 1.008 L (1.010-1.030) Urine Protein Negative (Negative) Urine Ketones Trace H (Negative) Urine Blood Negative (Negative) Urine Nitrate Negative (Negative) Urine Bilirubin Negative (Negative) Urine Urobilinogen Negative (Negative) Ur Leukocyte Esterase Negative (Negative) Urine Glucose Negative (Negative) Influenza A (Rapid) (Negative) Influenza B (Rapid) (Negative) Assess/Plan/Problems-Billing Assessment: Mr. Mccarthy is a 62 yo male with a PMH significant for ETOH and polysubstance abuse, HTN, hepatitis C, duodenal ulcer with hemorrhage, and tobacco abuse who presented to the hospital on 05/23 with progressive generalized weakness, withdrawing, mildly disoriented. - Patient Problems (1) Muscular deconditioning Comment: PT/OT eval deemed pt unsafe for d/c, needs STR and agrees (2) Withdrawal symptoms, alcohol Comment: no longer needing ativan. will stop WAM (3) Thrombocytopenia Comment: Likely associated with ETOH and liver disease. stable (4) Transaminitis Comment: Appears chronic, stable Likely secondary to ETOH use and Hep C (5) Serum ammonia increased Comment: Todays' ammonia increased mildly from yesterday's despite lactulose tx. Pt's mentation is improved today. Doubt it is related to hepatic encephalopathy , but will cont Lactulose for now (6) HTN (hypertension) Comment: uncontrolled. start Norvasc (7) DVT prophylaxis Comment: SCDs no anticoagulants due to thrombocytopenia Status and Disposition: OBV changed to inpatient, pt needs STR
[2017-10-05] MEDS ORDERED: Nicotine Inhaler* 10 MG AMP INH PRN (11:29)
[2017-10-05] MEDS ORDERED: Mouth Piece, Nicotine* 1 EACH CARTRIDGE INH PRN ×2 (11:29)
[2017-10-05] MEDS: amLODIPine TAB* 5 MG PO SCH (13:00)
[2017-10-06] MEDS: LORazepam TAB(*) 1 MG PO SCH ×3 (01:03→11:30)
[2017-10-06 07:54] LABS: EGFR Non-African American 88.6 (>60)
[2017-10-06] MEDS: Lactulose* 15 ML UDC PO SCH ×3 (08:27→22:24)
[2017-10-06] MEDS: Magnesium Oxide TAB* 400 MG PO SCH (08:29)
[2017-10-06] MEDS: Potassium Chlor TAB* 20 MEQ TAB.ER PO SCH (08:29)
[2017-10-06] MEDS: amLODIPine TAB* 5 MG PO SCH (08:29)
[2017-10-06] MEDS: Thiamine TAB* 100 MG TAB PO SCH (08:29)
[2017-10-06] MEDS: Folic Acid TAB* 1 MG PO SCH (08:29)
[2017-10-06] MEDS ORDERED: Magnesium Sulfate IV* 3 GM in NS 0.9% 100 ML* 100 ML IVPB ONE (09:00)
[2017-10-06] MEDS ORDERED: LORazepam TAB(*) 0.5 MG PO PRN (12:40)
--- NOTE | 2017-10-06 12:44 | PN ---
Subjective Date of Service: 10/06/17 Interval History: pt was treated with Ativan for withdrawal today, now mildly sedated and disoriented Objective Active Medications: Acetaminophen (Tylenol Tab*) 650 mg PO Q6H PRN PRN Reason: FEVER/PAIN Amlodipine Besylate (Norvasc Tab*) 5 mg PO DAILY [facility] Last Admin: 10/06/17 08:29 Dose: 5 mg Device (Nicotine Mouth Piece*) 1 each INH .USE WITH NICOTROL PRN PRN Reason: CRAVING Last Admin: 10/05/17 11:45 Dose: 1 each Folic Acid (Folvite Tab*) 1 mg PO DAILY [facility] Last Admin: 10/06/17 08:29 Dose: 1 mg Hydralazine HCl (Apresoline Iv*) 10 mg IV Q4H PRN PRN Reason: Systolic >170 Lactulose (Lactulose*) 15 ml PO TID [facility] Last Admin: 10/06/17 08:27 Dose: 15 ml Lorazepam (Ativan Tab(*)) 0 - 6 mg PO .PER [facility] PROTOCOL [facility] PRN Reason: Protocol Last Admin: 10/06/17 11:30 Dose: 4 mg Magnesium Oxide (Magox 400 Tab*) 400 mg PO DAILY [facility] Last Admin: 10/06/17 08:29 Dose: 400 mg Nicotine (Nicotine Inhaler*) 10 mg INH Q2H PRN PRN Reason: CRAVING Last Admin: 10/05/17 11:46 Dose: 10 mg Potassium Chloride (Klor Con Er Tab*) 20 meq PO DAILY [facility] Last Admin: 10/06/17 08:29 Dose: 20 meq Thiamine HCl (Vitamin B-1 Tab*) 100 mg PO DAILY [facility] Last Admin: 10/06/17 08:29 Dose: 100 mg Vital Signs - 8 hr 10/06/17 10/06/17 10/06/17 05:29 06:00 07:41 Temperature 97.4 F 97.8 F Pulse Rate 91 98 Respiratory 20 18 16 Rate Blood Pressure 146/87 129/92 (mmHg) O2 Sat by Pulse 100 100 Oximetry 10/06/17 10/06/17 10/06/17 08:00 08:28 11:05 Temperature 98.1 F Pulse Rate 104 Respiratory 18 18 18 Rate Blood Pressure 136/84 (mmHg) O2 Sat by Pulse 100 Oximetry 10/06/17 11:30 Temperature Pulse Rate Respiratory 24 Rate Blood Pressure (mmHg) O2 Sat by Pulse Oximetry Oxygen Devices in Use Now: None Appearance: 62 yo m in nAD, oriented to self only Eyes: No Scleral Icterus, PERRLA Ears/Nose/Mouth/Throat: NL Teeth, Lips, Gums, Mucous Membranes Moist Neck: NL Appearance and Movements; NL JVP, Trachea Midline Respiratory: Symmetrical Chest Expansion and Respiratory Effort, Clear to Auscultation Cardiovascular: NL Sounds; No Murmurs; No JVD, RRR, No Edema Abdominal: NL Sounds; No Tenderness; No Distention, No Hepatosplenomegaly Lymphatic: No Cervical Adenopathy Extremities: No Edema, No Clubbing, Cyanosis Skin: No Rash or Ulcers, No Nodules or Sclerosis Neurological: NL Muscle Strength and Tone Result Diagrams: 10/05/17 05:51 10/06/17 06:45 Additional Lab and Data: Lab Results 10/04/17 10/04/17 10/04/17 Range/Units 12:44 12:44 13:08 WBC 3.8 (3.5-10.8) 10^3/ul RBC 3.60 L (4.0-5.4) 10^6/ul Hgb 12.5 L (14.0-18.0) g/dl Hct 37 L (42-52) % MCV 103 H (80-94) fL MCH 35 H (27-31) pg MCHC 34 (31-36) g/dl RDW 15 (10.5-15) % Plt Count 67 L (150-450) 10^3/ul MPV 8 (7.4-10.4) um3 Neut % (Auto) 60.5 (38-83) % Lymph % (Auto) 27.7 (25-47) % [place] % (Auto) 9.6 H (1-9) % Eos % (Auto) 0.3 (0-6) % Baso % (Auto) 1.9 (0-2) % Absolute Neuts (auto) 2.3 (1.5-7.7) 10^3/ul Absolute Lymphs (auto) 1.0 (1.0-4.8) 10^3/ul Absolute Monos (auto) 0.4 (0-0.8) 10^3/ul Absolute Eos (auto) 0 (0-0.6) 10^3/ul Absolute Basos (auto) 0.1 (0-0.2) 10^3/ul Absolute Nucleated RBC 0 10^3/ul Nucleated RBC % 0 Sodium 138 (133-145) mmol/L Potassium 3.2 L (3.5-5.0) mmol/L Chloride 100 L (101-111) mmol/L Carbon Dioxide 23 (22-32) mmol/L Anion Gap 15 H (2-11) mmol/L BUN 6 (6-24) mg/dL Creatinine 0.85 (0.67-1.17) mg/dL Est GFR ( Amer) 117.1 (>60) Est GFR (Non-Af Amer) 91.0 (>60) BUN/Creatinine Ratio 7.1 L (8-20) Glucose 89 (70-100) mg/dL Calcium 9.3 (8.6-10.3) mg/dL Total Bilirubin 1.30 H (0.2-1.0) mg/dL AST 175 H (13-39) U/L ALT 110 H (7-52) U/L Alkaline Phosphatase 55 (34-104) U/L Total Creatine Kinase 158 (10-223) U/L C-Reactive Protein < 1.00 (< 5.00) mg/L Total Protein 8.3 (6.4-8.9) g/dL Albumin 4.2 (3.2-5.2) g/dL Globulin 4.1 H (2-4) g/dL Albumin/Globulin Ratio 1.0 (1-3) Urine Color Urine Appearance Urine pH (5-9) Ur Specific [place] (1.010-1.030) Urine Protein (Negative) Urine Ketones (Negative) Urine Blood (Negative) Urine Nitrate (Negative) Urine Bilirubin (Negative) Urine Urobilinogen (Negative) Ur Leukocyte Esterase (Negative) Urine Glucose (Negative) Influenza A (Rapid) Negative (Negative) Influenza B (Rapid) Negative (Negative) 10/04/17 Range/Units 14:26 WBC (3.5-10.8) 10^3/ul RBC (4.0-5.4) 10^6/ul Hgb (14.0-18.0) g/dl Hct (42-52) % MCV (80-94) fL MCH (27-31) pg MCHC (31-36) g/dl RDW (10.5-15) % Plt Count (150-450) 10^3/ul MPV (7.4-10.4) um3 Neut % (Auto) (38-83) % Lymph % (Auto) (25-47) % [place] % (Auto) (1-9) % Eos % (Auto) (0-6) % Baso % (Auto) (0-2) % Absolute Neuts (auto) (1.5-7.7) 10^3/ul Absolute Lymphs (auto) (1.0-4.8) 10^3/ul Absolute Monos (auto) (0-0.8) 10^3/ul Absolute Eos (auto) (0-0.6) 10^3/ul Absolute Basos (auto) (0-0.2) 10^3/ul Absolute Nucleated RBC 10^3/ul Nucleated RBC % Sodium (133-145) mmol/L Potassium (3.5-5.0) mmol/L Chloride (101-111) mmol/L Carbon Dioxide (22-32) mmol/L Anion Gap (2-11) mmol/L BUN (6-24) mg/dL Creatinine (0.67-1.17) mg/dL Est GFR ( Amer) (>60) Est GFR (Non-Af Amer) (>60) BUN/Creatinine Ratio (8-20) Glucose (70-100) mg/dL Calcium (8.6-10.3) mg/dL Total Bilirubin (0.2-1.0) mg/dL AST (13-39) U/L ALT (7-52) U/L Alkaline Phosphatase (34-104) U/L Total Creatine Kinase (10-223) U/L C-Reactive Protein (< 5.00) mg/L Total Protein (6.4-8.9) g/dL Albumin (3.2-5.2) g/dL Globulin (2-4) g/dL Albumin/Globulin Ratio (1-3) Urine Color Straw Urine Appearance Clear Urine pH 7.0 (5-9) Ur Specific [place] 1.008 L (1.010-1.030) Urine Protein Negative (Negative) Urine Ketones Trace H (Negative) Urine Blood Negative (Negative) Urine Nitrate Negative (Negative) Urine Bilirubin Negative (Negative) Urine Urobilinogen Negative (Negative) Ur Leukocyte Esterase Negative (Negative) Urine Glucose Negative (Negative) Influenza A (Rapid) (Negative) Influenza B (Rapid) (Negative) Assess/Plan/Problems-Billing Assessment: Mr. Mccarthy is a 62 yo male with a PMH significant for ETOH and polysubstance abuse, HTN, hepatitis C, duodenal ulcer with hemorrhage, and tobacco abuse who presented to the hospital on 05/23 with progressive generalized weakness, withdrawing, mildly disoriented. - Patient Problems (1) Muscular deconditioning Comment: PT/OT eval deemed pt unsafe for d/c, needs STR . Asked psychiatry to see pt for competency. pt is not competent to make decisions. (2) Withdrawal symptoms, alcohol Comment: Needed Ativan in AM. now lethargic. will d/c WAM and start ativan 0.5 mg prn (3) Thrombocytopenia Comment: Likely associated with ETOH and liver disease. stable (4) Transaminitis Comment: Appears chronic, stable Likely secondary to ETOH use and Hep C (5) Serum ammonia increased Comment: Pt's mentation is likley related to withdrawal, doubt it is related to hepatic encephalopathy, but will cont Lactulose for now (6) HTN (hypertension) Comment: cont Norvasc (7) DVT prophylaxis Comment: SCDs no anticoagulants due to thrombocytopenia Status and Disposition: inpatient, pt needs STR
--- NOTE | 2017-10-06 19:23 | CONS ---
CONSULTATION REPORT: DATE OF CONSULT: 10/06/17 SUPERVISING PSYCHIATRIST: Dr. Toi Degroot. ATTENDING PHYSICIAN: Dr. Portillo. CONSULTING PROVIDER: Sheryl Plummer NP REASON FOR CONSULT: Capacity consult. HISTORY OF PRESENT ILLNESS: Psychiatry was asked to see patient, Noble Mccarthy , to determine capacity as he has not agreed to treatment recommendations by hospitalist service. Upon arrival, the patient is lying in bed. He is easy to arouse and cooperative with interview. He is able to give history of reason for coming to the hospital, but has little insight as to why he is admitted. The patient reports weakness, headache. He gives vague and incongruent information in regards to events leading to presenting to the emergency department. The patient minimizes his alcohol use. Reports that he drinks approximately 3 beers daily. He reports smoking 2 marijuana joints daily and 3 cigarettes daily. He states he lives alone in an apartment in [facility]. He is incongruent in his reports with his contact with his three grown children. As the interview progresses, he gives erroneous answers; for example, he states that he left school in "2 " when he was 7 years old. He states he completed GED, but is unclear when this happened. During the Mini-Mental Status Exam, the patient gives inconsistent answers. He is able to identify that this is September 2017. He answered the date wrong and he answered the season wrong. He then states that he is at [address] and is not oriented to being in the hospital. Mini-Mental Status Exam was not fully completed due to the patient's fatigue and by this time, it was clear that the patient does not have capacity to make informed decisions. PAST PSYCHIATRIC HISTORY: The patient does not have a known psychiatric history. He endorses mildly depressed mood, but does not endorse further symptoms. As stated above, he minimizes his substance use and likely does not understand the magnitude of his physical decline due to chronic alcohol use. MENTAL STATUS EXAM: The patient is lying in hospital bed primarily with his eyes closed. He is able to open them with prompting. He is alert and oriented x1. His concentration is poor. His memory is poor. His eye contact is poor. His speech is soft and mumbled. He is edentulous. He appeared disheveled, emaciated. There are food remnants in his faria. He is noted to have bilateral hand tremors. His thought process is impoverished and thought content is negative for SI, HI, or . He is circumstantial in regards to wanting to drink alcohol. His insight is poor. His judgment is poor and his fund of knowledge is limited. DIAGNOSES: 1. Alcohol use disorder, severe. 2. Cannabis use disorder. 3. Tobacco use disorder. 4. Alcohol neurocognitive disorder. ASSESSMENT: Mr. Mccarthy is a 62-year-old male, , domiciled, who lives alone. Psychiatry was consulted to determine capacity due to his need for further medical care. The patient has expressed desire to return home. He has little to no insight in regards in to his substance use during psychiatric evaluation. He was a poor historian and unable to fully complete the Mini-Mental Status Exam. At this time, the patient does not have capacity to make informed medical decisions and is at risk for or deterioration if discharged home. RECOMMENDATIONS: I have spoken with Dr. Portillo and discussed lack of capacity and she agrees Social Work will identify family and available discharge options for continued medical care. Thank you for including us in the care of this pleasant gentleman. SHERYL PLUMMER NP [id number]/[facility]PS #: [id number] BILL
[2017-10-07] MEDS: Lactulose* 15 ML UDC PO SCH ×3 (10:28→20:37)
[2017-10-07] MEDS: Potassium Chlor TAB* 20 MEQ TAB.ER PO SCH (10:28)
[2017-10-07] MEDS: amLODIPine TAB* 5 MG PO SCH (10:29)
[2017-10-07] MEDS: Folic Acid TAB* 1 MG PO SCH (10:29)
[2017-10-07] MEDS: Thiamine TAB* 100 MG TAB PO SCH (10:29)
[2017-10-07] MEDS: Magnesium Oxide TAB* 400 MG PO SCH (10:30)
[2017-10-07] MEDS: Acetaminophen TAB* 325 MG PO PRN ×2 (12:10→20:35)
--- NOTE | 2017-10-07 12:26 | DS ---
CC: Dr. Oliveira; [facility] * DISCHARGE SUMMARY: DATE OF ADMISSION: 10/04/17 DATE OF DISCHARGE: 10/07/17 PRIMARY CARE PROVIDER: Dr. Oliveira. DISCHARGE DIAGNOSES: 1. Alcohol withdrawal. 2. Elevated ammonia with question of hepatic encephalopathy. 3. Hypomagnesemia. 4. Hypertension. SECONDARY DIAGNOSES: 1. History of alcoholism. 2. Hypertension. 3. History of hepatitis C. 4. History of duodenal ulcer and gastrointestinal hemorrhage due to that in 2014. 5. History of polysubstance abuse in the past. 6. Ongoing tobacco use. Please note that the patient was forgetful during his hospital stay and was deemed incompetent to make decisions. MEDICATIONS AT DISCHARGE: Include: 1. Amlodipine 5 mg daily. 2. Folic acid 5 mg daily. 3. Lactulose 15 mL 3 times a day. 4. Magnesium oxide 400 mg daily. 5. Multivitamin 1 tablet daily. 6. Potassium chloride 20 mEq daily. 7. Thiamine 100 mg daily. LABORATORY DATA AND STUDIES PERFORMED DURING THE HOSPITAL STAY: Included: On 10/05/17, white blood cell count of 3.5, hemoglobin 14.3, hematocrit 41, MCV of 103, and platelets of 69 which is chronic. On 10/06/17, sodium of 130, potassium of 4.0, chloride 100, carbon dioxide 22, BUN 12, creatinine 0.87. Magnesium was 1.5 that was replaced with IV magnesium at that point. Liver function tests showed total bilirubin of 1.7, AST of 137, ALT of 96, alkaline phosphatase of 55. Ammonia level was 58, albumin 4.0, globulin 4.3. HOSPITALIZATION COURSE: Noble Mccarthy is a 62-year-old male with history of alcoholism, who presented to the hospital twice for evaluation of shortness of breath. He came into the hospital on 10/04/17. His workup for shortness of breath was grossly unremarkable and the patient was sent back home to return within 24 hours with the same complaint. At that point, the patient was noted to be actively withdrawing from alcohol. He was admitted to the hospital and treated with Ativan protocol. He continued to be very forgetful. He was noted to have ammonia levels in the 50s to 60s. It was difficult to differentiate though if the patient had hepatic encephalopathy. It appeared mostly that his altered mental status was due to alcohol withdrawal and emergent sedation with Ativan to treat alcohol withdrawal. By the time of discharge though, the patient was still not competent to make decisions. He was intermittently agreeable to short-term rehabilitation for which he qualified due to generalized deconditioning. Intermittently though he refused. Nevertheless, Social Work was involved in the patient's placement and found family friend, who agreed for the patient's placement in short rehabilitation in [facility]. By the time of discharge, the patient is oriented x2, pleasant and cooperative. He has generalized muscular deconditioning and very unsteady gait. He is requested to ambulate with assistance at discharge. The patient was noted to have hypomagnesemia during his hospital stay and repeat basic metabolic panel and magnesium level is recommended to be done in approximately 1 week after the patient is discharged. For his elevated ammonia level, we will continue lactulose at 15 mL 3 times a day, which was started during his hospital stay. The patient also was started on Norvasc at 5 mg daily for hypertension. PHYSICAL EXAMINATION AT THE TIME OF DISCHARGE: At the time of discharge, blood pressure of 112/78, heart rate of 96 and regular, respiratory rate 16, oxygen saturation 100% on room air, temperature 98.6. General: The patient is a very pleasant 62-year-old male, who is in no acute distress. The patient is alert and oriented x2. He does not know the exact date. HEENT: Head: Atraumatic, normocephalic. Eyes: Pupils are equal, reactive to light and accommodation. Oropharynx is clear. Mucosa moist. The patient has absent dentition. Neck: Supple. No JVD. No bruits bilaterally. Cardiovascular: Regular rate and rhythm. No murmur. Respiratory: Clear to auscultation bilaterally. Abdomen: Soft, nontender. Bowel sounds are present in all 4 quadrants. Extremities: There is no edema. Pulses are +2 bilaterally. There was no clubbing or cyanosis. On evaluation of the skin, no ecchymotic areas or rashes noted. Neuro Evaluation: Speech is clear. Cranial Nerves II through XII grossly intact. Motor strength is 5/5 bilaterally. Generalized muscular deconditioning noted. Please note that this is a short summary of the patient's hospitalization. Please refer to further medical records for details. TIME SPENT: Approximately 40 minutes was spent on the patient's discharge. [id number]/[facility] #: [id number] BILL
[2017-10-08] MEDS: Potassium Chlor TAB* 20 MEQ TAB.ER PO SCH (10:17)
[2017-10-08] MEDS: Folic Acid TAB* 1 MG PO SCH (10:17)
[2017-10-08] MEDS: amLODIPine TAB* 5 MG PO SCH (10:17)
[2017-10-08] MEDS: Thiamine TAB* 100 MG TAB PO SCH (10:17)
[2017-10-08] MEDS: Magnesium Oxide TAB* 400 MG PO SCH (10:17)
[2017-10-08] MEDS: Lactulose* 15 ML UDC PO SCH ×3 (10:18→20:07)
--- NOTE | 2017-10-08 10:32 | PN ---
Subjective Date of Service: 10/08/17 Interval History: denies recent alcohol use. long standing numbness in hands, occasionally feet. Objective Active Medications: Acetaminophen (Tylenol Tab*) 650 mg PO Q6H PRN PRN Reason: FEVER/PAIN Last Admin: 10/07/17 20:35 Dose: 650 mg Amlodipine Besylate (Norvasc Tab*) 5 mg PO DAILY [facility] Last Admin: 10/08/17 10:17 Dose: 5 mg Device (Nicotine Mouth Piece*) 1 each INH .USE WITH NICOTROL PRN PRN Reason: CRAVING Last Admin: 10/05/17 11:45 Dose: 1 each Folic Acid (Folvite Tab*) 1 mg PO DAILY [facility] Last Admin: 10/08/17 10:17 Dose: 1 mg Hydralazine HCl (Apresoline Iv*) 10 mg IV Q4H PRN PRN Reason: Systolic >170 Lactulose (Lactulose*) 15 ml PO TID [facility] Last Admin: 10/08/17 10:18 Dose: 15 ml Lorazepam (Ativan Tab(*)) 0.5 mg PO Q4H PRN PRN Reason: withdrawal Magnesium Oxide (Magox 400 Tab*) 400 mg PO DAILY [facility] Last Admin: 10/08/17 10:17 Dose: 400 mg Nicotine (Nicotine Inhaler*) 10 mg INH Q2H PRN PRN Reason: CRAVING Last Admin: 10/05/17 11:46 Dose: 10 mg Potassium Chloride (Klor Con Er Tab*) 20 meq PO DAILY [facility] Last Admin: 10/08/17 10:17 Dose: 20 meq Thiamine HCl (Vitamin B-1 Tab*) 100 mg PO DAILY [facility] Last Admin: 10/08/17 10:17 Dose: 100 mg Vital Signs - 8 hr 10/08/17 10/08/17 03:33 07:31 Temperature 98.5 F 98.6 F Pulse Rate 62 93 Respiratory 16 14 Rate Blood Pressure 136/69 158/92 (mmHg) O2 Sat by Pulse 100 100 Oximetry Oxygen Devices in Use Now: None Appearance: NAD Eyes: No Scleral Icterus, PERRLA Ears/Nose/Mouth/Throat: NL Teeth, Lips, Gums, Mucous Membranes Moist Neck: NL Appearance and Movements; NL JVP, Trachea Midline Respiratory: Symmetrical Chest Expansion and Respiratory Effort, Clear to Auscultation Cardiovascular: NL Sounds; No Murmurs; No JVD, RRR Abdominal: NL Sounds; No Tenderness; No Distention, No Hepatosplenomegaly Extremities: No Edema, No Clubbing, Cyanosis Skin: No Rash or Ulcers, No Nodules or Sclerosis Neurological: Alert and Oriented x 3, NL Muscle Strength and Tone, - - no asterixis. attests to numbness in fingers but not currently toes. Result Diagrams: 10/05/17 05:51 10/06/17 06:45 Additional Lab and Data: Microbiology and Other Data: Microbiology 10/04/17 11:23 Nasopharyngeal Influenza Types A,B Antigen (SHANTELL) - Final Specimen received for Influenza A/B Molecular testing Assess/Plan/Problems-Billing Assessment: 62 yo male PMH ETOH and polysubstance abuse, HTN, hepatitis C, duodenal ulcer with hemorrhage, and tobacco abuse who presented 10/04 with confusion, generalized weakness and e/o alcohol withdrawal. Subjective complaint SOB. elevated ammonia Improved with lactulose, waiting for discharge to [facility]. - Patient Problems (1) Serum ammonia increased Current Visit: Yes Status: Acute Code(s): E72.20 - DISORDER OF UREA CYCLE METABOLISM, UNSPECIFIED SNOMED Code(s): 5187600 Comment: Pt's mentation improved, thought related to withdrawal. cont Lactulose for now (2) Alcoholism Current Visit: No Status: Acute Code(s): F10.20 - ALCOHOL DEPENDENCE, UNCOMPLICATED SNOMED Code(s): 1701808 Comment: continue thiamine, folate (3) History of hepatitis C Current Visit: No Status: Acute Code(s): Z86.19 - PERSONAL HISTORY OF OTHER INFECTIOUS AND PARASITIC DISEASES SNOMED Code(s): 85934605746448 Comment: Unsure of tx hx. Needs GI f/u, needs to establish he can stay sober and keep f/ u appts. (4) Muscular deconditioning Current Visit: No Status: Acute Code(s): R29.898 - OTH SYMPTOMS AND SIGNS INVOLVING THE MUSCULOSKELETAL SYSTEM SNOMED Code(s): 858301843 Comment: PT/OT eval deemed pt unsafe for d/c, needs STR . Asked psychiatry to see pt for competency. pt is not competent to make decisions. (5) Withdrawal symptoms, alcohol Current Visit: No Status: Acute Code(s): F10.239 - ALCOHOL DEPENDENCE WITH WITHDRAWAL, UNSPECIFIED SNOMED Code(s): 063405396 Comment: last Ativan (4mg po) 1 AM resulting in sedation. ativan 0.5 mg prn (6) Hypomagnesemia Current Visit: No Status: Resolved Code(s): E83.42 - HYPOMAGNESEMIA SNOMED Code(s): 178257482 Comment: Cont to replete as necessary Status and Disposition: inpatient, pt needs STR at [facility]. Attending: Tone Wagner
[2017-10-08] MEDS: Acetaminophen TAB* 325 MG PO PRN (20:07)
[2017-10-09 07:51] LABS: EGFR Non-African American 113.9 (>60)
[2017-10-09] MEDS: Magnesium Oxide TAB* 400 MG PO SCH (08:10)
[2017-10-09] MEDS: Thiamine TAB* 100 MG TAB PO SCH (08:10)
[2017-10-09] MEDS: Folic Acid TAB* 1 MG PO SCH (08:10)
[2017-10-09] MEDS: Potassium Chlor TAB* 20 MEQ TAB.ER PO SCH (08:10)
[2017-10-09] MEDS: amLODIPine TAB* 5 MG PO SCH (08:11)
[2017-10-09] MEDS: Lactulose* 15 ML UDC PO SCH ×3 (08:11→21:46)
--- NOTE | 2017-10-09 08:27 | PN ---
Subjective Date of Service: 10/09/17 Interval History: Pt complaint of chronic numbness/tingling in his legs, feet and hands. Mg low 1.5. Na 132. Afebrile hemodynamically stable. Objective Active Medications: Acetaminophen (Tylenol Tab*) 650 mg PO Q6H PRN PRN Reason: FEVER/PAIN Last Admin: 10/08/17 20:07 Dose: 650 mg Amlodipine Besylate (Norvasc Tab*) 5 mg PO DAILY [facility] Last Admin: 10/09/17 08:11 Dose: 5 mg Device (Nicotine Mouth Piece*) 1 each INH .USE WITH NICOTROL PRN PRN Reason: CRAVING Last Admin: 10/05/17 11:45 Dose: 1 each Folic Acid (Folvite Tab*) 1 mg PO DAILY [facility] Last Admin: 10/09/17 08:10 Dose: 1 mg Hydralazine HCl (Apresoline Iv*) 10 mg IV Q4H PRN PRN Reason: Systolic >170 Lactulose (Lactulose*) 15 ml PO TID [facility] Last Admin: 10/09/17 08:11 Dose: 15 ml Lorazepam (Ativan Tab(*)) 0.5 mg PO Q4H PRN PRN Reason: withdrawal Magnesium Oxide (Magox 400 Tab*) 400 mg PO DAILY [facility] Last Admin: 10/09/17 08:10 Dose: 400 mg Nicotine (Nicotine Inhaler*) 10 mg INH Q2H PRN PRN Reason: CRAVING Last Admin: 10/05/17 11:46 Dose: 10 mg Potassium Chloride (Klor Con Er Tab*) 20 meq PO DAILY [facility] Last Admin: 10/09/17 08:10 Dose: 20 meq Thiamine HCl (Vitamin B-1 Tab*) 100 mg PO DAILY [facility] Last Admin: 10/09/17 08:10 Dose: 100 mg Vital Signs - 8 hr 10/09/17 10/09/17 03:32 07:55 Temperature 97.6 F 97.9 F Pulse Rate 65 71 Respiratory 16 16 Rate Blood Pressure 157/85 166/89 (mmHg) O2 Sat by Pulse 100 100 Oximetry Oxygen Devices in Use Now: None Appearance: NAD Eyes: No Scleral Icterus, PERRLA Ears/Nose/Mouth/Throat: NL Teeth, Lips, Gums, Mucous Membranes Moist Neck: NL Appearance and Movements; NL JVP, Trachea Midline Respiratory: Symmetrical Chest Expansion and Respiratory Effort, Clear to Auscultation Cardiovascular: NL Sounds; No Murmurs; No JVD, RRR Abdominal: NL Sounds; No Tenderness; No Distention, No Hepatosplenomegaly Extremities: No Edema, No Clubbing, Cyanosis Skin: No Rash or Ulcers, No Nodules or Sclerosis Neurological: Alert and Oriented x 3, NL Muscle Strength and Tone, - - no asterixis. Nutrition: Taking PO's Result Diagrams: 10/05/17 05:51 10/09/17 07:24 Additional Lab and Data: Laboratory Results - last 24 hr 10/09/17 10/09/17 07:24 07:24 Sodium 132 L Potassium 3.7 Chloride 102 Carbon Dioxide 22 Anion Gap 8 BUN 12 Creatinine 0.70 Est GFR ( Amer) 146.5 Est GFR (Non-Af Amer) 113.9 BUN/Creatinine Ratio 17.1 Glucose 106 H Calcium 10.2 Magnesium 1.5 L Total Bilirubin 1.30 H Direct Bilirubin 0.50 H Indirect Bilirubin 0.8 AST 129 H ALT 113 H Alkaline Phosphatase 61 Ammonia 50 Total Protein 8.3 Albumin 4.0 Globulin 4.3 H Albumin/Globulin Ratio 0.9 L Microbiology and Other Data: Microbiology 10/04/17 11:23 Nasopharyngeal Influenza Types A,B Antigen (SHANTELL) - Final Specimen received for Influenza A/B Molecular testing Assess/Plan/Problems-Billing Assessment: 62 yo male PMH ETOH and polysubstance abuse, HTN, hepatitis C, duodenal ulcer with hemorrhage, and tobacco abuse who presented 10/04 with confusion, generalized weakness and e/o alcohol withdrawal. Subjective complaint SOB. elevated ammonia Improved with lactulose, waiting for discharge to [facility] for continued physical therapy. - Patient Problems (1) Serum ammonia increased Current Visit: Yes Status: Acute Code(s): E72.20 - DISORDER OF UREA CYCLE METABOLISM, UNSPECIFIED SNOMED Code(s): 2255575 Comment: Pt's mentation improved, thought related to withdrawal. cont Lactulose for now, repeat ammonia 50. no asterixis (2) Alcoholism Current Visit: No Status: Acute Code(s): F10.20 - ALCOHOL DEPENDENCE, UNCOMPLICATED SNOMED Code(s): 5818196 Comment: continue thiamine, folate (3) History of hepatitis C Current Visit: No Status: Acute Code(s): Z86.19 - PERSONAL HISTORY OF OTHER INFECTIOUS AND PARASITIC DISEASES SNOMED Code(s): 80872718842634 Comment: Unsure of tx hx. Needs GI f/u, needs to establish he can stay sober and keep f/ u appts. (4) Muscular deconditioning Current Visit: No Status: Acute Code(s): R29.898 - OTH SYMPTOMS AND SIGNS INVOLVING THE MUSCULOSKELETAL SYSTEM SNOMED Code(s): 650265714 Comment: PT/OT eval deemed pt unsafe for d/c, needs STR. Making progress. Psychiatry determined pt is not competent to make decisions. (5) Withdrawal symptoms, alcohol Current Visit: No Status: Acute Code(s): F10.239 - ALCOHOL DEPENDENCE WITH WITHDRAWAL, UNSPECIFIED SNOMED Code(s): 704182694 Comment: last Ativan (4mg po) 1/25 AM resulting in sedation. ativan 0.5 mg prn (6) Hypomagnesemia Current Visit: No Status: Resolved Code(s): E83.42 - HYPOMAGNESEMIA SNOMED Code(s): 589397493 Comment: Cont to replete as necessary. Was low at 1.5 Status and Disposition: inpatient, pt needs STR at [facility]. Attending: Tone Wagner
[2017-10-09] MEDS ORDERED: Magnesium Sulf 4 GM/100 ML IV* 4,000 MG/100 ML BAG IVPB ONE (08:30)
[2017-10-09] MEDS: Acetaminophen TAB* 325 MG PO PRN (17:37)
[2017-10-09] MEDS ORDERED: oxyCODONE TAB* 5 MG TAB PO ONE (22:26)
[2017-10-10] MEDS: Thiamine TAB* 100 MG TAB PO SCH (09:15)
[2017-10-10] MEDS: amLODIPine TAB* 5 MG PO SCH (09:15)
[2017-10-10] MEDS: Lactulose* 15 ML UDC PO SCH (09:15)
[2017-10-10] MEDS: Folic Acid TAB* 1 MG PO SCH (09:16)
[2017-10-10] MEDS: Potassium Chlor TAB* 20 MEQ TAB.ER PO SCH (09:16)
[2017-10-10] MEDS: Magnesium Oxide TAB* 400 MG PO SCH (09:16)
[2017-10-10 10:05] VITALS: BP 142/59
[2017-10-10] MEDS ORDERED: LORazepam INJ* 2 MG/ML 1 ML VIAL IV PUSH ONE (11:38)
== END 2017-10-10 12:05 | DRG 775 ==
LOC: ED 11:58 → MED 14:44 → OBSVTOIN 10-05 11:24
PROVIDERS: ADMIT Internal Medicine; ATTEND Internal Medicine
DX: F10.239 Alcohol dependence with withdrawal, unspecified (principal); D69.59 Other secondary thrombocytopenia; E72.20 Disorder of urea cycle metabolism, unspecified; E83.42 Hypomagnesemia; K70.10 Alcoholic hepatitis without ascites; K70.40 Alcoholic hepatic failure without coma; I10 Essential (primary) hypertension; F17.210 Nicotine dependence, cigarettes, uncomplicated; R26.81 Unsteadiness on feet; Z79.899 Other long term (current) drug therapy; R74.0 Nonspecific elevation of levels of transaminase and lactic acid dehydrogenase [LDH]; F12.10 Cannabis abuse, uncomplicated; R41.9 Unspecified symptoms and signs involving cognitive functions and awareness
CPT/HCPCS: 36415; 80048; 80053; 80076; 81003; 82140; 82550; 83735; 85025; 86140; 87502; 93005; 99283; A9270-GY; G0378; J2060; J3475

== ENCOUNTER 2017-12-04 04:18 | Emergency (ER) | payer OTHER ==
[2017-12-04] MEDS ORDERED: predniSONE TAB* 20 MG PO ONE (05:02)
[2017-12-04] MEDS ORDERED: Gabapentin CAP(*) 300 MG PO ONE (05:02)
[2017-12-04 06:42] VITALS: BP 154/94
--- NOTE | 2017-12-08 20:42 | ED ---
Vinicius Caba Tecjoon, scribed for Epifanio Tan MD on 12/04/17 at 0501 . Lower Extremity - HPI Summary HPI Summary: This patient is a 62 year old male BIBA to [facility] with a chief complaint of leg numbness/pain since for the past few days. Patient states that it is difficult to walk. At time of exam, patient states that he is feeling no pain and there is only numbness. Patient rates the pain 0/10. Symptoms aggravated by nothing. Symptoms alleviated by nothing. Patient denies back pain - History of Current Complaint Chief Complaint: EDExtremityLower Stated Complaint: LEG PAIN Time Seen by Provider: 12/04/17 04:42 Hx Obtained From: Patient Onset/Duration: Days Severity Currently: Moderate Pain Intensity: 0 Pain Scale Used: 0-10 Numeric Timing: Constant Location: Is Diffuse - legs Associated Signs And Symptoms: Positive: Negative - back pain Aggravating Factor(s): Nothing Alleviating Factor(s): Nothing - Allergies/Home Medications Allergies/Adverse Reactions: Allergies Allergy/AdvReac Type Severity Reaction Status Date / Time No Known Allergies Allergy Verified 05/09/17 21:14 PMH/Surg Hx/FS Hx/Imm Hx Previously Healthy: No Endocrine/Hematology History: Denies: Hx Anticoagulant Therapy, Hx Blood Disorders, Hx Blood Transfusions, Hx Bone Marrow Disease, Hx Diabetes, Hx Systemic Lupus Erythematosus, Hx Sickle Cell Disease, Hx Thyroid Disease, Hx Unexplained Bleeding, Other Endocrine/ Hematological Disorders Cardiovascular History: Reports: Hx Hypertension Denies: Hx Pacemaker/ICD Respiratory History: Reports: Hx Asthma GI History: Reports: Other GI Disorders - Hepatitis C, alcohol abuse Denies: Hx Cirrhosis, Hx Crohn's Disease, Hx Diverticulosis, Hx Gall Bladder Disease, Hx Gastroesophageal Reflux Disease, Hx Gastrointestinal Bleed, Hx Hiatal Hernia, Hx Irritable Bowel, Hx Jaundice, Hx Obstructive Bowel, Hx Ileostomy, Hx Pyloric Stenosis, Hx Ulcer History: Denies: Hx Acute Renal Failure, Hx Benign Prostatic Hyperplasia, Hx Chronic Renal Failure, Hx Dialysis, Hx Kidney Infection, Hx Kidney Stones, Other Problems/Disorders Musculoskeletal History: Denies: Hx Arthritis, Hx Back Problems, Hx Bursitis, Hx Congenital Bone Abnormalities, Hx Fibromyalgia, Hx Gout, Hx Orthopedic Injury, Hx Osteoporosis, Hx Scoliosis, Hx Tendonitis, Other Musculoskeletal History Sensory History: Reports: Hx Contacts or Glasses Denies: Hx Hearing Aid Opthamlomology History: Reports: Hx Contacts or Glasses Neurological History: Reports: Other Neuro Impairments/Disorders - neuropathy Psychiatric History: Reports: Hx Substance Abuse - alcohol Denies: Hx Attention Deficit Hyperactivity Disorder, Hx Eating Disorder, Hx Depression, Hx Panic Disorder, Hx Post Traumatic Stress Disorder, Hx Inpatient Treatment, Hx Community Mental Health Tx, Hx Schizophrenia, Hx Bipolar Disorder , Hx Suicide Attempt, Hx of Violent Episodes Against Others, Other Psychiatric Issues/Disorders - Surgical History Surgery Procedure, Year, and Place: right ankle-2000 Hx Anesthesia Reactions: No Infectious Disease History: No Infectious Disease History: Reports: Hx Hepatitis - C Denies: Hx Clostridium Difficile, Hx Human Immunodeficiency Virus (HIV), Hx of Known/Suspected MRSA, Hx Shingles, Hx Tuberculosis, Hx Known/Suspected VRE, Hx Known/Suspected VRSA, History Other Infectious Disease, Traveled Outside the [place] in Last 30 Days - Family History Known Family History: Negative: Cardiac Disease - Social History Alcohol Use: Daily Alcohol Amount: 6 pack and 1/2 pint of vodka Hx Substance Use: No Substance Use Type: Reports: None Hx Tobacco Use: Yes Smoking Status (MU): Heavy Every Day Tobacco Smoker Type: Cigarettes Have You Smoked in the Last Year: Yes Review of Systems Negative: Fever Musculoskeletal: Negative - back pain Positive: Other - leg numbness/pain All Other Systems Reviewed And Are Negative: Yes Physical Exam - Summary Physical Exam Summary: Appearance: Well-appearing, no distress, Well-nourished Skin: Warm, color reflects adequate perfusion Head: Normal Head/Face inspection Eyes: Conjunctiva clear ENT: Normal inspection Neck: Supple, no nodes, no JVD. Respiratory: Lungs clear, Normal breath sounds, no respiratory distress Cardio: RRR, No murmur, pulses normal, brisk capillary refill Abdomen: soft, nontender, no guarding, no rebound Bowel sounds: present Musculoskeletal: Strength Intact/ ROM intact. No calf tenderness. No edema. Sensation intact, 2+ dp Neuro: Alert, muscle tone normal, facial symmetry, speech normal, sensory/motor intact; no motor or sensory deficits Psychological: Normal Triage Information Reviewed: Yes Vital Signs On Initial Exam: Initial Vitals Temp Pulse Resp BP Pulse Ox 99 F 89 19 192/95 100 12/04/17 04:36 12/04/17 04:36 12/04/17 04:36 12/04/17 04:36 12/04/17 04:36 Vital Signs Reviewed: Yes Diagnostics - Vital Signs Vital Signs Temp Pulse Resp BP Pulse Ox 12/04/17 04:36 99 F 89 19 192/95 100 - Laboratory Lab Statement: Any lab studies that have been ordered have been reviewed, and results considered in the medical decision making process. Re-Evaluation - Re-Evaluation Second Eval Re-Evaluation Time: 05:59 Change: Improved Comment: Pt symptomatically improved. pt resting comfortably in bed. Pt with no focal deficits. pt with FROM LE; no weakness Lower Extremity Course/Dx - Diagnoses Differential Diagnosis/HQI/PQRI: Positive: Bursitis, Cellulitis, Phlebitis, Sciatica, Sprain, Strain, Tendonitis, Tenosynovitis Provider Diagnoses: Neuropathy Discharge - Sign-Out/Discharge Documenting (check all that apply): Discharge - Discharge Plan Condition: Improved Disposition: HOME Prescriptions: Gabapentin CAP(*) [Neurontin 300 CAP(*)] 300 mg PO TID #20 cap Patient Education Materials: Peripheral Neuropathy (ED) Referrals: Michael Oliveira MD [Primary Care Provider] - 3 Days - Billing Disposition and Condition Condition: IMPROVED Disposition: HOME The documentation as recorded by the Vinicius ramirez Tecjoon accurately reflects the service I personally performed and the decisions made by , Epifanio Tan MD.
== END 2017-12-04 06:48 | disposition home or self-care (01) ==
LOC: ED 04:18
DX: G62.9 Polyneuropathy, unspecified (principal); I10 Essential (primary) hypertension; J45.909 Unspecified asthma, uncomplicated; B19.20 Unspecified viral hepatitis C without hepatic coma; Z79.899 Other long term (current) drug therapy; F17.210 Nicotine dependence, cigarettes, uncomplicated
CPT/HCPCS: 99283; A9270-GY; J7512

== ENCOUNTER 2018-01-06 19:06 | Emergency (ER) | payer OTHER ==
[2018-01-06 20:25] LABS: INR 1.06 (0.77-1.02)
[2018-01-06 20:31] LABS: EGFR Non-African American 72.9 (>60)
[2018-01-06 20:42] LABS: ABS Basophils 0 10^3/ul (0-0.2); ABS Eosinophils 0 10^3/ul (0-0.6); ABS Lymphocytes 1.2 10^3/ul (1.0-4.8); ABS Monocytes 0.5 10^3/ul (0-0.8); ABS Neutrophils 1.9 10^3/ul (1.5-7.7); ABS Nucleated RBC 0 10^3/ul; Eosinophil % 0 % (0-6); Hematocrit 39 % (42-52); Hemoglobin 13.5 g/dl (14.0-18.0); Lymphocyte % 32.8 % (25-47); Mean Corpuscular HGB Conc 35 g/dl (31-36); Mean Corpuscular Hemoglobin 35 pg (27-31); Mean Corpuscular Volume 101 fL (80-94); Mean Platelet Volume 8.6 um3 (7.4-10.4); Nucleated Red Blood Cells % 0.2; Platelet Count 91 10^3/ul (150-450); Red Cell Distribution Width 16 % (10.5-15); White Blood Count 3.7 10^3/ul (3.5-10.8)
--- NOTE | 2018-01-06 20:48 | RAD ---
Indication: Dizziness. Single frontal view of the chest performed at 2024 hours was reviewed. Comparison is made with previous exam dated October 04, 2017. No mediastinal shift is noted. Heart is of normal size and configuration. Lung kellogg appear clear. IMPRESSION: NO ACTIVE CARDIOPULMONARY DISEASE IS NOTED.
[2018-01-06] MEDS ORDERED: Magnesium Sulfate 2 GM IV* 2 GM/50 ML BAG IVPB ONE (21:02)
--- NOTE | 2018-01-06 21:42 | RAD ---
Indication: Dizziness. CT of the brain was performed without IV contrast. Ventricular structures are midline. No midline shift is noted. The extra-axial spaces are unremarkable. There is no evidence of intracranial mass or hemorrhage. No other high or low density lesions are identified. Periventricular lucency consistent with chronic ischemic changes noted. There appears to be old lacunar infarct in the left basal ganglia. Mastoid air cells and paranasal sinuses are unremarkable. IMPRESSION: No intracranial mass or hemorrhage is noted.
[2018-01-06 22:21] LABS: Urine Appearance Cloudy; Urine Blood Negative (Negative); Urine Color Yellow; Urine Ketones Trace (Negative); Urine Protein 1+(30 mg/dL) (Negative); Urine Specific Gravity 1.014 (1.010-1.030); Urine Urobilinogen Positive (Negative)
[2018-01-06 23:47] VITALS: BP 166/107
--- NOTE | 2018-01-07 08:40 | ED ---
I, Kamala Wynne, scribed for Martha Gómez MD on 01/06/18 at 2310 . Progress - Progress Note Progress Note: Patient signed out from Dr. Garcia, awaiting CT brain and UA results for complaints of weakness. At 2300, Upon evaluation, patient states he feels fine. He is able to ambulate, is putting on his shoes. Course/Dx - Course Course Of Treatment: Patient was received in sign out from Dr. Garcia awaiting CT brain and UA. Both were negative. Pt able to ambulate. Was preparing to leave upon my initial evaluation. Advised of his results. He is agreeable to discharge. - Diagnoses Provider Diagnoses: Weakness, Abnormal liver function tests Discharge - Sign-Out/Discharge Documenting (check all that apply): Discharge/Admit/Transfer - home - Discharge Plan Condition: Stable Disposition: HOME Patient Education Materials: Weakness (ED) Referrals: Michael Oliveira MD [Primary Care Provider] - 2 Days Additional Instructions: Return to the ER if you have new or worsening symptoms. - Billing Disposition and Condition Condition: STABLE Disposition: HOME The documentation as recorded by the Ricci ramirez Tiffany accurately reflects the service I personally performed and the decisions made by me, Martha Gómez MD.
--- NOTE | 2018-01-07 10:27 | ED ---
Nito Caba Angela, scribed for Chester Garcia on 01/06/18 at 1954 . Complex/Multi-Sys Presentation - HPI Summary HPI Summary: This pt is a 62 y/o male presenting to [facility] via EMS for weakness for the past several weeks. Pt reports he usually ambulates at baseline. Today he states he could hardly stand secondary to weakness. He additionally notes bilateral leg pain. Denies any recent falls. He denies fever, chest pain, SOB. Pt lives alone at home. PMHx includes HTN, Hep C. Pt denies hx of strokes. Pt is a current smoker, but denies drug and alcohol use. - History Of Current Complaint Chief Complaint: EDWeakness Time Seen by Provider: 01/06/18 19:22 Hx Obtained From: Patient Onset/Duration: Lasting Days, Still Present Timing: Days Severity Currently: Moderate Location: Pain At: - bilateral legs Aggravating Factor(s): nothing Alleviating Factor(s): nothing Associated Signs And Symptoms: Positive: Weakness. Negative: SOB, Chest Pain, Fever - Allergies/Home Medications Allergies/Adverse Reactions: Allergies Allergy/AdvReac Type Severity Reaction Status Date / Time No Known Allergies Allergy Verified 05/09/17 21:14 Home Medications: Home Medications Folic Acid TAB* [Folvite TAB*] 1 mg PO DAILY 01/06/18 [History Confirmed ] Magnesium Oxide TAB* [MagOx 400 TAB*] 400 mg PO DAILY 01/06/18 [History Confirmed 01/06/18] Multivitamins/Minerals TAB* [Theragran/minerals TAB*] 1 tab PO DAILY 01/06/18 [ History Confirmed 01/06/18] Potassium Chlor TAB* [Klor Con ER TAB*] 10 meq PO DAILY 01/06/18 [History Confirmed 01/06/18] PMH/Surg Hx/FS Hx/Imm Hx Endocrine/Hematology History: Denies: Hx Anticoagulant Therapy, Hx Blood Disorders, Hx Blood Transfusions, Hx Bone Marrow Disease, Hx Diabetes, Hx Systemic Lupus Erythematosus, Hx Sickle Cell Disease, Hx Thyroid Disease, Hx Unexplained Bleeding, Other Endocrine/ Hematological Disorders Cardiovascular History: Reports: Hx Hypertension Denies: Hx Pacemaker/ICD Respiratory History: Reports: Hx Asthma GI History: Reports: Other GI Disorders - Hepatitis C, alcohol abuse Denies: Hx Cirrhosis, Hx Crohn's Disease, Hx Diverticulosis, Hx Gall Bladder Disease, Hx Gastroesophageal Reflux Disease, Hx Gastrointestinal Bleed, Hx Hiatal Hernia, Hx Irritable Bowel, Hx Jaundice, Hx Obstructive Bowel, Hx Ileostomy, Hx Pyloric Stenosis, Hx Ulcer History: Denies: Hx Acute Renal Failure, Hx Benign Prostatic Hyperplasia, Hx Chronic Renal Failure, Hx Dialysis, Hx Kidney Infection, Hx Kidney Stones, Other Problems/Disorders Musculoskeletal History: Denies: Hx Arthritis, Hx Back Problems, Hx Bursitis, Hx Congenital Bone Abnormalities, Hx Fibromyalgia, Hx Gout, Hx Orthopedic Injury, Hx Osteoporosis, Hx Scoliosis, Hx Tendonitis, Other Musculoskeletal History Sensory History: Reports: Hx Contacts or Glasses Denies: Hx Hearing Aid Opthamlomology History: Reports: Hx Contacts or Glasses Neurological History: Reports: Other Neuro Impairments/Disorders - neuropathy Psychiatric History: Reports: Hx Substance Abuse - alcohol Denies: Hx Attention Deficit Hyperactivity Disorder, Hx Eating Disorder, Hx Depression, Hx Panic Disorder, Hx Post Traumatic Stress Disorder, Hx Inpatient Treatment, Hx Community Mental Health Tx, Hx Schizophrenia, Hx Bipolar Disorder , Hx Suicide Attempt, Hx of Violent Episodes Against Others, Other Psychiatric Issues/Disorders - Surgical History Surgery Procedure, Year, and Place: right ankle-2000 Hx Anesthesia Reactions: No Infectious Disease History: No Infectious Disease History: Reports: Hx Hepatitis - C Denies: Hx Clostridium Difficile, Hx Human Immunodeficiency Virus (HIV), Hx of Known/Suspected MRSA, Hx Shingles, Hx Tuberculosis, Hx Known/Suspected VRE, Hx Known/Suspected VRSA, History Other Infectious Disease, Traveled Outside the [place] in Last 30 Days - Family History Known Family History: Negative: Cardiac Disease - Social History Alcohol Use: Daily Alcohol Amount: 6 pack and 1/2 pint of vodka, ETOH abuse Hx Substance Use: No Substance Use Type: Reports: None Hx Tobacco Use: Yes Smoking Status (MU): Heavy Every Day Tobacco Smoker Type: Cigarettes Have You Smoked in the Last Year: Yes Review of Systems Negative: Fever, Chills Negative: Chest Pain Negative: Shortness Of Breath Genitourinary: Negative Musculoskeletal: Negative Positive: Weakness All Other Systems Reviewed And Are Negative: Yes Physical Exam - Summary Physical Exam Summary: Appearance: Well appearing, no pain distress Skin: warm, dry, reflects adequate perfusion Head/face: normal Eyes: EOMI, TIMI ENT: normal Neck: supple, nontender Respiratory: CTA, breath sounds present Cardiovascular: RRR, pulses symmetrical Abdomen: nontender, soft Bowel: present Musculoskeletal: normal, strength/ROM intact Neuro: sensory motor intact, A&Ox3, generalized weakness GCS: 15 Triage Information Reviewed: Yes Vital Signs On Initial Exam: Initial Vitals Temp Pulse Resp BP Pulse Ox 98.2 F 100 16 173/92 97 01/06/18 19:23 01/06/18 19:23 01/06/18 19:23 01/06/18 19:23 01/06/18 19:23 Vital Signs Reviewed: Yes Diagnostics - Vital Signs Vital Signs Temp Pulse Resp BP Pulse Ox 01/06/18 19:23 98.2 F 100 16 173/92 97 - Laboratory Result Diagrams: 01/06/18 20:00 01/06/18 20:00 Lab Statement: Any lab studies that have been ordered have been reviewed, and results considered in the medical decision making process. - Radiology Chest XR Xray Interpretation: No Acute Changes - IMPRESSION: No active cardiopulmonary disease is noted. Dr. Garcia has reviewed this radiology report. Radiology Interpretation Completed By: Radiologist - CT Brain CT CT Interpretation: No Acute Changes - IMPRESSION: No intracranial mass or hemorrhage is noted. Dr. Garcia has reviewed this radiology report. CT Interpretation Completed By: Radiologist - official radiology report is pending, please see [facility]. - EKG 20:06 Cardiac Rate: NL - at 94 bpm EKG Rhythm: Sinus Rhythm EKG Interpretation: Diffuse T changes Complex Multi-Symp Course/Dx Assessment/Plan: Pt is a 62 y/o male presenting to [facility] via EMS for weakness for the past several weeks. Pt reports he usually ambulates at baseline. Today he states he could hardly stand secondary to weakness. Blood work, urinalysis, chest XR, brain CT, EKG were obtained. Chest XR is negative. Brain CT is negative. Urinalysis is still pending. Pt will be signed out to Dr. Gómez, pending disposition, awaiting urinalysis. - Diagnoses Differential Diagnoses/HQI/PQRI: Cardiac Ischemia, CVA, Metabolic Abnormality, Sepsis, Urinary Tract Infection, Other - liver failure Provider Diagnoses: Weakness, Abnormal liver function tests Discharge - Sign-Out/Discharge Documenting (check all that apply): Sign-Out Patient Signing out patient TO: Martha Gómez - Discharge Plan Condition: Stable Disposition: HOME Discharge Disposition Comment: signed out to Dr. Gómez, pending dispo, awaiting UA. Patient Education Materials: Weakness (ED) Referrals: Michael Oliveira MD [Primary Care Provider] - 2 Days Additional Instructions: Return to the ER if you have new or worsening symptoms. - Billing Disposition and Condition Condition: STABLE Disposition: HOME The documentation as recorded by the Nito ramirez Angela accurately reflects the service I personally performed and the decisions made by , Chester Garcia.
== END 2018-01-06 23:47 | disposition home or self-care (01) ==
LOC: ED 19:06
DX: R53.1 Weakness (principal); R79.89 Other specified abnormal findings of blood chemistry; I10 Essential (primary) hypertension; B19.20 Unspecified viral hepatitis C without hepatic coma; F17.210 Nicotine dependence, cigarettes, uncomplicated; R94.31 Abnormal electrocardiogram [ECG] [EKG]
CPT/HCPCS: 36415; 70450; 71045; 80053; 81003; 81015; 82550; 83605; 83735; 83880; 84443; 84484; 85025; 85610; 85730; 87086; 93005; 96365; 99283; J3475

== ENCOUNTER 2018-01-30 06:50 | Emergency (ER) | payer OTHER ==
[2018-01-30 07:36] LABS: EGFR Non-African American 88.6 (>60)
[2018-01-30 07:40] LABS: ABS Basophils 0.1 10^3/ul (0-0.2); ABS Eosinophils 0 10^3/ul (0-0.6); ABS Monocytes 0.3 10^3/ul (0-0.8); ABS Neutrophils 1.7 10^3/ul (1.5-7.7); ABS Nucleated RBC 0 10^3/ul; Eosinophil % 0 % (0-6); Hematocrit 39 % (42-52); Hemoglobin 12.8 g/dl (14.0-18.0); Lymphocyte % 32.7 % (25-47); Mean Corpuscular HGB Conc 33 g/dl (31-36); Mean Corpuscular Hemoglobin 34 pg (27-31); Mean Corpuscular Volume 101 fL (80-94); Mean Platelet Volume 8.6 um3 (7.4-10.4); Nucleated Red Blood Cells % 0.2; Platelet Count 75 10^3/ul (150-450); Red Blood Count 3.83 10^6/ul (4.0-5.4); Red Cell Distribution Width 17 % (10.5-15)
[2018-01-30] MEDS ORDERED: NS 0.9% 1000 ML* 1,000 ML IV ONE (07:50)
[2018-01-30] MEDS ORDERED: Thiamine IV* 100 MG, Folic Acid IV* 1 MG, Multiple Vitamin IV ADULT* 10 ML in NS 0.9% 1... IV ONE (07:51)
--- NOTE | 2018-01-30 09:56 | ED ---
Complex/Multi-Sys Presentation - HPI Summary HPI Summary: Patient is a 62-year-old male presenting to the ED with chief complaint of lower extremity weakness. He states he woke up with this. Has a long history of such. Patient is a an alcoholic and states he drinks daily. Denies any known cardiac history. Denies any recent illness otherwise. Denies any travel. He denies any cough, shortness of breath, chest pain, abdominal pain. He also states he awoke with some numbness and tingling in the bilateral arms which has resolved. Patient is afebrile on arrival, other vital signs stable. He has not followed up with his primary care physician. - History Of Current Complaint Chief Complaint: EDExtremityUpper Time Seen by Provider: 01/30/18 06:54 Hx Obtained From: Patient Onset/Duration: Gradual Onset Timing: Constant Severity Currently: Moderate Severity Initially: Moderate Associated Signs And Symptoms: Positive: Weakness. Negative: Decreased Responsiveness, Confusion, Agitation, Dizziness, Headache, Palpitations, Abdominal Pain, Back Pain, Dysuria - Allergies/Home Medications Allergies/Adverse Reactions: Allergies Allergy/AdvReac Type Severity Reaction Status Date / Time No Known Allergies Allergy Verified 01/30/18 07:06 PMH/Surg Hx/FS Hx/Imm Hx Previously Healthy: Yes Endocrine/Hematology History: Denies: Hx Anticoagulant Therapy, Hx Blood Disorders, Hx Blood Transfusions, Hx Bone Marrow Disease, Hx Diabetes, Hx Systemic Lupus Erythematosus, Hx Sickle Cell Disease, Hx Thyroid Disease, Hx Unexplained Bleeding, Other Endocrine/ Hematological Disorders Cardiovascular History: Reports: Hx Hypertension Denies: Hx Pacemaker/ICD Respiratory History: Reports: Hx Asthma GI History: Reports: Other GI Disorders - Hepatitis C, alcohol abuse Denies: Hx Cirrhosis, Hx Crohn's Disease, Hx Diverticulosis, Hx Gall Bladder Disease, Hx Gastroesophageal Reflux Disease, Hx Gastrointestinal Bleed, Hx Hiatal Hernia, Hx Irritable Bowel, Hx Jaundice, Hx Obstructive Bowel, Hx Ileostomy, Hx Pyloric Stenosis, Hx Ulcer History: Denies: Hx Acute Renal Failure, Hx Benign Prostatic Hyperplasia, Hx Chronic Renal Failure, Hx Dialysis, Hx Kidney Infection, Hx Kidney Stones, Other Problems/Disorders Musculoskeletal History: Denies: Hx Arthritis, Hx Back Problems, Hx Bursitis, Hx Congenital Bone Abnormalities, Hx Fibromyalgia, Hx Gout, Hx Orthopedic Injury, Hx Osteoporosis, Hx Scoliosis, Hx Tendonitis, Other Musculoskeletal History Sensory History: Reports: Hx Contacts or Glasses Denies: Hx Hearing Aid Opthamlomology History: Reports: Hx Contacts or Glasses Neurological History: Reports: Other Neuro Impairments/Disorders - neuropathy Psychiatric History: Reports: Hx Substance Abuse - alcohol Denies: Hx Attention Deficit Hyperactivity Disorder, Hx Eating Disorder, Hx Depression, Hx Panic Disorder, Hx Post Traumatic Stress Disorder, Hx Inpatient Treatment, Hx Community Mental Health Tx, Hx Schizophrenia, Hx Bipolar Disorder , Hx Suicide Attempt, Hx of Violent Episodes Against Others, Other Psychiatric Issues/Disorders - Surgical History Surgery Procedure, Year, and Place: right ankle-2000 Hx Anesthesia Reactions: No - Immunization History Hx Pertussis Vaccination: No Immunizations Up to Date: Unable to Obtain/Confirm Infectious Disease History: No Infectious Disease History: Reports: Hx Hepatitis - C Denies: Hx Clostridium Difficile, Hx Human Immunodeficiency Virus (HIV), Hx of Known/Suspected MRSA, Hx Shingles, Hx Tuberculosis, Hx Known/Suspected VRE, Hx Known/Suspected VRSA, History Other Infectious Disease, Traveled Outside the in Last 30 Days - Family History Known Family History: Negative: Cardiac Disease - Social History Occupation: Unemployed Lives: Alone Alcohol Use: Daily Alcohol Amount: 6 pack and 1/2 pint of vodka, ETOH abuse Hx Substance Use: No Substance Use Type: Reports: None Hx Tobacco Use: Yes Smoking Status (MU): Heavy Every Day Tobacco Smoker Type: Cigarettes Have You Smoked in the Last Year: Yes Review of Systems Constitutional: Negative Negative: Fever, Chills, Fatigue Negative: Photophobia, Blurred Vision Negative: Epistaxis Negative: Palpitations, Chest Pain Negative: Shortness Of Breath, Cough Negative: Abdominal Pain, Vomiting, Diarrhea, Nausea Positive: see HPI Negative: Arthralgia, Myalgia Positive: Weakness - bilateral lower extremities, Numbness - bilateral upper extremities Psychological: Normal All Other Systems Reviewed And Are Negative: Yes Physical Exam Triage Information Reviewed: Yes Vital Signs On Initial Exam: Initial Vitals Temp Pulse Resp BP Pulse Ox 98.3 F 121 20 186/123 100 01/30/18 06:57 01/30/18 06:57 01/30/18 06:57 01/30/18 06:57 01/30/18 06:57 Vital Signs Reviewed: Yes Appearance: Positive: Ill-Appearing, Thin, Cachectic Skin: Positive: Dry Head/Face: Positive: Normal Head/Face Inspection Eyes: Positive: Conjunctiva Inflammed ENT: Positive: Pharynx normal Neck: Positive: Nontender, No Lymphadenopathy Respiratory/Lung Sounds: Positive: Clear to Auscultation, Breath Sounds Present Cardiovascular: Positive: Normal, RRR Musculoskeletal: Positive: Normal, Strength/ROM Intact Neurological: Positive: Facial Symmetry, Speech Normal Psychiatric: Positive: Normal, Affect/Mood Appropriate AVPU Assessment: Alert Diagnostics - Vital Signs Vital Signs Temp Pulse Resp BP Pulse Ox 01/30/18 08:00 73 20 99 01/30/18 07:55 79 21 160/97 98 01/30/18 07:25 78 17 171/100 98 01/30/18 06:57 98.3 F 121 20 186/123 100 - Laboratory Lab Results: Lab Results 01/30/18 01/30/18 01/30/18 Range/Units 07:10 07:10 07:10 WBC 3.0 L (3.5-10.8) 10^3/ul RBC 3.83 L (4.0-5.4) 10^6/ul Hgb 12.8 L (14.0-18.0) g/dl Hct 39 L (42-52) % MCV 101 H (80-94) fL MCH 34 H (27-31) pg MCHC 33 (31-36) g/dl RDW 17 H (10.5-15) % Plt Count 75 L (150-450) 10^3/ul MPV 8.6 (7.4-10.4) um3 Neut % (Auto) 55.3 (38-83) % Lymph % (Auto) 32.7 (25-47) % [place] % (Auto) 10.2 H (0-7) % Eos % (Auto) 0 (0-6) % Baso % (Auto) 1.8 (0-2) % Absolute Neuts (auto) 1.7 (1.5-7.7) 10^3/ul Absolute Lymphs (auto) 1.0 (1.0-4.8) 10^3/ul Absolute Monos (auto) 0.3 (0-0.8) 10^3/ul Absolute Eos (auto) 0 (0-0.6) 10^3/ul Absolute Basos (auto) 0.1 (0-0.2) 10^3/ul Absolute Nucleated RBC 0 10^3/ul Nucleated RBC % 0.2 Sodium 137 L (139-145) mmol/L Potassium 3.3 L (3.5-5.0) mmol/L Chloride 96 L (101-111) mmol/L Carbon Dioxide 24 (22-32) mmol/L Anion Gap 17 H (2-11) mmol/L BUN 11 (6-24) mg/dL Creatinine 0.87 (0.67-1.17) mg/dL Est GFR ( Amer) 114.0 (>60) Est GFR (Non-Af Amer) 88.6 (>60) BUN/Creatinine Ratio 12.6 (8-20) Glucose 95 (70-100) mg/dL Lactic Acid 3.5 H* (0.5-2.0) mmol/L Calcium 9.5 (8.6-10.3) mg/dL Total Bilirubin 1.40 H (0.2-1.0) mg/dL AST 161 H (13-39) U/L ALT 88 H (7-52) U/L Alkaline Phosphatase 65 (34-104) U/L Troponin I 0.01 (<0.04) ng/mL Total Protein 8.5 (6.4-8.9) g/dL Albumin 4.1 (3.2-5.2) g/dL Globulin 4.4 H (2-4) g/dL Albumin/Globulin Ratio 0.9 L (1-3) Result Diagrams: 01/30/18 07:10 01/30/18 07:10 Lab Statement: Any lab studies that have been ordered have been reviewed, and results considered in the medical decision making process. Complex Multi-Symp Course/Dx Course Of Treatment: During the course of treatment, the patient is evaluated for or extremity weakness he states he has been seen here several times in the past for same with no findings. Patient is an alcoholic and drinks daily. In the past he has been given a banana bag and feeling improved on that would go home. Troponin obtained and is 0.01. EKG shows sinus rhythm with abnormal R wave progression, early transition. Borderline T-wave abnormalities. Borderline prolonged QT interval. Rate is 90. This was compared to his previous EKG which shows no acute changes. Denies any chest pain or shortness of breath, so x-ray was not obtained. During the course, he is given 1 bag normal saline and 1 banana bag. He is feeling improved and I have strongly encouraged him to follow-up with his PCP. I have also discussed with him about abstaining from alcohol. - Diagnoses Provider Diagnoses: Weakness Discharge - Sign-Out/Discharge Documenting (check all that apply): Discharge/Admit/Transfer - Discharge Plan Condition: Stable Disposition: HOME Patient Education Materials: Weakness (ED) Referrals: Michael Oliveira MD [Primary Care Provider] - Additional Instructions: Please follow up with your PCP DO NOT DRINK ALCOHOL Drink plenty of fluids - Billing Disposition and Condition Condition: STABLE Disposition: HOME
[2018-01-30 10:19] VITALS: BP 169/98
== END 2018-01-30 10:18 | disposition home or self-care (01) ==
LOC: ED 06:50
DX: R53.1 Weakness (principal); F10.20 Alcohol dependence, uncomplicated; I10 Essential (primary) hypertension; J45.909 Unspecified asthma, uncomplicated; F17.210 Nicotine dependence, cigarettes, uncomplicated
CPT/HCPCS: 36415; 80053; 83605; 84484; 85025; 93005; 96360; 96374; 99283; J3411

== ENCOUNTER 2018-02-09 22:07 | Emergency (ER) | payer OTHER ==
[2018-02-09 23:47] LABS: ABS Basophils 0.1 10^3/ul (0-0.2); ABS Eosinophils 0 10^3/ul (0-0.6); ABS Lymphocytes 1.9 10^3/ul (1.0-4.8); ABS Monocytes 0.3 10^3/ul (0-0.8); ABS Neutrophils 0.9 10^3/ul (1.5-7.7); ABS Nucleated RBC 0 10^3/ul; Hematocrit 37 % (42-52); Hemoglobin 12.6 g/dl (14.0-18.0); Mean Corpuscular HGB Conc 34 g/dl (31-36); Mean Corpuscular Hemoglobin 34 pg (27-31); Mean Corpuscular Volume 101 fL (80-94); Mean Platelet Volume 7.5 um3 (7.4-10.4); Platelet Count 149 10^3/ul (150-450); Red Blood Count 3.71 10^6/ul (4.0-5.4); Red Cell Distribution Width 17 % (10.5-15); White Blood Count 3.2 10^3/ul (3.5-10.8)
[2018-02-09 23:53] LABS: EGFR Non-African American 77.2 (>60)
[2018-02-10 00:21] LABS: Eosinophil % 0.2 % (0-6); Nucleated Red Blood Cells % 0.2
--- NOTE | 2018-02-10 06:55 | ED ---
Ricci Caba Tiffany, scribed for Jessie Lai MD on 02/09/18 at 2327 . Psychiatric Complaint - HPI Summary HPI Summary: 62 year old M presenting with PD for 2208/1 complains of depression since this evening. Symptoms aggravated by nothing. Symptoms alleviated by nothing. Reports ETOH tonight. Denies SI. - History Of Current Complaint Chief Complaint: EDSubstanceAbuse Time Seen by Provider: 02/09/18 23:08 Hx Obtained From: Patient Onset/Duration: Lasting Hours - this evening, Still Present Aggravating Factor(s): Nothing Alleviating Factor(s): Nothing - Allergies/Home Medications Allergies/Adverse Reactions: Allergies Allergy/AdvReac Type Severity Reaction Status Date / Time No Known Allergies Allergy Verified 01/30/18 07:06 PMH/Surg Hx/FS Hx/Imm Hx Previously Healthy: No Endocrine/Hematology History: Denies: Hx Anticoagulant Therapy, Hx Blood Disorders, Hx Blood Transfusions, Hx Bone Marrow Disease, Hx Diabetes, Hx Systemic Lupus Erythematosus, Hx Sickle Cell Disease, Hx Thyroid Disease, Hx Unexplained Bleeding, Other Endocrine/ Hematological Disorders Cardiovascular History: Reports: Hx Hypertension Denies: Hx Pacemaker/ICD Respiratory History: Reports: Hx Asthma GI History: Reports: Other GI Disorders - Hepatitis C, alcohol abuse Denies: Hx Cirrhosis, Hx Crohn's Disease, Hx Diverticulosis, Hx Gall Bladder Disease, Hx Gastroesophageal Reflux Disease, Hx Gastrointestinal Bleed, Hx Hiatal Hernia, Hx Irritable Bowel, Hx Jaundice, Hx Obstructive Bowel, Hx Ileostomy, Hx Pyloric Stenosis, Hx Ulcer History: Denies: Hx Acute Renal Failure, Hx Benign Prostatic Hyperplasia, Hx Chronic Renal Failure, Hx Dialysis, Hx Kidney Infection, Hx Kidney Stones, Other Problems/Disorders Musculoskeletal History: Denies: Hx Arthritis, Hx Back Problems, Hx Bursitis, Hx Congenital Bone Abnormalities, Hx Fibromyalgia, Hx Gout, Hx Orthopedic Injury, Hx Osteoporosis, Hx Scoliosis, Hx Tendonitis, Other Musculoskeletal History Sensory History: Reports: Hx Contacts or Glasses Denies: Hx Hearing Aid Opthamlomology History: Reports: Hx Contacts or Glasses Neurological History: Reports: Other Neuro Impairments/Disorders - neuropathy Psychiatric History: Reports: Hx Substance Abuse - alcohol Denies: Hx Attention Deficit Hyperactivity Disorder, Hx Eating Disorder, Hx Depression, Hx Panic Disorder, Hx Post Traumatic Stress Disorder, Hx Inpatient Treatment, Hx Community Mental Health Tx, Hx Schizophrenia, Hx Bipolar Disorder , Hx Suicide Attempt, Hx of Violent Episodes Against Others, Other Psychiatric Issues/Disorders - Surgical History Surgery Procedure, Year, and Place: right ankle-2000 Hx Anesthesia Reactions: No Infectious Disease History: No Infectious Disease History: Reports: Hx Hepatitis - C Denies: Hx Clostridium Difficile, Hx Human Immunodeficiency Virus (HIV), Hx of Known/Suspected MRSA, Hx Shingles, Hx Tuberculosis, Hx Known/Suspected VRE, Hx Known/Suspected VRSA, History Other Infectious Disease, Traveled Outside the [place] in Last 30 Days - Family History Known Family History: Negative: Cardiac Disease - Social History Alcohol Use: Daily Alcohol Amount: 6 pack and 1/2 pint of vodka, ETOH abuse Hx Substance Use: No Substance Use Type: Reports: None Hx Tobacco Use: Yes Smoking Status (MU): Heavy Every Day Tobacco Smoker Type: Cigarettes Have You Smoked in the Last Year: Yes Review of Systems Negative: Fever Positive: Depressed, Other - ETOH tonight; NEGATIVE: SI All Other Systems Reviewed And Are Negative: Yes Physical Exam - Summary Physical Exam Summary: VITAL SIGNS: Reviewed. GENERAL: Patient is a well-developed and nourished (MALE OR FEMALE) who is lying comfortable in the stretcher. Patient is not in any acute respiratory distress. HEAD AND FACE: No signs of trauma. No ecchymosis, hematomas or skull depressions. No sinus tenderness. EYES: PERRLA, EOMI x 2, No injected conjunctiva, no nystagmus. EARS: Hearing grossly intact. Ear canals and tympanic membranes are within normal limits. MOUTH: Oropharynx within normal limits. NECK: Supple, trachea is midline, no adenopathy, no JVD, no carotid bruit, no c- spine tenderness, neck with full ROM. CHEST: Symmetric, no tenderness at palpation LUNGS: Clear to auscultation bilaterally. No wheezing or crackles. CVS: Regular rate and rhythm, S1 and S2 present, no murmurs or gallops appreciated. ABDOMEN: Soft, non-tender. No signs of distention. No rebound no guarding, and no masses palpated. Bowel sounds are normal. EXTREMITIES: FROM in all major joints, no edema, no cyanosis or clubbing. NEURO: Alert and oriented x 3. No acute neurological deficits. Speech is normal and follows commands. SKIN: Dry and warm PSYCH: pt is depressed but not suicidal. Triage Information Reviewed: Yes Vital Signs On Initial Exam: Initial Vitals Temp Pulse Resp BP Pulse Ox 98.1 F 58 16 122/77 99 02/09/18 22:11 02/09/18 22:11 02/09/18 22:11 02/09/18 22:11 02/09/18 22:11 Vital Signs Reviewed: Yes Diagnostics - Vital Signs Vital Signs Temp Pulse Resp BP Pulse Ox 02/09/18 22:53 54 120/73 95 02/09/18 22:11 98.1 F 58 16 122/77 99 - Laboratory Result Diagrams: 02/09/18 23:26 02/09/18 23:26 Lab Statement: Any lab studies that have been ordered have been reviewed, and results considered in the medical decision making process. - Radiology CXR Radiology Interpretation Completed By: ED Physician - Negative. Pending official report. Course/Dx - Course Course Of Treatment: 62 year old M presenting with PD for 2208/1 complains of depression since this evening. Pt will be signed out to Dr. Keene, waiting for pt to sober up, MHE, pending dispo. - Differential Dx/Clinical Impression Provider Diagnosis: Alcohol intoxication, Depression Discharge - Sign-Out/Discharge Documenting (check all that apply): Sign-Out Patient Signing out patient TO: Santino Keene - waiting for pt to sober up, MHE, pending dispo. - Discharge Plan Condition: Fair Discharge Disposition Comment: Pt signed out to Dr. Keene at shift change Referrals: Michael Oliveira MD [Primary Care Provider] - The documentation as recorded by the Ricci ramirez Tiffany accurately reflects the service I personally performed and the decisions made by , Jessie Lai MD.
--- NOTE | 2018-02-10 07:58 | RAD ---
INDICATION: Shortness of breath. COMPARISON: Comparison is made with a prior studies from January 06, 2018. TECHNIQUE: A portable view of the chest was obtained. FINDINGS: Cardiac and mediastinal contours appear to be within normal limits. The lungs are underinflated and clear. No pleural effusion is seen. IMPRESSION: NO EVIDENCE FOR ACUTE DISEASE.
[2018-02-10 10:30] LABS: Urine Appearance Clear; Urine Blood Negative (Negative); Urine Color Yellow; Urine Ketones Negative (Negative); Urine Protein Negative (Negative); Urine Specific Gravity 1.005 (1.010-1.030); Urine Urobilinogen Negative (Negative)
[2018-02-10] MEDS ORDERED: Acetaminophen TAB* 325 MG PO ONE (21:47)
[2018-02-10 23:19] VITALS: BP 149/101
== END 2018-02-10 23:36 | disposition home or self-care (01) ==
LOC: ED 22:07
DX: F10.129 Alcohol abuse with intoxication, unspecified (principal); F32.9 Major depressive disorder, single episode, unspecified; I10 Essential (primary) hypertension; J45.909 Unspecified asthma, uncomplicated; B19.20 Unspecified viral hepatitis C without hepatic coma; F17.210 Nicotine dependence, cigarettes, uncomplicated
CPT/HCPCS: 36415; 71045; 80053; 80307; 80320; 80329; 81003; 84443; 85025; 99285; A9270-GY; G0480

== ENCOUNTER 2018-04-09 20:56 | Inpatient (IN) | payer OTHER ==
[2018-04-09] MEDS ORDERED: NS 0.9% 1000 ML* 1,000 ML IV ONE ×2 (21:30→23:08)
--- NOTE | 2018-04-09 21:38 | ED ---
Altered Mental Status - HPI Summary HPI Summary: This is scribe Elsa Khan documenting for attending Abdullahi Snow MD. This patient is a 62 year old M BIBA to [facility] with a chief complaint of altered mental status since 20:59. Per EMS, patient is hypertensive. EMS witnessed the patient experiencing a focal seizure. The patients neighbors called 911 after they hear him yelling for help and found him on the ground of his apartment lying in a pile of maggots. Neighbors are unsure how long the patient was on the ground. Per EMS, the apartment was in disarray with urine stains, feces, and bugs everywhere. Clothes in the apartment had varying degrees of urine stains suggesting the patient has bladder incontinence. All of the food in the fridge was well past . The patient reports he knew the food was but he tried to eat some a few days ago and he vomited. EMS suspect the patient has not eaten for a long period of time. The patient rates the pain 10/10 in severity. Symptoms aggravated by nothing. Symptoms alleviated by nothing. Patient reports leg pain and back pain. The patients neighbors noted to EMS that the patient has a hx of crack/cocaine use and may be experiencing withdrawal from EtOH and/or crack/cocaine. Upon arrival to [facility] patient is correctly able to answer where he is and the name of the current [place] president. Patient stated that he believed today is 11/02/1954. LEVEL 5 CAVEAT DUE TO AMS. - History Of Current Complaint Chief Complaint: EDSeizure Stated Complaint: FALL Time Seen by Provider: 04/09/18 21:15 Hx Obtained From: Patient, EMS Onset/Duration: Unknown Timing: Constant Character: Confusion Aggravating Factor(s): Nothing Alleviating Factor(s): Nothing Associated Signs And Symptoms: Positive: Seizure - focal seizure - Allergies/Home Medications Allergies/Adverse Reactions: Allergies Allergy/AdvReac Type Severity Reaction Status Date / Time No Known Allergies Allergy Verified 01/30/18 07:06 PMH/Surg Hx/FS Hx/Imm Hx Endocrine/Hematology History: Denies: Hx Anticoagulant Therapy, Hx Blood Disorders, Hx Blood Transfusions, Hx Bone Marrow Disease, Hx Diabetes, Hx Systemic Lupus Erythematosus, Hx Sickle Cell Disease, Hx Thyroid Disease, Hx Unexplained Bleeding, Other Endocrine/ Hematological Disorders Cardiovascular History: Reports: Hx Hypertension Denies: Hx Pacemaker/ICD Respiratory History: Reports: Hx Asthma GI History: Reports: Other GI Disorders - Hepatitis C, alcohol abuse Denies: Hx Cirrhosis, Hx Crohn's Disease, Hx Diverticulosis, Hx Gall Bladder Disease, Hx Gastroesophageal Reflux Disease, Hx Gastrointestinal Bleed, Hx Hiatal Hernia, Hx Irritable Bowel, Hx Jaundice, Hx Obstructive Bowel, Hx Ileostomy, Hx Pyloric Stenosis, Hx Ulcer History: Denies: Hx Acute Renal Failure, Hx Benign Prostatic Hyperplasia, Hx Chronic Renal Failure, Hx Dialysis, Hx Kidney Infection, Hx Kidney Stones, Other Problems/Disorders Musculoskeletal History: Denies: Hx Arthritis, Hx Back Problems, Hx Bursitis, Hx Congenital Bone Abnormalities, Hx Fibromyalgia, Hx Gout, Hx Orthopedic Injury, Hx Osteoporosis, Hx Scoliosis, Hx Tendonitis, Other Musculoskeletal History Sensory History: Reports: Hx Contacts or Glasses Denies: Hx Hearing Aid Opthamlomology History: Reports: Hx Contacts or Glasses Neurological History: Reports: Other Neuro Impairments/Disorders - neuropathy Psychiatric History: Reports: Hx Substance Abuse - alcohol Denies: Hx Attention Deficit Hyperactivity Disorder, Hx Eating Disorder, Hx Depression, Hx Panic Disorder, Hx Post Traumatic Stress Disorder, Hx Inpatient Treatment, Hx Community Mental Health Tx, Hx Schizophrenia, Hx Bipolar Disorder , Hx Suicide Attempt, Hx of Violent Episodes Against Others, Other Psychiatric Issues/Disorders - Surgical History Surgery Procedure, Year, and Place: right ankle-2000 Hx Anesthesia Reactions: No Infectious Disease History: No Infectious Disease History: Reports: Hx Hepatitis - C Denies: Hx Clostridium Difficile, Hx Human Immunodeficiency Virus (HIV), Hx of Known/Suspected MRSA, Hx Shingles, Hx Tuberculosis, Hx Known/Suspected VRE, Hx Known/Suspected VRSA, History Other Infectious Disease, Traveled Outside the [place] in Last 30 Days - Family History Known Family History: Negative: Cardiac Disease - Social History Alcohol Use: Daily Alcohol Amount: 6 pack and 1/2 pint of vodka, ETOH abuse Hx Substance Use: No Substance Use Type: Reports: None Hx Tobacco Use: Yes Smoking Status (MU): Heavy Every Day Tobacco Smoker Type: Cigarettes Have You Smoked in the Last Year: Yes Review of Systems Positive: Myalgia - leg pain, back pain All Other Systems Reviewed And Are Negative: No - Comments Additional Review of Systems Comments: LEVEL 5 CAVEAT DUE TO AMS Physical Exam - Summary Physical Exam Summary: VITAL SIGNS: Reviewed. GENERAL: Patient is a thin, cachectic MALE in poor hygeine who is lying comfortable in the stretcher. Patient is not in any acute respiratory distress. HEAD AND FACE: No signs of trauma. No ecchymosis, hematomas or skull depressions. No sinus tenderness. EYES: PERRLA, EOMI x 2, No injected conjunctiva, no nystagmus. EARS: Hearing grossly intact. Ear canals and tympanic membranes are within normal limits. MOUTH: Oropharynx within normal limits. Poor dental hygiene. Dental decay. Oral mucosa is dry. NECK: Supple, trachea is midline, no adenopathy, no JVD, no carotid bruit, no c- spine tenderness, neck with full ROM. CHEST: Symmetric, no tenderness at palpation LUNGS: Clear to auscultation bilaterally. No wheezing or crackles. CVS: Regular rate and rhythm, S1 and S2 present, no murmurs or gallops appreciated. ABDOMEN: Soft, non-tender. No signs of distention. No rebound no guarding, and no masses palpated. Bowel sounds are normal. EXTREMITIES: FROM in all major joints, no edema, no cyanosis or clubbing. NEURO: Alert and oriented only to place. Confused. No acute neurological deficits. Speech is normal and follows commands. SKIN: Dry and warm Triage Information Reviewed: Yes Vital Signs On Initial Exam: Initial Vitals Temp Pulse Resp BP Pulse Ox 97.8 F 111 24 189/127 99 04/09/18 20:57 04/09/18 20:57 04/09/18 20:57 04/09/18 20:57 04/09/18 20:57 Vital Signs Reviewed: Yes Diagnostics - Vital Signs Vital Signs Temp Pulse Resp BP Pulse Ox 04/09/18 20:57 97.8 F 111 24 189/127 99 - Laboratory Result Diagrams: 04/10/18 05:57 04/10/18 08:08 Lab Statement: Any lab studies that have been ordered have been reviewed, and results considered in the medical decision making process. - EKG 21:36 Cardiac Rate: NL - at 84 bpm EKG Rhythm: Sinus Rhythm ST Segment: Normal EKG Interpretation: Sinus rhythm, no ST elevations. Left ventricular hypertrophy EKG Comparison: No Significant Change - to 01/30/18 Altered Mental Statu Course/Dx - Course Assessment/Plan: This patient is a 62 year old M BIBA to [facility] with a chief complaint of altered mental status since 20:59. Per EMS, patient is hypertensive. EMS witnessed the patient experiencing a focal seizure. The patients neighbors called 911 after they hear him yelling for help and found him on the ground of his apartment lying in a pile of maggots. Neighbors are unsure how long the patient was on the ground. Per EMS, the apartment was in disarray with urine stains, feces, and bugs everywhere. Clothes in the apartment had varying degrees of urine stains suggesting the patient has bladder incontinence. All of the food in the fridge was well past . The patient reports he knew the food was but he tried to eat some a few days ago and he vomited. EMS suspect the patient has not eaten for a long period of time. The patient rates the pain 10/10 in severity. Symptoms aggravated by nothing. Symptoms alleviated by nothing. Patient reports leg pain and back pain. The patients neighbors noted to EMS that the patient has a hx of crack/cocaine use and may be experiencing withdrawal from EtOH and/or crack/ cocaine. Upon arrival to [facility] patient is correctly able to answer where he is and the name of the current [place] president. Patient stated that he believed today is 11/02/1954. LEVEL 5 CAVEAT DUE TO AMS. This patient was placed in a metal inspector, seizure precautions were order, and the patient was given labetalol since the blood pressure is significantly elevated. At this point I ordered blood work CT of the brain, chest x-ray, IV fluids and a banana bag since the patient has history of alcoholism. Patient will be signed out to Dr. Garcia at shift change. - Diagnoses Provider Diagnoses: Seizure, Failure to thrive, Chronic alcohol abuse Discharge - Sign-Out/Discharge Documenting (check all that apply): Patient Departure - Discharge Plan Condition: Stable Disposition: ADMITTED TO [facility] - Billing Disposition and Condition Condition: STABLE Disposition: Admitted to [facility] [place]
[2018-04-09] MEDS ORDERED: Labetalol IV* 5 MG/ML 20 ML VIAL IV PUSH ONE (21:42)
[2018-04-09 21:43] LABS: ABS Basophils 0.1 10^3/ul (0-0.2); ABS Eosinophils 0 10^3/ul (0-0.6); ABS Lymphocytes 0.7 10^3/ul (1.0-4.8); ABS Monocytes 0.4 10^3/ul (0-0.8); ABS Neutrophils 4.2 10^3/ul (1.5-7.7); ABS Nucleated RBC 0 10^3/ul; Eosinophil % 0 % (0-6); Hematocrit 35 % (42-52); Hemoglobin 11.7 g/dl (14.0-18.0); Lymphocyte % 12.5 % (25-47); Mean Corpuscular HGB Conc 33 g/dl (31-36); Mean Corpuscular Hemoglobin 36 pg (27-31); Mean Corpuscular Volume 107 fL (80-94); Mean Platelet Volume 8.6 um3 (7.4-10.4); Nucleated Red Blood Cells % 0.2; Platelet Count 107 10^3/ul (150-450); Red Blood Count 3.27 10^6/ul (4.00-5.40); Red Cell Distribution Width 16 % (10.5-15); White Blood Count 5.3 10^3/ul (3.5-10.8)
[2018-04-09] MEDS ORDERED: Thiamine IV 100 MG, Folic Acid IV* 1 MG, Multiple Vitamin IV ADULT* 10 ML in NS 0.9% 10... IV ONE (21:44)
[2018-04-09 21:45] LABS: INR 1.1 (0.77-1.02)
[2018-04-09 22:01] LABS: EGFR Non-African American 70.6 (>60)
[2018-04-09 22:03] LABS: Urine Appearance Clear; Urine Blood 1+ (Negative); Urine Color Yellow; Urine Ketones Trace (Negative); Urine Protein 1+(30 mg/dL) (Negative); Urine Red Blood Cell Absent (Absent); Urine Specific Gravity 1.009 (1.010-1.030); Urine Urobilinogen Negative (Negative); Urine White Blood Cell Absent (Absent)
[2018-04-09] MEDS ORDERED: Senna TAB PO PRN (23:53)
[2018-04-09] MEDS ORDERED: Docusate CAP* 100 MG PO PRN (23:53)
[2018-04-09] MEDS ORDERED: Al Hydrox/Mg Hydrox/Simet LIQ* 30 ML UDC PO PRN (23:53)
[2018-04-09] MEDS ORDERED: Ondansetron INJ* 2 MG/ML VIAL IV PRN (23:53)
[2018-04-09] MEDS ORDERED: Magnesium Sulf 4 GM/100 ML IV* 4,000 MG/100 ML BAG IVPB ONE (23:57)
[2018-04-10] MEDS ORDERED: Iohexol 300* (CONTRAST) 10 ML SDV IV ONE (00:35)
[2018-04-10 01:09] LABS: Hematocrit 31 % (42-52); Hemoglobin 10.5 g/dl (14.0-18.0)
[2018-04-10 01:36] LABS: EGFR Non-African American 105.2 (>60)
[2018-04-10] MEDS: Pantoprazole IV* 80 MG in NS 0.9% 250 ML* 250 ML IVPB SCH ×3 (02:30→22:46)
[2018-04-10] MEDS: NS 0.9% 1000 ML* 1,000 ML IV SCH ×2 (02:30→22:47)
[2018-04-10] MEDS ORDERED: Potassium Chlor TAB* 20 MEQ TAB.ER PO ONE (03:04)
--- NOTE | 2018-04-10 04:01 | ED ---
Progress - Progress Note Progress Note: This is ashley Cabral documenting for Dr. Chester Garcia MD. CT Abd/Pel was negative. CXR was negative. Brain CT was negative. Pt was diagnosed with seizures, failure to thrive, and chronic alcohol abuse. Spoke to Dr. Davies who accepted pt for admission in [facility] [place]. Course/Dx - Diagnoses Provider Diagnoses: Seizure, Failure to thrive, Chronic alcohol abuse - Provider Notifications Discussed Care Of Patient With: Alma Davies Time Discussed With Above Provider: 00:30 Instructed by Provider To: Admit As Inpatient Discharge - Sign-Out/Discharge Documenting (check all that apply): Patient Departure - Admit - Discharge Plan Condition: Fair Disposition: ADMITTED TO [facility] - Billing Disposition and Condition Condition: FAIR Disposition: Admitted to [facility]
--- NOTE | 2018-04-10 06:01 | PN ---
Progress Note - Progress Note Date of Service: 04/10/18 Note: Per RN - Patient with brief episode of upper and lower ext tonic clonic moving, but patient was alert and oriented during the episode. Consider EEG. Repeat labs have shown improvement
[2018-04-10 06:08] LABS: ABS Basophils 0.1 10^3/ul (0-0.2); ABS Eosinophils 0 10^3/ul (0-0.6); ABS Lymphocytes 1.2 10^3/ul (1.0-4.8); ABS Monocytes 0.6 10^3/ul (0-0.8); ABS Neutrophils 2.5 10^3/ul (1.5-7.7); ABS Nucleated RBC 0 10^3/ul; Eosinophil % 0 % (0-6); Hematocrit 31 % (42-52); Hemoglobin 10.3 g/dl (14.0-18.0); Lymphocyte % 27.4 % (25-47); Mean Corpuscular HGB Conc 34 g/dl (31-36); Mean Corpuscular Hemoglobin 35 pg (27-31); Mean Corpuscular Volume 104 fL (80-94); Mean Platelet Volume 8.8 um3 (7.4-10.4); Nucleated Red Blood Cells % 0.1; Platelet Count 102 10^3/ul (150-450); Red Blood Count 2.93 10^6/ul (4.00-5.40); Red Cell Distribution Width 15 % (10.5-15); White Blood Count 4.4 10^3/ul (3.5-10.8)
--- NOTE | 2018-04-10 06:26 | HP ---
HISTORY AND PHYSICAL: DATE OF ADMISSION: 04/09/18 PRIMARY CARE PHYSICIAN: The patient does not have a primary care physician. TIME OF EVALUATION: 2330. CHIEF COMPLAINT: Fall and weakness. HISTORY OF PRESENT ILLNESS: This is a 62-year-old male with a past medical history of hepatitis C, polysubstance abuse, alcohol abuse who presents to the emergency room after falling and not being able to get up. He was able to get his neighbor across the street to call 911, who brought him to the emergency room. En route in the EMS, he had a seizure. They also commented that his living conditions were poor. There were unlivable living conditions, maggots, bugs, no food, flies all over, the patient was soiled and the feces covered in his clothing, urine all over the wall. On my encounter, the patient is complaining of diffuse arm, leg, and abdominal pain. He states that he fell today that he was too weak. He is not sure if he passed out. He was able to get his door open and reach his neighbor across the street to call 911 for him. He states his last alcoholic beverage was on Tuesday the . He denies any recent cocaine use, denies any IV drug use. He says he sometimes able to ambulate and take a bus or a cab to get food, but he has a nghia that drops off alcohol for him. He did admit to weight loss. He states he is nauseated. He has had black stools. No bright red blood. No diarrhea, and as mentioned abdominal pain. No chest pain or shortness of breath. When quantifying how much alcohol he drinks he was unclear as to how much he does drink. He denies ever having a history of seizure in the past. Otherwise, review of systems is negative. In the emergency room , the patient had labs and imaging. He was given labetalol 20 mg IV, a liter of fluids, and started on the banana bag. PAST MEDICAL HISTORY: 1. History of a duodenal ulcer and GI bleed in 2014. 2. History of alcohol abuse. 3. History of thrombocytopenia. 4. History of muscular deconditioning. 5. History of hypertension. 6. History of hepatitis C. 7. History of transaminitis. 8. History of hyponatremia. 9. History of polysubstance abuse. 10. History of tobacco use. MEDICATIONS: None. ALLERGIES: No known drug allergies. FAMILY HISTORY: Mother from cancer, father unknown. SOCIAL HISTORY: The patient states he lives alone. He does not have a healthcare proxy. He states he drinks daily. He was not able to quantify how much he drinks. He does smoke. He states no recent illicit drug use despite having a positive cocaine tox screen. CODE STATUS: Full code. REVIEW OF SYSTEMS: A 14-point review of systems as mentioned in the HPI. Otherwise, negative. PHYSICAL EXAMINATION GENERAL: No acute distress, resting comfortably. He is frail, cachectic male. VITAL SIGNS: Temp 97.8, pulse rate 67, respiratory rate 16, oxygen saturation 99% on room air, and blood pressure 151/107. HEENT: Head: Normocephalic. He has bitemporal muscle wasting. Pupils are equal and reactive. Conjunctivae are injected. Oropharynx: Mucous membranes are moist. NECK: Supple. No lymphadenopathy. RESPIRATORY: Diminished breath sounds. No wheezes, rhonchi or rales. CARDIAC: Regular rate and rhythm. Soft systolic murmur heard throughout. ABDOMEN: Hypoactive bowel sounds. Mild distention and mildly firm. Mid epigastric tenderness. No rebound, no guarding. EXTREMITIES: He is frail with scattered ecchymosis of his lower extremities. + 1 DPs. NEUROLOGIC: Alert and oriented x3. No gross focal neurological deficits. LABORATORY DATA: White count 5.3, hemoglobin 11.7, hematocrit 35, MCV is 107, platelets 107. INR is 1.10. Sodium 136, potassium 3.2, chloride 95, bicarb 14 , BUN 7, creatinine 1.06, glucose 135, lactic acid 13.8, magnesium 1.2. T. bili 1.6, AST 118, ALT 65. Albumin is 4.6. Troponin 0.01. Urinalysis shows trace ketones, +1 blood. Urine tox screen shows negative for alcohol and positive for cocaine. DIAGNOSTIC STUDIES: EKG shows normal sinus rhythm with prolonged QTC of 501. Head CT, no abnormalities per wet read. Chest x-ray, wet read, no significant abnormalities. ASSESSMENT: This is a 62-year-old male with a past medical history of hepatitis C, alcohol abuse, and polysubstance abuse who presents to the emergency room after having a fall and subsequently developing a seizure via EMS. 1. Fall with seizure activity. Assessment: I suspect the patient likely had a seizure that led to his initial fall and subsequently another seizure with EMS - which could be related to the alcohol withdrawal. His magnesium is also low as well, which is likely from his alcohol abuse. He does have findings of a metabolic acidosis and lactic acidosis likely secondary to seizure activity. Plan: We will admit him to the intensive care unit for closer monitoring, place him on seizure precautions, neuro checks, fluid resuscitation. We will repeat his labs this evening. We will also place him on a [facility] protocol and social work consult for possible usp placement versus inpatient rehab depending on physical therapy evaluation as well. Continue the [facility] protocol and folic acid, thiamine, and multivitamin. 2. Abdominal pain. The patient with abdominal distention. He also appears quite cachectic with weight loss per the patient. His H and H is also low. He is also complaining of black stools, could be gastritis, duodenal ulcer, occult GI bleed, or pancreatitis or malignancy. Plan: We will repeat his H and H in 4 hours, Hemoccult his stools, place him on a PPI drip for now. We will add on a lipase and order a CT scan of his abdomen for further evaluation. We will also check iron studies, B12, and folate. 3. Cachexia. Assessment: I suspect the patient has severe protein-calorie malnutrition in the setting of his alcoholism and likely unable to get his nutritional needs met due to his inability of transportation. Plan: We will consult social work, check a prealbumin. Also the patient has been agreeable to an HIV test. We will also check a TSH. 4. Fluids, electrolytes, and nutrition: We will place the patient on a clear liquid diet in the setting of the GI bleed and concern for abdominal distention and pain. 5. DVT prophylaxis: The patient scores moderate risk. We will place him on SCDs in the setting of concern for GI bleed. 6. Code status: Full code. PATIENT TIME: Greater than 50 minutes was spent doing the history and physical , more than half the time was spent in direct patient contact and critical care time. [id number]/[facility] #: [id number] BILL
[2018-04-10 06:30] LABS: EGFR Non-African American 113.9 (>60)
--- NOTE | 2018-04-10 07:38 | RAD ---
INDICATION: Seizure. COMPARISON: Comparison is made to prior CT brain from January 06, 2018. TECHNIQUE: Contiguous axial sections of the brain were obtained from the skull base to the vertex without contrast. FINDINGS: The ventricles, cisterns and sulci are enlarged consistent with diffuse atrophy. There are small areas of decreased density in the subcortical and periventricular white matter suggestive of mild chronic small vessel ischemic changes. In addition there is a small CSF density in the left lentiform nucleus most consistent with an old lacunar infarct. This is unchanged from the prior study. No other focal abnormalities or mass effect are seen. There is no evidence for hemorrhage. No significant focal osseous abnormality is seen. The visualized portion of the paranasal sinuses and mastoid air cells appear clear. IMPRESSION: 1. NO EVIDENCE FOR GROSS ACUTE INFARCT, MASS EFFECT OR HEMORRHAGE. 2. 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
--- NOTE | 2018-04-10 07:43 | RAD ---
INDICATION: Seizure COMPARISON: Most recent comparison chest x-ray February 09, 2018 TECHNIQUE: PA and lateral views of the chest were obtained. FINDINGS: The heart and mediastinum are normal in size and contour. The lungs are grossly clear. There is no evidence of large pleural effusion. Visualized bones are normal for the patient's age. There is no radiographic evidence of free air beneath the diaphragm IMPRESSION: No radiographic evidence of acute cardiopulmonary disease.
--- NOTE | 2018-04-10 08:16 | RAD ---
INDICATION: Abdominal pain. COMPARISON: Comparison is made with a prior CT of the abdomen and pelvis from August 30, 2003. TECHNIQUE: A CT scan of the abdomen and pelvis was performed with intravenous and without oral contrast following intravenous injection of 79 ml of Omnipaque 300 nonionic contrast. Contiguous axial sections were obtained from the lung bases through the symphysis pubis. Images were reconstructed in the coronal and sagittal planes. FINDINGS: The lung bases are clear. No pleural effusion is present. The liver is heterogeneous and decreased in density consistent with fatty infiltration. The contour is slightly lobulated raising the possibility of cirrhosis. The gallbladder appears distended. No calcified gallstones are seen. A left lateral thickening is noted. The spleen appears small in size. The pancreas appears to be within normal limits. The kidneys and adrenal glands are normal in size. No hydronephrosis is seen. No significant focal renal abnormality is seen. The aorta is normal in caliber with moderate calcific plaque present. No significant enlarged retroperitoneal lymph nodes are seen. The stomach, small and large bowel appear nondistended. The appendix is not well visualized although there are no findings to to suggest acute appendicitis. There are scattered diverticuli within the colon. There is no evidence for diverticulitis or colitis. No free intraperitoneal air or fluid is seen. There appear to be postsurgical changes in the lateral right iliac bone. No fracture is seen. IMPRESSION: 1. NO EVIDENCE FOR ACUTE FINDING OR CAUSE FOR THE PATIENT'S ABDOMINAL PAIN IS SEEN. 2. HEPATIC STEATOSIS AND FINDINGS RAISING THE POSSIBILITY OF BUT NOT DEFINITE FOR CIRRHOSIS.
[2018-04-10] MEDS: Folic Acid TAB* 1 MG PO SCH (10:09)
[2018-04-10] MEDS: Multivitamins/Minerals TAB PO SCH (10:09)
[2018-04-10] MEDS: Thiamine TAB* 100 MG TAB PO SCH (10:10)
[2018-04-10] MEDS: KCL 10 MEQ/50 ML IVPREMIX* 10 MEQ/50 ML BAG IV SCH ×2 (11:24→12:45)
--- NOTE | 2018-04-10 15:40 | PN ---
Subjective Date of Service: 04/10/18 - Patie Interval History: Patient seen and examined. Feeling weak, but improved from admission, states pain in his hips and anterior thighs. No further seizure like activity. Denies fever, headache or chills, no giovanni pain, no n/v. Objective Active Medications: Acetaminophen (Tylenol Tab*) 650 mg PO Q4H PRN PRN Reason: PAIN Al Hydrox/Mg Hydrox/Simethicone (Maalox Plus*) 30 ml PO Q6H PRN PRN Reason: INDIGESTION Docusate Sodium (Colace Cap*) 100 mg PO BID PRN PRN Reason: CONSTIPATION Folic Acid (Folvite Tab*) 1 mg PO DAILY [facility] Last Admin: 04/10/18 10:09 Dose: 1 mg Pantoprazole Sodium 80 mg/ (Sodium Chloride) 250 mls @ 25 mls/hr IVPB Q10H [facility] Last Admin: 04/10/18 12:37 Dose: 25 mls/hr Sodium Chloride (Ns 0.9% 1000 Ml*) 1,000 mls @ 125 mls/hr IV PER RATE [facility] Last Admin: 04/10/18 02:30 Dose: 125 mls/hr Lorazepam (Ativan Tab(*)) 0 - 6 mg PO .PER [facility] PROTOCOL [facility]; Protocol Multivitamins/Minerals (Theragran/Minerals Tab*) 1 tab PO DAILY [facility] Last Admin: 04/10/18 10:09 Dose: 1 tab Ondansetron HCl (Zofran Inj*) 4 mg IV Q4H PRN PRN Reason: NAUSEA/VOMITING Senna (Senokot Tab*) 1 tab PO BID PRN PRN Reason: CONSTIPATION Thiamine HCl (Vitamin B-1 Tab*) 100 mg PO DAILY [facility] Last Admin: 04/10/18 10:10 Dose: 100 mg Vital Signs - 8 hr 04/10/18 04/10/18 04/10/18 07:45 08:00 08:30 Temperature 98.9 F Pulse Rate 62 60 64 Respiratory 12 13 13 Rate Blood Pressure 131/77 130/75 147/82 (mmHg) O2 Sat by Pulse 100 100 100 Oximetry 04/10/18 04/10/18 04/10/18 08:46 09:00 09:01 Temperature Pulse Rate 72 90 90 Respiratory 18 18 18 Rate Blood Pressure 143/103 158/88 (mmHg) O2 Sat by Pulse 100 100 100 Oximetry 04/10/18 04/10/18 04/10/18 09:16 09:30 10:00 Temperature Pulse Rate 79 72 77 Respiratory 22 17 19 Rate Blood Pressure 156/90 132/78 126/96 (mmHg) O2 Sat by Pulse 99 100 100 Oximetry 04/10/18 04/10/18 04/10/18 10:15 10:30 10:45 Temperature Pulse Rate 80 77 74 Respiratory 15 16 16 Rate Blood Pressure 143/77 137/71 151/79 (mmHg) O2 Sat by Pulse 99 100 100 Oximetry 04/10/18 04/10/18 04/10/18 11:00 11:16 11:18 Temperature Pulse Rate 75 71 Respiratory 14 16 18 Rate Blood Pressure 134/84 146/72 (mmHg) O2 Sat by Pulse 100 100 Oximetry 04/10/18 04/10/18 04/10/18 11:30 11:45 12:00 Temperature 98.9 F Pulse Rate 72 73 74 Respiratory 15 16 19 Rate Blood Pressure 136/76 136/80 137/79 (mmHg) O2 Sat by Pulse 100 100 97 Oximetry 04/10/18 04/10/18 04/10/18 12:15 12:45 13:00 Temperature Pulse Rate 75 68 68 Respiratory 14 16 16 Rate Blood Pressure 142/88 151/89 147/98 (mmHg) O2 Sat by Pulse 99 100 100 Oximetry Oxygen Devices in Use Now: None Appearance: alert, frail, NAD Ears/Nose/Mouth/Throat: Clear Oropharnyx, Mucous Membranes Moist Neck: NL Appearance and Movements; NL JVP, Trachea Midline Respiratory: Symmetrical Chest Expansion and Respiratory Effort, Clear to Auscultation Cardiovascular: NL Sounds; No Murmurs; No JVD, RRR, No Edema Extremities: No Edema, No Clubbing, Cyanosis Skin: No Rash or Ulcers Neurological: Alert and Oriented x 3, NL Sensation, - - general weakness Nutrition: Taking PO's Result Diagrams: 04/10/18 05:57 04/10/18 08:08 Microbiology and Other Data: Microbiology 04/10/18 02:30 Nasal Screen MRSA (PCR) - Final Nasal Mrsa Not Detected Diagnostic Imaging: Patient Name: STELLA OG Medical Record#: [id number] Ordering Physician: Alma Davies DO Acct.#: [id number] : 1955 Age: 62 Sex: M Location: [facility]IVE CARE UNIT Exam Date: 04/09/182355 ADM Status: ADM IN Order Information: CT ABD/PEL W Accession Number: [id number] CPT: 02498 INDICATION: Abdominal pain. COMPARISON: Comparison is made with a prior CT of the abdomen and pelvis from August 30, 2003. TECHNIQUE: A CT scan of the abdomen and pelvis was performed with intravenous and without oral contrast following intravenous injection of 79 ml of Omnipaque 300 nonionic contrast. Contiguous axial sections were obtained from the lung bases through the symphysis pubis. Images were reconstructed in the coronal and sagittal planes. FINDINGS: The lung bases are clear. No pleural effusion is present. The liver is heterogeneous and decreased in density consistent with fatty infiltration. The contour is slightly lobulated raising the possibility of cirrhosis. The gallbladder appears distended. No calcified gallstones are seen. A left lateral thickening is noted. The spleen appears small in size. The pancreas appears to be within normal limits. The kidneys and adrenal glands are normal in size. No hydronephrosis is seen. No significant focal renal abnormality is seen. The aorta is normal in caliber with moderate calcific plaque present. No significant enlarged retroperitoneal lymph nodes are seen. The stomach, small and large bowel appear nondistended. The appendix is not well visualized although there are no findings to to suggest acute appendicitis. There are scattered diverticuli within the colon. There is no evidence for diverticulitis or colitis. No free intraperitoneal air or fluid is seen. There appear to be postsurgical changes in the lateral right iliac bone. No fracture is seen. IMPRESSION: 1. NO EVIDENCE FOR ACUTE FINDING OR CAUSE FOR THE PATIENT'S ABDOMINAL PAIN IS SEEN. 2. HEPATIC STEATOSIS AND FINDINGS RAISING THE POSSIBILITY OF BUT NOT DEFINITE FOR CIRRHOSIS. <Electronically signed by Herber Aviles MD in OV> 04/10/18812 Dictated By: Herber Aviles MD Dictated Date/Time: 04/10/18812 Transcribed Date/Time: 04/10/18 08 Patient Name: STELLA OG Medical Record#: [id number] Ordering Physician: Abdullahi Snow MD Acct.#: [id number] : 1955 Age: 62 Sex: M Location: [facility]ARE UNIT Exam Date: 04/09/182130 ADM Status: ADM IN Order Information: CT BRAIN WO Accession Number: [id number] CPT: 47483 INDICATION: Seizure. COMPARISON: Comparison is made to prior CT brain from January 06, 2018. TECHNIQUE: Contiguous axial sections of the brain were obtained from the skull base to the vertex without contrast. FINDINGS: The ventricles, cisterns and sulci are enlarged consistent with diffuse atrophy. There are small areas of decreased density in the subcortical and periventricular white matter suggestive of mild chronic small vessel ischemic changes. In addition there is a small CSF density in the left lentiform nucleus most consistent with an old lacunar infarct. This is unchanged from the prior study. No other focal abnormalities or mass effect are seen. There is no evidence for hemorrhage. No significant focal osseous abnormality is seen. The visualized portion of the paranasal sinuses and mastoid air cells appear clear. IMPRESSION: 1. NO EVIDENCE FOR GROSS ACUTE INFARCT, MASS EFFECT OR HEMORRHAGE. 2. 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 <Electronically signed by Herber Aviles MD in [place]> 04/10/18734 Dictated By: Herber Aviles MD Dictated Date/Time: 04/10/18734 Transcribed Date/Time: 04/10/18730 Copy to: Assess/Plan/Problems-Billing Assessment: - Patient Problems (1) Alcoholism Code(s): F10.20 - ALCOHOL DEPENDENCE, UNCOMPLICATED SNOMED Code(s): 4435966 Comment: - Multiple admissions in the past for the same - Patient interested in STR - Continue thiamine, folate - No epilieptiform changes on EEG today, no need for seizure precautions (2) Severe protein-calorie malnutrition Code(s): E43 - UNSPECIFIED SEVERE PROTEIN-CALORIE MALNUTRITION SNOMED Code(s) : 162312972 Comment: - 2/2 ETOH abuse and poor nutritional intake - BMI = 15 - Nutrition consult (3) Chronic anemia Code(s): D64.9 - ANEMIA, UNSPECIFIED SNOMED Code(s): 315104034 Comment: - B12 has been normal in the past - 2/2 malnutrition and ETOH abuse (4) History of hepatitis C Code(s): Z86.19 - PERSONAL HISTORY OF OTHER INFECTIOUS AND PARASITIC DISEASES SNOMED Code(s): 03913829811133 Comment: - No treatment in the past - Has transaminitis - Needs outpatient follow up after DC to see if he can stop drinking and initiate treatment (5) Muscular deconditioning Code(s): R29.898 - OTH SYMPTOMS AND SIGNS INVOLVING THE MUSCULOSKELETAL SYSTEM SNOMED Code(s): 146622456 Comment: - PT/OT consults - Highly recommend AJAY (6) Serum ammonia increased Code(s): E72.20 - DISORDER OF UREA CYCLE METABOLISM, UNSPECIFIED SNOMED Code(s ): 9549806 Comment: - Ammonia level 59, doubt initial encephalopathic changes related to high ammonia but from ETOH withdrawal. - Will give one dose lactulose now, if it becomes persistently elevated with increasing liver disease, will continue daily and consult GI (7) Transaminitis Code(s): R74.0 - NONSPEC ELEV OF LEVELS OF TRANSAMNS & LACTIC ACID DEHYDRGNSE SNOMED Code(s): 253793010 Comment: - Chronic and increasing since previous admissions 2/2 ETOH cirrhosis and likely hepatitis as well - continue to monitor - Needs to stop drinking indefinitely and follow up with GI as an outpatient (8) Withdrawal symptoms, alcohol Code(s): F10.239 - ALCOHOL DEPENDENCE WITH WITHDRAWAL, UNSPECIFIED SNOMED Code (s): 098147455 Comment: - Continue WAM protocol with ativan (9) HTN (hypertension) Code(s): I10 - ESSENTIAL (PRIMARY) HYPERTENSION SNOMED Code(s): 59979040 Comment: - Continue norvasc, may need clonidine patch if continuing to withdrawal (10) Hypokalemia Code(s): E87.6 - HYPOKALEMIA SNOMED Code(s): 86617072 Comment: - cotninue to replete, remains low (11) Hypomagnesemia Code(s): E83.42 - HYPOMAGNESEMIA SNOMED Code(s): 582082986 Comment: - Continue to replete and monitor (12) DVT prophylaxis Code(s): WFI1018 - SNOMED Code(s): 777773782 Comment: - SCDs, too high risk for bleeding to treat medically, platelets 102 today with INR=1.10 (13) Full code status Current Visit: No Status: Acute Code(s): Z78.9 - OTHER SPECIFIED HEALTH STATUS SNOMED Code(s): 699270557 Status and Disposition: downgrade from ICU to floor. Dispo to STR
[2018-04-10] MEDS: traMADol TAB* 50 MG PO PRN (18:28)
[2018-04-10] MEDS ORDERED: Melatonin 3 MG TAB PO PRN (20:06)
[2018-04-10] MEDS: Acetaminophen TAB* 325 MG PO PRN (21:04)
[2018-04-11] MEDS: LORazepam TAB(*) 1 MG PO SCH ×3 (02:04→07:28)
[2018-04-11 07:17] LABS: ABS Basophils 0 10^3/ul (0-0.2); ABS Eosinophils 0 10^3/ul (0-0.6); ABS Lymphocytes 1.2 10^3/ul (1.0-4.8); ABS Monocytes 0.4 10^3/ul (0-0.8); ABS Neutrophils 2.6 10^3/ul (1.5-7.7); ABS Nucleated RBC 0 10^3/ul; Eosinophil % 0.1 % (0-6); Hematocrit 32 % (42-52); Hemoglobin 10.9 g/dl (14.0-18.0); Lymphocyte % 28.6 % (25-47); Mean Corpuscular HGB Conc 34 g/dl (31-36); Mean Corpuscular Hemoglobin 36 pg (27-31); Mean Corpuscular Volume 106 fL (80-94); Nucleated Red Blood Cells % 0.3; Red Blood Count 3.06 10^6/ul (4.00-5.40); Red Cell Distribution Width 15 % (10.5-15); White Blood Count 4.3 10^3/ul (3.5-10.8)
[2018-04-11 07:25] LABS: EGFR Non-African American 117.8 (>60)
[2018-04-11 08:11] LABS: Mean Platelet Volume 8.4 um3 (7.4-10.4); Platelet Count 88 10^3/ul (150-450)
[2018-04-11] MEDS: Multivitamins/Minerals TAB PO SCH (08:28)
[2018-04-11] MEDS: Thiamine TAB* 100 MG TAB PO SCH (08:28)
[2018-04-11] MEDS: NS 0.9% 1000 ML* 1,000 ML IV SCH ×2 (08:28→19:40)
[2018-04-11] MEDS: Folic Acid TAB* 1 MG PO SCH (08:28)
--- NOTE | 2018-04-11 11:08 | CONSULT ---
Consult Consult: Consult for Medical Decision Making Capacity S: Psychiatry is asked to evaluate capacity in this 62 y.o. , malnourished, alcoholic, AA male currently admitted to the Hospitalist service for treatment of failure to thrive and a fall in his single-occupancy apartment in [place], [place]. Per the attending, Jocelyn Bentley NP, the patient has had similar medical admissions here at [facility] in the recent past and was sent to a sub-acute rehab in September of this year in almost identical circumstances. He was seen by the psychiatry consult team at that time and was deemed to lack capacity to refuse [facility] placement. Currently, the patient had been slated for transfer today to a rehab in [place], which he apparently agreed to yesterday, however, today he is refusing such placement and has been agitated, confused and trying to elope. Staff denies combativeness but he is surly and consistently demanding to be allowed to leave AMA. His team feels he risks further falls, electrolyte disturbance and perhaps if he were to return home without further reconditioning and care. On exam the patient is found in the hallway, where an aide is wheeling him around in a wheelchair. He is taken back to his room where he is only minimally cooperative. He is aware that prior to coming to the hospital he was experiencing numbness in his legs and fell and this is why he was admitted, but he cannot reproduce what any of his diagnoses are and he is not forthcoming about his alcohol and drug use. When asked about the cocaine in his urine he responds "I think you was the one that was doing it." A complete MMSE cannot be performed because of his unwillingness to follow commands or write a sentence. He believes the day is , the date is March 14 and the year is 1966. He knows it is summer. Spatial orientation is similarly impaired as he voices the floor and State correctly but not the building, county or town. His delayed recall is markedly impaired. When asked about rehab he tells me that he wants to go. "I know about it. They're sending me Tuesday or Tuesday. I guess I have to wait." He does complain of pain during the exam and tenses up and makes facial grimaces several times during the evaluation. He makes several incoherent and somewhat paranoid statements during our brief time together, such as "I know you. You the one that's moving this way and that , trying to confuse me. You and him [pointing to his aide]." O: aging frail-looking AA male dressed in hospital gown; appears older than stated age; minimally cooperative; irritable mood with constricted affect; speech lacks spontaneity; denies SI or HI; insight and judgment are markedly impaired; cognitively awake and alert but confused and disoriented with deficits in immediate and delayed recall as well as attention. A/P: Capacity: the patient is confused and unable to state the risks of declining indicated treatment in the form of AJAY placement. He lacks capacity to refuse this. Psychiatry is signing off but can be reconsulted in the event of any significant changes in his presentation.
--- NOTE | 2018-04-11 11:18 | EEG ---
ELECTROENCEPHALOGRAPHY: DATE OF STUDY: 04/10/18 LOCATION: He is an inpatient, ICU bed 6. REFERRING PHYSICIAN: Jocelyn Falcon NP CLINICAL PROBLEM: A 62-year-old man admitted to the intensive care unit yesterday for generalized weakness and confusion. He has a history of alcoholism and a urine toxicology screen was positive for cocaine. CURRENT MEDICATIONS: Include: 1. Lorazepam. 2. Ondansetron. 3. Pantoprazole. 4. Vitamins. REPORT: This 16-channel EEG is contaminated by jaw muscle artifact throughout much of the recording. The patient is unable or unwilling to relax his jaw muscles. Occasional quiet portions of background rhythm consisting of abundant low to moderate voltage beta rhythms. There are no discernable sleep patterns or focal or epileptiform discharges, but it is a limited recording. CLINICAL IMPRESSION: Limited EEG due to excessive muscle artifact throughout the recording and those are quieter portions of the tracing, background consistent with excessive beta activity consistent with drug effect or drug withdrawal effect. [id number]/[facility] #: [id number] [facility]ENTERClair
[2018-04-11] MEDS: Pantoprazole IV* 80 MG in NS 0.9% 250 ML* 250 ML IVPB SCH (12:15)
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
[2018-04-12] MEDS: Pantoprazole IV* 80 MG in NS 0.9% 250 ML* 250 ML IVPB SCH ×3 (00:07→23:08)
[2018-04-12] MEDS: Thiamine TAB* 100 MG TAB PO SCH (09:05)
[2018-04-12] MEDS: Multivitamins/Minerals TAB PO SCH (09:05)
[2018-04-12] MEDS: Folic Acid TAB* 1 MG PO SCH (09:05)
[2018-04-12] MEDS: NS 0.9% 1000 ML* 1,000 ML IV SCH ×2 (12:28→21:16)
[2018-04-12] MEDS ORDERED: Potassium Chlor TAB* 20 MEQ TAB.ER PO ONE (19:37)
[2018-04-12] MEDS: Acetaminophen TAB* 325 MG PO PRN (21:22)
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
[2018-04-12] MEDS: LORazepam INJ* 2 MG/ML 1 ML VIAL IV PUSH PRN (22:19)
[2018-04-12] MEDS: traMADol TAB* 50 MG PO PRN (22:45)
[2018-04-13] MEDS ORDERED: Nicotine Inhaler* 10 MG AMP INH PRN (00:28)
[2018-04-13] MEDS ORDERED: Mouth Piece, Nicotine* 1 EACH CARTRIDGE INH PRN ×2 (00:28)
[2018-04-13] MEDS: LORazepam INJ* 2 MG/ML 1 ML VIAL IV PUSH PRN (03:35)
[2018-04-13] MEDS: NS 0.9% 1000 ML* 1,000 ML IV SCH (05:49)
[2018-04-13 07:14] LABS: ABS Basophils 0 10^3/ul (0-0.2); ABS Eosinophils 0 10^3/ul (0-0.6); ABS Lymphocytes 1.3 10^3/ul (1.0-4.8); ABS Monocytes 0.6 10^3/ul (0-0.8); ABS Neutrophils 2.7 10^3/ul (1.5-7.7); ABS Nucleated RBC 0 10^3/ul; Eosinophil % 0.4 % (0-6); Hematocrit 28 % (42-52); Hemoglobin 9.8 g/dl (14.0-18.0); Lymphocyte % 28.1 % (25-47); Mean Corpuscular HGB Conc 34 g/dl (31-36); Mean Corpuscular Hemoglobin 36 pg (27-31); Mean Corpuscular Volume 105 fL (80-94); Nucleated Red Blood Cells % 0.2; Platelet Count 84 10^3/ul (150-450); Red Cell Distribution Width 16 % (10.5-15); White Blood Count 4.6 10^3/ul (3.5-10.8)
[2018-04-13] MEDS: Pantoprazole IV* 80 MG in NS 0.9% 250 ML* 250 ML IVPB SCH (07:30)
[2018-04-13 07:34] LABS: EGFR Non-African American 119.8 (>60)
[2018-04-13] MEDS ORDERED: Magnesium Sulfate 2 GM IV* 2 GM/50 ML BAG IVPB ONE (07:46)
[2018-04-13] MEDS ORDERED: D5W 1/2 NS KCl 20 Meq 1000 ML* 1,000 ML IV SCH (08:00)
[2018-04-13] MEDS ORDERED: chlordiazePOXIDE CAP* 25 MG PO PRN (08:11)
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
[2018-04-13] MEDS: Folic Acid TAB* 1 MG PO SCH (09:13)
[2018-04-13] MEDS: Thiamine TAB* 100 MG TAB PO SCH (09:13)
[2018-04-13] MEDS: Multivitamins/Minerals TAB PO SCH (09:13)
[2018-04-13 10:24] VITALS: BP 137/75
--- NOTE | 2018-04-13 10:32 | PN ---
Progress Note - Progress Note Date of Service: 04/13/18 Note: Time spent on discharge 45 minutes, including discussion with pt, exam of pt, discussion with nurse, CM, review of EMR, preparation of discharge/swing bed documents.
--- NOTE | 2018-04-13 22:37 | DS ---
CC: Dr. Oliveira * DISCHARGE SUMMARY: DATE OF ADMISSION: 04/09/18 DATE OF DISCHARGE: 04/13/18 HOSPITAL COURSE: This 62-year-old man presented with fall and weakness who was admitted as an acute inpatient. There was a question of seizure activity that may be related to alcohol withdrawal. He had an EEG, which does not show any epileptiform activity. It was felt that he did need seizure precautions anymore. He had poor oral intake. It was felt his problems were mainly due to alcoholism with encephalopathy, which is probably some combination of Wernicke encephalopathy and alcohol withdrawal syndrome. He did show some improvement in the hospital. CT scan of the head did not show any acute injury. He was seen by the psychiatrist who felt he did not have the capacity to make medical decisions. I placed him on p.r.n. chlordiazepoxide for agitation or anxiety. He is on nicotine replacement therapy. He had magnesium repletion. He is planning to have a basic metabolic profile, CBC, lipase, and magnesium level on 04/14/18. FINAL DIAGNOSES: 1. Encephalopathy. 2. Chronic alcoholism. 3. Malnutrition. 4. Hypomagnesemia. 5. Tobacco abuse. DISPOSITION: The patient is transferred to swing bed status. Swing bed medications: 1. Acetaminophen 650 mg every 4 hours p.r.n. 2. Chlordiazepoxide 25 mg every 4 hours p.r.n. 3. Folic acid 1 mg daily. 4. Nicotine inhaler 10 mg every 2 hours p.r.n. 5. Multivitamin with mineral daily. 6. Senna one tablet b.i.d. p.r.n. 7. Thiamine 100 mg daily. [id number]/[facility] #: [id number] [facility]
--- NOTE | 2018-04-14 12:27 | DS ---
DISCHARGE SUMMARY: DATE OF ADMISSION: DATE OF DISCHARGE: 04/13/18 This discharge summary can also be used at the admission history and physical for a swing-bed status for the same date. HOSPITAL COURSE: The patient came to the hospital complaining of having fallen down and weakness. H is neighbor across the street called 911. He had a seizure on the way to the hospital. His neighbor s commented that his living conditions were extremely poor. The patient was extremely soiled and unk empt on arrival at the hospital. The patient was initially admitted to the intensive care unit because of his seizure. He probably wa s having an alcohol withdrawal seizure. He was given intravenous fluids and supportive care. He was seen by the psychiatrist and felt not to be competent to make medical decision on his own beha lf. He is being discharged to swing bed status. He did have a CT scan of the abdomen and pelvis and an electroencephalogram. The CT scan did not show any acute findings. Hepatic steatosis was noted. This would be consistent, but not diagnostic for cirrhosis. The EEG showed some muscle artifact. T here was background excessive beta activity consistent with drug effect or drug withdrawal. No epile ptiform waveforms were detected. FINAL DIAGNOSES: 1. Encephalopathy combination of Wernicke's encephalopathy and alcohol withdrawal syndrome. 2. Malnutrition. 3. Chronic alcoholism. 4. Chronic anemia. 5. History of hepatitis C. 6. Hypertension. SWING BED MEDICATIONS: 1. Chlordiazepoxide 25 mg every 3 hours p.r.n. 2. Folic acid 1 mg daily. 3. Nicotine inhaler 10 mg every 2 hours p.r.n. 4. Multivitamin with mineral 1 daily. 5. Senna tablet 1 b.i.d. 6. Thiamine 100 mg daily. [id number]/[facility] #: [id number]
== END 2018-04-13 10:30 | disposition swing bed (61) | DRG 774 ==
LOC: ED 20:56 → ICU 23:53 → MED 04-10 17:29
PROVIDERS: ADMIT Pediatrics; ATTEND Internal Medicine
PROC: 4A00X4Z Measurement of Central Nervous Electrical Activity, External Approach (ICD-10-PCS; principal; 2018-04-10)
DX: F10.239 Alcohol dependence with withdrawal, unspecified (principal); E43 Unspecified severe protein-calorie malnutrition; E87.2 Acidosis; R64 Cachexia; E51.2 Wernicke's encephalopathy; Z68.1 Body mass index [BMI] 19.9 or less, adult; I10 Essential (primary) hypertension; R56.9 Unspecified convulsions; J45.909 Unspecified asthma, uncomplicated; G62.9 Polyneuropathy, unspecified; F17.210 Nicotine dependence, cigarettes, uncomplicated; M54.9 Dorsalgia, unspecified; R41.0 Disorientation, unspecified; R62.7 Adult failure to thrive; R10.9 Unspecified abdominal pain; W18.30XA Fall on same level, unspecified, initial encounter; F14.929 Cocaine use, unspecified with intoxication, unspecified; K76.0 Fatty (change of) liver, not elsewhere classified; D50.0 Iron deficiency anemia secondary to blood loss (chronic); E83.42 Hypomagnesemia; F41.9 Anxiety disorder, unspecified; R29.898 Other symptoms and signs involving the musculoskeletal system; E87.6 Hypokalemia; Z86.19 Personal history of other infectious and parasitic diseases; Z72.89 Other problems related to lifestyle; Z87.11 Personal history of peptic ulcer disease; Z80.9 Family history of malignant neoplasm, unspecified; Y92.039 Unspecified place in apartment as the place of occurrence of the external cause
CPT/HCPCS: 36415; 70450; 71046; 74177; 80048; 80053; 80307; 80320; 81003; 81015; 82140; 82272; 82607; 82746; 83540; 83550; 83605; 83735; 84134; 84443; 84484; 85014; 85018; 85025; 85610; 86703; 87641; 93005; 95816; 99285; 99406; A9270-GY; G0480; J2060; J3411; J3475; J3480; Q9967

== ENCOUNTER 2018-04-13 10:30 | Inpatient (IN) | payer OTHER ==
[2018-04-13] MEDS ORDERED: Mouth Piece, Nicotine* 1 EACH CARTRIDGE INH PRN (16:40)
[2018-04-13] MEDS ORDERED: chlordiazePOXIDE CAP* 25 MG PO PRN (16:40)
[2018-04-13] MEDS ORDERED: Nicotine Inhaler* 10 MG AMP INH PRN (16:40)
[2018-04-13] MEDS: traMADol TAB* 50 MG PO PRN (19:34)
[2018-04-13] MEDS: Senna TAB PO SCH (20:16)
[2018-04-14 05:43] LABS: ABS Basophils 0 10^3/ul (0-0.2); ABS Eosinophils 0 10^3/ul (0-0.6); ABS Lymphocytes 1.1 10^3/ul (1.0-4.8); ABS Monocytes 0.6 10^3/ul (0-0.8); ABS Neutrophils 2.4 10^3/ul (1.5-7.7); ABS Nucleated RBC 0 10^3/ul; Eosinophil % 0.6 % (0-6); Hematocrit 29 % (42-52); Lymphocyte % 26.2 % (25-47); Mean Corpuscular HGB Conc 34 g/dl (31-36); Mean Corpuscular Hemoglobin 36 pg (27-31); Mean Corpuscular Volume 104 fL (80-94); Mean Platelet Volume 7.8 um3 (7.4-10.4); Nucleated Red Blood Cells % 0.1; Platelet Count 107 10^3/ul (150-450); Red Blood Count 2.82 10^6/ul (4.00-5.40); Red Cell Distribution Width 15 % (10.5-15); White Blood Count 4.1 10^3/ul (3.5-10.8)
[2018-04-14] MEDS: Folic Acid TAB* 1 MG PO SCH (08:07)
[2018-04-14] MEDS: Multivitamins/Minerals TAB PO SCH (08:07)
[2018-04-14] MEDS: Thiamine TAB* 100 MG TAB PO SCH (08:07)
[2018-04-14] MEDS: Senna TAB PO SCH ×2 (08:07→20:27)
[2018-04-14] MEDS: traMADol TAB* 50 MG PO PRN ×2 (08:07→20:56)
--- NOTE | 2018-04-14 16:42 | CONSULT ---
Consult Consult: Consult for Medical Decision Making Capacity S: Psychiatry is asked to re-evaluate capacity in this 62 y.o. , AA male admitted to the Hospitalist service following a fall in his apartment related to chronic alcohol consumption. Mr. Mccarthy has been declined for [facility] placement, as his ambulation has improved and he has no senior living needs. The patient still wants to return home and a relative of his appeared at the hospital today, willing to function as an HCP. The primary team is wondering if Mr. Mccarthy has regained his capacity to choose returning home with enhanced supports, such as visiting nurse services. On exam the patient is much more calm and cooperative than earlier this week when last assessed by this clinician. He is well oriented to the time and location. He does express an interest in going home but appropriately demonstrates recognition of the risks of doing so. "Yeah, I could fall again...you know." He is willing to mitigate these risks by allowing enhanced supports in the home setting such as an aide and visiting nurse. O: the patient is a thin, small AA male wearing hospital gown; calm and cooperative; speech slow and soft; mood is euthymic with full affect; denies SI/ HI/AH/VH; insight and judgment are sound; cognitively awake and alert with good spacial/temporal orientation, recall and attention A/P: Capacity: Cognition, insight and judgment have improved since his last assessment. The patient has capacity to choose to go home. Please re-consult in the event of any further significant changes in the patient's presentation.
--- NOTE | 2018-04-15 02:56 | DS ---
DISCHARGE SUMMARY: DATE OF ADMISSION: DATE OF DISCHARGE: 04/15/18 This is being dictated in advance. HOSPITAL COURSE: This 62-year-old man presented with fall and weakness. The neighbor across the street called 911. He had a seizure on the way to the hospital. He was admitted to [facility]. The neighbors commented that his living conditions were extremely poor. The patient was very soiled and unkempt on arrival at the emergency room. The patient was admitted to the intensive care unit because of the history of a seizure. He probably was having an alcohol withdrawal seizure. He was treated with intravenous fluids and supportive care. EEG did not show any epileptiform patterns. He was seen by the psychiatrist, initially felt not to be competent to make medical decisions on his own behalf. Evaluation also included a CT scan of the abdomen and pelvis. The patient was transferred to a swing bed. After a few more days, he seemed more rationale. His ambulation was adequate. He was seen again by the psychiatrist and this time felt to be competent to make medical decisions on his own behalf; however, I am restricting the number of medicines he has at home as I am not quite sure how reliable he will be. DISCHARGE DIAGNOSES: 1. Alcohol withdrawal syndrome, possible underlying Wernicke encephalopathy. 2. Malnutrition. 3. Chronic alcoholism. 4. Chronic anemia. 5. History of hepatitis B. 6. History of hypertension. DISCHARGE MEDICATIONS: Thiamine 100 mg daily. We will arrange for him to have a PCP on 04/17/18. An appointment will be made for him. [id number]/[facility] #: [id number] BILL
[2018-04-15 07:58] VITALS: BP 169/80
[2018-04-15] MEDS: Thiamine TAB* 100 MG TAB PO SCH (09:12)
[2018-04-15] MEDS: Senna TAB PO SCH (09:12)
[2018-04-15] MEDS: Folic Acid TAB* 1 MG PO SCH (09:12)
[2018-04-15] MEDS: Multivitamins/Minerals TAB PO SCH (09:12)
[2018-04-15] MEDS: traMADol TAB* 50 MG PO PRN (09:21)
== END 2018-04-15 11:10 | disposition home or self-care (01) | DRG 421 ==
LOC: MED 10:30
PROVIDERS: ADMIT Internal Medicine; ATTEND Internal Medicine
DX: E51.2 Wernicke's encephalopathy (principal); F10.239 Alcohol dependence with withdrawal, unspecified; E46 Unspecified protein-calorie malnutrition; G40.89 Other seizures; Z68.1 Body mass index [BMI] 19.9 or less, adult; Y90.9 Presence of alcohol in blood, level not specified; D64.9 Anemia, unspecified; I10 Essential (primary) hypertension; Z86.19 Personal history of other infectious and parasitic diseases
CPT/HCPCS: 36415; 80048; 83690; 83735; 85025; 99406; A9270-GY

== ENCOUNTER 2018-05-05 06:23 | Emergency (ER) | payer OTHER ==
[2018-05-05 07:10] LABS: Hematocrit 35 % (42-52); Mean Corpuscular HGB Conc 34 g/dl (31-36); Mean Corpuscular Hemoglobin 35 pg (27-31); Mean Corpuscular Volume 103 fL (80-94); Platelet Count 88 10^3/ul (150-450); Red Blood Count 3.45 10^6/ul (4.00-5.40); Red Cell Distribution Width 16 % (10.5-15); White Blood Count 3.3 10^3/ul (3.5-10.8)
[2018-05-05 07:12] LABS: ABS Basophils 0 10^3/ul (0-0.2); ABS Eosinophils 0 10^3/ul (0-0.6); ABS Lymphocytes 1.4 10^3/ul (1.0-4.8); ABS Monocytes 0.2 10^3/ul (0-0.8); ABS Neutrophils 1.6 10^3/ul (1.5-7.7); ABS Nucleated RBC 0 10^3/ul; Eosinophil % 0.4 % (0-6); Lymphocyte % 42.9 % (25-47); Nucleated Red Blood Cells % 0
[2018-05-05 07:14] LABS: INR 1.06 (0.77-1.02)
[2018-05-05] MEDS ORDERED: Thiamine IV* 100 MG, Folic Acid IV* 1 MG, Multiple Vitamin IV ADULT* 10 ML in NS 0.9% 1... IV ONE (07:14)
[2018-05-05] MEDS ORDERED: Gabapentin CAP(*) 300 MG PO ONE (07:20)
--- NOTE | 2018-05-05 07:21 | ED ---
Complex/Multi-Sys Presentation - HPI Summary HPI Summary: 62-year-old male presents with acute on chronic leg pain and hand pain. He admits to weakness. He was shortness breath earlier today. He denies any chest pain. No abdominal pain. No blood in his stool. He states he has not been on his medication recently. States appetite is normal. No nausea and no vomiting. No fevers. He is not diabetic. No new injury. He states that his chronic numbness and tingling of his legs. No new edema. he states that he had one beer last night. no cough. - History Of Current Complaint Chief Complaint: EDGeneral Time Seen by Provider: 05/05/18 07:12 - Allergies/Home Medications Allergies/Adverse Reactions: Allergies Allergy/AdvReac Type Severity Reaction Status Date / Time No Known Allergies Allergy Verified 05/05/18 06:30 PMH/Surg Hx/FS Hx/Imm Hx Endocrine/Hematology History: Denies: Hx Anticoagulant Therapy, Hx Blood Disorders, Hx Blood Transfusions, Hx Bone Marrow Disease, Hx Diabetes, Hx Systemic Lupus Erythematosus, Hx Sickle Cell Disease, Hx Thyroid Disease, Hx Unexplained Bleeding, Other Endocrine/ Hematological Disorders Cardiovascular History: Reports: Hx Hypertension Denies: Hx Pacemaker/ICD Respiratory History: Reports: Hx Asthma GI History: Reports: Other GI Disorders - Hepatitis C, alcohol abuse Denies: Hx Cirrhosis, Hx Crohn's Disease, Hx Diverticulosis, Hx Gall Bladder Disease, Hx Gastroesophageal Reflux Disease, Hx Gastrointestinal Bleed, Hx Hiatal Hernia, Hx Irritable Bowel, Hx Jaundice, Hx Obstructive Bowel, Hx Ileostomy, Hx Pyloric Stenosis, Hx Ulcer History: Denies: Hx Acute Renal Failure, Hx Benign Prostatic Hyperplasia, Hx Chronic Renal Failure, Hx Dialysis, Hx Kidney Infection, Hx Kidney Stones, Hx Renal Disease, Other Problems/Disorders Musculoskeletal History: Denies: Hx Arthritis, Hx Back Problems, Hx Bursitis, Hx Congenital Bone Abnormalities, Hx Fibromyalgia, Hx Gout, Hx Orthopedic Injury, Hx Osteoporosis, Hx Scoliosis, Hx Tendonitis, Other Musculoskeletal History Sensory History: Denies: Hx Contacts or Glasses, Hx Hearing Aid Opthamlomology History: Denies: Hx Contacts or Glasses Neurological History: Reports: Other Neuro Impairments/Disorders - neuropathy Comment Only: Hx Dementia - unsure Psychiatric History: Reports: Hx Substance Abuse - alcohol Denies: Hx Attention Deficit Hyperactivity Disorder, Hx Eating Disorder, Hx Depression, Hx Panic Disorder, Hx Post Traumatic Stress Disorder, Hx Inpatient Treatment, Hx Community Mental Health Tx, Hx Schizophrenia, Hx Bipolar Disorder , Hx Suicide Attempt, Hx of Violent Episodes Against Others, Other Psychiatric Issues/Disorders - Surgical History Surgery Procedure, Year, and Place: right ankle-2000 Hx Anesthesia Reactions: No Infectious Disease History: No Infectious Disease History: Reports: Hx Hepatitis - C Denies: Hx Clostridium Difficile, Hx Human Immunodeficiency Virus (HIV), Hx of Known/Suspected MRSA, Hx Shingles, Hx Tuberculosis, Hx Known/Suspected VRE, Hx Known/Suspected VRSA, History Other Infectious Disease, Traveled Outside the [place] in Last 30 Days - Family History Known Family History: Negative: Cardiac Disease - Social History Alcohol Use: Daily Alcohol Amount: 6 pack and 1/2 pint of vodka, ETOH abuse Hx Substance Use: No Substance Use Type: Reports: None Hx Tobacco Use: Yes Smoking Status (MU): Heavy Every Day Tobacco Smoker Type: Cigarettes Have You Smoked in the Last Year: Yes Review of Systems Negative: Fever Negative: Chest Pain Negative: Shortness Of Breath Positive: Myalgia - legs and hand pain All Other Systems Reviewed And Are Negative: Yes Physical Exam Triage Information Reviewed: Yes Vital Signs On Initial Exam: Initial Vitals Temp Pulse Resp BP Pulse Ox 98.5 F 88 17 190/96 98 05/05/18 06:33 05/05/18 06:33 05/05/18 06:33 05/05/18 06:33 05/05/18 06:33 Vital Signs Reviewed: Yes Appearance: Positive: Well-Appearing Skin: Positive: Warm, Dry Head/Face: Positive: Normal Head/Face Inspection Eyes: Positive: Normal, Conjunctiva Clear ENT: Positive: Pharynx normal Respiratory/Lung Sounds: Positive: Clear to Auscultation, Breath Sounds Present Cardiovascular: Positive: Normal, RRR Abdomen Description: Positive: Nontender, Soft Bowel Sounds: Positive: Present Musculoskeletal: Positive: Strength/ROM Intact - upper and lower extremities, Other - good pulses Neurological: Positive: Normal Psychiatric: Positive: Normal Diagnostics - Vital Signs Vital Signs Temp Pulse Resp BP Pulse Ox 05/05/18 06:33 98.5 F 88 17 190/96 98 - Laboratory Lab Results: Lab Results 05/05/18 05/05/18 Range/Units 06:50 06:50 WBC 3.3 L (3.5-10.8) 10^3/ul RBC 3.45 L (4.00-5.40) 10^6/ul Hgb 12.0 L (14.0-18.0) g/dl Hct 35 L (42-52) % MCV 103 H (80-94) fL MCH 35 H (27-31) pg MCHC 34 (31-36) g/dl RDW 16 H (10.5-15) % Plt Count 88 L (150-450) 10^3/ul MPV 8.0 (7.4-10.4) um3 Neut % (Auto) 48.6 (38-83) % Lymph % (Auto) 42.9 (25-47) % [place] % (Auto) 6.8 (0-7) % Eos % (Auto) 0.4 (0-6) % Baso % (Auto) 1.3 (0-2) % Absolute Neuts (auto) 1.6 (1.5-7.7) 10^3/ul Absolute Lymphs (auto) 1.4 (1.0-4.8) 10^3/ul Absolute Monos (auto) 0.2 (0-0.8) 10^3/ul Absolute Eos (auto) 0 (0-0.6) 10^3/ul Absolute Basos (auto) 0 (0-0.2) 10^3/ul Absolute Nucleated RBC 0 10^3/ul Nucleated RBC % 0 INR (Anticoag Therapy) 1.06 H (0.77-1.02) APTT 34.9 (26.0-36.3) seconds Result Diagrams: 05/05/18 06:50 05/05/18 06:50 Lab Statement: Any lab studies that have been ordered have been reviewed, and results considered in the medical decision making process. - Radiology chest Xray Interpretation: No Acute Changes Radiology Interpretation Completed By: Radiologist - EKG No standard instances Cardiac Rate: NL EKG Rhythm: Sinus Rhythm EKG Interpretation: sinus rhythm, abnormal r-wave progression, Complex Multi-Symp Course/Dx Course Of Treatment: 62-year-old male presents with acute on chronic leg pain and hand pain. He admits to weakness. He was shortness breath earlier today. He denies any chest pain. No abdominal pain. No blood in his stool. He states he has not been on his medication recently. States appetite is normal. No nausea and no vomiting. No fevers. He is not diabetic. No new injury. He states that his chronic numbness and tingling of his legs. No new edema. he states that he had one beer last night. no cough. on exam has no edema noted to legs. lungs CTA. good strength in lower extremities. chest xray hyperinflation. ekg similiar to previous. labs wbc 3.3 which has been previous. k 3.4. mg 1.2. gave banana bag, mag, and gabapentin and feeling better. will prescribe gabapentin for numbness and tingling and magnesium and folic acid. will start on hydrochlorthiazide for blood pressure. will give referral to [facility]. patient understand and agrees with plan. - Diagnoses Differential Diagnoses/HQI/PQRI: Metabolic Abnormality, Sepsis, Urinary Tract Infection Provider Diagnoses: Hypomagnesemia, Leg pain, Hypertension Discharge - Sign-Out/Discharge Documenting (check all that apply): Patient Departure - Discharge Plan Condition: Good Disposition: HOME Prescriptions: Gabapentin CAP(*) [Neurontin 300 CAP(*)] 300 mg PO BID #14 cap Hydrochlorothiazide TAB* [Hydrodiuril TAB*] 25 mg PO DAILY #14 tab Magnesium Chloride 1 tab PO DAILY #20 tab Thiamine TAB* [Vitamin B-1 TAB 100 MG*] 100 mg PO DAILY #20 tab Patient Education Materials: Paresthesia (ED) Referrals: [facility] [Outside] [facility] [Outside] Additional Instructions: follow up with [facility] within 5 days Take magnesium and thiamine daily take hydrochlorothiazide daily take gabapentin twice a day Return to ED if develop any new or worsening symptoms - Billing Disposition and Condition Condition: GOOD Disposition: Home
[2018-05-05 07:24] LABS: EGFR Non-African American 108.5 (>60)
[2018-05-05] MEDS ORDERED: Potassium Chlor TAB* 10 MEQ TAB.ER PO ONE (08:00)
[2018-05-05] MEDS ORDERED: Magnesium Sulfate 1 GM IV* 1 GM/100 ML BAG IV ONE (08:00)
[2018-05-05 08:07] LABS: Urine Appearance Clear; Urine Blood Negative (Negative); Urine Color Straw; Urine Ketones Negative (Negative); Urine Protein Negative (Negative); Urine Specific Gravity 1.006 (1.010-1.030); Urine Urobilinogen Negative (Negative)
--- NOTE | 2018-05-05 08:12 | RAD ---
INDICATION: Short of breath COMPARISON: February 09, 2018 TECHNIQUE: AP seated and lateral views were obtained. FINDINGS: Bones/Soft Tissues: There are no acute bony findings. Cardiomediastinal: The cardiomediastinal silhouette is normal. Lungs: There are no infiltrates. There is hyperinflation. Pleura: There are no pleural effusions. Other: None IMPRESSION: HYPERINFLATION. NO ACTIVE DISEASE
[2018-05-05] MEDS ORDERED: Hydrochlorothiazide TAB* 25 MG PO ONE (09:20)
[2018-05-05 10:41] VITALS: BP 148/97
== END 2018-05-05 10:41 | disposition home or self-care (01) ==
LOC: ED 06:23
DX: E83.42 Hypomagnesemia (principal); M79.606 Pain in leg, unspecified; I10 Essential (primary) hypertension
CPT/HCPCS: 36415; 71046; 80053; 80307; 80320; 81003; 82140; 82977; 83690; 83735; 83880; 84484; 85025; 85610; 85730; 93005; 96365; 99283; A9270-GY; G0480; J3411; J3475

== ENCOUNTER 2018-10-06 12:28 | Emergency (ER) | payer OTHER ==
[2018-10-06] MEDS ORDERED: NS 0.9% 1000 ML* 1,000 ML IV ONE (12:49)
--- NOTE | 2018-10-06 12:52 | ED ---
Lower Extremity - HPI Summary HPI Summary: Pt is a 63 y/o M presenting to the ED brought in by EMS initially for confusion. The pt reports LE pain and alcohol use. The pt denies abd pain. - History of Current Complaint Chief Complaint: EDAltMentalStatus Stated Complaint: CONFUSION Time Seen by Provider: 10/06/18 12:39 Hx Obtained From: Patient Mechanism Of Injury: Unknown Onset of Pain: Prior to Arrival Onset/Duration: Hours Severity Initially: Mild Severity Currently: Mild Pain Intensity: 3 Pain Scale Used: 0-10 Numeric Timing: Constant Location: Other - "legs" Associated Signs And Symptoms: Positive: Other - LE pain. Negative: Abdominal Pain Aggravating Factor(s): Standing, Ambulation, Movement, Weight Bearing Alleviating Factor(s): Rest - Allergies/Home Medications Allergies/Adverse Reactions: Allergies Allergy/AdvReac Type Severity Reaction Status Date / Time No Known Allergies Allergy Verified 07/23/18 01:53 PMH/Surg Hx/FS Hx/Imm Hx Previously Healthy: No Endocrine/Hematology History: Denies: Hx Anticoagulant Therapy, Hx Blood Disorders, Hx Blood Transfusions, Hx Bone Marrow Disease, Hx Diabetes, Hx Systemic Lupus Erythematosus, Hx Sickle Cell Disease, Hx Thyroid Disease, Hx Unexplained Bleeding, Other Endocrine/ Hematological Disorders Cardiovascular History: Reports: Hx Hypertension Denies: Hx Pacemaker/ICD Respiratory History: Reports: Hx Asthma GI History: Reports: Other GI Disorders - Hepatitis C, alcohol abuse Denies: Hx Cirrhosis, Hx Crohn's Disease, Hx Diverticulosis, Hx Gall Bladder Disease, Hx Gastroesophageal Reflux Disease, Hx Gastrointestinal Bleed, Hx Hiatal Hernia, Hx Irritable Bowel, Hx Jaundice, Hx Obstructive Bowel, Hx Ileostomy, Hx Pyloric Stenosis, Hx Ulcer History: Denies: Hx Acute Renal Failure, Hx Benign Prostatic Hyperplasia, Hx Chronic Renal Failure, Hx Dialysis, Hx Kidney Infection, Hx Kidney Stones, Hx Renal Disease, Other Problems/Disorders Musculoskeletal History: Denies: Hx Arthritis, Hx Back Problems, Hx Bursitis, Hx Congenital Bone Abnormalities, Hx Fibromyalgia, Hx Gout, Hx Orthopedic Injury, Hx Osteoporosis, Hx Scoliosis, Hx Tendonitis, Other Musculoskeletal History Sensory History: Denies: Hx Contacts or Glasses, Hx Hearing Aid Opthamlomology History: Denies: Hx Contacts or Glasses Neurological History: Reports: Other Neuro Impairments/Disorders - neuropathy Comment Only: Hx Dementia - unsure Psychiatric History: Reports: Hx Substance Abuse - alcohol Denies: Hx Attention Deficit Hyperactivity Disorder, Hx Eating Disorder, Hx Depression, Hx Panic Disorder, Hx Post Traumatic Stress Disorder, Hx Inpatient Treatment, Hx Community Mental Health Tx, Hx Schizophrenia, Hx Bipolar Disorder , Hx Suicide Attempt, Hx of Violent Episodes Against Others, Other Psychiatric Issues/Disorders - Surgical History Surgery Procedure, Year, and Place: right ankle-2000 Hx Anesthesia Reactions: No - Immunization History Date of Tetanus Vaccine: unk Date of Influenza Vaccine: utd Infectious Disease History: No Infectious Disease History: Reports: Hx Hepatitis - C Denies: Hx Clostridium Difficile, Hx Human Immunodeficiency Virus (HIV), Hx of Known/Suspected MRSA, Hx Shingles, Hx Tuberculosis, Hx Known/Suspected VRE, Hx Known/Suspected VRSA, History Other Infectious Disease, Traveled Outside the [place] in Last 30 Days - Family History Known Family History: Negative: Cardiac Disease - Social History Alcohol Use: Daily Alcohol Amount: 6 pack and 1/2 pint of vodka, ETOH abuse Hx Substance Use: No Substance Use Type: Reports: Cocaine Substance Use Comment - Amount & Last Used: last used 1 week ago Hx Tobacco Use: Yes Smoking Status (MU): Heavy Every Day Tobacco Smoker Type: Cigarettes Have You Smoked in the Last Year: Yes Review of Systems Negative: Fever Negative: Abdominal Pain Positive: Myalgia All Other Systems Reviewed And Are Negative: Yes Physical Exam - Summary Physical Exam Summary: Appearance: The patient is cachectic, in no acute distress and in no acute pain. Skin: The skin is warm and dry and skin color reflects adequate perfusion HEENT: The head is normocephalic and atraumatic. The pupils are equal and reactive. The conjunctivae are clear and without drainage. Nares are patent and without drainage. Mouth reveals moist mucous membranes and the throat is without erythema and exudate. The external ears are intact. The ear canals are patent and without drainage. The tympanic membranes are intact. Neck: The neck is supple with full range of motion and non-tender. There are no carotid bruits. There is no neck vein distension. Respiratory: Chest is non-tender. Lungs are clear to auscultation and breath sounds are symmetrical and equal. Cardiovascular: Heart is regular rate and rhythm. There is no murmur or rub auscultated. There is no peripheral edema and pulses are symmetrical and equal. Abdomen: The abdomen is soft and non-tender. There are normal bowel sounds heard in all four quadrants and there is no organomegaly palpated. Musculoskeletal: There is no back tenderness noted. Extremities are non-tender with full range of motion. There is good capillary refill. There is no peripheral edema or calf tenderness elicited. [place]. Neurological: Patient is alert and oriented to person, place and time. The patient has symmetrical motor strength in all four extremities. Cranial nerves are grossly intact. Deep tendon reflexes are symmetrical and equal in all four extremities. Psychiatric: The patient has an appropriate affect and does not exhibit any anxiety or depression. Triage Information Reviewed: Yes Vital Signs On Initial Exam: Initial Vitals Temp Pulse Resp BP Pulse Ox 97.6 F 81 18 155/81 99 10/06/18 12:33 10/06/18 12:33 10/06/18 12:33 10/06/18 12:33 10/06/18 12:33 Vital Signs Reviewed: Yes Diagnostics - Vital Signs Vital Signs Temp Pulse Resp BP Pulse Ox 10/06/18 12:35 77 24 99 10/06/18 12:34 75 17 155/81 99 10/06/18 12:33 97.6 F 81 18 155/81 99 - Laboratory Result Diagrams: 10/06/18 13:30 10/06/18 13:30 Lab Statement: Any lab studies that have been ordered have been reviewed, and results considered in the medical decision making process. - EKG 1239 Cardiac Rate: NL - 76bpm EKG Rhythm: Sinus Rhythm ST Segment: Normal Ectopy: None Summary of EKG Findings: L anterior fasicular block. Lower Extremity Course/Dx - Course Course Of Treatment: Mr. Mccarthy was brought in by ambulance. The story I got was that his landlord became concerned because the patient was walking around outside and seemed to be confused. When I saw him he was nontoxic in appearance with stable vital signs. He was oriented 3 and he came in just quite warmly. Workup and observation here was unremarkable. It was reported that his living situation was suboptimal and director of social media marketing was notified and is aware of Mr. Mccarthy already. - Diagnoses Provider Diagnoses: Transient confusion Discharge - Sign-Out/Discharge Documenting (check all that apply): Patient Departure - Discharge Plan Condition: Stable Disposition: HOME Referrals: [facility] [Outside] Additional Instructions: Please return to the emergency department with any new or worsening conditions. Follow up with your primary care provider in the next 2-3 days. - Billing Disposition and Condition Condition: STABLE Disposition: Home - Attestation Statements Document Initiated by Derek: Yes Documenting Scribe: Alma Meek Provider For Whom Derek is Documenting (Include Credential): Amilcar Gallardo MD. Scribe Attestation: Alma Caba, scribed for Amilcar Gallardo MD. on 10/06/18 at 1849. Scribe Documentation Reviewed: Yes Provider Attestation: The documentation as recorded by the scribe, Alma Meek accurately reflects the service I personally performed and the decisions made by me, Amilcar Gallardo MD. Status of Scribe Document: Viewed
[2018-10-06 13:46] LABS: ABS Basophils 0 10^3/ul (0-0.2); ABS Eosinophils 0 10^3/ul (0-0.6); ABS Lymphocytes 0.9 10^3/ul (1.0-4.8); ABS Monocytes 0.4 10^3/ul (0-0.8); ABS Neutrophils 2.9 10^3/ul (1.5-7.7); ABS Nucleated RBC 0 10^3/ul; Eosinophil % 0 %; Hematocrit 37 % (42-52); Hemoglobin 12.4 g/dl (14.0-18.0); Mean Corpuscular HGB Conc 34 g/dl (31-36); Mean Corpuscular Hemoglobin 33 pg (27-31); Mean Corpuscular Volume 97 fL (80-94); Mean Platelet Volume 8.4 fL (7.4-10.4); Nucleated Red Blood Cells % 0.1; Platelet Count 161 10^3/ul (150-450); Red Cell Distribution Width 17 % (10.5-15); White Blood Count 4.3 10^3/ul (3.5-10.8)
[2018-10-06 13:48] LABS: Urine Appearance Clear; Urine Bilirubin Negative (Negative); Urine Blood Negative (Negative); Urine Color Yellow; Urine Glucose Negative (Negative); Urine Ketones Negative (Negative); Urine Nitrite Negative (Negative); Urine Protein Negative (Negative); Urine Specific Gravity 1.012 (1.010-1.030); Urine Urobilinogen Negative (Negative)
[2018-10-06 14:00] LABS: INR 1.1 (0.77-1.02)
[2018-10-06 14:02] LABS: ALT 120 U/L (7-52); AST 147 U/L (13-39); Albumin 4.2 g/dL (3.2-5.2); Albumin/Globulin Ratio 0.9 (1-3); Alkaline Phosphatase 83 U/L (34-104); Anion Gap 9 mmol/L (2-11); BUN/Creatinine Ratio 11.8 (8-20); Blood Urea Nitrogen 10 mg/dL (6-24); CO2 Carbon Dioxide 26 mmol/L (22-32); Calcium 9.9 mg/dL (8.6-10.3); Chloride 101 mmol/L (101-111); EGFR African American 109.8 (>60); EGFR Non-African American 90.7 (>60); Globulin 4.5 g/dL (2-4); Glucose 102 mg/dL (70-100); Sodium 136 mmol/L (135-145); Total Protein 8.7 g/dL (6.4-8.9); Troponin I 0.01 ng/mL (<0.04)
[2018-10-06 14:05] LABS: Barbiturates Urine Screen None Detected (None Detect); Benzodiazepine Urine Screen None Detected (None Detect); Urine Cannabinoids Screen None Detected (None Detect)
[2018-10-06 14:23] LABS: Acetaminophen < 15 mcg/mL; Alcohol < 10 mg/dL (<10); Salicylate < 2.50 mg/dL (<30)
[2018-10-06 14:33] LABS: TSH (Thyroid Stimulating Horm) 2.16 mcIU/mL (0.34-5.60)
[2018-10-06 18:39] VITALS: BP 140/71
== END 2018-10-06 18:39 | disposition home or self-care (01) ==
LOC: ED 12:28
DX: R41.0 Disorientation, unspecified (principal); M79.669 Pain in unspecified lower leg; Z72.89 Other problems related to lifestyle; F17.210 Nicotine dependence, cigarettes, uncomplicated
CPT/HCPCS: 36415; 80053; 80307; 80320; 80329; 81003; 82140; 83605; 84443; 84484; 85025; 85610; 93005; 96360; 99282; G0480

== ENCOUNTER 2018-11-21 02:58 | Emergency (ER) | payer OTHER ==
[2018-11-21 05:07] LABS: Albumin 3.3 g/dL (3.2-5.2); Calcium 8.7 mg/dL (8.6-10.3); Total Bilirubin 0.4 mg/dL (0.2-1.0)
[2018-11-21 05:11] LABS: ABS Basophils 0.1 10^3/ul (0-0.2); ABS Eosinophils 0 10^3/ul (0-0.6); ABS Lymphocytes 1.6 10^3/ul (1.0-4.8); ABS Monocytes 0.5 10^3/ul (0-0.8); ABS Neutrophils 1.5 10^3/ul (1.5-7.7); ABS Nucleated RBC 0 10^3/ul; Hematocrit 34 % (42-52); Hemoglobin 10.8 g/dl (14.0-18.0); Lymphocyte % 43.2 %; Mean Corpuscular HGB Conc 32 g/dl (31-36); Mean Corpuscular Hemoglobin 30 pg (27-31); Mean Corpuscular Volume 96 fL (80-94); Mean Platelet Volume 7.8 fL (7.4-10.4); Nucleated Red Blood Cells % 0.1; Platelet Count 162 10^3/ul (150-450); Red Blood Count 3.59 10^6/ul (4.00-5.40); Red Cell Distribution Width 17 % (10.5-15); White Blood Count 3.6 10^3/ul (3.5-10.8)
[2018-11-21 05:13] LABS: Albumin/Globulin Ratio 0.9 (1-3); BUN/Creatinine Ratio 19.8 (8-20); EGFR African American 95.4 (>60); EGFR Non-African American 78.9 (>60); Globulin 3.6 g/dL (2-4); Total Protein 6.9 g/dL (6.4-8.9)
--- NOTE | 2018-11-21 07:15 | ED ---
Progress - Progress Note Progress Note: RECEIVING SIGN OUT FROM DR. SINGH AT SHIFT CHANGE PENDING MHE. A 63 y/o M brought in by police for AMS and confusion. Course/Dx - Course Course Of Treatment: RECEIVING SIGN OUT FROM DR. SINGH AT SHIFT CHANGE PENDING MHE. Pt is a 63 y/o M presenting to ED with police for AMS. 0910: Per Dr. Degroot, psych, pt is sober and safe for discharge with dx: ETOH intoxication, marijuana abuse. - Diagnoses Provider Diagnoses: Marijuana abuse, Alcohol intoxication Discharge - Sign-Out/Discharge Documenting (check all that apply): Patient Departure - D/C, Receiving Sign-Out Receiving patient FROM: Amilcar Singh - pending MHE Patient Received Moderate/Deep Sedation with Procedure: No - Discharge Plan Condition: Stable Disposition: HOME Patient Education Materials: Mood Disorders (ED) Referrals: No Primary Care Phys,NOPCP [Primary Care Provider] - - Billing Disposition and Condition Condition: STABLE Disposition: Home - Attestation Statements Document Initiated by Scribe: Yes Documenting Scribe: Elizabeth Sullivan Provider For Whom Scribe is Documenting (Include Credential): Dr. Vladimir Tompkins MD Scribe Attestation: I, Elizabeth Sullivan, scribed for Dr. Vladimir Tompkins MD on 11/21/18 at 1448. Scribe Documentation Reviewed: Yes Provider Attestation: The documentation as recorded by the Elizabeth ramirez accurately reflects the service I personally performed and the decisions made by me, Dr. Vladimir Tompkins MD Status of Scribe Document: Viewed
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
[2018-11-21 09:33] VITALS: BP 141/76
== END 2018-11-21 09:33 | disposition home or self-care (01) ==
LOC: ED 02:58
DX: F10.129 Alcohol abuse with intoxication, unspecified (principal); F12.10 Cannabis abuse, uncomplicated; R09.81 Nasal congestion; M79.605 Pain in left leg; M79.604 Pain in right leg; I10 Essential (primary) hypertension; F17.210 Nicotine dependence, cigarettes, uncomplicated
CPT/HCPCS: 36415; 80053; 80320; 82140; 85025; 99285; G0480

== ENCOUNTER 2018-11-30 01:26 | Inpatient (IN) | payer OTHER ==
[2018-11-30] MEDS ORDERED: Albuterol/Ipratropium NEB.SOL* Albuterol 2.5 MG/Ipratropium 0.5 MG 3 ML INH ONE (01:39)
[2018-11-30] MEDS ORDERED: Acetaminophen TAB* 325 MG PO ONE (01:39)
[2018-11-30] MEDS ORDERED: methylPREDNISolone 125 MG* 2 ML VIAL IV ONE (01:40)
[2018-11-30] MEDS ORDERED: Magnesium Sulfate 2 GM IV* 2 GM/50 ML BAG IVPB ONE ×2 (01:40→12:30)
[2018-11-30] MEDS ORDERED: Levofloxacin 750 MG IVPREMIX(* 750 MG/150 ML BAG IVPB ONE (01:40)
--- NOTE | 2018-11-30 01:43 | ED ---
Respiratory - HPI Summary HPI Summary: Pt is a 63 y/o M presenting to the ED brought in by EMS with a chief complaint of shortness of breath onset this morning. Per respiratory therapist in the room , he was at 97% O2 sat until they took the oxygen off, where his O2 sats dropped. EMS reports his O2 was 83% on room air and his HR was 160 upon initial interaction. - History of Current Complaint Chief Complaint: EDRespiratoryDistress Stated Complaint: DIFFICULTY BREATHING PER EMS Hx Obtained From: Patient, EMS Onset/Duration: Sudden Onset, Lasting Hours, Still Present Timing: Constant Initial Severity: Moderate Current Severity: Moderate Pain Intensity: 0 Character: Dyspnea at Rest Aggravating Factor(s): Movement, Deep Breaths Alleviating Factor(s): Oxygen Associated Signs and Symptoms: Fever, SOB - Allergy/Home Medications Allergies/Adverse Reactions: Allergies Allergy/AdvReac Type Severity Reaction Status Date / Time No Known Allergies Allergy Verified 11/09/18 20:38 PMH/Surg Hx/FS Hx/Imm Hx Previously Healthy: Yes Endocrine/Hematology History: Denies: Hx Anticoagulant Therapy, Hx Blood Disorders, Hx Blood Transfusions, Hx Bone Marrow Disease, Hx Diabetes, Hx Systemic Lupus Erythematosus, Hx Sickle Cell Disease, Hx Thyroid Disease, Hx Unexplained Bleeding, Other Endocrine/ Hematological Disorders Cardiovascular History: Reports: Hx Hypertension Denies: Hx Pacemaker/ICD Respiratory History: Reports: Hx Asthma GI History: Reports: Other GI Disorders - Hepatitis C, alcohol abuse Denies: Hx Cirrhosis, Hx Crohn's Disease, Hx Diverticulosis, Hx Gall Bladder Disease, Hx Gastroesophageal Reflux Disease, Hx Gastrointestinal Bleed, Hx Hiatal Hernia, Hx Irritable Bowel, Hx Jaundice, Hx Obstructive Bowel, Hx Ileostomy, Hx Pyloric Stenosis, Hx Ulcer History: Denies: Hx Acute Renal Failure, Hx Benign Prostatic Hyperplasia, Hx Chronic Renal Failure, Hx Dialysis, Hx Kidney Infection, Hx Kidney Stones, Hx Renal Disease, Other Problems/Disorders Musculoskeletal History: Denies: Hx Arthritis, Hx Back Problems, Hx Bursitis, Hx Congenital Bone Abnormalities, Hx Fibromyalgia, Hx Gout, Hx Orthopedic Injury, Hx Osteoporosis, Hx Scoliosis, Hx Tendonitis, Other Musculoskeletal History Sensory History: Denies: Hx Contacts or Glasses, Hx Hearing Aid Opthamlomology History: Denies: Hx Contacts or Glasses Neurological History: Reports: Other Neuro Impairments/Disorders - neuropathy Comment Only: Hx Dementia - unsure Psychiatric History: Reports: Hx Substance Abuse - alcohol Denies: Hx Attention Deficit Hyperactivity Disorder, Hx Eating Disorder, Hx Depression, Hx Panic Disorder, Hx Post Traumatic Stress Disorder, Hx Inpatient Treatment, Hx Community Mental Health Tx, Hx Schizophrenia, Hx Bipolar Disorder , Hx Suicide Attempt, Hx of Violent Episodes Against Others, Other Psychiatric Issues/Disorders - Surgical History Surgery Procedure, Year, and Place: right ankle-2000 Hx Anesthesia Reactions: No - Immunization History Date of Tetanus Vaccine: unk Date of Influenza Vaccine: utd Infectious Disease History: No Infectious Disease History: Reports: Hx Hepatitis - C Denies: Hx Clostridium Difficile, Hx Human Immunodeficiency Virus (HIV), Hx of Known/Suspected MRSA, Hx Shingles, Hx Tuberculosis, Hx Known/Suspected VRE, Hx Known/Suspected VRSA, History Other Infectious Disease, Traveled Outside the [place] in Last 30 Days - Family History Known Family History: Negative: Cardiac Disease - Social History Alcohol Use: Daily Alcohol Amount: 6 pack and 1/2 pint of vodka, ETOH abuse Hx Substance Use: Yes Substance Use Type: Reports: Cocaine Substance Use Comment - Amount & Last Used: last used 1 week ago Hx Tobacco Use: Yes Smoking Status (MU): Heavy Every Day Tobacco Smoker Type: Cigarettes Have You Smoked in the Last Year: Yes Review of Systems Positive: Fever Positive: Shortness Of Breath All Other Systems Reviewed And Are Negative: Yes Physical Exam - Summary Physical Exam Summary: VITAL SIGNS: Reviewed. GENERAL: Patient is a well-developed and nourished male who is lying comfortable in the stretcher. Patient is not in any acute respiratory distress. HEAD AND FACE: No signs of trauma. No ecchymosis, hematomas or skull depressions. No sinus tenderness. EYES: PERRLA, EOMI x 2, No injected conjunctiva, no nystagmus. EARS: Hearing grossly intact. Ear canals and tympanic membranes are within normal limits. MOUTH: Oropharynx within normal limits. NECK: Supple, trachea is midline, no adenopathy, no JVD, no carotid bruit, no c- spine tenderness, neck with full ROM. CHEST: Symmetric, no tenderness at palpation LUNGS: Decreased breath sounds bilaterally, expiratory wheezes bilaterally. Rales over L side. CVS: Regular rate and rhythm, S1 and S2 present, no murmurs or gallops appreciated. ABDOMEN: Soft, non-tender. No signs of distention. No rebound no guarding, and no masses palpated. Bowel sounds are normal. EXTREMITIES: FROM in all major joints, no edema, no cyanosis or clubbing. NEURO: Alert and oriented x 3. No acute neurological deficits. Speech is normal and follows commands. SKIN: Dry and warm Triage Information Reviewed: Yes Vital Signs On Initial Exam: Initial Vitals Temp Pulse Resp BP Pulse Ox 101.1 F 144 32 160/98 95 11/30/18 01:30 11/30/18 01:30 11/30/18 01:30 11/30/18 01:30 11/30/18 01:30 Vital Signs Reviewed: Yes Diagnostics - Vital Signs Vital Signs Temp Pulse Resp BP Pulse Ox 11/30/18 01:30 101.1 F 144 32 160/98 95 - Laboratory Result Diagrams: 11/30/18 03:06 11/30/18 03:06 Lab Statement: Any lab studies that have been ordered have been reviewed, and results considered in the medical decision making process. - Radiology Chest x-ray Radiology Interpretation Completed By: ED Physician Summary of Radiographic Findings: Bilateral pneumonia, L more than R. Pending official radiology report. - EKG 0200 Cardiac Rate: Tachycardia - 141bpm EKG Rhythm: Sinus Tachycardia ST Segment: Normal Ectopy: None Disposition - Course Course Of Treatment: Pt is a 63 y/o M presenting to the ED brought in by EMS with a chief complaint of shortness of breath onset this morning. EMS reports his O2 sats were at 83% and his heart rate was 160 on arrival. An EKG shows tachycardia at 141bpm. A CXR shows bilateral pneumonia, left more than right, pending official radiology report. Dr. Davies accepted the pt to [facility] at 0348 with dx including COPD and bilateral pneumonia. - Diagnoses Provider Diagnoses: COPD (chronic obstructive pulmonary disease), Bilateral pneumonia Discharge - Sign-Out/Discharge Documenting (check all that apply): Patient Departure - Discharge Plan Condition: Stable Disposition: ADMITTED TO [facility] Referrals: [facility] PHYSICIAN REFERRAL [Outside] - Attestation Statements Document Initiated by Scribe: Yes Documenting Scribe: Alma Meek Provider For Whom Scribe is Documenting (Include Credential): Jessie Lai MD. Scribe Attestation: Alma Caba, félixibed for Jessie Lai MD. on 11/30/18 at 0349. Status of Scribe Document: Ready Consult Consult: 7101 - Spoke with Dr. Davies about the pt's present condition who will be the accepting physician to [facility].
[2018-11-30] MEDS ORDERED: Albuterol 2.5 MG/3 ML NEB.SOL* (0.083%) INH ONE (01:54)
[2018-11-30] MEDS: Albuterol 2.5 MG/3 ML NEB.SOL* (0.083%) INH SCH ×2 (02:03→02:21)
[2018-11-30 03:23] LABS: Hematocrit 37 % (36-46); Hemoglobin 12.3 g/dL (14.0-18.0); Mean Corpuscular HGB Conc 33 g/dL (31-36); Mean Corpuscular Hemoglobin 31 pg (27-31); Mean Corpuscular Volume 93 fL (80-94); Mean Platelet Volume 8.3 fL (7.4-10.4); Platelet Count 116 10^3/uL (150-450); Red Blood Count 4.02 10^6 /uL (4.18-5.48); Red Cell Distribution Width 18 % (10.5-15); White Blood Count 2.6 10^3/uL (3.5-10.8)
[2018-11-30 03:29] LABS: Activated Partial Thrombo Time 39.3 seconds (26.0-36.3); INR 1.44 (0.77-1.02)
[2018-11-30 03:39] LABS: ALT 50 U/L (7-52); AST 59 U/L (13-39); Albumin 3.9 g/dL (3.2-5.2); Alkaline Phosphatase 32 U/L (34-104); Anion Gap 17 mmol/L (2-11); BUN/Creatinine Ratio 17.6 (8-20); Blood Urea Nitrogen 16 mg/dL (6-24); CO2 Carbon Dioxide 19 mmol/L (22-32); Calcium 9.6 mg/dL (8.6-10.3); Chloride 96 mmol/L (101-111); EGFR African American 101.5 (>60); EGFR Non-African American 83.9 (>60); Globulin 3.9 g/dL (2-4); Glucose 140 mg/dL (70-100); Potassium 3.1 mmol/L (3.5-5.0); Sodium 132 mmol/L (135-145); Total Protein 7.8 g/dL (6.4-8.9)
[2018-11-30 03:40] LABS: Troponin I 0.03 ng/mL (<0.04)
[2018-11-30] MEDS ORDERED: Potassium Chloride LIQUID* 20 MEQ PACKET PO ONE (03:40)
[2018-11-30] MEDS ORDERED: NS 0.9% 1000 ML** 1,000 ML IV ONE ×3 (03:41→12:29)
[2018-11-30 03:53] LABS: Immature Granulocytes 27 % (0-9); Lymphocytes % 7 %; Metamyelocytes % 4 % (0-2); Monocytes % 6 %; Myelocytes % 3 % (0-1); Neutrophil % 60 %
[2018-11-30 03:56] LABS: ABS Neutrophils 2.26 10^3/ul (1.5-7.7)
[2018-11-30] MEDS ORDERED: Thiamine IV* 100 MG/ML 2 ML VIAL IM ONE (04:24)
[2018-11-30] MEDS ORDERED: ED Piperacillin/Tazobac 3.375 3.375 GM/100 ML PREMIX.SET IVPB ONE (04:28)
[2018-11-30] MEDS ORDERED: Albuterol/Ipratropium NEB.SOL* Albuterol 2.5 MG/Ipratropium 0.5 MG 3 ML INH PRN (04:28)
[2018-11-30] MEDS ORDERED: Albuterol 2.5 MG/3 ML NEB.SOL* (0.083%) INH PRN (04:28)
[2018-11-30] MEDS ORDERED: Docusate CAP* 100 MG PO PRN (04:29)
[2018-11-30] MEDS ORDERED: Al Hydrox/Mg Hydrox/Simet LIQ* 30 ML UDC PO PRN (04:29)
[2018-11-30] MEDS ORDERED: Acetaminophen TAB* 325 MG PO PRN (04:29)
[2018-11-30] MEDS ORDERED: Senna TAB PO PRN (04:29)
[2018-11-30] MEDS ORDERED: Ondansetron INJ* 2 MG/ML VIAL IV PRN (04:29)
[2018-11-30] MEDS ORDERED: Albuterol HFA INHALER* 8 gm MDI INH PRN (04:32)
[2018-11-30 04:54] LABS: Magnesium 1.8 mg/dL (1.9-2.7)
[2018-11-30] MEDS ORDERED: Zosyn per Pharmacy* NOTE FOLLOW UP SCH (05:00)
[2018-11-30 05:10] LABS: Alcohol < 10 mg/dL (<10); Prealbumin 9 mg/dL (18-38)
[2018-11-30 05:19] LABS: Barbiturates Urine Screen None Detected (None Detect); Benzodiazepine Urine Screen None Detected (None Detect); Urine Cannabinoids Screen None Detected (None Detect)
[2018-11-30 05:23] LABS: Influenza A Molecular NEGATIVE (Negative); Influenza B Molecular NEGATIVE (Negative)
[2018-11-30 05:53] LABS: Hematocrit 35 % (36-46); Hemoglobin 11.2 g/dL (14.0-18.0); Mean Corpuscular HGB Conc 32 g/dL (31-36); Mean Corpuscular Hemoglobin 30 pg (27-31); Mean Corpuscular Volume 95 fL (80-94); Mean Platelet Volume 8.5 fL (7.4-10.4); Platelet Count 113 10^3/uL (150-450); Red Blood Count 3.72 10^6 /uL (4.18-5.48); Red Cell Distribution Width 18 % (10.5-15); White Blood Count 2.7 10^3/uL (3.5-10.8)
[2018-11-30] MEDS ORDERED: Heparin VIAL(*) 5000 UNITS/ML VIAL (FIVE THOUSAND) SUBCUT SCH (06:00)
[2018-11-30] MEDS ORDERED: Nicotine Patch Removal NOTE FOLLOW UP SCH (06:00)
[2018-11-30 06:15] LABS: BUN/Creatinine Ratio 18.4 (8-20); Calcium 8.1 mg/dL (8.6-10.3); EGFR African American 124.9 (>60); EGFR Non-African American 103.3 (>60); Potassium 3.5 mmol/L (3.5-5.0)
[2018-11-30 06:16] LABS: Troponin I 0.03 ng/mL (<0.04)
[2018-11-30 06:22] LABS: ABS Basophils 0 10^3/ul (0-0.2); ABS Eosinophils 0 10^3/ul (0-0.6); ABS Lymphocytes 0.2 10^3/ul (1.0-4.8); ABS Monocytes 0.1 10^3/ul (0-0.8); ABS Neutrophils 2.4 10^3/ul (1.5-7.7); ABS Nucleated RBC 0 10^3/ul
[2018-11-30] MEDS ORDERED: Nicotine PATCH 21 MG/24 HR* PATCH ONE (06:24)
[2018-11-30] MEDS ORDERED: Furosemide IV* 10 MG/ML 2 ML VIAL (20 MG) IV ONE (06:26)
[2018-11-30] MEDS: Nicotine PATCH 21 MG/24 HR* PATCH TRANSDERM SCH (06:40)
--- NOTE | 2018-11-30 07:09 | HP ---
CC: Keaton Malcolm MD * HISTORY AND PHYSICAL: DATE OF ADMISSION: 11/30/18 TIME OF EVALUATION: 0400 PRIMARY CARE PHYSICIAN: Keaton Malcolm MD CHIEF COMPLAINT: Shortness of breath. HISTORY OF PRESENT ILLNESS: This is a 63-year-old male with a past medical history of COPD, alcohol, tobacco and polysubstance abuse, who presents to the emergency room with acute onset of shortness of breath. The patient states yesterday morning, he began with acute onset of productive cough, abdominal pain. No nausea, vomiting. No diarrhea. No chest pain. No fevers or chills. The patient does not seem to be exactly forthcoming and changes his history and story. He does have fevers and chills. He is not sure when his last bowel movement was. He denies any changes in his weight. He states he fell recently , lost consciousness and injured both his knees. Prior to yesterday morning, he states his breathing was fine without any issue. He states he last used cocaine a few weeks ago. The patient called EMS for shortness of breath and on arrival, the patient was noted to have a saturation of 83% on room air. He was placed on BiPAP. Arrived to the emergency room on BiPAP. He was not tolerating it well and is transitioned over the OxyMask. In the emergency room, the patient had labs and imaging. He was given 2 L of fluid, potassium chloride 40 mEq, Solu-Medrol 125, magnesium 2 g, Levaquin, DuoNeb, albuterol, Tylenol and was referred to the hospitalist for further evaluation. PAST MEDICAL HISTORY: 1. History of polysubstance abuse. 2. History of a GI bleed with duodenal ulcer in 2014. 3. Alcohol abuse. 4. History of thrombocytopenia. 5. History of hypertension. 6. History of hepatitis C. 7. History of malnutrition. 8. History of encephalopathy. 9. Tobacco abuse. 10. COPD, on room air. MEDICATIONS: 1. Thiamine 100 mg p.o. daily. 2. Omeprazole 20 mg p.o. b.i.d. 3. Magnesium oxide 100 mg p.o. daily. 4. Gabapentin 300 mg p.o. b.i.d. 5. Folic acid 1 mg p.o. daily. 6. Albuterol 1 puff inhaled every 4 hours as needed. ALLERGIES: No known drug allergies. FAMILY HISTORY: Mother . Father, unknown family history. SOCIAL HISTORY: The patient states he lives alone. He uses a walker. He still is smoking half a pack per day for the past 40 years. He states he still drinks around 3 beers per day. As mentioned, he last used cocaine about 2 to 3 weeks ago. His healthcare proxy he states is unchanged, and are his 2 friends, Whitney Aguilar, [phone] and Ritesh Mon [phone]. Code status, full code. REVIEW OF SYSTEMS: A 14-point review of systems as mentioned in the HPI, otherwise negative. PHYSICAL EXAMINATION GENERAL: Some mild respiratory distress with increased work of breathing, frail , malnourished appearing. VITAL SIGNS: T-max 101.1, pulse rate 130, respiratory rate 32, oxygen saturation 97% on 15 L OxyMask, blood pressure 151/89. HEENT: Head: Normocephalic. Pupils equal and reactive. Conjunctivae injected. Oropharynx: Mucous membranes dry. NECK: Supple. No lymphadenopathy. No nuchal rigidity. RESPIRATORY: Bilateral coarse rhonchi with bilateral expiratory wheezing. Increased work of breathing. CARDIAC: Tachycardia. Systolic murmur heard throughout. ABDOMEN: Positive bowel sounds. Distention. Soft, nontender. EXTREMITIES: No clubbing, cyanosis, or edema, +1 DPs. NEUROLOGICAL: Alert and oriented x3. No gross focal neurologic deficits. LABORATORY DATA: White count is 2.6, hemoglobin 12.3, hematocrit 37, platelets 116, 27% immature granulocytes, 20% bands. INR 1.44. Blood gas, ABG is 7.52, pCO2 is 22, . Sodium 132, potassium 3.1, chloride 96, bicarb 19, anion gap 17, BUN 16, creatinine 0.91, glucose 140. Lactic acid is 6.1. Total bili 2.1, AST is 59. CRP 221. BNP is 1208. RADIOGRAPHIC DATA: Sinus tachycardia, QTc of 519. Chest x-ray is flattened diaphragm, prominent pulmonary interstitial edema bilaterally with increased opacity on the left lower lobe. ASSESSMENT AND PLAN: This is a 63-year-old male with a past medical history of COPD, tobacco use, alcohol use, and polysubstance use, who presents to the emergency room with acute onset of respiratory distress. 1. Hypoxic respiratory failure. Assessment: The patient with increase in work of breathing, coarse rhonchorous breath sounds. He is leukopenic with bandemia. Concern for sepsis secondary to pneumonia. Also concern is his leukopenia. Plan: Blood cultures have been obtained. We will switch him over to Zosyn in the setting of possible aspiration pneumonia with his alcohol history. We will obtain a sputum culture. Follow up on his cultures and check an HIV antibody as well. I will check an alcohol level and a tox screen. There could also an element of acute decompensated heart failure, he received fluids in the ER, which is appropriate in the setting of his febrile illness. He had an echocardiogram done in July 2018 that was relatively unremarkable. We will repeat an echo. I am holding off on any further fluids at this point. We will bolus as needed, but currently he is hypertensive. Going to switch him over to high flow as well to help with his work of breathing. 2. Chronic obstructive pulmonary disease exacerbation in the setting of his illness. We will also obtain a rapid flu. He got Solu-Medrol in the emergency room. We will continue him on prednisone, albuterol, DuoNeb. 3. Abdominal pain. The patient is complaining of abdominal pain. His abdomen is distended, but appears benign. It could be constipation. We will check an abdomen and pelvis CT. 4. Fall. The patient with a recent fall and syncope. I suspect it was alcohol related. We will get a head CT. We will get a PT consult. 5. Alcohol abuse. Place the patient on a WAM protocol. 6. Metabolic acidosis related to his lactic acidosis secondary to his respiratory distress. He did get fluids and antibiotics. We will repeat his lactate. Also trend his troponin. 7. FEN. We will resume the patient on his home medications. Regular diet as long as his work of breathing improves with Vapotherm. 8. DVT prophylaxis. The patient scores high risk. We will place him on heparin subcu t.i.d. 9. Disposition. Concerned about the patient's safety at home and his condition , we will order a social work consult in addition to PT evaluation. 10. Code status. Full code. PATIENT TIME: Greater than 60 minutes was spent doing the history and physical , more than half the time spent in direct patient contact and critical care time. [id number]/[facility] #: [id number] BILL
[2018-11-30] MEDS: predniSONE TAB* 20 MG PO SCH (07:30)
[2018-11-30] MEDS: Magnesium Oxide TAB* 400 MG PO SCH (07:31)
[2018-11-30] MEDS: Multivitamins/Minerals TAB PO SCH (07:31)
[2018-11-30] MEDS: Gabapentin CAP(*) 300 MG PO SCH ×2 (07:31→21:25)
[2018-11-30] MEDS: Folic Acid TAB* 1 MG PO SCH (07:31)
[2018-11-30] MEDS: Thiamine TAB* 100 MG TAB PO SCH (07:31)
[2018-11-30] MEDS: Pantoprazole TAB * 40 MG TAB PO SCH ×2 (07:38→21:25)
[2018-11-30] MEDS: ZOSYN 3.375 GM Q8H per EXTENDED INFUSION IVPB SCH ×4 (08:22→16:32)
[2018-11-30] MEDS: LORazepam INJ* 2 MG/ML 1 ML VIAL IV PUSH SCH (08:42)
--- NOTE | 2018-11-30 09:20 | ECHO ---
Patient: STELLA OG [facility] Rec#: [id number] : 1955 Date: 11/30/2018 Age: 63y Height: 175 cm / 68.9 in Weight: 59 kg / 130.0 lbs Sex: M BSA: 1.72 Room#: [facility] Admit Date#: 11/30/2018 Type: Inpatient Referring: Alma Davies Reading: Judd Coleman MD Payroll Technician: Kathy Britton RD Transthoracic Echocardiogram Indication: Shortness of breath BP: 130/90 HR: 112 Rhythm: Tachycardia Findings History: COPD, smoker, ETOH use, Hep C. Technical Comments: The study quality is fair. The study was technically limited due to the patient's inability to lay in the left lateral decubitus position. Completed at 0845. Left Ventricle: The left ventricular chamber size is normal. Global left ventricular wall motion and contractility are within normal limits. There is normal left ventricular systolic function. The estimated ejection fraction is 60-65%. There is an E to A reversal in the mitral valve flow pattern suggestive of diastolic dysfunction. Left Atrium: The left atrial chamber size is normal. Right Ventricle: The right ventricular cavity size is normal. The right ventricular global systolic function is normal. Right Atrium: The right atrial cavity size is normal. Aortic Valve: The aortic valve structure is not well visualized. The aortic valve leaflets are mildly thickened. There is no evidence of aortic regurgitation. There is no evidence of aortic stenosis. Mitral Valve: There is mitral annular calcification. The mitral valve leaflets are mildly thickened. There is a trace of mitral regurgitation. Tricuspid Valve: The tricuspid valve leaflets are normal. There is trace tricuspid regurgitation. Unable to estimate the right ventricular systolic pressure. Pulmonic Valve: The pulmonic valve appears normal. There is no evidence of pulmonic regurgitation. There is no pulmonic stenosis. Pericardium: There is no significant pericardial effusion. Aorta: There is no dilatation of the ascending aorta. The aortic arch is not well visualized. The aortic root is normal in size. Pulmonary Artery: The main pulmonary artery is not well visualized. Venous: The inferior vena cava appears normal in size. There is a greater than 50% respiratory change in the inferior vena cava dimension. Conclusions There is normal left ventricular systolic function. The estimated ejection fraction is 60-65%. Global left ventricular wall motion and contractility are within normal limits. Normal cardiac chamber sizes. Functionally benign heart valves. Since the prior echocardiogram completed 07/24/18, there is no significant change. Measurements Name Value Normal Range RVIDd (AP) 2D 2.3 cm (0.9 - 2.6) RVDdMajor (2D) 4.4 cm (2.2 - 4.4) RAd ISD 4CH 3.8 cm (3.4 - 4.9) RA (A4C)W 4.2 cm (2.9 - 4.6) IVSd (2D) 0.8 cm (0.6 - 1) LVPWd (2D) 0.9 cm (0.6 - 1) LVIDd (2D) 4.1 cm (3.6 - 5.4) LVIDs (2D) 3 cm - LV FS (2D) 26 % (25 - 45) Aortic Annulus 1.8 cm (1.4 - 2.6) Ao root diameter (2D) 3.3 cm (2.1 - 3.5) Ascending Ao 2.8 cm (2.1 - 3.4) LA dimension (AP) 2D 2.6 cm (2.3 - 3.8) LAd ISD 4CH 4.1 cm (2.9 - 5.3) LA ISD 4CH W 4 cm (2.5 - 4.5) Name Value Normal Range LA ESV BP (A/L) index 22 ml/m2 - Name Value Normal Range MV E-wave Vmax 0.6 m/sec - MV deceleration time 197 msec - MV A-wave Vmax 0.9 m/sec - MV E:A ratio 0.6 ratio - LV septal e' Vmax 0.06 m/sec - LV lateral e' Vmax 0.04 m/sec - LV E:e' septal ratio 10 ratio - LV E:e' lateral ratio 15 ratio - Name Value Normal Range AV Vmax 1.2 m/sec - AV VTI 19 cm - AV peak gradient 5 mmHg - AV mean gradient 3 mmHg - LVOT Vmax 1 m/sec - LVOT VTI 15 cm - LVOT peak gradient 4 mmHg - LVOT mean gradient 1 mmHg - Name Value Normal Range IVC diameter 1.1 cm - Name Value Normal Range PV Vmax 1 m/sec - PV peak gradient 4 mmHg -
[2018-11-30 11:39] LABS: Calcium 8.1 mg/dL (8.6-10.3); Magnesium 1.2 mg/dL (1.9-2.7); Potassium 3.6 mmol/L (3.5-5.0)
[2018-11-30 11:40] LABS: BUN/Creatinine Ratio 18.4 (8-20); EGFR African American 124.9 (>60); EGFR Non-African American 103.3 (>60)
--- NOTE | 2018-11-30 12:24 | PN ---
Subjective Interval History: Brief update note: Pt admitted early this AM. Still requiring lorazepam for alcohol withdrawal. Pt with subjective improvement in SOB and cough, although still requiring vapotherm and tachypnic. Cont with abx, prednisone, and nebs. TTE unchanged from priors. Objective Active Medications: Acetaminophen (Tylenol Tab*) 650 mg PO Q4H PRN PRN Reason: PAIN Albuterol (Ventolin 2.5 Mg/3 Ml Neb.Mar*) 2.5 mg INH Q2H PRN PRN Reason: SOB/WHEEZING Albuterol (Ventolin Hfa Inhaler*) 1 puff INH Q4H PRN PRN Reason: WHEEZING Albuterol/Ipratropium (Duoneb (Albuterol 2.5 Mg/Ipratropium 0.5 Mg)) 1 neb INH Q4H PRN PRN Reason: SOB/WHEEZING Folic Acid (Folvite Tab*) 1 mg PO DAILY [facility] Last Admin: 11/30/18 07:31 Dose: 1 mg Gabapentin (Neurontin Cap(*)) 300 mg PO BID [facility] Last Admin: 11/30/18 07:31 Dose: 300 mg Heparin Sodium (Porcine) (Heparin Vial(*)) 5,000 units SUBCUT Q8HR [facility] Last Admin: 11/30/18 06:40 Dose: 5,000 units Piperacillin Sod/Tazobactam (Sod 3.375 gm/ Sodium Chloride) 100 mls @ 25 mls/ hr IVPB Q8H [facility] Last Admin: 11/30/18 08:22 Dose: 25 mls/hr Magnesium Sulfate (Magnesium Sulfate 2 Gm Iv*) 2 gm in 50 mls @ 50 mls/hr IVPB ONCE ONE Stop: 11/30/18 13:29 Lorazepam (Ativan Inj*) 0 - 3 mg IV PUSH .[facility] PR[facility]; Protocol Last Admin: 11/30/18 08:42 Dose: 3 mg Magnesium Oxide (Magox 400 Tab*) 800 mg PO DAILY [facility] Last Admin: 11/30/18 07:31 Dose: 800 mg Multivitamins/Minerals (Theragran/Minerals Tab*) 1 tab PO DAILY [facility] Last Admin: 11/30/18 07:31 Dose: 1 tab Nicotine (Nicotine Patch 21 Mg/24 Hr*) 1 patch TRANSDERM DAILY@0800 [facility] Last Admin: 11/30/18 06:40 Dose: 1 patch Ondansetron HCl (Zofran Inj*) 4 mg IV Q4H PRN PRN Reason: NAUSEA/VOMITING Pantoprazole Sodium (Protonix Tab*) 40 mg PO BID [facility] Last Admin: 11/30/18 07:38 Dose: 40 mg Pharmacy Consult (Zosyn Per Pharmacy*) 1 note FOLLOW UP .ZOSYN PER PHARMACY [facility] Pharmacy Profile Note (Nicotine Patch Removal Note*) 1 note PATCH OFF 2099 [facility] Prednisone (Deltasone Tab*) 40 mg PO DAILY [facility] Last Admin: 11/30/18 07:30 Dose: 40 mg Senna (Senokot Tab*) 1 tab PO BID PRN PRN Reason: CONSTIPATION Thiamine HCl (Vitamin B-1 Tab*) 100 mg PO DAILY [facility] Last Admin: 11/30/18 07:31 Dose: 100 mg Vital Signs - 8 hr 11/30/18 11/30/18 11/30/18 05:00 05:02 05:33 Temperature 99.0 F Pulse Rate 141 121 Respiratory 31 Rate Blood Pressure 128/92 (mmHg) O2 Sat by Pulse 92 95 Oximetry 11/30/18 11/30/18 11/30/18 06:02 06:09 06:10 Temperature 99.0 F Pulse Rate 118 125 Respiratory 34 31 25 Rate Blood Pressure 128/92 130/90 (mmHg) O2 Sat by Pulse 95 97 Oximetry 11/30/18 11/30/18 11/30/18 06:11 06:15 06:21 Temperature 99.0 F Pulse Rate 122 127 Respiratory 34 25 34 Rate Blood Pressure 130/90 164/94 (mmHg) O2 Sat by Pulse 97 92 Oximetry 11/30/18 11/30/18 11/30/18 06:30 06:45 07:00 Temperature Pulse Rate 115 115 Respiratory 35 31 32 Rate Blood Pressure 142/98 158/95 (mmHg) O2 Sat by Pulse 97 98 Oximetry 11/30/18 11/30/18 11/30/18 07:01 07:10 07:15 Temperature Pulse Rate 130 116 116 Respiratory 28 34 30 Rate Blood Pressure 154/91 149/92 (mmHg) O2 Sat by Pulse 89 97 96 Oximetry 11/30/18 11/30/18 11/30/18 07:30 07:45 08:00 Temperature Pulse Rate 114 118 132 Respiratory 28 27 28 Rate Blood Pressure 161/96 171/125 185/149 (mmHg) O2 Sat by Pulse 97 92 95 Oximetry 11/30/18 11/30/18 11/30/18 08:01 08:15 08:31 Temperature Pulse Rate 123 119 122 Respiratory 35 28 34 Rate Blood Pressure 152/100 142/113 (mmHg) O2 Sat by Pulse 92 96 96 Oximetry 11/30/18 11/30/18 11/30/18 08:42 08:45 09:00 Temperature Pulse Rate 127 131 Respiratory 33 34 40 Rate Blood Pressure 172/104 142/96 (mmHg) O2 Sat by Pulse 95 95 Oximetry 11/30/18 11/30/18 11/30/18 09:01 09:15 09:30 Temperature Pulse Rate 131 131 131 Respiratory 43 42 41 Rate Blood Pressure 132/86 132/87 (mmHg) O2 Sat by Pulse 95 94 93 Oximetry 11/30/18 11/30/18 11/30/18 09:45 10:00 10:15 Temperature Pulse Rate 126 128 129 Respiratory 42 38 40 Rate Blood Pressure 145/92 135/87 134/87 (mmHg) O2 Sat by Pulse 94 100 100 Oximetry 11/30/18 11/30/18 11/30/18 10:30 10:45 10:52 Temperature 100.4 F Pulse Rate 127 128 Respiratory 31 35 Rate Blood Pressure 153/106 136/89 (mmHg) O2 Sat by Pulse 100 100 Oximetry 11/30/18 11:00 Temperature Pulse Rate 130 Respiratory 34 Rate Blood Pressure 129/88 (mmHg) O2 Sat by Pulse 100 Oximetry Oxygen Devices in Use Now: High Flow Heated Nasal Cannula Appearance: comfortable but mildly diaphoretic, able to speak in full sentences Ears/Nose/Mouth/Throat: - - tongue fasiculations Respiratory: - - increased WOB, rhonchi/wheeze throughout Cardiovascular: - - tachy but regular, no mrg Extremities: - - hand tremor Result Diagrams: 11/30/18 05:35 11/30/18 10:34 Microbiology and Other Data: Microbiology 11/30/18 04:51 Nasal Screen MRSA (PCR) - Final Nasal Mrsa Not Detected 11/30/18 04:40 Legionella Urinary Antigen - Final Urine Negative Legionella Antigen Streptococcus pneumoniae Ag Screen - Final Positive S. Pneumo Antigen 11/30/18 04:51 Influenza Types A,B Antigen - Final Nasal Specimen received for Influenza A/B Molecular testing Assess/Plan/Problems-Billing 63M with COPD and active tobacco use, etoh use disorder, cocaine use, h/o GI bleed, HCV s/p treatment and possible with cirrhosis, presents with dyspnea and weakness, found with tachypnea, rhonchi on exam, and imaging concerning for PNA. Admitted for acute respiratory failure and also being treated for alcohol withdrawal. - Patient Problems (1) Pneumonia Comment: Seen on CT/CXR. - cont empiric abx - f/u cultures (2) COPD exacerbation Comment: secondary to PNA - cont prednisone (11/30 - ) - cont nebs prn - on hi-flores in ICU, wean as tolerated - SaO2 goal 88-92% (3) ETOH abuse Comment: - [facility] protocol prn - on gabapentin - cont folic acid / thiamine / MVI Status and Disposition: ICU while requiring Vapotherm.
[2018-11-30] MEDS: Enoxaparin(*) 40 MG/0.4 ML SYR SUBCUT SCH (14:27)
[2018-11-30] MEDS ORDERED: chlordiazePOXIDE CAP* 25 MG PO ONE (15:00)
[2018-11-30] MEDS: Acetaminophen TAB* 325 MG PO PRN (15:01)
[2018-11-30] MEDS: NS 0.9% 1000 ML** 1,000 ML IV SCH (16:30)
[2018-11-30] MEDS: Nicotine Patch Removal NOTE PATCH OFF SCH (21:25)
[2018-12-01] MEDS: Acetaminophen TAB* 325 MG PO PRN (00:37)
[2018-12-01] MEDS: LORazepam INJ* 2 MG/ML 1 ML VIAL IV PUSH SCH (01:00)
[2018-12-01] MEDS: ZOSYN 3.375 GM Q8H per EXTENDED INFUSION IVPB SCH ×6 (01:01→16:42)
[2018-12-01] MEDS: NS 0.9% 1000 ML** 1,000 ML IV SCH ×2 (02:02→11:31)
[2018-12-01 06:25] LABS: Hematocrit 31 % (36-46); Hemoglobin 10.1 g/dL (14.0-18.0); Mean Corpuscular HGB Conc 33 g/dL (31-36); Mean Corpuscular Hemoglobin 30 pg (27-31); Mean Corpuscular Volume 92 fL (80-94); Mean Platelet Volume 8.6 fL (7.4-10.4); Platelet Count 119 10^3/uL (150-450); Red Blood Count 3.38 10^6 /uL (4.18-5.48); Red Cell Distribution Width 18 % (10.5-15); White Blood Count 5.5 10^3/uL (3.5-10.8)
[2018-12-01 06:49] LABS: BUN/Creatinine Ratio 22.7 (8-20); Blood Urea Nitrogen 17 mg/dL (6-24); CO2 Carbon Dioxide 21 mmol/L (22-32); Calcium 7.8 mg/dL (8.6-10.3); Chloride 105 mmol/L (101-111); EGFR African American 126.9 (>60); EGFR Non-African American 104.8 (>60); Glucose 97 mg/dL (70-100); Sodium 134 mmol/L (135-145)
[2018-12-01 07:04] LABS: Immature Granulocytes 20 % (0-9); Lymphocytes % 4 %; Metamyelocytes % 3 % (0-2); Monocytes % 4 %; Myelocytes % 3 % (0-1); Neutrophil % 72 %
[2018-12-01 07:05] LABS: Polychromasia 1+
[2018-12-01 07:06] LABS: ABS Neutrophils 5.06 10^3/ul (1.5-7.7)
[2018-12-01] MEDS: Thiamine TAB* 100 MG TAB PO SCH (09:11)
[2018-12-01] MEDS: predniSONE TAB* 20 MG PO SCH (09:11)
[2018-12-01] MEDS: Folic Acid TAB* 1 MG PO SCH (09:11)
[2018-12-01] MEDS: Gabapentin CAP(*) 300 MG PO SCH ×2 (09:11→21:56)
[2018-12-01] MEDS: Multivitamins/Minerals TAB PO SCH (09:11)
[2018-12-01] MEDS: Pantoprazole TAB * 40 MG TAB PO SCH ×2 (09:11→21:56)
[2018-12-01] MEDS: Magnesium Oxide TAB* 400 MG PO SCH (09:11)
[2018-12-01] MEDS: Nicotine PATCH 21 MG/24 HR* PATCH TRANSDERM SCH (09:14)
[2018-12-01 10:27] LABS: Anion Gap 8 mmol/L (2-11)
[2018-12-01 11:24] LABS: Magnesium 1.9 mg/dL (1.9-2.7); Potassium Redraw 3.2 mmol/L (3.5-5.0)
[2018-12-01] MEDS ORDERED: Potassium Chloride LIQUID* 20 MEQ PACKET PO ONE (12:45)
[2018-12-01] MEDS: Enoxaparin(*) 40 MG/0.4 ML SYR SUBCUT SCH (12:49)
[2018-12-01] MEDS ORDERED: NS 0.9% 1000 ML** 1,000 ML IV SCH (16:54)
[2018-12-01] MEDS ORDERED: Zosyn per Pharmacy* NOTE FOLLOW UP SCH (17:09)
--- NOTE | 2018-12-01 19:37 | PN ---
Subjective Interval History: Pt feels better today. Reports improved breathing and doesn't think he's withdrawing anymore. Does reports a lot of fatigue. On interview, noted that pt had nasal cannula off face (up over bridge of nose) and SaO2 97%. Can leave ICU today. Objective Active Medications: Acetaminophen (Tylenol Tab*) 650 mg PO Q4H PRN PRN Reason: PAIN Last Admin: 12/01/18 00:37 Dose: 650 mg Albuterol (Ventolin 2.5 Mg/3 Ml Neb.Mar*) 2.5 mg INH Q2H PRN PRN Reason: SOB/WHEEZING Albuterol (Ventolin Hfa Inhaler*) 1 puff INH Q4H PRN PRN Reason: WHEEZING Albuterol/Ipratropium (Duoneb (Albuterol 2.5 Mg/Ipratropium 0.5 Mg)) 1 neb INH Q4H PRN PRN Reason: SOB/WHEEZING Cefdinir (Cefdinir Cap*) 300 mg PO BID [facility] Enoxaparin Sodium (Lovenox(*)) 40 mg SUBCUT Q24H [facility] Last Admin: 12/01/18 12:49 Dose: 40 mg Folic Acid (Folvite Tab*) 1 mg PO DAILY [facility] Last Admin: 12/01/18 09:11 Dose: 1 mg Gabapentin (Neurontin Cap(*)) 300 mg PO BID [facility] Last Admin: 12/01/18 09:11 Dose: 300 mg Piperacillin Sod/Tazobactam (Sod 3.375 gm/ Sodium Chloride) 100 mls @ 25 mls/ hr IVPB Q8H [facility] Stop: 12/02/18 01:30 Last Admin: 12/01/18 16:42 Dose: 25 mls/hr Sodium Chloride (Ns 0.9% 1000 Ml) 1,000 mls @ 50 mls/hr IV PER RATE [facility] Lorazepam (Ativan Inj*) 0 - 3 mg IV PUSH .PER [facility] PROTOCOL [facility]; Protocol Last Admin: 12/01/18 01:00 Dose: 2 mg Magnesium Oxide (Magox 400 Tab*) 800 mg PO DAILY [facility] Last Admin: 12/01/18 09:11 Dose: 800 mg Multivitamins/Minerals (Theragran/Minerals Tab*) 1 tab PO DAILY [facility] Last Admin: 12/01/18 09:11 Dose: 1 tab Nicotine (Nicotine Patch 21 Mg/24 Hr*) 1 patch TRANSDERM DAILY@0800 [facility] Last Admin: 12/01/18 09:14 Dose: Not Given Ondansetron HCl (Zofran Inj*) 4 mg IV Q4H PRN PRN Reason: NAUSEA/VOMITING Pantoprazole Sodium (Protonix Tab*) 40 mg PO BID [facility] Last Admin: 12/01/18 09:11 Dose: 40 mg Pharmacy Consult (Zosyn Per Pharmacy*) 1 note FOLLOW UP .ZOSYN PER PHARMACY [facility] Stop: 12/02/18 02:00 Pharmacy Profile Note (Nicotine Patch Removal Note*) 1 note PATCH OFF 2100 [facility] Last Admin: 11/30/18 21:25 Dose: 1 note Prednisone (Deltasone Tab*) 40 mg PO DAILY [facility] Last Admin: 12/01/18 09:11 Dose: 40 mg Senna (Senokot Tab*) 1 tab PO BID PRN PRN Reason: CONSTIPATION Thiamine HCl (Vitamin B-1 Tab*) 100 mg PO DAILY [facility] Last Admin: 12/01/18 09:11 Dose: 100 mg Vital Signs - 8 hr 12/01/18 12/01/18 12/01/18 12:00 12:01 13:00 Temperature 98.9 F Pulse Rate 102 103 107 Respiratory 28 30 33 Rate Blood Pressure 117/73 127/75 (mmHg) O2 Sat by Pulse 93 94 96 Oximetry 12/01/18 12/01/18 12/01/18 13:01 14:00 14:01 Temperature Pulse Rate 107 184 138 Respiratory 29 37 36 Rate Blood Pressure 139/86 (mmHg) O2 Sat by Pulse 94 79 86 Oximetry 12/01/18 12/01/18 12/01/18 14:31 15:00 15:01 Temperature Pulse Rate 112 114 114 Respiratory 34 35 36 Rate Blood Pressure 118/84 123/85 (mmHg) O2 Sat by Pulse 97 98 90 Oximetry 12/01/18 12/01/18 12/01/18 16:00 16:45 17:00 Temperature 98.9 F Pulse Rate 98 91 Respiratory 31 33 Rate Blood Pressure 126/79 (mmHg) O2 Sat by Pulse 99 96 Oximetry 12/01/18 12/01/18 12/01/18 18:00 19:00 19:02 Temperature Pulse Rate 86 99 99 Respiratory 32 34 36 Rate Blood Pressure 130/80 143/81 (mmHg) O2 Sat by Pulse 98 92 93 Oximetry Oxygen Devices in Use Now: None Ears/Nose/Mouth/Throat: Mucous Membranes Moist Neck: NL Appearance and Movements; NL JVP Respiratory: - - mild diffuse wheeze, improving Cardiovascular: RRR Extremities: No Edema Result Diagrams: 12/01/18 05:58 12/01/18 11:00 Microbiology and Other Data: Microbiology 11/30/18 04:51 Nasal Screen MRSA (PCR) - Final Nasal Mrsa Not Detected 11/30/18 04:40 Legionella Urinary Antigen - Final Urine Negative Legionella Antigen Streptococcus pneumoniae Ag Screen - Final Positive S. Pneumo Antigen 11/30/18 04:51 Influenza Types A,B Antigen - Final Nasal Specimen received for Influenza A/B Molecular testing Assess/Plan/Problems-Billing 63M with COPD and active tobacco use, etoh use disorder, cocaine use, h/o GI bleed, HCV s/p treatment and possible with cirrhosis, presents with dyspnea and weakness, found with tachypnea, rhonchi on exam, and imaging concerning for PNA. Admitted for acute respiratory failure and also being treated for alcohol withdrawal. - Patient Problems (1) Pneumonia Comment: Seen on CT/CXR. Strep pneumo antigen positive. - switch Zosyn (11/30 - ) to cefdinir PO tomorrow AM - f/u cultures (2) COPD exacerbation Comment: secondary to PNA - cont prednisone (11/30 - ) - cont nebs prn - wean O2 as tolerated - SaO2 goal 88-92% (3) ETOH abuse Comment: - [facility] protocol prn - on gabapentin - cont folic acid / thiamine / MVI Status and Disposition: ICU while requiring Vapotherm.
[2018-12-01] MEDS: D5W 1/2 NS KCl 20 Meq 1000 ML* 1,000 ML IV SCH (20:35)
[2018-12-01] MEDS: Nicotine Patch Removal NOTE PATCH OFF SCH (21:56)
[2018-12-02] MEDS: ZOSYN 3.375 GM Q8H per EXTENDED INFUSION IVPB SCH ×2 (01:36)
[2018-12-02 06:37] LABS: Hematocrit 30 % (36-46); Hemoglobin 10.1 g/dL (14.0-18.0); Mean Corpuscular HGB Conc 33 g/dL (31-36); Mean Corpuscular Hemoglobin 30 pg (27-31); Mean Corpuscular Volume 92 fL (80-94); Mean Platelet Volume 8.5 fL (7.4-10.4); Platelet Count 119 10^3/uL (150-450); Red Blood Count 3.32 10^6 /uL (4.18-5.48); Red Cell Distribution Width 18 % (10.5-15)
[2018-12-02 06:57] LABS: BUN/Creatinine Ratio 34.4 (8-20); EGFR African American 152.3 (>60); EGFR Non-African American 125.9 (>60); Magnesium 1.8 mg/dL (1.9-2.7); Potassium 3.7 mmol/L (3.5-5.0)
[2018-12-02] MEDS ORDERED: Magnesium Sulfate 1 GM IV* 1 GM/100 ML BAG IV ONE (08:30)
[2018-12-02] MEDS: Cefdinir cap* 300 MG CAP PO SCH ×2 (08:37→21:23)
[2018-12-02] MEDS: D5W 1/2 NS KCl 20 Meq 1000 ML* 1,000 ML IV SCH ×2 (08:37→19:36)
[2018-12-02] MEDS: Gabapentin CAP(*) 300 MG PO SCH ×2 (08:37→21:23)
[2018-12-02] MEDS: Multivitamins/Minerals TAB PO SCH (08:37)
[2018-12-02] MEDS: predniSONE TAB* 20 MG PO SCH (08:38)
[2018-12-02] MEDS: Magnesium Oxide TAB* 400 MG PO SCH (08:38)
[2018-12-02] MEDS: Thiamine TAB* 100 MG TAB PO SCH (08:38)
[2018-12-02] MEDS: Nicotine PATCH 21 MG/24 HR* PATCH TRANSDERM SCH (08:38)
[2018-12-02] MEDS: Pantoprazole TAB * 40 MG TAB PO SCH ×2 (08:38→21:23)
[2018-12-02] MEDS: Folic Acid TAB* 1 MG PO SCH (08:38)
[2018-12-02] MEDS: Enoxaparin(*) 40 MG/0.4 ML SYR SUBCUT SCH (12:44)
--- NOTE | 2018-12-02 20:05 | PN ---
Subjective Interval History: No longer withdrawing from alcohol, improved breathing, still with fatigue. Appetite has improved and he was able to eat entire breakfast. Objective Active Medications: Albuterol (Ventolin 2.5 Mg/3 Ml Neb.Mar*) 2.5 mg INH Q2H PRN PRN Reason: SOB/WHEEZING Albuterol (Ventolin Hfa Inhaler*) 1 puff INH Q4H PRN PRN Reason: WHEEZING Cefdinir (Cefdinir Cap*) 300 mg PO BID [facility] Last Admin: 12/02/18 08:37 Dose: 300 mg Enoxaparin Sodium (Lovenox(*)) 40 mg SUBCUT Q24H [facility] Last Admin: 12/02/18 12:44 Dose: 40 mg Folic Acid (Folvite Tab*) 1 mg PO DAILY [facility] Last Admin: 12/02/18 08:38 Dose: 1 mg Gabapentin (Neurontin Cap(*)) 300 mg PO BID [facility] Last Admin: 12/02/18 08:37 Dose: 300 mg Magnesium Oxide (Magox 400 Tab*) 800 mg PO DAILY [facility] Last Admin: 12/02/18 08:38 Dose: 800 mg Multivitamins/Minerals (Theragran/Minerals Tab*) 1 tab PO DAILY [facility] Last Admin: 12/02/18 08:37 Dose: 1 tab Nicotine (Nicotine Patch 21 Mg/24 Hr*) 1 patch TRANSDERM DAILY@0800 [facility] Last Admin: 12/02/18 08:38 Dose: 1 patch Ondansetron HCl (Zofran Inj*) 4 mg IV Q4H PRN PRN Reason: NAUSEA/VOMITING Pantoprazole Sodium (Protonix Tab*) 40 mg PO BID [facility] Last Admin: 12/02/18 08:38 Dose: 40 mg Pharmacy Profile Note (Nicotine Patch Removal Note*) 1 note PATCH OFF 2100 [facility] Last Admin: 12/01/18 21:56 Dose: Not Given Prednisone (Deltasone Tab*) 40 mg PO DAILY [facility] Last Admin: 12/02/18 08:38 Dose: 40 mg Senna (Senokot Tab*) 1 tab PO BID PRN PRN Reason: CONSTIPATION Thiamine HCl (Vitamin B-1 Tab*) 100 mg PO DAILY [facility] Last Admin: 12/02/18 08:38 Dose: 100 mg Vital Signs - 8 hr 12/02/18 12/02/18 15:11 19:21 Temperature 97.2 F 98.3 F Pulse Rate 97 91 Respiratory 18 18 Rate Blood Pressure 145/91 152/86 (mmHg) O2 Sat by Pulse 100 98 Oximetry Oxygen Devices in Use Now: Nasal Cannula Appearance: chronical ill, emaciated Ears/Nose/Mouth/Throat: Mucous Membranes Moist Respiratory: - - reduced air entry but improved, scant wheeze Cardiovascular: RRR, - - Nutrition: Malnutrition Diagnosis/Plan Malnutrition Assessment by Registered Dietitian: Malnutrition Assessment Clinical Characteristics Chronic,Moderate Malnutrition Assessment: - 12% wt loss in past six months Criteria - mild temporal muscle wasting - suspected po intake <75% EEE x 1 month or more Malnutrition Assessment: Will encourage po intake, completion of menus, Interventions and offer Ensure Enlive w/meals to optimize kcal -prot intake and promote wt gain; will monitor acceptance. Malnutrition Assessment: Goals 1. Adequate po intake to promote weight gain toward stated UBW (125#) 2. Pt will tolerate least-restrictive diet texture without s/sx of difficulty chewing 3. Achieve and maintain serum electrolytes WNL 4. Maintain bowel regularity; no constipation ( or diarrhea) Result Diagrams: 12/02/18 05:45 12/02/18 05:45 Microbiology and Other Data: Microbiology 11/30/18 04:51 Nasal Screen MRSA (PCR) - Final Nasal Mrsa Not Detected 11/30/18 04:40 Legionella Urinary Antigen - Final Urine Negative Legionella Antigen Streptococcus pneumoniae Ag Screen - Final Positive S. Pneumo Antigen 11/30/18 04:51 Influenza Types A,B Antigen - Final Nasal Specimen received for Influenza A/B Molecular testing Assess/Plan/Problems-Billing 63M with COPD and active tobacco use, etoh use disorder, malnutrition, cocaine use, h/o GI bleed, HCV s/p treatment and possible with cirrhosis, presents with dyspnea and weakness, found with tachypnea, and imaging concerning for PNA. Admitted for acute respiratory failure and also treated for alcohol withdrawal. - Patient Problems (1) Pneumonia Comment: Seen on CT/CXR. Strep pneumo antigen positive. - switch Zosyn (11/30 - 12/02) to cefdinir PO (12/02 - ) - COPD treatment as below (2) COPD exacerbation Comment: secondary to PNA - cont prednisone (11/30 - ) - cont nebs prn - wean O2 as tolerated - SaO2 goal 88-92% (3) ETOH abuse Comment: No longer with withdrawal. - on gabapentin - cont folic acid / thiamine / MVI (4) Malnutrition of moderate degree Comment: Chronic issue for years, likely from etoh abuse. Low prealbumin. - encourage PO (5) Muscular deconditioning Comment: - PT/OT consults - Highly recommend [facility] Status and Disposition: Inpatient. Will need assistance for DC planning given homeless.
[2018-12-02] MEDS: Acetaminophen TAB* 325 MG PO PRN (21:24)
[2018-12-02] MEDS: Nicotine Patch Removal NOTE PATCH OFF SCH (22:54)
[2018-12-03 06:31] LABS: BUN/Creatinine Ratio 33.9 (8-20); Calcium 8.8 mg/dL (8.6-10.3); EGFR African American 177.7 (>60); EGFR Non-African American 146.9 (>60); Magnesium 1.7 mg/dL (1.9-2.7); Phosphorus 1.2 mg/dL (2.5-5.0); Potassium 3.7 mmol/L (3.5-5.0)
[2018-12-03] MEDS: Multivitamins/Minerals TAB PO SCH (08:39)
[2018-12-03] MEDS: Thiamine TAB* 100 MG TAB PO SCH (08:39)
[2018-12-03] MEDS: Magnesium Oxide TAB* 400 MG PO SCH (08:40)
[2018-12-03] MEDS: Pantoprazole TAB * 40 MG TAB PO SCH ×2 (08:40→22:09)
[2018-12-03] MEDS: Folic Acid TAB* 1 MG PO SCH (08:40)
[2018-12-03] MEDS: Cefdinir cap* 300 MG CAP PO SCH ×2 (08:40→22:09)
[2018-12-03] MEDS: predniSONE TAB* 20 MG PO SCH (08:40)
[2018-12-03] MEDS: Gabapentin CAP(*) 300 MG PO SCH ×2 (08:40→22:09)
[2018-12-03] MEDS: Nicotine PATCH 21 MG/24 HR* PATCH TRANSDERM SCH (08:40)
[2018-12-03] MEDS: Acetaminophen TAB* 325 MG PO PRN ×2 (10:03→22:10)
[2018-12-03] MEDS: Enoxaparin(*) 40 MG/0.4 ML SYR SUBCUT SCH (13:35)
--- NOTE | 2018-12-03 17:37 | PN ---
Subjective Date of Service: 12/03/18 Interval History: HOSPITALIST PROGRESS NOTE Patient seen and examined at bedside. Care reviewed and d/w Chiqui Kwon RN. He's sleeping, but easily arousable. Offers no complaints. Family History: Unchanged from Admission Social History: Unchanged from Admission Past Medical History: Unchanged from Admission Objective Active Medications: Acetaminophen (Tylenol Tab*) 650 mg PO Q4H PRN PRN Reason: PAIN Last Admin: 12/03/18 10:03 Dose: 650 mg Albuterol (Ventolin 2.5 Mg/3 Ml Neb.Mar*) 2.5 mg INH Q2H PRN PRN Reason: SOB/WHEEZING Albuterol (Ventolin Hfa Inhaler*) 1 puff INH Q4H PRN PRN Reason: WHEEZING Cefdinir (Cefdinir Cap*) 300 mg PO BID [facility] Last Admin: 12/03/18 08:40 Dose: 300 mg Enoxaparin Sodium (Lovenox(*)) 40 mg SUBCUT Q24H [facility] Last Admin: 12/03/18 13:35 Dose: 40 mg Folic Acid (Folvite Tab*) 1 mg PO DAILY [facility] Last Admin: 12/03/18 08:40 Dose: 1 mg Gabapentin (Neurontin Cap(*)) 300 mg PO BID [facility] Last Admin: 12/03/18 08:40 Dose: 300 mg Magnesium Oxide (Magox 400 Tab*) 800 mg PO DAILY [facility] Last Admin: 12/03/18 08:40 Dose: 800 mg Multivitamins/Minerals (Theragran/Minerals Tab*) 1 tab PO DAILY [facility] Last Admin: 12/03/18 08:39 Dose: 1 tab Nicotine (Nicotine Patch 21 Mg/24 Hr*) 1 patch TRANSDERM DAILY@0800 [facility] Last Admin: 12/03/18 08:40 Dose: 1 patch Ondansetron HCl (Zofran Inj*) 4 mg IV Q4H PRN PRN Reason: NAUSEA/VOMITING Pantoprazole Sodium (Protonix Tab*) 40 mg PO BID [facility] Last Admin: 12/03/18 08:40 Dose: 40 mg Pharmacy Profile Note (Nicotine Patch Removal Note*) 1 note PATCH OFF 2100 [facility] Last Admin: 12/02/18 22:54 Dose: 1 note Prednisone (Deltasone Tab*) 40 mg PO DAILY [facility] Last Admin: 12/03/18 08:40 Dose: 40 mg Senna (Senokot Tab*) 1 tab PO BID PRN PRN Reason: CONSTIPATION Thiamine HCl (Vitamin B-1 Tab*) 100 mg PO DAILY [facility] Last Admin: 12/03/18 08:39 Dose: 100 mg Vital Signs - 8 hr 12/03/18 12/03/18 12/03/18 10:40 11:20 15:37 Temperature 98.0 F 98.2 F Pulse Rate 91 82 Respiratory 16 20 16 Rate Blood Pressure 160/88 152/85 (mmHg) O2 Sat by Pulse 97 99 Oximetry Oxygen Devices in Use Now: Nasal Cannula Appearance: Elderly cachectic gentleman lying in bed in NAD. Eyes: No Scleral Icterus Ears/Nose/Mouth/Throat: Mucous Membranes Moist Neck: Trachea Midline Respiratory: Symmetrical Chest Expansion and Respiratory Effort, Clear to Auscultation Cardiovascular: RRR - Normal S1 and S2 Neurological: - - Easily arousable, Ox2 (Self and place) - Nutrition: Malnutrition Diagnosis/Plan Malnutrition Assessment by Registered Dietitian: Malnutrition Assessment Clinical Characteristics Chronic,Moderate Malnutrition Assessment: - 12% wt loss in past six months Criteria - mild temporal muscle wasting - suspected po intake <75% EEE x 1 month or more Malnutrition Assessment: Will encourage po intake, completion of menus, Interventions and offer Ensure Enlive w/meals to optimize kcal -prot intake and promote wt gain; will monitor acceptance. Malnutrition Assessment: Goals 1. Adequate po intake to promote weight gain toward stated UBW (125#) 2. Pt will tolerate least-restrictive diet texture without s/sx of difficulty chewing 3. Achieve and maintain serum electrolytes WNL 4. Maintain bowel regularity; no constipation ( or diarrhea) Result Diagrams: 12/02/18 05:45 12/03/18 05:42 Microbiology and Other Data: Microbiology 11/30/18 04:51 Nasal Screen MRSA (PCR) - Final Nasal Mrsa Not Detected 11/30/18 04:40 Legionella Urinary Antigen - Final Urine Negative Legionella Antigen Streptococcus pneumoniae Ag Screen - Final Positive S. Pneumo Antigen 11/30/18 04:51 Influenza Types A,B Antigen - Final Nasal Specimen received for Influenza A/B Molecular testing Assess/Plan/Problems-Billing Assessment: Mr Mccarthy is a 63yo M with COPD and active tobacco use, PSA (ETOH, cocaine), malnutrition, h/o GI bleed, HCV s/p treatment, who presented to ED with dyspnea and weakness, found to have pneumococcal pneumonia. Hospital stay complicated by acute respiratory failure and alcohol withdrawal. - Patient Problems (1) Pneumococcal pneumonia Comment: - CxR with multifocal consolidation and pneumococcal Ag is positive. - Continue Cefdnir. (2) COPD exacerbation Comment: - secondary to PNA - cont prednisone, bronchodilators. (3) ETOH abuse Comment: - Withdrawal is resolved. - cont folic acid / thiamine / MVI (4) Malnutrition of moderate degree Comment: - As evidenced by 12% wt loss in past six months, mild temporal muscle wasting, and suspected po intake <75% EEE x 1 month or more - Dietitian input appreciated. (5) Muscular deconditioning Comment: - PT/OT consults - May qualify for AJAY (6) DVT prophylaxis Comment: - Lovenox. (7) Full code status Status and Disposition: Inpatient. Will need SW/CM assistance for safe d/c planning given homelessness.
[2018-12-03] MEDS ORDERED: Magnesium Sulfate 2 GM IV* 2 GM/50 ML BAG IVPB ONE (17:44)
[2018-12-03] MEDS: Nicotine Patch Removal NOTE PATCH OFF SCH (22:14)
[2018-12-03] MEDS: Mouth Piece, Nicotine* 1 EACH CARTRIDGE INH ONE (23:37)
[2018-12-03] MEDS: Nicotine Inhaler* 10 MG AMP INH PRN (23:38)
[2018-12-04] MEDS ORDERED: hydrALAZINE IV* 20 MG/ML VIAL IV SLOW PU PRN (08:04)
[2018-12-04] MEDS: Nicotine PATCH 21 MG/24 HR* PATCH TRANSDERM SCH (08:19)
[2018-12-04] MEDS: Cefdinir cap* 300 MG CAP PO SCH ×2 (08:21→20:14)
[2018-12-04] MEDS: Thiamine TAB* 100 MG TAB PO SCH (08:22)
[2018-12-04] MEDS: Pantoprazole TAB * 40 MG TAB PO SCH ×2 (08:22→20:14)
[2018-12-04] MEDS: Magnesium Oxide TAB* 400 MG PO SCH (08:22)
[2018-12-04] MEDS: Folic Acid TAB* 1 MG PO SCH (08:23)
[2018-12-04] MEDS: amLODIPine TAB* 5 MG PO SCH (08:23)
[2018-12-04] MEDS: predniSONE TAB* 20 MG PO SCH (08:23)
[2018-12-04] MEDS: Multivitamins/Minerals TAB PO SCH (08:23)
[2018-12-04] MEDS: Gabapentin CAP(*) 300 MG PO SCH ×2 (08:24→20:14)
[2018-12-04] MEDS: Acetaminophen TAB* 325 MG PO PRN (13:00)
[2018-12-04] MEDS: Enoxaparin(*) 40 MG/0.4 ML SYR SUBCUT SCH (14:01)
--- NOTE | 2018-12-04 15:50 | PN ---
Subjective Date of Service: 12/04/18 Interval History: HOSPITALIST PROGRESS NOTE Patient seen and examined at bedside. Care reviewed and d/w Shaina Spring RN. He offers no complaints at this time. Comfortable watching TV. Family History: Unchanged from Admission Social History: Unchanged from Admission Past Medical History: Unchanged from Admission Objective Active Medications: Acetaminophen (Tylenol Tab*) 650 mg PO Q4H PRN PRN Reason: PAIN Last Admin: 12/04/18 13:00 Dose: 650 mg Albuterol (Ventolin 2.5 Mg/3 Ml Neb.Mar*) 2.5 mg INH Q2H PRN PRN Reason: SOB/WHEEZING Albuterol (Ventolin Hfa Inhaler*) 1 puff INH Q4H PRN PRN Reason: WHEEZING Amlodipine Besylate (Norvasc Tab*) 5 mg PO DAILY [facility] Last Admin: 12/04/18 08:23 Dose: 5 mg Cefdinir (Cefdinir Cap*) 300 mg PO BID [facility] Last Admin: 12/04/18 08:21 Dose: 300 mg Enoxaparin Sodium (Lovenox(*)) 40 mg SUBCUT Q24H [facility] Last Admin: 12/04/18 14:01 Dose: 40 mg Folic Acid (Folvite Tab*) 1 mg PO DAILY [facility] Last Admin: 12/04/18 08:23 Dose: 1 mg Gabapentin (Neurontin Cap(*)) 300 mg PO BID [facility] Last Admin: 12/04/18 08:24 Dose: 300 mg Hydralazine HCl (Apresoline Iv*) 5 mg IV SLOW PU Q6H PRN PRN Reason: SBP>180 Magnesium Oxide (Magox 400 Tab*) 800 mg PO DAILY [facility] Last Admin: 12/04/18 08:22 Dose: 800 mg Multivitamins/Minerals (Theragran/Minerals Tab*) 1 tab PO DAILY [facility] Last Admin: 12/04/18 08:23 Dose: 1 tab Nicotine (Nicotine Patch 21 Mg/24 Hr*) 1 patch TRANSDERM DAILY@0800 [facility] Last Admin: 12/04/18 08:19 Dose: 1 patch Nicotine (Nicotine Inhaler*) 10 mg INH Q2H PRN PRN Reason: CRAVING Last Admin: 12/03/18 23:38 Dose: 10 mg Ondansetron HCl (Zofran Inj*) 4 mg IV Q4H PRN PRN Reason: NAUSEA/VOMITING Pantoprazole Sodium (Protonix Tab*) 40 mg PO BID [facility] Last Admin: 12/04/18 08:22 Dose: 40 mg Pharmacy Profile Note (Nicotine Patch Removal Note*) 1 note PATCH OFF 2100 [facility] Last Admin: 12/03/18 22:14 Dose: 1 note Prednisone (Deltasone Tab*) 40 mg PO DAILY [facility] Last Admin: 12/04/18 08:23 Dose: 40 mg Senna (Senokot Tab*) 1 tab PO BID PRN PRN Reason: CONSTIPATION Thiamine HCl (Vitamin B-1 Tab*) 100 mg PO DAILY [facility] Last Admin: 12/04/18 08:22 Dose: 100 mg Vital Signs - 8 hr 12/04/18 12/04/18 12/04/18 08:24 08:38 10:45 Pulse Rate 80 Respiratory 16 14 18 Rate O2 Sat by Pulse 98 Oximetry Oxygen Devices in Use Now: Nasal Cannula Appearance: Elderly gentleman, appears older than stated age, lying in bed in [facility]. Eyes: No Scleral Icterus Ears/Nose/Mouth/Throat: Mucous Membranes Moist Neck: Trachea Midline Respiratory: Symmetrical Chest Expansion and Respiratory Effort, - - BS+ bilaterally coarse with no added sounds Cardiovascular: RRR - Normal S1 and S2 Neurological: - - AAOx2 (self and place), NAVARRETE - Nutrition: Malnutrition Diagnosis/Plan Malnutrition Assessment by Registered Dietitian: Malnutrition Assessment Clinical Characteristics Chronic,Moderate Malnutrition Assessment: - 12% wt loss in past six months Criteria - mild temporal muscle wasting - suspected po intake <75% EEE x 1 month or more Malnutrition Assessment: Will encourage po intake, completion of menus, Interventions and offer Ensure Enlive w/meals to optimize kcal -prot intake and promote wt gain; will monitor acceptance. Malnutrition Assessment: Goals 1. Adequate po intake to promote weight gain toward stated UBW (125#) 2. Pt will tolerate least-restrictive diet texture without s/sx of difficulty chewing 3. Achieve and maintain serum electrolytes WNL 4. Maintain bowel regularity; no constipation ( or diarrhea) Result Diagrams: 12/02/18 05:45 12/03/18 05:42 Microbiology and Other Data: Microbiology 11/30/18 04:51 Nasal Screen MRSA (PCR) - Final Nasal Mrsa Not Detected 11/30/18 04:40 Legionella Urinary Antigen - Final Urine Negative Legionella Antigen Streptococcus pneumoniae Ag Screen - Final Positive S. Pneumo Antigen 11/30/18 04:51 Influenza Types A,B Antigen - Final Nasal Specimen received for Influenza A/B Molecular testing Assess/Plan/Problems-Billing Assessment: Mr Mccarthy is a 63yo M with COPD and active tobacco use, PSA (ETOH, cocaine), malnutrition, h/o GI bleed, HCV s/p treatment, who presented to ED with dyspnea and weakness, found to have pneumococcal pneumonia. Hospital stay complicated by acute respiratory failure and alcohol withdrawal. - Patient Problems (1) Pneumococcal pneumonia Comment: - CxR with multifocal consolidation and pneumococcal Ag is positive. - Continue Cefdnir. (2) COPD exacerbation Comment: - secondary to PNA - cont prednisone, bronchodilators. (3) ETOH abuse Comment: - Withdrawal is resolved. - cont folic acid / thiamine / MVI (4) Malnutrition of moderate degree Comment: - As evidenced by 12% wt loss in past six months, mild temporal muscle wasting, and suspected po intake <75% EEE x 1 month or more - Dietitian input appreciated. (5) Muscular deconditioning Comment: - PT/OT consults - Qualifies for AJAY (6) DVT prophylaxis Comment: - Lovenox. (7) Full code status Status and Disposition: Inpatient. CM to assist with AJAY.
[2018-12-04] MEDS: Nicotine Patch Removal NOTE PATCH OFF SCH (20:16)
[2018-12-05] MEDS: Folic Acid TAB* 1 MG PO SCH (09:10)
[2018-12-05] MEDS: Nicotine PATCH 21 MG/24 HR* PATCH TRANSDERM SCH (09:10)
[2018-12-05] MEDS: Gabapentin CAP(*) 300 MG PO SCH ×2 (09:11→21:01)
[2018-12-05] MEDS: Cefdinir cap* 300 MG CAP PO SCH ×2 (09:11→21:06)
[2018-12-05] MEDS: Magnesium Oxide TAB* 400 MG PO SCH (09:11)
[2018-12-05] MEDS: Thiamine TAB* 100 MG TAB PO SCH (09:11)
[2018-12-05] MEDS: predniSONE TAB* 20 MG PO SCH (09:11)
[2018-12-05] MEDS: Pantoprazole TAB * 40 MG TAB PO SCH ×2 (09:12→21:02)
[2018-12-05] MEDS: Multivitamins/Minerals TAB PO SCH (09:12)
[2018-12-05] MEDS: amLODIPine TAB* 5 MG PO SCH (09:12)
[2018-12-05] MEDS: Enoxaparin(*) 40 MG/0.4 ML SYR SUBCUT SCH (12:50)
--- NOTE | 2018-12-05 15:48 | PN ---
Subjective Date of Service: 12/05/18 Interval History: HOSPITALIST PROGRESS NOTE Patient seen and examined at bedside. Care reviewed and d/w Shaina Spring RN. He offers no new complaints today. Family History: Unchanged from Admission Social History: Unchanged from Admission Past Medical History: Unchanged from Admission Objective Active Medications: Acetaminophen (Tylenol Tab*) 650 mg PO Q4H PRN PRN Reason: PAIN Last Admin: 12/04/18 13:00 Dose: 650 mg Albuterol (Ventolin 2.5 Mg/3 Ml Neb.Mar*) 2.5 mg INH Q2H PRN PRN Reason: SOB/WHEEZING Albuterol (Ventolin Hfa Inhaler*) 1 puff INH Q4H PRN PRN Reason: WHEEZING Amlodipine Besylate (Norvasc Tab*) 5 mg PO DAILY [facility] Last Admin: 12/05/18 09:12 Dose: 5 mg Cefdinir (Cefdinir Cap*) 300 mg PO BID [facility] Last Admin: 12/05/18 09:11 Dose: 300 mg Enoxaparin Sodium (Lovenox(*)) 40 mg SUBCUT Q24H [facility] Last Admin: 12/05/18 12:50 Dose: 40 mg Folic Acid (Folvite Tab*) 1 mg PO DAILY [facility] Last Admin: 12/05/18 09:10 Dose: 1 mg Gabapentin (Neurontin Cap(*)) 300 mg PO BID [facility] Last Admin: 12/05/18 09:11 Dose: 300 mg Hydralazine HCl (Apresoline Iv*) 5 mg IV SLOW PU Q6H PRN PRN Reason: SBP>180 Magnesium Oxide (Magox 400 Tab*) 800 mg PO DAILY [facility] Last Admin: 12/05/18 09:11 Dose: 800 mg Multivitamins/Minerals (Theragran/Minerals Tab*) 1 tab PO DAILY [facility] Last Admin: 12/05/18 09:12 Dose: 1 tab Nicotine (Nicotine Patch 21 Mg/24 Hr*) 1 patch TRANSDERM DAILY@0800 [facility] Last Admin: 12/05/18 09:10 Dose: 1 patch Nicotine (Nicotine Inhaler*) 10 mg INH Q2H PRN PRN Reason: CRAVING Last Admin: 12/03/18 23:38 Dose: 10 mg Ondansetron HCl (Zofran Inj*) 4 mg IV Q4H PRN PRN Reason: NAUSEA/VOMITING Pantoprazole Sodium (Protonix Tab*) 40 mg PO BID [facility] Last Admin: 12/05/18 09:12 Dose: 40 mg Pharmacy Profile Note (Nicotine Patch Removal Note*) 1 note PATCH OFF 2100 [facility] Last Admin: 12/04/18 20:16 Dose: Not Given Prednisone (Deltasone Tab*) 40 mg PO DAILY [facility] Last Admin: 12/05/18 09:11 Dose: 40 mg Senna (Senokot Tab*) 1 tab PO BID PRN PRN Reason: CONSTIPATION Thiamine HCl (Vitamin B-1 Tab*) 100 mg PO DAILY [facility] Last Admin: 12/05/18 09:11 Dose: 100 mg Vital Signs - 8 hr 12/05/18 12/05/18 12/05/18 07:48 08:13 08:16 Temperature 97.4 F 97.4 F 97.4 F Pulse Rate 67 67 66 Respiratory 20 20 20 Rate Blood Pressure 147/64 147/64 145/66 (mmHg) O2 Sat by Pulse 99 99 100 Oximetry 12/05/18 12/05/18 09:11 11:16 Temperature Pulse Rate Respiratory 20 16 Rate Blood Pressure (mmHg) O2 Sat by Pulse Oximetry Oxygen Devices in Use Now: Nasal Cannula - 2 liters Appearance: Elderly gentleman, appears older than stated age, lying in bed in [facility]. Eyes: No Scleral Icterus Ears/Nose/Mouth/Throat: Mucous Membranes Moist Neck: Trachea Midline Respiratory: Symmetrical Chest Expansion and Respiratory Effort, Clear to Auscultation Cardiovascular: RRR - Normal S1 and S2 Neurological: - - AAOx2 (self and place), NAVARRETE - Nutrition: Malnutrition Diagnosis/Plan Malnutrition Assessment by Registered Dietitian: Malnutrition Assessment Clinical Characteristics Chronic,Moderate Malnutrition Assessment: - 12% wt loss in past six months Criteria - mild temporal muscle wasting - suspected po intake <75% EEE x 1 month or more Malnutrition Assessment: Will encourage po intake, completion of menus, Interventions and offer Ensure Enlive w/meals to optimize kcal -prot intake and promote wt gain; will monitor acceptance. Malnutrition Assessment: Goals 1. Adequate po intake to promote weight gain toward stated UBW (125#) 2. Pt will tolerate least-restrictive diet texture without s/sx of difficulty chewing 3. Achieve and maintain serum electrolytes WNL 4. Maintain bowel regularity; no constipation ( or diarrhea) Result Diagrams: 12/02/18 05:45 12/03/18 05:42 Microbiology and Other Data: Microbiology 11/30/18 04:51 Nasal Screen MRSA (PCR) - Final Nasal Mrsa Not Detected 11/30/18 04:40 Legionella Urinary Antigen - Final Urine Negative Legionella Antigen Streptococcus pneumoniae Ag Screen - Final Positive S. Pneumo Antigen 11/30/18 04:51 Influenza Types A,B Antigen - Final Nasal Specimen received for Influenza A/B Molecular testing Assess/Plan/Problems-Billing Assessment: Mr Mccarthy is a 63yo M with COPD and active tobacco use, PSA (ETOH, cocaine), malnutrition, h/o GI bleed, HCV s/p treatment, who presented to ED with dyspnea and weakness, found to have pneumococcal pneumonia. Hospital stay complicated by acute respiratory failure and alcohol withdrawal. - Patient Problems (1) Pneumococcal pneumonia Comment: - CxR with multifocal consolidation and pneumococcal Ag is positive. - Continue Cefdnir #6/7. (2) COPD exacerbation Comment: - secondary to PNA - Continue prednisone taper and bronchodilators. (3) ETOH abuse Comment: - Withdrawal is resolved. - cont folic acid / thiamine / MVI (4) Malnutrition of moderate degree Comment: - As evidenced by 12% wt loss in past six months, mild temporal muscle wasting, and suspected po intake <75% EEE x 1 month or more - Dietitian input appreciated. (5) Muscular deconditioning Comment: - PT/OT consults - Qualifies for AJAY (6) DVT prophylaxis Comment: - Lovenox. (7) Full code status Status and Disposition: Inpatient. CM to assist with AJAY.
[2018-12-05] MEDS ORDERED: Mouth Piece, Nicotine* 1 EACH CARTRIDGE ONE (17:07)
[2018-12-05] MEDS: Nicotine Inhaler* 10 MG AMP INH PRN (17:08)
[2018-12-05] MEDS: Nicotine Patch Removal NOTE PATCH OFF SCH (20:58)
[2018-12-05] MEDS: Acetaminophen TAB* 325 MG PO PRN (21:06)
[2018-12-06 09:07] LABS: ABS Basophils 0 10^3/ul (0-0.2); ABS Eosinophils 0 10^3/ul (0-0.6); ABS Lymphocytes 1.3 10^3/ul (1.0-4.8); ABS Monocytes 0.8 10^3/ul (0-0.8); ABS Neutrophils 7.8 10^3/ul (1.5-7.7); ABS Nucleated RBC 0 10^3/ul; Eosinophil % 0.2 %; Hematocrit 31 % (36-46); Hemoglobin 10.3 g/dL (14.0-18.0); Lymphocyte % 12.7 %; Mean Corpuscular HGB Conc 33 g/dL (31-36); Mean Corpuscular Hemoglobin 30 pg (27-31); Mean Corpuscular Volume 91 fL (80-94); Mean Platelet Volume 8.7 fL (7.4-10.4); Nucleated Red Blood Cells % 0; Platelet Count 182 10^3/uL (150-450); Red Blood Count 3.43 10^6 /uL (4.18-5.48); Red Cell Distribution Width 18 % (10.5-15)
[2018-12-06 09:26] LABS: BUN/Creatinine Ratio 23.7 (8-20); Calcium 8.8 mg/dL (8.6-10.3); EGFR African American 167.3 (>60); EGFR Non-African American 138.3 (>60); Potassium 3.7 mmol/L (3.5-5.0)
[2018-12-06] MEDS: Gabapentin CAP(*) 300 MG PO SCH ×2 (10:07→20:14)
[2018-12-06] MEDS: predniSONE TAB* 10 MG PO SCH (11:19)
[2018-12-06] MEDS: amLODIPine TAB* 5 MG PO SCH (11:19)
[2018-12-06] MEDS: Thiamine TAB* 100 MG TAB PO SCH (11:20)
[2018-12-06] MEDS: Magnesium Oxide TAB* 400 MG PO SCH (11:20)
[2018-12-06] MEDS: Pantoprazole TAB * 40 MG TAB PO SCH ×2 (11:20→20:14)
[2018-12-06] MEDS: Nicotine PATCH 21 MG/24 HR* PATCH TRANSDERM SCH (11:21)
[2018-12-06] MEDS: Multivitamins/Minerals TAB PO SCH (11:21)
[2018-12-06] MEDS: Folic Acid TAB* 1 MG PO SCH (11:21)
[2018-12-06] MEDS: Cefdinir cap* 300 MG CAP PO SCH ×2 (11:26→20:14)
[2018-12-06] MEDS: Enoxaparin(*) 40 MG/0.4 ML SYR SUBCUT SCH (12:48)
[2018-12-06] MEDS: Nicotine Inhaler* 10 MG AMP INH PRN ×2 (16:09→21:53)
--- NOTE | 2018-12-06 17:04 | PN ---
Subjective Date of Service: 12/06/18 Interval History: Resting in bed. Offers no complaints today. SHERWIN King reports he is on room air and oxygen saturation is approx 96%. Patient denies sob, cp, palpitations, nausea, vomiting, diarrhea. Family History: Unchanged from Admission Social History: Unchanged from Admission Past Medical History: Unchanged from Admission Objective Active Medications: Acetaminophen (Tylenol Tab*) 650 mg PO Q4H PRN PRN Reason: PAIN Last Admin: 12/05/18 21:06 Dose: 650 mg Albuterol (Ventolin 2.5 Mg/3 Ml Neb.Mar*) 2.5 mg INH Q2H PRN PRN Reason: SOB/WHEEZING Albuterol (Ventolin Hfa Inhaler*) 1 puff INH Q4H PRN PRN Reason: WHEEZING Amlodipine Besylate (Norvasc Tab*) 5 mg PO DAILY [facility] Last Admin: 12/06/18 11:19 Dose: 5 mg Cefdinir (Cefdinir Cap*) 300 mg PO BID [facility] Stop: 12/06/18 23:59 Last Admin: 12/06/18 11:26 Dose: 300 mg Enoxaparin Sodium (Lovenox(*)) 40 mg SUBCUT Q24H [facility] Last Admin: 12/06/18 12:48 Dose: 40 mg Folic Acid (Folvite Tab*) 1 mg PO DAILY [facility] Last Admin: 12/06/18 11:21 Dose: 1 mg Gabapentin (Neurontin Cap(*)) 300 mg PO BID [facility] Last Admin: 12/06/18 10:07 Dose: 300 mg Hydralazine HCl (Apresoline Iv*) 5 mg IV SLOW PU Q6H PRN PRN Reason: SBP>180 Magnesium Oxide (Magox 400 Tab*) 800 mg PO DAILY [facility] Last Admin: 12/06/18 11:20 Dose: 800 mg Multivitamins/Minerals (Theragran/Minerals Tab*) 1 tab PO DAILY [facility] Last Admin: 12/06/18 11:21 Dose: 1 tab Nicotine (Nicotine Patch 21 Mg/24 Hr*) 1 patch TRANSDERM DAILY@0800 [facility] Last Admin: 12/06/18 11:21 Dose: 1 patch Nicotine (Nicotine Inhaler*) 10 mg INH Q2H PRN PRN Reason: CRAVING Last Admin: 12/06/18 16:09 Dose: 10 mg Ondansetron HCl (Zofran Inj*) 4 mg IV Q4H PRN PRN Reason: NAUSEA/VOMITING Pantoprazole Sodium (Protonix Tab*) 40 mg PO BID [facility] Last Admin: 12/06/18 11:20 Dose: 40 mg Pharmacy Profile Note (Nicotine Patch Removal Note*) 1 note PATCH OFF 2099 [facility] Last Admin: 12/05/18 20:58 Dose: Not Given Prednisone (Deltasone Tab*) 20 mg PO DAILY [facility] Stop: 12/11/18 09:01 Prednisone (Deltasone Tab*) 10 mg PO DAILY [facility] Stop: 12/14/18 09:01 Prednisone (Deltasone Tab*) 5 mg PO DAILY [facility] Stop: 12/17/18 09:01 Prednisone (Deltasone Tab*) 30 mg PO DAILY [facility] Stop: 12/08/18 09:01 Last Admin: 12/06/18 11:19 Dose: 30 mg Senna (Senokot Tab*) 1 tab PO BID PRN PRN Reason: CONSTIPATION Thiamine HCl (Vitamin B-1 Tab*) 100 mg PO DAILY [facility] Last Admin: 12/06/18 11:20 Dose: 100 mg Vital Signs - 8 hr 12/06/18 12/06/18 12/06/18 10:07 10:37 12:51 Temperature Pulse Rate 80 Respiratory 18 16 16 Rate Blood Pressure 153/67 (mmHg) O2 Sat by Pulse 100 Oximetry 12/06/18 12/06/18 14:31 14:57 Temperature 96.7 F 96.7 F Pulse Rate 90 70 Respiratory 20 22 Rate Blood Pressure 141/76 141/76 (mmHg) O2 Sat by Pulse 97 95 Oximetry Oxygen Devices in Use Now: None Appearance: Comfortable, NAD Eyes: No Scleral Icterus Ears/Nose/Mouth/Throat: Clear Oropharnyx, Mucous Membranes Moist Neck: NL Appearance and Movements; NL JVP Respiratory: Symmetrical Chest Expansion and Respiratory Effort, Clear to Auscultation Cardiovascular: NL Sounds; No Murmurs; No JVD, RRR, No Edema Abdominal: NL Sounds; No Tenderness; No Distention Lymphatic: No Cervical Adenopathy Extremities: No Clubbing, Cyanosis Skin: No Rash or Ulcers Neurological: Alert and Oriented x 3, NL Sensation, NL Muscle Strength and Tone Nutrition: Taking PO's - Nutrition: Malnutrition Diagnosis/Plan Malnutrition Assessment by Registered Dietitian: Malnutrition Assessment Clinical Characteristics Chronic,Moderate Malnutrition Assessment: - 12% wt loss in past six months Criteria - mild temporal muscle wasting - suspected po intake <75% EEE x 1 month or more Malnutrition Assessment: Will encourage po intake, completion of menus, Interventions and offer Ensure Enlive w/meals to optimize kcal -prot intake and promote wt gain; will monitor acceptance. Malnutrition Assessment: Goals 1. Adequate po intake to promote weight gain toward stated UBW (125#) 2. Pt will tolerate least-restrictive diet texture without s/sx of difficulty chewing 3. Achieve and maintain serum electrolytes WNL 4. Maintain bowel regularity; no constipation ( or diarrhea) Result Diagrams: 12/06/18 08:38 12/06/18 08:38 Additional Lab and Data: Laboratory Results - last 24 hr 12/06/18 12/06/18 08:38 08:38 WBC 10.0 RBC 3.43 L Hgb 10.3 L Hct 31 L MCV 91 MCH 30 MCHC 33 RDW 18 H Plt Count 182 MPV 8.7 Neut % (Auto) 78.5 Lymph % (Auto) 12.7 [place] % (Auto) 8.1 Eos % (Auto) 0.2 Baso % (Auto) 0.5 Absolute Neuts (auto) 7.8 H Absolute Lymphs (auto) 1.3 Absolute Monos (auto) 0.8 Absolute Eos (auto) 0 Absolute Basos (auto) 0 Absolute Nucleated RBC 0 Nucleated RBC % 0 Sodium 136 Potassium 3.7 Chloride 103 Carbon Dioxide 29 Anion Gap 4 BUN 14 Creatinine 0.59 L Est GFR ( Amer) 167.3 Est GFR (Non-Af Amer) 138.3 BUN/Creatinine Ratio 23.7 H Glucose 99 Calcium 8.8 Microbiology and Other Data: Microbiology 11/30/18 04:51 Nasal Screen MRSA (PCR) - Final Nasal Mrsa Not Detected 11/30/18 04:40 Legionella Urinary Antigen - Final Urine Negative Legionella Antigen Streptococcus pneumoniae Ag Screen - Final Positive S. Pneumo Antigen 11/30/18 04:51 Influenza Types A,B Antigen - Final Nasal Specimen received for Influenza A/B Molecular testing Assess/Plan/Problems-Billing Assessment: Mr Mccarthy is a 63yo M with COPD and active tobacco use, PSA (ETOH, cocaine), malnutrition, h/o GI bleed, HCV s/p treatment, who presented to ED with dyspnea and weakness, found to have pneumococcal pneumonia. Hospital stay complicated by acute respiratory failure and alcohol withdrawal. - Patient Problems (1) Pneumococcal pneumonia Comment: - CxR with multifocal consolidation and pneumococcal Ag is positive. - Continue Cefdnir #03/18. (2) COPD exacerbation Comment: - Secondary to PNA - Continue prednisone taper and bronchodilators. (3) ETOH abuse Comment: - Withdrawal is resolved. - cont folic acid / thiamine / MVI (4) Malnutrition of moderate degree Comment: - As evidenced by 12% wt loss in past six months, mild temporal muscle wasting, and suspected po intake <75% EEE x 1 month or more - Dietitian input appreciated. (5) Muscular deconditioning Comment: - PT/OT consults - Qualifies for AJAY (6) DVT prophylaxis Comment: - Lovenox. (7) Full code status Status and Disposition: Inpatient. CM to assist with AJAY. Attending: Kristina Gonzalez
[2018-12-06 17:52] LABS: Magnesium 1.4 mg/dL (1.9-2.7)
[2018-12-06] MEDS ORDERED: Magnesium Sulfate 2 GM IV* 2 GM/50 ML BAG IVPB ONE ×2 (20:10→22:10)
[2018-12-06] MEDS: Acetaminophen TAB* 325 MG PO PRN (20:14)
[2018-12-06] MEDS: Nicotine Patch Removal NOTE PATCH OFF SCH (20:17)
[2018-12-07 06:41] LABS: Calcium 8.6 mg/dL (8.6-10.3); Potassium 4.6 mmol/L (3.5-5.0)
[2018-12-07 06:46] LABS: BUN/Creatinine Ratio 28.1 (8-20); EGFR African American 174.1 (>60); EGFR Non-African American 143.9 (>60)
[2018-12-07] MEDS: Magnesium Oxide TAB* 400 MG PO SCH (09:40)
[2018-12-07] MEDS: amLODIPine TAB* 5 MG PO SCH (09:40)
[2018-12-07] MEDS: Pantoprazole TAB * 40 MG TAB PO SCH ×2 (09:40→21:02)
[2018-12-07] MEDS: Multivitamins/Minerals TAB PO SCH (09:40)
[2018-12-07] MEDS: Thiamine TAB* 100 MG TAB PO SCH (09:40)
[2018-12-07] MEDS: predniSONE TAB* 10 MG PO SCH (09:41)
[2018-12-07] MEDS: Folic Acid TAB* 1 MG PO SCH (09:41)
[2018-12-07] MEDS: Gabapentin CAP(*) 300 MG PO SCH ×2 (09:42→21:01)
[2018-12-07] MEDS: Nicotine PATCH 21 MG/24 HR* PATCH TRANSDERM SCH (09:43)
[2018-12-07] MEDS: Nicotine Inhaler* 10 MG AMP INH PRN ×3 (09:44→23:29)
[2018-12-07] MEDS: Enoxaparin(*) 40 MG/0.4 ML SYR SUBCUT SCH (15:10)
[2018-12-07] MEDS: Acetaminophen TAB* 325 MG PO PRN ×2 (15:26→21:02)
--- NOTE | 2018-12-07 16:09 | PN ---
Subjective Date of Service: 12/07/18 Interval History: Patient sitting on edge of bed with director community health nursing at bedside. Per director community health nursing patient ambulate with walker and assist to bathroom and had steady gait. Discussed AJAY with patient and he is agreeable. He reports his legs continue to feel weak, but they are improved from yesterday. Denies shortness of breath and cough. Denies chest pain, palpitations, nausea, vomiting, diarrhea, fever, chills. Last BM today Family History: Unchanged from Admission Social History: Unchanged from Admission Past Medical History: Unchanged from Admission Objective Active Medications: Acetaminophen (Tylenol Tab*) 650 mg PO Q4H PRN PRN Reason: PAIN Last Admin: 12/07/18 15:26 Dose: 650 mg Albuterol (Ventolin 2.5 Mg/3 Ml Neb.Mar*) 2.5 mg INH Q2H PRN PRN Reason: SOB/WHEEZING Albuterol (Ventolin Hfa Inhaler*) 1 puff INH Q4H PRN PRN Reason: WHEEZING Amlodipine Besylate (Norvasc Tab*) 5 mg PO DAILY [facility] Last Admin: 12/07/18 09:40 Dose: 5 mg Enoxaparin Sodium (Lovenox(*)) 40 mg SUBCUT Q24H [facility] Last Admin: 12/07/18 15:10 Dose: 40 mg Folic Acid (Folvite Tab*) 1 mg PO DAILY [facility] Last Admin: 12/07/18 09:41 Dose: 1 mg Gabapentin (Neurontin Cap(*)) 300 mg PO BID [facility] Last Admin: 12/07/18 09:42 Dose: 300 mg Hydralazine HCl (Apresoline Iv*) 5 mg IV SLOW PU Q6H PRN PRN Reason: SBP>180 Magnesium Oxide (Magox 400 Tab*) 800 mg PO DAILY [facility] Last Admin: 12/07/18 09:40 Dose: 800 mg Multivitamins/Minerals (Theragran/Minerals Tab*) 1 tab PO DAILY [facility] Last Admin: 12/07/18 09:40 Dose: 1 tab Nicotine (Nicotine Patch 21 Mg/24 Hr*) 1 patch TRANSDERM DAILY@0800 [facility] Last Admin: 12/07/18 09:43 Dose: 1 patch Nicotine (Nicotine Inhaler*) 10 mg INH Q2H PRN PRN Reason: CRAVING Last Admin: 12/07/18 09:44 Dose: 10 mg Ondansetron HCl (Zofran Inj*) 4 mg IV Q4H PRN PRN Reason: NAUSEA/VOMITING Pantoprazole Sodium (Protonix Tab*) 40 mg PO BID [facility] Last Admin: 12/07/18 09:40 Dose: 40 mg Pharmacy Profile Note (Nicotine Patch Removal Note*) 1 note PATCH OFF 2100 [facility] Last Admin: 12/06/18 20:17 Dose: 1 note Prednisone (Deltasone Tab*) 20 mg PO DAILY [facility] Stop: 12/11/18 09:01 Prednisone (Deltasone Tab*) 10 mg PO DAILY [facility] Stop: 12/14/18 09:01 Prednisone (Deltasone Tab*) 5 mg PO DAILY [facility] Stop: 12/17/18 09:01 Prednisone (Deltasone Tab*) 30 mg PO DAILY [facility] Stop: 12/08/18 09:01 Last Admin: 12/07/18 09:41 Dose: 30 mg Senna (Senokot Tab*) 1 tab PO BID PRN PRN Reason: CONSTIPATION Thiamine HCl (Vitamin B-1 Tab*) 100 mg PO DAILY [facility] Last Admin: 12/07/18 09:40 Dose: 100 mg Vital Signs - 8 hr 12/07/18 12/07/18 12/07/18 09:28 09:42 11:49 Temperature Pulse Rate Respiratory 16 16 18 Rate Blood Pressure (mmHg) O2 Sat by Pulse Oximetry 12/07/18 12/07/18 12/07/18 12:05 14:09 14:25 Temperature 98.6 F 97.6 F 97.6 F Pulse Rate 68 92 76 Respiratory 18 20 20 Rate Blood Pressure 141/75 126/73 126/73 (mmHg) O2 Sat by Pulse 97 97 99 Oximetry Oxygen Devices in Use Now: None Appearance: Comfortable, NAD Eyes: No Scleral Icterus Ears/Nose/Mouth/Throat: Clear Oropharnyx, Mucous Membranes Moist Neck: NL Appearance and Movements; NL JVP Respiratory: Symmetrical Chest Expansion and Respiratory Effort, Clear to Auscultation Cardiovascular: NL Sounds; No Murmurs; No JVD, RRR, No Edema Abdominal: NL Sounds; No Tenderness; No Distention Lymphatic: No Cervical Adenopathy Extremities: No Clubbing, Cyanosis Skin: No Rash or Ulcers Neurological: Alert and Oriented x 3, NL Muscle Strength and Tone Nutrition: Taking PO's - Nutrition: Malnutrition Diagnosis/Plan Malnutrition Assessment by Registered Dietitian: Malnutrition Assessment Clinical Characteristics Chronic,Moderate Malnutrition Assessment: - 12% wt loss in past six months Criteria - mild temporal muscle wasting - suspected po intake <75% EEE x 1 month or more Malnutrition Assessment: Will encourage po intake, completion of menus, Interventions and offer Ensure Enlive w/meals to optimize kcal -prot intake and promote wt gain; will monitor acceptance. Malnutrition Assessment: Goals 1. Adequate po intake to promote weight gain toward stated UBW (125#) 2. Pt will tolerate least-restrictive diet texture without s/sx of difficulty chewing 3. Achieve and maintain serum electrolytes WNL 4. Maintain bowel regularity; no constipation ( or diarrhea) Result Diagrams: 12/06/18 08:38 12/07/18 06:19 Additional Lab and Data: Laboratory Results - last 24 hr 12/06/18 12/07/18 08:38 06:19 Sodium 136 136 Potassium 3.7 4.6 Chloride 103 101 Carbon Dioxide 29 25 Anion Gap 4 10 BUN 14 16 Creatinine 0.59 L 0.57 L Est GFR ( Amer) 167.3 174.1 Est GFR (Non-Af Amer) 138.3 143.9 BUN/Creatinine Ratio 23.7 H 28.1 H Glucose 99 164 H Calcium 8.8 8.6 Magnesium 1.4 L 2.0 Microbiology and Other Data: Microbiology 11/30/18 03:06 Blood Venous Aerobic Blood Culture - Final No Growth Day 5 11/30/18 03:06 Blood Venous Anaerobic Blood Culture - Final No Growth Day 5 11/30/18 02:56 Blood Venous Aerobic Blood Culture - Final No Growth Day 5 11/30/18 02:56 Blood Venous Anaerobic Blood Culture - Final No Growth Day 5 11/30/18 04:51 Nasal Nasal Screen MRSA (PCR) - Final Mrsa Not Detected 11/30/18 04:40 Urine Legionella Urinary Antigen - Final Negative Legionella Antigen 11/30/18 04:40 Urine Streptococcus pneumoniae Ag Screen - Final Positive S. Pneumo Antigen 11/30/18 04:51 Nasal Influenza Types A,B Antigen - Final Specimen received for Influenza A/B Molecular testing Assess/Plan/Problems-Billing Assessment: Mr Mccarthy is a 63yo M with COPD and active tobacco use, PSA (ETOH, cocaine), malnutrition, h/o GI bleed, HCV s/p treatment, who presented to ED with dyspnea and weakness, found to have pneumococcal pneumonia. Hospital stay complicated by acute respiratory failure and alcohol withdrawal. - Patient Problems (1) Pneumococcal pneumonia Comment: - CxR with multifocal consolidation and pneumococcal Ag is positive. - Completed course Cefdnir (2) COPD exacerbation Comment: - Secondary to PNA - Continue prednisone taper and bronchodilators. - Much improved (3) ETOH abuse Comment: - Withdrawal is resolved. - cont folic acid / thiamine / MVI (4) Malnutrition of moderate degree Comment: - As evidenced by 12% wt loss in past six months, mild temporal muscle wasting, and suspected po intake <75% EEE x 1 month or more - Dietitian input appreciated. (5) Muscular deconditioning Comment: - PT/OT consults - Awaiting AJAY (6) DVT prophylaxis Comment: - Lovenox. (7) Full code status Status and Disposition: Inpatient. CM to assist with AJAY. Attending: Moira Portillo
[2018-12-07] MEDS ORDERED: Mouth Piece, Nicotine* 1 EACH CARTRIDGE ONE (20:54)
[2018-12-07] MEDS: Mouth Piece, Nicotine* 1 EACH CARTRIDGE INH ONE (21:01)
[2018-12-07] MEDS: Nicotine Patch Removal NOTE PATCH OFF SCH (21:04)
[2018-12-08] MEDS: Nicotine PATCH 21 MG/24 HR* PATCH TRANSDERM SCH (09:21)
[2018-12-08] MEDS: Magnesium Oxide TAB* 400 MG PO SCH (09:22)
[2018-12-08] MEDS: predniSONE TAB* 10 MG PO SCH (09:22)
[2018-12-08] MEDS: Thiamine TAB* 100 MG TAB PO SCH (09:23)
[2018-12-08] MEDS: Gabapentin CAP(*) 300 MG PO SCH ×2 (09:23→20:49)
[2018-12-08] MEDS: Multivitamins/Minerals TAB PO SCH (09:23)
[2018-12-08] MEDS: Folic Acid TAB* 1 MG PO SCH (09:23)
[2018-12-08] MEDS: amLODIPine TAB* 5 MG PO SCH (09:23)
[2018-12-08] MEDS: Pantoprazole TAB * 40 MG TAB PO SCH ×2 (09:23→20:49)
[2018-12-08] MEDS: Nicotine Inhaler* 10 MG AMP INH PRN ×3 (09:33→19:31)
[2018-12-08] MEDS: Enoxaparin(*) 40 MG/0.4 ML SYR SUBCUT SCH (12:20)
--- NOTE | 2018-12-08 16:37 | PN ---
Subjective Date of Service: 12/08/18 Interval History: Mr. Mccarthy has no complaints. He feels fine. Breathing is comfortable, no cough, SOB, nausea, CP. Says he walked with PT with a walker, felt okay. Doesn 't usually need a walker so this is new for him. Family History: Unchanged from Admission Social History: Unchanged from Admission Past Medical History: Unchanged from Admission Objective Active Medications: Acetaminophen (Tylenol Tab*) 650 mg PO Q4H PRN PRN Reason: PAIN Last Admin: 12/07/18 21:02 Dose: 650 mg Albuterol (Ventolin 2.5 Mg/3 Ml Neb.Mar*) 2.5 mg INH Q2H PRN PRN Reason: SOB/WHEEZING Albuterol (Ventolin Hfa Inhaler*) 1 puff INH Q4H PRN PRN Reason: WHEEZING Amlodipine Besylate (Norvasc Tab*) 5 mg PO DAILY [facility] Last Admin: 12/08/18 09:23 Dose: 5 mg Enoxaparin Sodium (Lovenox(*)) 40 mg SUBCUT Q24H [facility] Last Admin: 12/08/18 12:20 Dose: 40 mg Folic Acid (Folvite Tab*) 1 mg PO DAILY [facility] Last Admin: 12/08/18 09:23 Dose: 1 mg Gabapentin (Neurontin Cap(*)) 300 mg PO BID [facility] Last Admin: 12/08/18 09:23 Dose: 300 mg Hydralazine HCl (Apresoline Iv*) 5 mg IV SLOW PU Q6H PRN PRN Reason: SBP>180 Magnesium Oxide (Magox 400 Tab*) 800 mg PO DAILY [facility] Last Admin: 12/08/18 09:22 Dose: 800 mg Multivitamins/Minerals (Theragran/Minerals Tab*) 1 tab PO DAILY [facility] Last Admin: 12/08/18 09:23 Dose: 1 tab Nicotine (Nicotine Patch 21 Mg/24 Hr*) 1 patch TRANSDERM DAILY@0800 [facility] Last Admin: 12/08/18 09:21 Dose: 1 patch Nicotine (Nicotine Inhaler*) 10 mg INH Q2H PRN PRN Reason: CRAVING Last Admin: 12/08/18 15:25 Dose: 10 mg Ondansetron HCl (Zofran Inj*) 4 mg IV Q4H PRN PRN Reason: NAUSEA/VOMITING Pantoprazole Sodium (Protonix Tab*) 40 mg PO BID [facility] Last Admin: 12/08/18 09:23 Dose: 40 mg Pharmacy Profile Note (Nicotine Patch Removal Note*) 1 note PATCH OFF 2099 [facility] Last Admin: 12/07/18 21:04 Dose: 1 note Prednisone (Deltasone Tab*) 20 mg PO DAILY [facility] Stop: 12/11/18 09:01 Prednisone (Deltasone Tab*) 10 mg PO DAILY [facility] Stop: 12/14/18 09:01 Prednisone (Deltasone Tab*) 5 mg PO DAILY [facility] Stop: 12/17/18 09:01 Senna (Senokot Tab*) 1 tab PO BID PRN PRN Reason: CONSTIPATION Thiamine HCl (Vitamin B-1 Tab*) 100 mg PO DAILY [facility] Last Admin: 12/08/18 09:23 Dose: 100 mg Vital Signs - 8 hr 12/08/18 12/08/18 12/08/18 09:23 11:17 11:55 Temperature 98.4 F Pulse Rate 88 Respiratory 16 16 16 Rate Blood Pressure 138/68 (mmHg) O2 Sat by Pulse 99 Oximetry Oxygen Devices in Use Now: None Appearance: thin, no distress, sitting on edge of bed, comfortably Eyes: No Scleral Icterus Neck: NL Appearance and Movements; NL JVP Respiratory: Symmetrical Chest Expansion and Respiratory Effort, Clear to Auscultation, - - no wheezing Cardiovascular: - - systolic murmur Abdominal: NL Sounds; No Tenderness; No Distention Lymphatic: No Cervical Adenopathy Extremities: No Edema Skin: No Rash or Ulcers - Nutrition: Malnutrition Diagnosis/Plan Malnutrition Assessment by Registered Dietitian: Malnutrition Assessment Clinical Characteristics Chronic,Moderate Malnutrition Assessment: - 12% wt loss in past six months Criteria - mild temporal muscle wasting - suspected po intake <75% EEE x 1 month or more Malnutrition Assessment: Will encourage po intake, completion of menus, Interventions and offer Ensure Enlive w/meals to optimize kcal -prot intake and promote wt gain; will monitor acceptance. Malnutrition Assessment: Goals 1. Adequate po intake to promote weight gain toward stated UBW (125#) 2. Pt will tolerate least-restrictive diet texture without s/sx of difficulty chewing 3. Achieve and maintain serum electrolytes WNL 4. Maintain bowel regularity; no constipation ( or diarrhea) Result Diagrams: 12/06/18 08:38 12/07/18 06:19 Additional Lab and Data: Laboratory Results - last 24 hr 12/06/18 12/07/18 08:38 06:19 Sodium 136 136 Potassium 3.7 4.6 Chloride 103 101 Carbon Dioxide 29 25 Anion Gap 4 10 BUN 14 16 Creatinine 0.59 L 0.57 L Est GFR ( Amer) 167.3 174.1 Est GFR (Non-Af Amer) 138.3 143.9 BUN/Creatinine Ratio 23.7 H 28.1 H Glucose 99 164 H Calcium 8.8 8.6 Magnesium 1.4 L 2.0 Microbiology and Other Data: Microbiology 11/30/18 03:06 Blood Venous Aerobic Blood Culture - Final No Growth Day 5 11/30/18 03:06 Blood Venous Anaerobic Blood Culture - Final No Growth Day 5 11/30/18 02:56 Blood Venous Aerobic Blood Culture - Final No Growth Day 5 11/30/18 02:56 Blood Venous Anaerobic Blood Culture - Final No Growth Day 5 11/30/18 04:51 Nasal Nasal Screen MRSA (PCR) - Final Mrsa Not Detected 11/30/18 04:40 Urine Legionella Urinary Antigen - Final Negative Legionella Antigen 11/30/18 04:40 Urine Streptococcus pneumoniae Ag Screen - Final Positive S. Pneumo Antigen 11/30/18 04:51 Nasal Influenza Types A,B Antigen - Final Specimen received for Influenza A/B Molecular testing Assess/Plan/Problems-Billing Assessment: Mr Mccarthy is a 63yo M with COPD and active tobacco use, PSA (ETOH, cocaine), malnutrition, h/o GI bleed, HCV s/p treatment, who presented to ED with dyspnea and weakness, found to have pneumococcal pneumonia. Hospital stay complicated by acute respiratory failure and alcohol withdrawal. - Patient Problems (1) Pneumococcal pneumonia Current Visit: Yes Status: Acute Code(s): J13 - PNEUMONIA DUE TO STREPTOCOCCUS PNEUMONIAE SNOMED Code(s): 190804582 Comment: CxR with multifocal consolidation and pneumococcal Ag is positive. Completed course Cefdnir (2) COPD exacerbation Current Visit: Yes Status: Acute Code(s): J44.1 - CHRONIC OBSTRUCTIVE PULMONARY DISEASE W (ACUTE) EXACERBATION SNOMED Code(s): 283730143 Comment: Secondary to PNA Continue prednisone taper and bronchodilators. Much improved (3) ETOH abuse Current Visit: Yes Status: Acute Code(s): F10.10 - ALCOHOL ABUSE, UNCOMPLICATED SNOMED Code(s): 68271818 Comment: Withdrawal is resolved. cont folic acid / thiamine / MVI (4) Muscular deconditioning Current Visit: Yes Status: Acute Code(s): R29.898 - OTH SYMPTOMS AND SIGNS INVOLVING THE MUSCULOSKELETAL SYSTEM SNOMED Code(s): 850313433 Comment: Awaiting AJAY (5) HTN (hypertension) Current Visit: No Status: Chronic Code(s): I10 - ESSENTIAL (PRIMARY) HYPERTENSION SNOMED Code(s): 53407078 Comment: at goal Status and Disposition: stable for discharge, awaiting STR placement
[2018-12-08] MEDS: Acetaminophen TAB* 325 MG PO PRN (19:27)
[2018-12-08] MEDS: Nicotine Patch Removal NOTE PATCH OFF SCH (20:50)
[2018-12-09] MEDS: Magnesium Oxide TAB* 400 MG PO SCH (08:28)
[2018-12-09] MEDS: Nicotine PATCH 21 MG/24 HR* PATCH TRANSDERM SCH (08:28)
[2018-12-09] MEDS: Folic Acid TAB* 1 MG PO SCH (08:28)
[2018-12-09] MEDS: Pantoprazole TAB * 40 MG TAB PO SCH ×2 (08:28→20:30)
[2018-12-09] MEDS: amLODIPine TAB* 5 MG PO SCH (08:28)
[2018-12-09] MEDS: Multivitamins/Minerals TAB PO SCH (08:28)
[2018-12-09] MEDS: Thiamine TAB* 100 MG TAB PO SCH (08:29)
[2018-12-09] MEDS: Gabapentin CAP(*) 300 MG PO SCH (08:29)
[2018-12-09] MEDS: Acetaminophen TAB* 325 MG PO PRN ×2 (08:32→14:41)
[2018-12-09] MEDS ORDERED: predniSONE TAB* 20 MG PO SCH (09:00)
[2018-12-09] MEDS: Enoxaparin(*) 40 MG/0.4 ML SYR SUBCUT SCH (14:35)
--- NOTE | 2018-12-09 15:34 | PN ---
Subjective Date of Service: 12/09/18 Interval History: No subj change. C/O weakness. Little cough. Family History: Unchanged from Admission Social History: Unchanged from Admission Past Medical History: Unchanged from Admission Objective Active Medications: Acetaminophen (Tylenol Tab*) 650 mg PO Q4H PRN PRN Reason: PAIN Last Admin: 12/09/18 14:41 Dose: 650 mg Acetaminophen (Tylenol Tab*) 650 mg PO QID [facility] Albuterol (Ventolin 2.5 Mg/3 Ml Neb.Mar*) 2.5 mg INH Q2H PRN PRN Reason: SOB/WHEEZING Albuterol (Ventolin Hfa Inhaler*) 1 puff INH Q4H PRN PRN Reason: WHEEZING Amlodipine Besylate (Norvasc Tab*) 5 mg PO DAILY [facility] Last Admin: 12/09/18 08:28 Dose: 5 mg Enoxaparin Sodium (Lovenox(*)) 40 mg SUBCUT Q24H [facility] Last Admin: 12/09/18 14:35 Dose: 40 mg Folic Acid (Folvite Tab*) 1 mg PO DAILY [facility] Last Admin: 12/09/18 08:28 Dose: 1 mg Gabapentin (Neurontin Cap(*)) 200 mg PO BID [facility] Magnesium Oxide (Magox 400 Tab*) 800 mg PO DAILY [facility] Last Admin: 12/09/18 08:28 Dose: 800 mg Multivitamins/Minerals (Theragran/Minerals Tab*) 1 tab PO DAILY [facility] Last Admin: 12/09/18 08:28 Dose: 1 tab Nicotine (Nicotine Patch 21 Mg/24 Hr*) 1 patch TRANSDERM DAILY@0800 [facility] Last Admin: 12/09/18 08:28 Dose: 1 patch Nicotine (Nicotine Inhaler*) 10 mg INH Q2H PRN PRN Reason: CRAVING Last Admin: 12/08/18 19:31 Dose: 10 mg Ondansetron HCl (Zofran Inj*) 4 mg IV Q4H PRN PRN Reason: NAUSEA/VOMITING Pantoprazole Sodium (Protonix Tab*) 40 mg PO BID [facility] Last Admin: 12/09/18 08:28 Dose: 40 mg Pharmacy Profile Note (Nicotine Patch Removal Note*) 1 note PATCH OFF 2100 [facility] Last Admin: 12/08/18 20:50 Dose: 1 note Prednisone (Deltasone Tab*) 15 mg PO DAILY [facility] Senna (Senokot Tab*) 1 tab PO BID PRN PRN Reason: CONSTIPATION Thiamine HCl (Vitamin B-1 Tab*) 100 mg PO DAILY [facility] Last Admin: 12/09/18 08:29 Dose: 100 mg Vital Signs - 8 hr 12/09/18 12/09/18 12/09/18 08:00 08:29 10:38 Temperature Pulse Rate Respiratory 16 16 16 Rate Blood Pressure (mmHg) O2 Sat by Pulse Oximetry 12/09/18 11:20 Temperature 98.5 F Pulse Rate 78 Respiratory 20 Rate Blood Pressure 124/63 (mmHg) O2 Sat by Pulse 98 Oximetry Oxygen Devices in Use Now: None Appearance: Alert, sitting up in bed. In fair spirits. Looks comfortable Eyes: No Scleral Icterus Respiratory: Symmetrical Chest Expansion and Respiratory Effort, Clear to Percussion, - - scattered cracklesBL Cardiovascular: NL Sounds; No Murmurs; No JVD, RRR, No Edema, - Extremities: No Edema, No Clubbing, Cyanosis Skin: No Rash or Ulcers, No Nodules or Sclerosis, - Neurological: Alert and Oriented x 3, NL Sensation - Appears weak. - Nutrition: Malnutrition Diagnosis/Plan Malnutrition Assessment by Registered Dietitian: Malnutrition Assessment Clinical Characteristics Chronic,Moderate Malnutrition Assessment: - 12% wt loss in past six months Criteria - mild temporal muscle wasting - suspected po intake <75% EEE x 1 month or more Malnutrition Assessment: Will encourage po intake, completion of menus, Interventions and offer Ensure Enlive w/meals to optimize kcal -prot intake and promote wt gain; will monitor acceptance. Malnutrition Assessment: Goals 1. Adequate po intake to promote weight gain toward stated UBW (125#) 2. Pt will tolerate least-restrictive diet texture without s/sx of difficulty chewing 3. Achieve and maintain serum electrolytes WNL 4. Maintain bowel regularity; no constipation ( or diarrhea) Result Diagrams: 12/06/18 08:38 12/07/18 06:19 Additional Lab and Data: Laboratory Results - last 24 hr 12/06/18 12/07/18 08:38 06:19 Sodium 136 136 Potassium 3.7 4.6 Chloride 103 101 Carbon Dioxide 29 25 Anion Gap 4 10 BUN 14 16 Creatinine 0.59 L 0.57 L Est GFR ( Amer) 167.3 174.1 Est GFR (Non-Af Amer) 138.3 143.9 BUN/Creatinine Ratio 23.7 H 28.1 H Glucose 99 164 H Calcium 8.8 8.6 Magnesium 1.4 L 2.0 Microbiology and Other Data: Microbiology 11/30/18 03:06 Blood Venous Aerobic Blood Culture - Final No Growth Day 5 11/30/18 03:06 Blood Venous Anaerobic Blood Culture - Final No Growth Day 5 11/30/18 02:56 Blood Venous Aerobic Blood Culture - Final No Growth Day 5 11/30/18 02:56 Blood Venous Anaerobic Blood Culture - Final No Growth Day 5 11/30/18 04:51 Nasal Nasal Screen MRSA (PCR) - Final Mrsa Not Detected 11/30/18 04:40 Urine Legionella Urinary Antigen - Final Negative Legionella Antigen 11/30/18 04:40 Urine Streptococcus pneumoniae Ag Screen - Final Positive S. Pneumo Antigen 11/30/18 04:51 Nasal Influenza Types A,B Antigen - Final Specimen received for Influenza A/B Molecular testing Assess/Plan/Problems-Billing Assessment: Mr Mccarthy is a 63yo M with COPD and active tobacco use, PSA (ETOH, cocaine), malnutrition, h/o GI bleed, HCV s/p treatment, who presented to ED with dyspnea and weakness, found to have pneumococcal pneumonia. Hospital stay complicated by acute respiratory failure and alcohol withdrawal. - Patient Problems (1) Pneumococcal pneumonia Current Visit: Yes Status: Acute Code(s): J13 - PNEUMONIA DUE TO STREPTOCOCCUS PNEUMONIAE SNOMED Code(s): 162343349 Comment: CxR with multifocal consolidation and pneumococcal Ag is positive. Completed course Cefdinir. (2) COPD exacerbation Current Visit: Yes Status: Acute Code(s): J44.1 - CHRONIC OBSTRUCTIVE PULMONARY DISEASE W (ACUTE) EXACERBATION SNOMED Code(s): 869005841 Comment: Secondary to PNA Continue prednisone taper and bronchodilators. Much improved (3) ETOH abuse Current Visit: Yes Status: Acute Code(s): F10.10 - ALCOHOL ABUSE, UNCOMPLICATED SNOMED Code(s): 10171898 Comment: Withdrawal is resolved. cont folic acid / thiamine / MVI (4) Muscular deconditioning Current Visit: Yes Status: Acute Code(s): R29.898 - OTH SYMPTOMS AND SIGNS INVOLVING THE MUSCULOSKELETAL SYSTEM SNOMED Code(s): 621894781 Comment: Awaiting AJAY. Prednisone taper could aid in recovery also. Pt advised to eat and walk. (5) Tobacco abuse Current Visit: No Status: Acute Code(s): Z72.0 - TOBACCO USE SNOMED Code(s ): 414820427 Comment: Pt advised to quit smoking and avoid second hand smoke. Contnue NRT. (6) HTN (hypertension) Current Visit: No Status: Chronic Code(s): I10 - ESSENTIAL (PRIMARY) HYPERTENSION SNOMED Code(s): 26216444 Comment: Continue amlodipine. Status and Disposition: stable for discharge, awaiting STR placement
[2018-12-09] MEDS: Acetaminophen TAB* 325 MG PO SCH ×2 (18:28→20:30)
[2018-12-09] MEDS: Gabapentin CAP(*) 100 MG PO SCH (20:30)
[2018-12-09] MEDS: Nicotine Patch Removal NOTE PATCH OFF SCH (20:47)
[2018-12-10] MEDS ORDERED: predniSONE TAB* 5 MG PO SCH (09:00)
[2018-12-10] MEDS: Thiamine TAB* 100 MG TAB PO SCH (09:31)
[2018-12-10] MEDS: Multivitamins/Minerals TAB PO SCH (09:31)
[2018-12-10] MEDS: Acetaminophen TAB* 325 MG PO SCH ×4 (09:31→20:15)
[2018-12-10] MEDS: amLODIPine TAB* 5 MG PO SCH (09:31)
[2018-12-10] MEDS: Pantoprazole TAB * 40 MG TAB PO SCH ×2 (09:31→20:16)
[2018-12-10] MEDS: Folic Acid TAB* 1 MG PO SCH (09:31)
[2018-12-10] MEDS: Magnesium Oxide TAB* 400 MG PO SCH (09:31)
[2018-12-10] MEDS: Gabapentin CAP(*) 100 MG PO SCH ×2 (09:32→20:16)
[2018-12-10] MEDS: Nicotine Inhaler* 10 MG AMP INH PRN ×5 (09:50→23:45)
[2018-12-10] MEDS: Nicotine PATCH 21 MG/24 HR* PATCH TRANSDERM SCH (09:51)
[2018-12-10] MEDS: Mouth Piece, Nicotine* 1 EACH CARTRIDGE ONE (11:55)
--- NOTE | 2018-12-10 12:33 | PN ---
Subjective Date of Service: 12/10/18 Interval History: No c/o. Pt states his appetite is OK. Family History: Unchanged from Admission Social History: Unchanged from Admission Past Medical History: Unchanged from Admission Objective Active Medications: Acetaminophen (Tylenol Tab*) 650 mg PO Q4H PRN PRN Reason: PAIN Last Admin: 12/09/18 14:41 Dose: 650 mg Acetaminophen (Tylenol Tab*) 650 mg PO QID [facility] Last Admin: 12/10/18 09:31 Dose: 650 mg Albuterol (Ventolin 2.5 Mg/3 Ml Neb.Mar*) 2.5 mg INH Q2H PRN PRN Reason: SOB/WHEEZING Albuterol (Ventolin Hfa Inhaler*) 1 puff INH Q4H PRN PRN Reason: WHEEZING Amlodipine Besylate (Norvasc Tab*) 5 mg PO DAILY [facility] Last Admin: 12/10/18 09:31 Dose: 5 mg Enoxaparin Sodium (Lovenox(*)) 40 mg SUBCUT Q24H [facility] Last Admin: 12/09/18 14:35 Dose: 40 mg Folic Acid (Folvite Tab*) 1 mg PO DAILY [facility] Last Admin: 12/10/18 09:31 Dose: 1 mg Gabapentin (Neurontin Cap(*)) 200 mg PO BID [facility] Last Admin: 12/10/18 09:32 Dose: 200 mg Magnesium Oxide (Magox 400 Tab*) 800 mg PO DAILY [facility] Last Admin: 12/10/18 09:31 Dose: 800 mg Multivitamins/Minerals (Theragran/Minerals Tab*) 1 tab PO DAILY [facility] Last Admin: 12/10/18 09:31 Dose: 1 tab Nicotine (Nicotine Inhaler*) 10 mg INH Q2H PRN PRN Reason: CRAVING Last Admin: 12/10/18 09:50 Dose: 10 mg Nicotine (Nicotine Patch 14 Mg/24 Hr*) 1 patch TRANSDERM DAILY [facility] Ondansetron HCl (Zofran Inj*) 4 mg IV Q4H PRN PRN Reason: NAUSEA/VOMITING Last Admin: 12/09/18 20:36 Dose: 4 mg Pantoprazole Sodium (Protonix Tab*) 40 mg PO BID [facility] Last Admin: 12/10/18 09:31 Dose: 40 mg Pharmacy Profile Note (Nicotine Patch Removal Note*) 1 note PATCH OFF 2099 [facility] Last Admin: 12/09/18 20:47 Dose: 1 note Prednisone (Deltasone Tab*) 10 mg PO DAILY [facility] Senna (Senokot Tab*) 1 tab PO BID PRN PRN Reason: CONSTIPATION Thiamine HCl (Vitamin B-1 Tab*) 100 mg PO DAILY [facility] Last Admin: 12/10/18 09:31 Dose: 100 mg Vital Signs - 8 hr 12/10/18 12/10/18 12/10/18 07:11 09:32 09:40 Temperature 98.1 F Pulse Rate 93 Respiratory 16 18 16 Rate Blood Pressure 147/75 (mmHg) Oxygen Devices in Use Now: None Appearance: Alert, partly up in bed. Neutral affect. Looks comfortable. Eyes: No Scleral Icterus Respiratory: Symmetrical Chest Expansion and Respiratory Effort, Clear to Auscultation, Clear to Percussion Cardiovascular: NL Sounds; No Murmurs; No JVD, RRR, No Edema, - Extremities: No Edema, No Clubbing, Cyanosis, - Skin: No Rash or Ulcers, No Nodules or Sclerosis, - Neurological: Alert and Oriented x 3, NL Sensation - Nutrition: Malnutrition Diagnosis/Plan Malnutrition Assessment by Registered Dietitian: Malnutrition Assessment Clinical Characteristics Chronic,Moderate Malnutrition Assessment: - 12% wt loss in past six months Criteria - mild temporal muscle wasting - suspected po intake <75% EEE x 1 month or more Malnutrition Assessment: Will encourage po intake, completion of menus, Interventions and offer Ensure Enlive w/meals to optimize kcal -prot intake and promote wt gain; will monitor acceptance. Malnutrition Assessment: Goals 1. Adequate po intake to promote weight gain toward stated UBW (125#) 2. Pt will tolerate least-restrictive diet texture without s/sx of difficulty chewing 3. Achieve and maintain serum electrolytes WNL 4. Maintain bowel regularity; no constipation ( or diarrhea) Result Diagrams: 12/06/18 08:38 12/07/18 06:19 Additional Lab and Data: Laboratory Results - last 24 hr 12/06/18 12/07/18 08:38 06:19 Sodium 136 136 Potassium 3.7 4.6 Chloride 103 101 Carbon Dioxide 29 25 Anion Gap 4 10 BUN 14 16 Creatinine 0.59 L 0.57 L Est GFR ( Amer) 167.3 174.1 Est GFR (Non-Af Amer) 138.3 143.9 BUN/Creatinine Ratio 23.7 H 28.1 H Glucose 99 164 H Calcium 8.8 8.6 Magnesium 1.4 L 2.0 Microbiology and Other Data: Microbiology 11/30/18 03:06 Blood Venous Aerobic Blood Culture - Final No Growth Day 5 11/30/18 03:06 Blood Venous Anaerobic Blood Culture - Final No Growth Day 5 11/30/18 02:56 Blood Venous Aerobic Blood Culture - Final No Growth Day 5 11/30/18 02:56 Blood Venous Anaerobic Blood Culture - Final No Growth Day 5 11/30/18 04:51 Nasal Nasal Screen MRSA (PCR) - Final Mrsa Not Detected 11/30/18 04:40 Urine Legionella Urinary Antigen - Final Negative Legionella Antigen 11/30/18 04:40 Urine Streptococcus pneumoniae Ag Screen - Final Positive S. Pneumo Antigen 11/30/18 04:51 Nasal Influenza Types A,B Antigen - Final Specimen received for Influenza A/B Molecular testing Assess/Plan/Problems-Billing Assessment: Mr Mccarthy is a 63yo M with COPD and active tobacco use, PSA (ETOH, cocaine), malnutrition, h/o GI bleed, HCV s/p treatment, who presented to ED with dyspnea and weakness, found to have pneumococcal pneumonia. Hospital stay complicated by acute respiratory failure and alcohol withdrawal. - Patient Problems (1) Pneumococcal pneumonia Current Visit: Yes Status: Acute Code(s): J13 - PNEUMONIA DUE TO STREPTOCOCCUS PNEUMONIAE SNOMED Code(s): 007522988 Comment: CxR with multifocal consolidation and pneumococcal Ag is positive. Completed course of Cefdinir. (2) COPD exacerbation Current Visit: Yes Status: Acute Code(s): J44.1 - CHRONIC OBSTRUCTIVE PULMONARY DISEASE W (ACUTE) EXACERBATION SNOMED Code(s): 154295909 Comment: Secondary to PNA Continue prednisone taper and bronchodilators. Much improved (3) ETOH abuse Current Visit: Yes Status: Acute Code(s): F10.10 - ALCOHOL ABUSE, UNCOMPLICATED SNOMED Code(s): 81346115 Comment: Withdrawal is resolved. cont folic acid / thiamine / MVI (4) Muscular deconditioning Current Visit: Yes Status: Acute Code(s): R29.898 - OTH SYMPTOMS AND SIGNS INVOLVING THE MUSCULOSKELETAL SYSTEM SNOMED Code(s): 478888162 Comment: Awaiting AJAY. Prednisone taper could aid in recovery also. Pt advised to eat and walk. (5) Tobacco abuse Current Visit: No Status: Acute Code(s): Z72.0 - TOBACCO USE SNOMED Code(s ): 664521471 Comment: Pt advised to quit smoking and avoid second hand smoke. Contnue NRT. (6) HTN (hypertension) Current Visit: No Status: Chronic Code(s): I10 - ESSENTIAL (PRIMARY) HYPERTENSION SNOMED Code(s): 47636682 Comment: Continue amlodipine. (7) Malnutrition of moderate degree Current Visit: Yes Status: Acute Code(s): E44.0 - MODERATE PROTEIN-CALORIE MALNUTRITION SNOMED Code(s): 070717113 Comment: - As evidenced by 12% wt loss in past six months, mild temporal muscle wasting, and suspected po intake <75% EEE x 1 month or more - Dietitian input appreciated. Prealbumin 9 11/30/18, repeat 12/11/18. Status and Disposition: stable for discharge, awaiting STR placement
[2018-12-10] MEDS: Enoxaparin(*) 40 MG/0.4 ML SYR SUBCUT SCH (13:36)
[2018-12-10] MEDS: Nicotine Patch Removal NOTE PATCH OFF SCH (20:17)
[2018-12-11 06:45] LABS: BUN/Creatinine Ratio 31.8 (8-20); EGFR Non-African American 121.5 (>60); Potassium 4.3 mmol/L (3.5-5.0)
[2018-12-11 07:21] LABS: ABS Basophils 0 10^3/ul (0-0.2); ABS Eosinophils 0 10^3/ul (0-0.6); ABS Lymphocytes 1.4 10^3/ul (1.0-4.8); ABS Monocytes 0.6 10^3/ul (0-0.8); ABS Neutrophils 6.6 10^3/ul (1.5-7.7); ABS Nucleated RBC 0 10^3/ul; Eosinophil % 0.2 %; Hematocrit 31 % (36-46); Hemoglobin 10.1 g/dL (14.0-18.0); Lymphocyte % 16.5 %; Mean Corpuscular HGB Conc 32 g/dL (31-36); Mean Corpuscular Hemoglobin 30 pg (27-31); Mean Corpuscular Volume 92 fL (80-94); Mean Platelet Volume 8.5 fL (7.4-10.4); Nucleated Red Blood Cells % 0.3; Platelet Count 205 10^3/uL (150-450); Red Blood Count 3.41 10^6 /uL (4.18-5.48); Red Cell Distribution Width 19 % (10.5-15); White Blood Count 8.7 10^3/uL (3.5-10.8)
[2018-12-11] MEDS: Nicotine PATCH 14 MG/24 HR* PATCH TRANSDERM SCH (09:26)
[2018-12-11] MEDS: amLODIPine TAB* 5 MG PO SCH (09:28)
[2018-12-11] MEDS: Gabapentin CAP(*) 100 MG PO SCH ×2 (09:28→22:24)
[2018-12-11] MEDS: Pantoprazole TAB * 40 MG TAB PO SCH ×2 (09:30→22:24)
[2018-12-11] MEDS: Multivitamins/Minerals TAB PO SCH (09:30)
[2018-12-11] MEDS: Acetaminophen TAB* 325 MG PO SCH ×4 (09:31→22:23)
[2018-12-11] MEDS: Folic Acid TAB* 1 MG PO SCH (09:31)
[2018-12-11] MEDS: Magnesium Oxide TAB* 400 MG PO SCH (09:31)
[2018-12-11] MEDS: Thiamine TAB* 100 MG TAB PO SCH (09:31)
[2018-12-11] MEDS: predniSONE TAB* 10 MG PO SCH (09:33)
[2018-12-11] MEDS: Enoxaparin(*) 40 MG/0.4 ML SYR SUBCUT SCH (14:33)
[2018-12-11] MEDS ORDERED: Mouth Piece, Nicotine* 1 EACH CARTRIDGE ONE (14:37)
[2018-12-11] MEDS: Mouth Piece, Nicotine* 1 EACH CARTRIDGE ONE (14:39)
[2018-12-11] MEDS: Nicotine Inhaler* 10 MG AMP INH PRN ×2 (14:39→20:11)
--- NOTE | 2018-12-11 16:51 | PN ---
Subjective Date of Service: 12/11/18 Interval History: Pt c/o no new problems. Denies pain. Awaiting placement , possibly in [place]. Poor historian Family History: Unchanged from Admission Social History: Unchanged from Admission Past Medical History: Unchanged from Admission Objective Active Medications: Acetaminophen (Tylenol Tab*) 650 mg PO Q4H PRN PRN Reason: PAIN Last Admin: 12/09/18 14:41 Dose: 650 mg Acetaminophen (Tylenol Tab*) 650 mg PO QID [facility] Last Admin: 12/11/18 14:30 Dose: 650 mg Albuterol (Ventolin 2.5 Mg/3 Ml Neb.Mar*) 2.5 mg INH Q2H PRN PRN Reason: SOB/WHEEZING Albuterol (Ventolin Hfa Inhaler*) 1 puff INH Q4H PRN PRN Reason: WHEEZING Amlodipine Besylate (Norvasc Tab*) 5 mg PO DAILY [facility] Last Admin: 12/11/18 09:28 Dose: 5 mg Enoxaparin Sodium (Lovenox(*)) 40 mg SUBCUT Q24H [facility] Last Admin: 12/11/18 14:33 Dose: 40 mg Folic Acid (Folvite Tab*) 1 mg PO DAILY [facility] Last Admin: 12/11/18 09:31 Dose: 1 mg Gabapentin (Neurontin Cap(*)) 200 mg PO BID [facility] Last Admin: 12/11/18 09:28 Dose: 200 mg Magnesium Oxide (Magox 400 Tab*) 800 mg PO DAILY [facility] Last Admin: 12/11/18 09:31 Dose: 800 mg Multivitamins/Minerals (Theragran/Minerals Tab*) 1 tab PO DAILY [facility] Last Admin: 12/11/18 09:30 Dose: 1 tab Nicotine (Nicotine Inhaler*) 10 mg INH Q2H PRN PRN Reason: CRAVING Last Admin: 12/11/18 14:39 Dose: 10 mg Nicotine (Nicotine Patch 14 Mg/24 Hr*) 1 patch TRANSDERM DAILY [facility] Last Admin: 12/11/18 09:26 Dose: 1 patch Ondansetron HCl (Zofran Inj*) 4 mg IV Q4H PRN PRN Reason: NAUSEA/VOMITING Last Admin: 12/09/18 20:36 Dose: 4 mg Pantoprazole Sodium (Protonix Tab*) 40 mg PO BID [facility] Last Admin: 12/11/18 09:30 Dose: 40 mg Pharmacy Profile Note (Nicotine Patch Removal Note*) 1 note PATCH OFF 2100 [facility] Last Admin: 12/10/18 20:17 Dose: 1 note Prednisone (Deltasone Tab*) 10 mg PO DAILY [facility] Last Admin: 12/11/18 09:33 Dose: 10 mg Senna (Senokot Tab*) 1 tab PO BID PRN PRN Reason: CONSTIPATION Thiamine HCl (Vitamin B-1 Tab*) 100 mg PO DAILY [facility] Last Admin: 12/11/18 09:31 Dose: 100 mg Vital Signs - 8 hr 12/11/18 12/11/18 12/11/18 09:28 11:17 11:35 Temperature 97.7 F Pulse Rate 84 Respiratory 20 18 18 Rate Blood Pressure 132/70 (mmHg) O2 Sat by Pulse 98 Oximetry 12/11/18 12/11/18 12/11/18 11:38 11:55 11:57 Temperature 98.7 F 97.7 F Pulse Rate 82 84 Respiratory 18 18 18 Rate Blood Pressure 161/83 132/70 (mmHg) O2 Sat by Pulse 100 98 Oximetry Oxygen Devices in Use Now: None Appearance: 63 yo M in nAD, AAOx3 Eyes: No Scleral Icterus, PERRLA Ears/Nose/Mouth/Throat: NL Teeth, Lips, Gums, Mucous Membranes Moist Neck: NL Appearance and Movements; NL JVP, Trachea Midline Respiratory: Symmetrical Chest Expansion and Respiratory Effort, Clear to Auscultation Cardiovascular: NL Sounds; No Murmurs; No JVD, RRR Abdominal: NL Sounds; No Tenderness; No Distention Lymphatic: No Cervical Adenopathy Extremities: No Edema, No Clubbing, Cyanosis Skin: No Rash or Ulcers, No Nodules or Sclerosis Neurological: Alert and Oriented x 3, NL Muscle Strength and Tone, - - chronic flattening of R nasolabial fold - Nutrition: Malnutrition Diagnosis/Plan Malnutrition Assessment by Registered Dietitian: Malnutrition Assessment Clinical Characteristics Chronic,Moderate Malnutrition Assessment: - 12% wt loss in past six months Criteria - mild temporal muscle wasting - suspected po intake <75% EEE x 1 month or more Malnutrition Assessment: Will encourage po intake, completion of menus, Interventions and offer Ensure Enlive w/meals to optimize kcal -prot intake and promote wt gain; will monitor acceptance. Malnutrition Assessment: Goals 1. Adequate po intake to promote weight gain toward stated UBW (125#) 2. Pt will tolerate least-restrictive diet texture without s/sx of difficulty chewing 3. Achieve and maintain serum electrolytes WNL 4. Maintain bowel regularity; no constipation ( or diarrhea) Result Diagrams: 12/11/18 06:19 12/11/18 06:19 Additional Lab and Data: Laboratory Results - last 24 hr 12/06/18 12/07/18 08:38 06:19 Sodium 136 136 Potassium 3.7 4.6 Chloride 103 101 Carbon Dioxide 29 25 Anion Gap 4 10 BUN 14 16 Creatinine 0.59 L 0.57 L Est GFR ( Amer) 167.3 174.1 Est GFR (Non-Af Amer) 138.3 143.9 BUN/Creatinine Ratio 23.7 H 28.1 H Glucose 99 164 H Calcium 8.8 8.6 Magnesium 1.4 L 2.0 Microbiology and Other Data: Microbiology 11/30/18 03:06 Blood Venous Aerobic Blood Culture - Final No Growth Day 5 11/30/18 03:06 Blood Venous Anaerobic Blood Culture - Final No Growth Day 5 11/30/18 02:56 Blood Venous Aerobic Blood Culture - Final No Growth Day 5 11/30/18 02:56 Blood Venous Anaerobic Blood Culture - Final No Growth Day 5 11/30/18 04:51 Nasal Nasal Screen MRSA (PCR) - Final Mrsa Not Detected 11/30/18 04:40 Urine Legionella Urinary Antigen - Final Negative Legionella Antigen 11/30/18 04:40 Urine Streptococcus pneumoniae Ag Screen - Final Positive S. Pneumo Antigen 11/30/18 04:51 Nasal Influenza Types A,B Antigen - Final Specimen received for Influenza A/B Molecular testing Assess/Plan/Problems-Billing Assessment: Mr Mccarthy is a 63yo M with COPD and active tobacco use, PSA (ETOH, cocaine), malnutrition, h/o GI bleed, HCV s/p treatment, who presented to ED with dyspnea and weakness, found to have pneumococcal pneumonia. Hospital stay complicated by acute respiratory failure and alcohol withdrawal. - Patient Problems (1) Pneumococcal pneumonia Comment: CxR with multifocal consolidation and pneumococcal Ag is positive. Completed course of Cefdinir. (2) COPD exacerbation Comment: Secondary to PNA Continue prednisone taper and bronchodilators. Much improved (3) ETOH abuse Comment: Withdrawal is resolved. cont folic acid / thiamine / MVI (4) Malnutrition of moderate degree Comment: - As evidenced by 12% wt loss in past six months, mild temporal muscle wasting, and suspected po intake <75% EEE x 1 month or more - Dietitian input appreciated. Prealbumin 9 11/30/18, repeat 12/11/18. (5) Muscular deconditioning Comment: Awaiting AJAY. Prednisone taper could aid in recovery also. Pt advised to eat and walk. (6) DVT prophylaxis Comment: - Lovenox. Status and Disposition: stable for discharge, awaiting STR placement
[2018-12-11] MEDS: Nicotine Patch Removal NOTE PATCH OFF SCH (22:38)
[2018-12-12] MEDS ORDERED: predniSONE TAB* 10 MG PO SCH (09:00)
[2018-12-12] MEDS: Folic Acid TAB* 1 MG PO SCH (09:03)
[2018-12-12] MEDS: Gabapentin CAP(*) 100 MG PO SCH ×2 (09:03→21:02)
[2018-12-12] MEDS: amLODIPine TAB* 5 MG PO SCH (09:04)
[2018-12-12] MEDS: predniSONE TAB* 10 MG PO SCH (09:04)
[2018-12-12] MEDS: Pantoprazole TAB * 40 MG TAB PO SCH ×2 (09:04→21:02)
[2018-12-12] MEDS: Multivitamins/Minerals TAB PO SCH (09:04)
[2018-12-12] MEDS: Acetaminophen TAB* 325 MG PO SCH ×5 (09:04→21:02)
[2018-12-12] MEDS: Thiamine TAB* 100 MG TAB PO SCH (09:04)
[2018-12-12] MEDS: Magnesium Oxide TAB* 400 MG PO SCH (09:05)
[2018-12-12] MEDS: Nicotine PATCH 14 MG/24 HR* PATCH TRANSDERM SCH (09:05)
[2018-12-12] MEDS: Nicotine Inhaler* 10 MG AMP INH PRN ×3 (10:36→22:44)
--- NOTE | 2018-12-12 10:38 | PN ---
Subjective Date of Service: 12/12/18 Interval History: Pt feels well, denies SOB or cough. Family History: Unchanged from Admission Social History: Unchanged from Admission Past Medical History: Unchanged from Admission Objective Active Medications: Acetaminophen (Tylenol Tab*) 650 mg PO Q4H PRN PRN Reason: PAIN Last Admin: 12/09/18 14:41 Dose: 650 mg Acetaminophen (Tylenol Tab*) 650 mg PO QID [facility] Last Admin: 12/12/18 09:04 Dose: 650 mg Albuterol (Ventolin 2.5 Mg/3 Ml Neb.Mar*) 2.5 mg INH Q2H PRN PRN Reason: SOB/WHEEZING Albuterol (Ventolin Hfa Inhaler*) 1 puff INH Q4H PRN PRN Reason: WHEEZING Amlodipine Besylate (Norvasc Tab*) 5 mg PO DAILY [facility] Last Admin: 12/12/18 09:04 Dose: 5 mg Enoxaparin Sodium (Lovenox(*)) 40 mg SUBCUT Q24H [facility] Last Admin: 12/11/18 14:33 Dose: 40 mg Folic Acid (Folvite Tab*) 1 mg PO DAILY [facility] Last Admin: 12/12/18 09:03 Dose: 1 mg Gabapentin (Neurontin Cap(*)) 200 mg PO BID [facility] Last Admin: 12/12/18 09:03 Dose: 200 mg Magnesium Oxide (Magox 400 Tab*) 800 mg PO DAILY [facility] Last Admin: 12/12/18 09:05 Dose: 800 mg Multivitamins/Minerals (Theragran/Minerals Tab*) 1 tab PO DAILY [facility] Last Admin: 12/12/18 09:04 Dose: 1 tab Nicotine (Nicotine Inhaler*) 10 mg INH Q2H PRN PRN Reason: CRAVING Last Admin: 12/12/18 10:36 Dose: 10 mg Nicotine (Nicotine Patch 14 Mg/24 Hr*) 1 patch TRANSDERM DAILY [facility] Last Admin: 12/12/18 09:05 Dose: 1 patch Ondansetron HCl (Zofran Inj*) 4 mg IV Q4H PRN PRN Reason: NAUSEA/VOMITING Last Admin: 12/09/18 20:36 Dose: 4 mg Pantoprazole Sodium (Protonix Tab*) 40 mg PO BID [facility] Last Admin: 12/12/18 09:04 Dose: 40 mg Pharmacy Profile Note (Nicotine Patch Removal Note*) 1 note PATCH OFF 2100 [facility] Last Admin: 12/11/18 22:38 Dose: 1 note Senna (Senokot Tab*) 1 tab PO BID PRN PRN Reason: CONSTIPATION Thiamine HCl (Vitamin B-1 Tab*) 100 mg PO DAILY [facility] Last Admin: 12/12/18 09:04 Dose: 100 mg Vital Signs - 8 hr 12/12/18 12/12/18 12/12/18 04:07 05:32 07:26 Temperature 98.8 F 98.7 F Pulse Rate 74 83 Respiratory 20 20 16 Rate Blood Pressure 123/64 134/71 (mmHg) O2 Sat by Pulse 98 99 Oximetry 12/12/18 09:03 Temperature Pulse Rate Respiratory 18 Rate Blood Pressure (mmHg) O2 Sat by Pulse Oximetry Oxygen Devices in Use Now: None Appearance: 63 yo M in NAD, AAOx2, doesn't remember the date,poor recall Eyes: No Scleral Icterus, PERRLA Ears/Nose/Mouth/Throat: NL Teeth, Lips, Gums, Mucous Membranes Moist Neck: NL Appearance and Movements; NL JVP Respiratory: Symmetrical Chest Expansion and Respiratory Effort, Clear to Auscultation Cardiovascular: NL Sounds; No Murmurs; No JVD Abdominal: NL Sounds; No Tenderness; No Distention, No Hepatosplenomegaly Lymphatic: No Cervical Adenopathy Extremities: No Edema, No Clubbing, Cyanosis Skin: No Rash or Ulcers, No Nodules or Sclerosis Neurological: NL Muscle Strength and Tone - Nutrition: Malnutrition Diagnosis/Plan Malnutrition Assessment by Registered Dietitian: Malnutrition Assessment Clinical Characteristics Chronic,Moderate Malnutrition Assessment: - 12% wt loss in past six months Criteria - mild temporal muscle wasting - suspected po intake <75% EEE x 1 month or more Malnutrition Assessment: Will encourage po intake, completion of menus, Interventions and offer Ensure Enlive w/meals to optimize kcal -prot intake and promote wt gain; will monitor acceptance. Malnutrition Assessment: Goals 1. Adequate po intake to promote weight gain toward stated UBW (125#) 2. Pt will tolerate least-restrictive diet texture without s/sx of difficulty chewing 3. Achieve and maintain serum electrolytes WNL 4. Maintain bowel regularity; no constipation ( or diarrhea) Result Diagrams: 12/11/18 06:19 12/11/18 06:19 Additional Lab and Data: Laboratory Results - last 24 hr 12/06/18 12/07/18 08:38 06:19 Sodium 136 136 Potassium 3.7 4.6 Chloride 103 101 Carbon Dioxide 29 25 Anion Gap 4 10 BUN 14 16 Creatinine 0.59 L 0.57 L Est GFR ( Amer) 167.3 174.1 Est GFR (Non-Af Amer) 138.3 143.9 BUN/Creatinine Ratio 23.7 H 28.1 H Glucose 99 164 H Calcium 8.8 8.6 Magnesium 1.4 L 2.0 Microbiology and Other Data: Microbiology 11/30/18 03:06 Blood Venous Aerobic Blood Culture - Final No Growth Day 5 11/30/18 03:06 Blood Venous Anaerobic Blood Culture - Final No Growth Day 5 11/30/18 02:56 Blood Venous Aerobic Blood Culture - Final No Growth Day 5 11/30/18 02:56 Blood Venous Anaerobic Blood Culture - Final No Growth Day 5 11/30/18 04:51 Nasal Nasal Screen MRSA (PCR) - Final Mrsa Not Detected 11/30/18 04:40 Urine Legionella Urinary Antigen - Final Negative Legionella Antigen 11/30/18 04:40 Urine Streptococcus pneumoniae Ag Screen - Final Positive S. Pneumo Antigen 11/30/18 04:51 Nasal Influenza Types A,B Antigen - Final Specimen received for Influenza A/B Molecular testing Assess/Plan/Problems-Billing Assessment: Mr Mccarthy is a 63yo M with COPD and active tobacco use, PSA (ETOH, cocaine), malnutrition, h/o GI bleed, HCV s/p treatment, who presented to ED with dyspnea and weakness, found to have pneumococcal pneumonia. Hospital stay complicated by acute respiratory failure and alcohol withdrawal. - Patient Problems (1) Pneumococcal pneumonia Comment: CxR with multifocal consolidation and pneumococcal Ag is positive. Completed course of Cefdinir. (2) COPD exacerbation Comment: Secondary to PNA will d/c prednisone Much improved (3) ETOH abuse Comment: Withdrawal is resolved. cont folic acid / thiamine / MVI (4) Malnutrition of moderate degree Comment: - As evidenced by 12% wt loss in past six months, mild temporal muscle wasting, and suspected po intake <75% EEE x 1 month or more - Dietitian input appreciated. Prealbumin 9 11/30/18, repeat 19 on 12/11/18. (5) Muscular deconditioning Comment: Awaiting AJAY. (6) DVT prophylaxis Comment: - Lovenox. Status and Disposition: stable for discharge, awaiting STR placement
[2018-12-12] MEDS: Acetaminophen TAB* 325 MG PO PRN ×2 (11:37→17:41)
[2018-12-12] MEDS: Enoxaparin(*) 40 MG/0.4 ML SYR SUBCUT SCH (13:24)
[2018-12-12] MEDS: Nicotine Patch Removal NOTE PATCH OFF SCH (21:05)
[2018-12-13] MEDS: Folic Acid TAB* 1 MG PO SCH (10:41)
[2018-12-13] MEDS: Gabapentin CAP(*) 100 MG PO SCH ×2 (10:41→20:49)
[2018-12-13] MEDS: Pantoprazole TAB * 40 MG TAB PO SCH ×2 (10:41→20:49)
[2018-12-13] MEDS: Magnesium Oxide TAB* 400 MG PO SCH (10:41)
[2018-12-13] MEDS: Multivitamins/Minerals TAB PO SCH (10:41)
[2018-12-13] MEDS: Acetaminophen TAB* 325 MG PO SCH ×4 (10:42→20:49)
[2018-12-13] MEDS: amLODIPine TAB* 5 MG PO SCH (10:42)
[2018-12-13] MEDS: Nicotine PATCH 14 MG/24 HR* PATCH TRANSDERM SCH (10:43)
[2018-12-13] MEDS: Thiamine TAB* 100 MG TAB PO SCH (10:43)
[2018-12-13] MEDS: Enoxaparin(*) 40 MG/0.4 ML SYR SUBCUT SCH (13:20)
--- NOTE | 2018-12-13 14:22 | PN ---
Subjective Date of Service: 12/13/18 Interval History: Pt feels well. no complaints, Very poor historian Family History: Unchanged from Admission Social History: Unchanged from Admission Past Medical History: Unchanged from Admission Objective Active Medications: Acetaminophen (Tylenol Tab*) 650 mg PO Q4H PRN PRN Reason: PAIN Last Admin: 12/12/18 17:41 Dose: 650 mg Acetaminophen (Tylenol Tab*) 650 mg PO QID [facility] Last Admin: 12/13/18 13:20 Dose: 650 mg Albuterol (Ventolin 2.5 Mg/3 Ml Neb.Mar*) 2.5 mg INH Q2H PRN PRN Reason: SOB/WHEEZING Albuterol (Ventolin Hfa Inhaler*) 1 puff INH Q4H PRN PRN Reason: WHEEZING Amlodipine Besylate (Norvasc Tab*) 5 mg PO DAILY [facility] Last Admin: 12/13/18 10:42 Dose: 5 mg Enoxaparin Sodium (Lovenox(*)) 40 mg SUBCUT Q24H [facility] Last Admin: 12/13/18 13:20 Dose: 40 mg Folic Acid (Folvite Tab*) 1 mg PO DAILY [facility] Last Admin: 12/13/18 10:41 Dose: 1 mg Gabapentin (Neurontin Cap(*)) 200 mg PO BID [facility] Last Admin: 12/13/18 10:41 Dose: 200 mg Magnesium Oxide (Magox 400 Tab*) 800 mg PO DAILY [facility] Last Admin: 12/13/18 10:41 Dose: 800 mg Multivitamins/Minerals (Theragran/Minerals Tab*) 1 tab PO DAILY [facility] Last Admin: 12/13/18 10:41 Dose: 1 tab Nicotine (Nicotine Inhaler*) 10 mg INH Q2H PRN PRN Reason: CRAVING Last Admin: 12/12/18 22:44 Dose: 10 mg Nicotine (Nicotine Patch 14 Mg/24 Hr*) 1 patch TRANSDERM DAILY [facility] Last Admin: 12/13/18 10:43 Dose: 1 patch Ondansetron HCl (Zofran Inj*) 4 mg IV Q4H PRN PRN Reason: NAUSEA/VOMITING Last Admin: 12/09/18 20:36 Dose: 4 mg Pantoprazole Sodium (Protonix Tab*) 40 mg PO BID [facility] Last Admin: 12/13/18 10:41 Dose: 40 mg Pharmacy Profile Note (Nicotine Patch Removal Note*) 1 note PATCH OFF 2100 [facility] Last Admin: 12/12/18 21:05 Dose: 1 note Senna (Senokot Tab*) 1 tab PO BID PRN PRN Reason: CONSTIPATION Thiamine HCl (Vitamin B-1 Tab*) 100 mg PO DAILY [facility] Last Admin: 12/13/18 10:43 Dose: 100 mg Vital Signs - 8 hr 12/13/18 12/13/18 12/13/18 08:00 08:59 10:41 Temperature 97.2 F Pulse Rate 77 Respiratory 16 18 16 Rate Blood Pressure 139/72 (mmHg) O2 Sat by Pulse 96 Oximetry 12/13/18 12/13/18 11:24 12:00 Temperature 98.7 F 98.7 F Pulse Rate 87 87 Respiratory 18 18 Rate Blood Pressure 121/60 121/60 (mmHg) O2 Sat by Pulse 97 97 Oximetry Oxygen Devices in Use Now: None Appearance: 63 yo M in nAD, AAOx2 Eyes: No Scleral Icterus, PERRLA Ears/Nose/Mouth/Throat: NL Teeth, Lips, Gums, Mucous Membranes Moist Neck: NL Appearance and Movements; NL JVP, Trachea Midline Respiratory: Symmetrical Chest Expansion and Respiratory Effort, Clear to Auscultation Cardiovascular: NL Sounds; No Murmurs; No JVD Abdominal: NL Sounds; No Tenderness; No Distention Lymphatic: No Cervical Adenopathy Extremities: No Edema, No Clubbing, Cyanosis Skin: No Nodules or Sclerosis Neurological: - - mild R facial droop, otherwise motor 5/5 - Nutrition: Malnutrition Diagnosis/Plan Malnutrition Assessment by Registered Dietitian: Malnutrition Assessment Clinical Characteristics Chronic,Moderate Malnutrition Assessment: - 12% wt loss in past six months Criteria - mild temporal muscle wasting - suspected po intake <75% EEE x 1 month or more Malnutrition Assessment: Will encourage po intake, completion of menus, Interventions and offer Ensure Enlive w/meals to optimize kcal -prot intake and promote wt gain; will monitor acceptance. Malnutrition Assessment: Goals 1. Adequate po intake to promote weight gain toward stated UBW (125#) 2. Pt will tolerate least-restrictive diet texture without s/sx of difficulty chewing 3. Achieve and maintain serum electrolytes WNL 4. Maintain bowel regularity; no constipation ( or diarrhea) Result Diagrams: 12/11/18 06:19 12/11/18 06:19 Additional Lab and Data: Laboratory Results - last 24 hr 12/06/18 12/07/18 08:38 06:19 Sodium 136 136 Potassium 3.7 4.6 Chloride 103 101 Carbon Dioxide 29 25 Anion Gap 4 10 BUN 14 16 Creatinine 0.59 L 0.57 L Est GFR ( Amer) 167.3 174.1 Est GFR (Non-Af Amer) 138.3 143.9 BUN/Creatinine Ratio 23.7 H 28.1 H Glucose 99 164 H Calcium 8.8 8.6 Magnesium 1.4 L 2.0 Microbiology and Other Data: Microbiology 11/30/18 03:06 Blood Venous Aerobic Blood Culture - Final No Growth Day 5 11/30/18 03:06 Blood Venous Anaerobic Blood Culture - Final No Growth Day 5 11/30/18 02:56 Blood Venous Aerobic Blood Culture - Final No Growth Day 5 11/30/18 02:56 Blood Venous Anaerobic Blood Culture - Final No Growth Day 5 11/30/18 04:51 Nasal Nasal Screen MRSA (PCR) - Final Mrsa Not Detected 11/30/18 04:40 Urine Legionella Urinary Antigen - Final Negative Legionella Antigen 11/30/18 04:40 Urine Streptococcus pneumoniae Ag Screen - Final Positive S. Pneumo Antigen 11/30/18 04:51 Nasal Influenza Types A,B Antigen - Final Specimen received for Influenza A/B Molecular testing Assess/Plan/Problems-Billing Assessment: Mr Mccarthy is a 63yo M with COPD and active tobacco use, PSA (ETOH, cocaine), malnutrition, h/o GI bleed, HCV s/p treatment, who presented to ED with dyspnea and weakness, found to have pneumococcal pneumonia. Hospital stay complicated by acute respiratory failure and alcohol withdrawal. - Patient Problems (1) Pneumococcal pneumonia Comment: CxR with multifocal consolidation and pneumococcal Ag is positive. Completed course of Cefdinir. (2) COPD exacerbation Comment: Secondary to PNA resolved (3) ETOH abuse Comment: Withdrawal is resolved. cont folic acid / thiamine / MVI (4) Malnutrition of moderate degree Comment: - As evidenced by 12% wt loss in past six months, mild temporal muscle wasting, and suspected po intake <75% EEE x 1 month or more - Dietitian input appreciated. Prealbumin 9 11/30/18, repeat 19 on 12/11/18. (5) Muscular deconditioning Comment: Awaiting AJAY. (6) DVT prophylaxis Comment: - Lovenox. Status and Disposition: stable for discharge, awaiting STR placement
[2018-12-13] MEDS: Nicotine Patch Removal NOTE PATCH OFF SCH (20:52)
[2018-12-14] MEDS: amLODIPine TAB* 5 MG PO SCH (10:33)
[2018-12-14] MEDS: Magnesium Oxide TAB* 400 MG PO SCH (10:33)
[2018-12-14] MEDS: Thiamine TAB* 100 MG TAB PO SCH (10:33)
[2018-12-14] MEDS: Folic Acid TAB* 1 MG PO SCH (10:34)
[2018-12-14] MEDS: Acetaminophen TAB* 325 MG PO SCH ×4 (10:34→21:01)
[2018-12-14] MEDS: Gabapentin CAP(*) 100 MG PO SCH ×2 (10:34→21:01)
[2018-12-14] MEDS: Nicotine PATCH 14 MG/24 HR* PATCH TRANSDERM SCH (10:35)
[2018-12-14] MEDS: Pantoprazole TAB * 40 MG TAB PO SCH ×2 (10:35→21:02)
[2018-12-14] MEDS: Multivitamins/Minerals TAB PO SCH (10:35)
--- NOTE | 2018-12-14 10:52 | PN ---
Subjective Date of Service: 12/14/18 Interval History: Pt feels well. no complaints. Denies SOB./CP Family History: Unchanged from Admission Social History: Unchanged from Admission Past Medical History: Unchanged from Admission Objective Active Medications: Acetaminophen (Tylenol Tab*) 650 mg PO Q4H PRN PRN Reason: PAIN Last Admin: 12/12/18 17:41 Dose: 650 mg Acetaminophen (Tylenol Tab*) 650 mg PO QID [facility] Last Admin: 12/14/18 10:34 Dose: 650 mg Albuterol (Ventolin 2.5 Mg/3 Ml Neb.Mar*) 2.5 mg INH Q2H PRN PRN Reason: SOB/WHEEZING Albuterol (Ventolin Hfa Inhaler*) 1 puff INH Q4H PRN PRN Reason: WHEEZING Amlodipine Besylate (Norvasc Tab*) 5 mg PO DAILY [facility] Last Admin: 12/14/18 10:33 Dose: 5 mg Enoxaparin Sodium (Lovenox(*)) 40 mg SUBCUT Q24H [facility] Last Admin: 12/13/18 13:20 Dose: 40 mg Folic Acid (Folvite Tab*) 1 mg PO DAILY [facility] Last Admin: 12/14/18 10:34 Dose: 1 mg Gabapentin (Neurontin Cap(*)) 200 mg PO BID [facility] Last Admin: 12/14/18 10:34 Dose: 200 mg Magnesium Oxide (Magox 400 Tab*) 800 mg PO DAILY [facility] Last Admin: 12/14/18 10:33 Dose: 800 mg Multivitamins/Minerals (Theragran/Minerals Tab*) 1 tab PO DAILY [facility] Last Admin: 12/14/18 10:35 Dose: 1 tab Nicotine (Nicotine Inhaler*) 10 mg INH Q2H PRN PRN Reason: CRAVING Last Admin: 12/12/18 22:44 Dose: 10 mg Nicotine (Nicotine Patch 14 Mg/24 Hr*) 1 patch TRANSDERM DAILY [facility] Last Admin: 12/14/18 10:35 Dose: 1 patch Ondansetron HCl (Zofran Inj*) 4 mg IV Q4H PRN PRN Reason: NAUSEA/VOMITING Last Admin: 12/09/18 20:36 Dose: 4 mg Pantoprazole Sodium (Protonix Tab*) 40 mg PO BID [facility] Last Admin: 12/14/18 10:35 Dose: 40 mg Pharmacy Profile Note (Nicotine Patch Removal Note*) 1 note PATCH OFF 2100 [facility] Last Admin: 12/13/18 20:52 Dose: 1 note Senna (Senokot Tab*) 1 tab PO BID PRN PRN Reason: CONSTIPATION Thiamine HCl (Vitamin B-1 Tab*) 100 mg PO DAILY [facility] Last Admin: 12/14/18 10:33 Dose: 100 mg Vital Signs - 8 hr 12/14/18 12/14/18 12/14/18 03:00 03:30 07:34 Temperature 98.2 F 98.2 F 97.5 F Pulse Rate 77 76 87 Respiratory 20 20 22 Rate Blood Pressure 138/69 138/69 160/77 (mmHg) O2 Sat by Pulse 99 99 100 Oximetry 12/14/18 12/14/18 12/14/18 07:49 07:56 10:34 Temperature 98.7 F 98.7 F Pulse Rate 64 63 Respiratory 18 18 Rate Blood Pressure 141/75 141/75 (mmHg) O2 Sat by Pulse 99 99 Oximetry Oxygen Devices in Use Now: None Appearance: 63 yo M in nAD, aAOx2 Eyes: No Scleral Icterus, PERRLA Ears/Nose/Mouth/Throat: NL Teeth, Lips, Gums, Mucous Membranes Moist Neck: NL Appearance and Movements; NL JVP Respiratory: Symmetrical Chest Expansion and Respiratory Effort, Clear to Auscultation Cardiovascular: NL Sounds; No Murmurs; No JVD Abdominal: NL Sounds; No Tenderness; No Distention, No Hepatosplenomegaly Lymphatic: No Cervical Adenopathy Extremities: No Edema, No Clubbing, Cyanosis Skin: No Rash or Ulcers, No Nodules or Sclerosis Neurological: NL Muscle Strength and Tone - Nutrition: Malnutrition Diagnosis/Plan Malnutrition Assessment by Registered Dietitian: Malnutrition Assessment Clinical Characteristics Chronic,Moderate Malnutrition Assessment: - 12% wt loss in past six months Criteria - mild temporal muscle wasting - suspected po intake <75% EEE x 1 month or more Malnutrition Assessment: Will encourage po intake, completion of menus, Interventions and offer Ensure Enlive w/meals to optimize kcal -prot intake and promote wt gain; will monitor acceptance. Malnutrition Assessment: Goals 1. Adequate po intake to promote weight gain toward stated UBW (125#) 2. Pt will tolerate least-restrictive diet texture without s/sx of difficulty chewing 3. Achieve and maintain serum electrolytes WNL 4. Maintain bowel regularity; no constipation ( or diarrhea) Result Diagrams: 12/11/18 06:19 12/11/18 06:19 Additional Lab and Data: Laboratory Results - last 24 hr 12/06/18 12/07/18 08:38 06:19 Sodium 136 136 Potassium 3.7 4.6 Chloride 103 101 Carbon Dioxide 29 25 Anion Gap 4 10 BUN 14 16 Creatinine 0.59 L 0.57 L Est GFR ( Amer) 167.3 174.1 Est GFR (Non-Af Amer) 138.3 143.9 BUN/Creatinine Ratio 23.7 H 28.1 H Glucose 99 164 H Calcium 8.8 8.6 Magnesium 1.4 L 2.0 Microbiology and Other Data: Microbiology 11/30/18 03:06 Blood Venous Aerobic Blood Culture - Final No Growth Day 5 11/30/18 03:06 Blood Venous Anaerobic Blood Culture - Final No Growth Day 5 11/30/18 02:56 Blood Venous Aerobic Blood Culture - Final No Growth Day 5 11/30/18 02:56 Blood Venous Anaerobic Blood Culture - Final No Growth Day 5 11/30/18 04:51 Nasal Nasal Screen MRSA (PCR) - Final Mrsa Not Detected 11/30/18 04:40 Urine Legionella Urinary Antigen - Final Negative Legionella Antigen 11/30/18 04:40 Urine Streptococcus pneumoniae Ag Screen - Final Positive S. Pneumo Antigen 11/30/18 04:51 Nasal Influenza Types A,B Antigen - Final Specimen received for Influenza A/B Molecular testing Assess/Plan/Problems-Billing Assessment: Mr Mccarthy is a 63yo M with COPD and active tobacco use, PSA (ETOH, cocaine), malnutrition, h/o GI bleed, HCV s/p treatment, who presented to ED with dyspnea and weakness, found to have pneumococcal pneumonia. Hospital stay complicated by acute respiratory failure and alcohol withdrawal. - Patient Problems (1) Pneumococcal pneumonia Comment: Resolved CxR with multifocal consolidation and pneumococcal Ag is positive. Completed course of Cefdinir. (2) COPD exacerbation Comment: Secondary to PNA resolved (3) ETOH abuse Comment: Withdrawal is resolved. cont folic acid / thiamine / MVI (4) Malnutrition of moderate degree Comment: - As evidenced by 12% wt loss in past six months, mild temporal muscle wasting, and suspected po intake <75% EEE x 1 month or more - Dietitian input appreciated. Prealbumin 9 11/30/18, repeat 19 on 12/11/18. (5) Muscular deconditioning Comment: Awaiting AJAY. (6) DVT prophylaxis Comment: - Lovenox. Status and Disposition: stable for discharge, awaiting STR placement
[2018-12-14] MEDS: Enoxaparin(*) 40 MG/0.4 ML SYR SUBCUT SCH (14:25)
[2018-12-14] MEDS: Nicotine Patch Removal NOTE PATCH OFF SCH (21:02)
[2018-12-14] MEDS: Nicotine Inhaler* 10 MG AMP INH PRN (21:10)
[2018-12-15] MEDS: Acetaminophen TAB* 325 MG PO SCH ×4 (08:02→21:46)
[2018-12-15] MEDS: Gabapentin CAP(*) 100 MG PO SCH ×2 (08:02→21:45)
[2018-12-15] MEDS: Thiamine TAB* 100 MG TAB PO SCH (08:02)
[2018-12-15] MEDS: amLODIPine TAB* 5 MG PO SCH (08:02)
[2018-12-15] MEDS: Magnesium Oxide TAB* 400 MG PO SCH (08:02)
[2018-12-15] MEDS: Folic Acid TAB* 1 MG PO SCH (08:03)
[2018-12-15] MEDS: Nicotine PATCH 14 MG/24 HR* PATCH TRANSDERM SCH (08:03)
[2018-12-15] MEDS: Multivitamins/Minerals TAB PO SCH (08:03)
[2018-12-15] MEDS: Pantoprazole TAB * 40 MG TAB PO SCH ×2 (08:03→21:46)
[2018-12-15] MEDS ORDERED: predniSONE TAB* 5 MG PO SCH (09:00)
[2018-12-15] MEDS: Nicotine Inhaler* 10 MG AMP INH PRN (10:29)
--- NOTE | 2018-12-15 13:39 | PN ---
Subjective Date of Service: 12/15/18 Interval History: Pt has no complaints. Denies SOB/CP, poor historian Family History: Unchanged from Admission Social History: Unchanged from Admission Past Medical History: Unchanged from Admission Objective Active Medications: Acetaminophen (Tylenol Tab*) 650 mg PO Q4H PRN PRN Reason: PAIN Last Admin: 12/12/18 17:41 Dose: 650 mg Acetaminophen (Tylenol Tab*) 650 mg PO QID [facility] Last Admin: 12/15/18 08:02 Dose: 650 mg Albuterol (Ventolin 2.5 Mg/3 Ml Neb.Mar*) 2.5 mg INH Q2H PRN PRN Reason: SOB/WHEEZING Albuterol (Ventolin Hfa Inhaler*) 1 puff INH Q4H PRN PRN Reason: WHEEZING Amlodipine Besylate (Norvasc Tab*) 5 mg PO DAILY [facility] Last Admin: 12/15/18 08:02 Dose: 5 mg Enoxaparin Sodium (Lovenox(*)) 40 mg SUBCUT Q24H [facility] Last Admin: 12/14/18 14:25 Dose: 40 mg Folic Acid (Folvite Tab*) 1 mg PO DAILY [facility] Last Admin: 12/15/18 08:03 Dose: 1 mg Gabapentin (Neurontin Cap(*)) 200 mg PO BID [facility] Last Admin: 12/15/18 08:02 Dose: 200 mg Magnesium Oxide (Magox 400 Tab*) 800 mg PO DAILY [facility] Last Admin: 12/15/18 08:02 Dose: 800 mg Multivitamins/Minerals (Theragran/Minerals Tab*) 1 tab PO DAILY [facility] Last Admin: 12/15/18 08:03 Dose: 1 tab Nicotine (Nicotine Inhaler*) 10 mg INH Q2H PRN PRN Reason: CRAVING Last Admin: 12/15/18 10:29 Dose: 10 mg Nicotine (Nicotine Patch 14 Mg/24 Hr*) 1 patch TRANSDERM DAILY [facility] Last Admin: 12/15/18 08:03 Dose: 1 patch Ondansetron HCl (Zofran Inj*) 4 mg IV Q4H PRN PRN Reason: NAUSEA/VOMITING Last Admin: 12/09/18 20:36 Dose: 4 mg Pantoprazole Sodium (Protonix Tab*) 40 mg PO BID [facility] Last Admin: 12/15/18 08:03 Dose: 40 mg Pharmacy Profile Note (Nicotine Patch Removal Note*) 1 note PATCH OFF 2100 [facility] Last Admin: 12/14/18 21:02 Dose: 1 note Senna (Senokot Tab*) 1 tab PO BID PRN PRN Reason: CONSTIPATION Thiamine HCl (Vitamin B-1 Tab*) 100 mg PO DAILY [facility] Last Admin: 12/15/18 08:02 Dose: 100 mg Vital Signs - 8 hr 12/15/18 12/15/18 12/15/18 07:36 08:00 08:02 Temperature Pulse Rate 82 Respiratory 20 16 14 Rate Blood Pressure 132/66 (mmHg) O2 Sat by Pulse 98 Oximetry 12/15/18 12/15/18 10:02 10:57 Temperature 98.2 F Pulse Rate 88 Respiratory 16 18 Rate Blood Pressure 112/64 (mmHg) O2 Sat by Pulse 100 Oximetry Oxygen Devices in Use Now: None Appearance: 63 yo M in NAD, aAOx2 Eyes: No Scleral Icterus, PERRLA Ears/Nose/Mouth/Throat: NL Teeth, Lips, Gums, Mucous Membranes Moist Neck: NL Appearance and Movements; NL JVP, Trachea Midline Respiratory: Symmetrical Chest Expansion and Respiratory Effort, Clear to Auscultation Cardiovascular: NL Sounds; No Murmurs; No JVD, RRR Abdominal: NL Sounds; No Tenderness; No Distention Lymphatic: No Cervical Adenopathy Extremities: No Edema, No Clubbing, Cyanosis Skin: No Rash or Ulcers, No Nodules or Sclerosis Neurological: NL Muscle Strength and Tone, - - mild R facial droop - Nutrition: Malnutrition Diagnosis/Plan Malnutrition Assessment by Registered Dietitian: Malnutrition Assessment Clinical Characteristics Chronic,Moderate Malnutrition Assessment: - 12% wt loss in past six months Criteria - mild temporal muscle wasting - suspected po intake <75% EEE x 1 month or more Malnutrition Assessment: Will encourage po intake, completion of menus, Interventions and offer Ensure Enlive w/meals to optimize kcal -prot intake and promote wt gain; will monitor acceptance. Malnutrition Assessment: Goals 1. Adequate po intake to promote weight gain toward stated UBW (125#) 2. Pt will tolerate least-restrictive diet texture without s/sx of difficulty chewing 3. Achieve and maintain serum electrolytes WNL 4. Maintain bowel regularity; no constipation ( or diarrhea) Result Diagrams: 12/11/18 06:19 12/11/18 06:19 Additional Lab and Data: Laboratory Results - last 24 hr 12/06/18 12/07/18 08:38 06:19 Sodium 136 136 Potassium 3.7 4.6 Chloride 103 101 Carbon Dioxide 29 25 Anion Gap 4 10 BUN 14 16 Creatinine 0.59 L 0.57 L Est GFR ( Amer) 167.3 174.1 Est GFR (Non-Af Amer) 138.3 143.9 BUN/Creatinine Ratio 23.7 H 28.1 H Glucose 99 164 H Calcium 8.8 8.6 Magnesium 1.4 L 2.0 Microbiology and Other Data: Microbiology 11/30/18 03:06 Blood Venous Aerobic Blood Culture - Final No Growth Day 5 11/30/18 03:06 Blood Venous Anaerobic Blood Culture - Final No Growth Day 5 11/30/18 02:56 Blood Venous Aerobic Blood Culture - Final No Growth Day 5 11/30/18 02:56 Blood Venous Anaerobic Blood Culture - Final No Growth Day 5 11/30/18 04:51 Nasal Nasal Screen MRSA (PCR) - Final Mrsa Not Detected 11/30/18 04:40 Urine Legionella Urinary Antigen - Final Negative Legionella Antigen 11/30/18 04:40 Urine Streptococcus pneumoniae Ag Screen - Final Positive S. Pneumo Antigen 11/30/18 04:51 Nasal Influenza Types A,B Antigen - Final Specimen received for Influenza A/B Molecular testing Assess/Plan/Problems-Billing Assessment: Mr Mccarthy is a 63yo M with COPD and active tobacco use, PSA (ETOH, cocaine), malnutrition, h/o GI bleed, HCV s/p treatment, who presented to ED with dyspnea and weakness, found to have pneumococcal pneumonia. Hospital stay complicated by acute respiratory failure and alcohol withdrawal. - Patient Problems (1) Pneumococcal pneumonia Comment: Resolved CxR with multifocal consolidation and pneumococcal Ag is positive. Completed course of Cefdinir. (2) COPD exacerbation Comment: Secondary to PNA resolved (3) ETOH abuse Comment: Withdrawal is resolved. cont folic acid / thiamine / MVI (4) Malnutrition of moderate degree Comment: - As evidenced by 12% wt loss in past six months, mild temporal muscle wasting, and suspected po intake <75% EEE x 1 month or more - Dietitian input appreciated. Prealbumin 9 11/30/18, repeat 19 on 12/11/18. (5) Muscular deconditioning Comment: Awaiting AJAY. (6) DVT prophylaxis Comment: - Lovenox. Status and Disposition: stable for discharge, awaiting STR placement
[2018-12-15] MEDS: Enoxaparin(*) 40 MG/0.4 ML SYR SUBCUT SCH (14:45)
[2018-12-15] MEDS: Nicotine Patch Removal NOTE PATCH OFF SCH (22:59)
[2018-12-16] MEDS: Nicotine PATCH 14 MG/24 HR* PATCH TRANSDERM SCH (08:42)
[2018-12-16] MEDS: Folic Acid TAB* 1 MG PO SCH (08:44)
[2018-12-16] MEDS: Thiamine TAB* 100 MG TAB PO SCH (08:44)
[2018-12-16] MEDS: Multivitamins/Minerals TAB PO SCH (08:44)
[2018-12-16] MEDS: Magnesium Oxide TAB* 400 MG PO SCH (08:44)
[2018-12-16] MEDS: Gabapentin CAP(*) 100 MG PO SCH ×2 (08:45→21:15)
[2018-12-16] MEDS: Pantoprazole TAB * 40 MG TAB PO SCH ×2 (08:46→21:16)
[2018-12-16] MEDS: Acetaminophen TAB* 325 MG PO SCH ×4 (08:46→21:14)
[2018-12-16] MEDS: amLODIPine TAB* 5 MG PO SCH (08:46)
--- NOTE | 2018-12-16 11:27 | PN ---
Subjective Date of Service: 12/16/18 Interval History: Mr. Mccarthy reports no chest pain or SOB. However, he does raise concern for a nodule to the foreskin of his penis. It is painless. He has never had this symptom before. Family History: Unchanged from Admission Social History: Unchanged from Admission Past Medical History: Unchanged from Admission Objective Active Medications: Acetaminophen (Tylenol Tab*) 650 mg PO Q4H PRN Acetaminophen (Tylenol Tab*) 650 mg PO QID [facility] Albuterol (Ventolin 2.5 Mg/3 Ml Neb.Mar*) 2.5 mg INH Q2H PRN Albuterol (Ventolin Hfa Inhaler*) 1 puff INH Q4H PRN Amlodipine Besylate (Norvasc Tab*) 5 mg PO DAILY [facility] Enoxaparin Sodium (Lovenox(*)) 40 mg SUBCUT Q24H [facility] Folic Acid (Folvite Tab*) 1 mg PO DAILY [facility] Gabapentin (Neurontin Cap(*)) 200 mg PO BID [facility] Magnesium Oxide (Magox 400 Tab*) 800 mg PO DAILY [facility] Multivitamins/Minerals (Theragran/Minerals Tab*) 1 tab PO DAILY [facility] Nicotine (Nicotine Inhaler*) 10 mg INH Q2H PRN Nicotine (Nicotine Patch 14 Mg/24 Hr*) 1 patch TRANSDERM DAILY [facility] Ondansetron HCl (Zofran Inj*) 4 mg IV Q4H PRN Pantoprazole Sodium (Protonix Tab*) 40 mg PO BID [facility] Pharmacy Profile Note (Nicotine Patch Removal Note*) 1 note PATCH OFF 2100 [facility] Senna (Senokot Tab*) 1 tab PO BID PRN Thiamine HCl (Vitamin B-1 Tab*) 100 mg PO DAILY [facility] Vital Signs: Temp Pulse Resp BP Pulse Ox 98.3 F 81 22 138/72 99 12/16/18 07:41 12/16/18 07:41 12/16/18 08:45 12/16/18 07:41 12/16/18 07:41 Oxygen Devices in Use Now: None Appearance: Cachectic male lying in bed in NAD Eyes: No Scleral Icterus Ears/Nose/Mouth/Throat: Mucous Membranes Moist Neck: Trachea Midline Respiratory: Symmetrical Chest Expansion and Respiratory Effort, Clear to Auscultation Cardiovascular: NL Sounds; No Murmurs; No JVD, No Edema Abdominal: NL Sounds; No Tenderness; No Distention Extremities: No Edema Skin: - - Pale white nodule to penile foreskin, 2 smaller nodules (one white, one red) underneath foreskin and on head of penis. Painless, no drainage Neurological: Alert and Oriented x 3, NL Muscle Strength and Tone Nutrition: Taking PO's - Nutrition: Malnutrition Diagnosis/Plan Malnutrition Assessment by Registered Dietitian: Malnutrition Assessment Clinical Characteristics Chronic,Moderate Malnutrition Assessment: - 12% wt loss in past six months Criteria - mild temporal muscle wasting - suspected po intake <75% EEE x 1 month or more Malnutrition Assessment: Will encourage po intake, completion of menus, Interventions and offer Ensure Enlive w/meals to optimize kcal -prot intake and promote wt gain; will monitor acceptance. Malnutrition Assessment: Goals 1. Adequate po intake to promote weight gain toward stated UBW (125#) 2. Pt will tolerate least-restrictive diet texture without s/sx of difficulty chewing 3. Achieve and maintain serum electrolytes WNL 4. Maintain bowel regularity; no constipation ( or diarrhea) Result Diagrams: 12/11/18 06:19 12/11/18 06:19 Additional Lab and Data: . Microbiology and Other Data: . Assess/Plan/Problems-Billing Assessment: Mr Mccarthy is a 63yo M with COPD and active tobacco use, PSA (ETOH, cocaine), malnutrition, h/o GI bleed, HCV s/p treatment, who presented to ED with dyspnea and weakness, found to have pneumococcal pneumonia. Hospital stay complicated by acute respiratory failure and alcohol withdrawal. - Patient Problems (1) Pneumococcal pneumonia Comment: Resolved CxR with multifocal consolidation and pneumococcal Ag is positive. Completed course of Cefdinir. (2) COPD exacerbation Comment: Secondary to PNA resolved (3) Genital lesion, male Comment: - Unclear etiology - Appearance not consistent with HSV, chancroid, or syphillis. As it is painless, will check for syphillis. (4) ETOH abuse Comment: Withdrawal is resolved. cont folic acid / thiamine / MVI (5) Malnutrition of moderate degree Comment: - As evidenced by 12% wt loss in past six months, mild temporal muscle wasting, and suspected po intake <75% EEE x 1 month or more - Dietitian input appreciated. Prealbumin 9 11/30/18, repeat 19 on 12/11/18. (6) HTN (hypertension) Comment: Continue amlodipine. (7) DVT prophylaxis Comment: - Lovenox. (8) Full code status Status and Disposition: stable for discharge, awaiting STR placement
[2018-12-16] MEDS: Enoxaparin(*) 40 MG/0.4 ML SYR SUBCUT SCH (12:56)
[2018-12-16] MEDS: Nicotine Patch Removal NOTE PATCH OFF SCH (21:15)
[2018-12-16] MEDS: Nicotine Inhaler* 10 MG AMP INH PRN (23:08)
[2018-12-17] MEDS: Acetaminophen TAB* 325 MG PO PRN (06:14)
[2018-12-17] MEDS: Magnesium Oxide TAB* 400 MG PO SCH (08:42)
[2018-12-17] MEDS: Nicotine PATCH 14 MG/24 HR* PATCH TRANSDERM SCH (08:42)
[2018-12-17] MEDS: Folic Acid TAB* 1 MG PO SCH (08:42)
[2018-12-17] MEDS: Thiamine TAB* 100 MG TAB PO SCH (08:43)
[2018-12-17] MEDS: amLODIPine TAB* 5 MG PO SCH (08:43)
[2018-12-17] MEDS: Multivitamins/Minerals TAB PO SCH (08:43)
[2018-12-17] MEDS: Pantoprazole TAB * 40 MG TAB PO SCH ×2 (08:43→19:51)
[2018-12-17] MEDS: Gabapentin CAP(*) 100 MG PO SCH ×2 (08:48→19:50)
[2018-12-17] MEDS: Acetaminophen TAB* 325 MG PO SCH ×4 (08:50→19:49)
--- NOTE | 2018-12-17 11:39 | PN ---
Subjective Date of Service: 12/17/18 Interval History: Mr. Mccarthy only complains of chronic low back and leg pain. He also notes that the penile lesion noted yesterday is still present, it is not painful. He denies other complaint including chest pain or SOB. Family History: Unchanged from Admission Social History: Unchanged from Admission Past Medical History: Unchanged from Admission Objective Active Medications: Acetaminophen (Tylenol Tab*) 650 mg PO Q4H PRN Acetaminophen (Tylenol Tab*) 650 mg PO QID [facility] Albuterol (Ventolin 2.5 Mg/3 Ml Neb.Mar*) 2.5 mg INH Q2H PRN Albuterol (Ventolin Hfa Inhaler*) 1 puff INH Q4H PRN Amlodipine Besylate (Norvasc Tab*) 5 mg PO DAILY [facility] Enoxaparin Sodium (Lovenox(*)) 40 mg SUBCUT Q24H [facility] Folic Acid (Folvite Tab*) 1 mg PO DAILY [facility] Gabapentin (Neurontin Cap(*)) 200 mg PO BID [facility] Magnesium Oxide (Magox 400 Tab*) 800 mg PO DAILY [facility] Multivitamins/Minerals (Theragran/Minerals Tab*) 1 tab PO DAILY [facility] Nicotine (Nicotine Inhaler*) 10 mg INH Q2H PRN Nicotine (Nicotine Patch 14 Mg/24 Hr*) 1 patch TRANSDERM DAILY [facility] Ondansetron HCl (Zofran Inj*) 4 mg IV Q4H PRN Pantoprazole Sodium (Protonix Tab*) 40 mg PO BID [facility] Pharmacy Profile Note (Nicotine Patch Removal Note*) 1 note PATCH OFF 2100 [facility] Senna (Senokot Tab*) 1 tab PO BID PRN Thiamine HCl (Vitamin B-1 Tab*) 100 mg PO DAILY [facility] Vital Signs: Temp Pulse Resp BP Pulse Ox 98.9 F 78 16 135/70 99 12/17/18 08:05 12/17/18 08:05 12/17/18 09:00 12/17/18 08:05 12/17/18 08:05 Oxygen Devices in Use Now: None Appearance: Male lying in bed in NAD Eyes: No Scleral Icterus Ears/Nose/Mouth/Throat: Mucous Membranes Moist Neck: Trachea Midline Respiratory: Symmetrical Chest Expansion and Respiratory Effort, Clear to Auscultation Cardiovascular: NL Sounds; No Murmurs; No JVD, No Edema Abdominal: NL Sounds; No Tenderness; No Distention Neurological: Alert and Oriented x 3, NL Muscle Strength and Tone Nutrition: Taking PO's - Nutrition: Malnutrition Diagnosis/Plan Malnutrition Assessment by Registered Dietitian: Malnutrition Assessment Clinical Characteristics Chronic,Moderate Malnutrition Assessment: - 12% wt loss in past six months Criteria - mild temporal muscle wasting - suspected po intake <75% EEE x 1 month or more Malnutrition Assessment: Will encourage po intake, completion of menus, Interventions and offer Ensure Enlive w/meals to optimize kcal -prot intake and promote wt gain; will monitor acceptance. Malnutrition Assessment: Goals 1. Adequate po intake to promote weight gain toward stated UBW (125#) 2. Pt will tolerate least-restrictive diet texture without s/sx of difficulty chewing 3. Achieve and maintain serum electrolytes WNL 4. Maintain bowel regularity; no constipation ( or diarrhea) Result Diagrams: 12/11/18 06:19 12/11/18 06:19 Additional Lab and Data: . Microbiology and Other Data: . Assess/Plan/Problems-Billing Assessment: Mr Mccarthy is a 63yo M with COPD and active tobacco use, PSA (ETOH, cocaine), malnutrition, h/o GI bleed, HCV s/p treatment, who presented to ED with dyspnea and weakness, found to have pneumococcal pneumonia. Hospital stay complicated by acute respiratory failure and alcohol withdrawal. - Patient Problems (1) Pneumococcal pneumonia Comment: Resolved CxR with multifocal consolidation and pneumococcal Ag is positive. Completed course of Cefdinir. (2) COPD exacerbation Comment: Secondary to PNA resolved (3) Genital lesion, male Comment: - Unclear etiology - Appearance not consistent with HSV, chancroid, or syphillis. As it is painless, will check for syphillis. (4) ETOH abuse Comment: Withdrawal is resolved. cont folic acid / thiamine / MVI (5) Malnutrition of moderate degree Comment: - As evidenced by 12% wt loss in past six months, mild temporal muscle wasting, and suspected po intake <75% EEE x 1 month or more - Dietitian input appreciated. Prealbumin 9 11/30/18, repeat 19 on 12/11/18. (6) HTN (hypertension) Comment: Continue amlodipine. (7) DVT prophylaxis Comment: - Lovenox. (8) Full code status Status and Disposition: stable for discharge, awaiting STR placement
[2018-12-17] MEDS: Enoxaparin(*) 40 MG/0.4 ML SYR SUBCUT SCH (12:51)
[2018-12-17] MEDS: Nicotine Inhaler* 10 MG AMP INH PRN (19:28)
[2018-12-17] MEDS: Nicotine Patch Removal NOTE PATCH OFF SCH (19:53)
[2018-12-17] MEDS ORDERED: QUEtiapine TAB* 25 MG PO ONE (21:07)
[2018-12-18] MEDS: amLODIPine TAB* 5 MG PO SCH (10:29)
[2018-12-18] MEDS: Nicotine PATCH 14 MG/24 HR* PATCH TRANSDERM SCH (10:29)
[2018-12-18] MEDS: Thiamine TAB* 100 MG TAB PO SCH (10:30)
[2018-12-18] MEDS: Gabapentin CAP(*) 100 MG PO SCH ×2 (10:30→20:59)
[2018-12-18] MEDS: Acetaminophen TAB* 325 MG PO SCH ×4 (10:31→21:00)
[2018-12-18] MEDS: Magnesium Oxide TAB* 400 MG PO SCH (10:31)
[2018-12-18] MEDS: Folic Acid TAB* 1 MG PO SCH (10:31)
[2018-12-18] MEDS: Pantoprazole TAB * 40 MG TAB PO SCH ×2 (10:32→21:00)
[2018-12-18] MEDS: Multivitamins/Minerals TAB PO SCH (10:32)
[2018-12-18] MEDS: Nicotine Inhaler* 10 MG AMP INH PRN (10:48)
[2018-12-18] MEDS: Enoxaparin(*) 40 MG/0.4 ML SYR SUBCUT SCH (13:37)
[2018-12-18] MEDS: Nicotine Patch Removal NOTE PATCH OFF SCH (21:03)
[2018-12-19] MEDS: Acetaminophen TAB* 325 MG PO PRN (00:20)
[2018-12-19 07:59] LABS: Hematocrit 30 % (36-46); Mean Platelet Volume 7.7 fL (7.4-10.4); Platelet Count 171 10^3/uL (150-450)
[2018-12-19 08:11] LABS: EGFR African American 164.1 (>60); EGFR Non-African American 135.6 (>60)
[2018-12-19] MEDS: Acetaminophen TAB* 325 MG PO SCH ×4 (09:17→20:24)
[2018-12-19] MEDS: Folic Acid TAB* 1 MG PO SCH (09:18)
[2018-12-19] MEDS: Multivitamins/Minerals TAB PO SCH (09:18)
[2018-12-19] MEDS: Magnesium Oxide TAB* 400 MG PO SCH (09:18)
[2018-12-19] MEDS: Gabapentin CAP(*) 100 MG PO SCH ×2 (09:18→20:25)
[2018-12-19] MEDS: amLODIPine TAB* 5 MG PO SCH (09:18)
[2018-12-19] MEDS: Thiamine TAB* 100 MG TAB PO SCH (09:18)
[2018-12-19] MEDS: Pantoprazole TAB * 40 MG TAB PO SCH ×2 (09:18→20:25)
[2018-12-19] MEDS: Nicotine PATCH 14 MG/24 HR* PATCH TRANSDERM SCH (09:19)
[2018-12-19] MEDS: Enoxaparin(*) 40 MG/0.4 ML SYR SUBCUT SCH (14:00)
--- NOTE | 2018-12-19 14:10 | PN ---
Subjective Date of Service: 12/19/18 Interval History: HOSPITALIST PROGRESS NOTE Patient seen and examined at bedside. Care reviewed and d/w Mila Ribeiro RN. He offers no new complaints today. Penile lesion is unchanged. He is not sure when the lesion appeared, states he has not been sexually active for "a long time". Family History: Unchanged from Admission Social History: Unchanged from Admission Past Medical History: Unchanged from Admission Objective Active Medications: Acetaminophen (Tylenol Tab*) 650 mg PO Q4H PRN PRN Reason: PAIN Last Admin: 12/19/18 00:20 Dose: 650 mg Acetaminophen (Tylenol Tab*) 650 mg PO QID [facility] Last Admin: 12/19/18 14:00 Dose: 650 mg Albuterol (Ventolin 2.5 Mg/3 Ml Neb.Mar*) 2.5 mg INH Q2H PRN PRN Reason: SOB/WHEEZING Albuterol (Ventolin Hfa Inhaler*) 1 puff INH Q4H PRN PRN Reason: WHEEZING Amlodipine Besylate (Norvasc Tab*) 5 mg PO DAILY [facility] Last Admin: 12/19/18 09:18 Dose: 5 mg Enoxaparin Sodium (Lovenox(*)) 40 mg SUBCUT Q24H [facility] Last Admin: 12/19/18 14:00 Dose: 40 mg Folic Acid (Folvite Tab*) 1 mg PO DAILY [facility] Last Admin: 12/19/18 09:18 Dose: 1 mg Gabapentin (Neurontin Cap(*)) 200 mg PO BID [facility] Last Admin: 12/19/18 09:18 Dose: 200 mg Magnesium Oxide (Magox 400 Tab*) 800 mg PO DAILY [facility] Last Admin: 12/19/18 09:18 Dose: 800 mg Miconazole Nitrate (Monistat 2%*) 1 applic TOPICAL BID [facility] Multivitamins/Minerals (Theragran/Minerals Tab*) 1 tab PO DAILY [facility] Last Admin: 12/19/18 09:18 Dose: 1 tab Nicotine (Nicotine Inhaler*) 10 mg INH Q2H PRN PRN Reason: CRAVING Last Admin: 12/18/18 10:48 Dose: 10 mg Nicotine (Nicotine Patch 14 Mg/24 Hr*) 1 patch TRANSDERM DAILY [facility] Last Admin: 12/19/18 09:19 Dose: 1 patch Ondansetron HCl (Zofran Inj*) 4 mg IV Q4H PRN PRN Reason: NAUSEA/VOMITING Last Admin: 12/09/18 20:36 Dose: 4 mg Pantoprazole Sodium (Protonix Tab*) 40 mg PO BID [facility] Last Admin: 12/19/18 09:18 Dose: 40 mg Pharmacy Profile Note (Nicotine Patch Removal Note*) 1 note PATCH OFF 2100 [facility] Last Admin: 12/18/18 21:03 Dose: 1 note Senna (Senokot Tab*) 1 tab PO BID PRN PRN Reason: CONSTIPATION Thiamine HCl (Vitamin B-1 Tab*) 100 mg PO DAILY [facility] Last Admin: 12/19/18 09:18 Dose: 100 mg Vital Signs - 8 hr 12/19/18 12/19/18 12/19/18 07:55 08:00 09:18 Temperature 97.9 F Pulse Rate 95 Respiratory 22 18 18 Rate Blood Pressure 137/77 (mmHg) O2 Sat by Pulse 96 Oximetry 12/19/18 09:20 Temperature Pulse Rate Respiratory 18 Rate Blood Pressure (mmHg) O2 Sat by Pulse Oximetry Oxygen Devices in Use Now: None Appearance: Pleasant gentleman sitting up in bed in [facility]. Eyes: No Scleral Icterus Ears/Nose/Mouth/Throat: Mucous Membranes Moist Neck: Trachea Midline Respiratory: Symmetrical Chest Expansion and Respiratory Effort, Clear to Auscultation Cardiovascular: RRR - Normal S1 and S2 Skin: - - 1cm nodule on foreskin, not tender, with small ulceration on the underside; no urethral discharge Neurological: Alert and Oriented x 3, NL Muscle Strength and Tone - Nutrition: Malnutrition Diagnosis/Plan Malnutrition Assessment by Registered Dietitian: Malnutrition Assessment Clinical Characteristics Chronic,Moderate Malnutrition Assessment: - 12% wt loss in past six months Criteria - mild temporal muscle wasting - suspected po intake <75% EEE x 1 month or more Malnutrition Assessment: Will encourage po intake, completion of menus, Interventions and offer Ensure Enlive w/meals to optimize kcal -prot intake and promote wt gain; will monitor acceptance. Malnutrition Assessment: Goals 1. Adequate po intake to promote weight gain toward stated UBW (125#) 2. Pt will tolerate least-restrictive diet texture without s/sx of difficulty chewing 3. Achieve and maintain serum electrolytes WNL 4. Maintain bowel regularity; no constipation ( or diarrhea) Result Diagrams: 12/19/18 07:34 12/19/18 07:34 Assess/Plan/Problems-Billing Assessment: Mr Mccarthy is a 63yo M with COPD and active tobacco use, PSA (ETOH, cocaine), malnutrition, h/o GI bleed, HCV s/p treatment, who presented to ED with dyspnea and weakness, found to have pneumococcal pneumonia. Hospital stay complicated by acute respiratory failure and alcohol withdrawal. Now assisted care, awaiting placement. - Patient Problems (1) Genital lesion, male Comment: - Unclear etiology. - Appearance not consistent with HSV, chancroid, or syphilis, but painless. - Syphillis IgG is negative, but it could negative in primary syphilis. - ID consult requested. (2) Pneumococcal pneumonia Comment: - Resolved - Had CxR with multifocal consolidation and pneumococcal Ag was positive. - Completed course of Cefdinir. (3) Chronic back pain Comment: - Continue pain management. (4) COPD exacerbation Comment: - Secondary to PNA. - Resolved. (5) ETOH abuse Comment: - Withdrawal is resolved. - Continue folic acid / thiamine / MVI. (6) Malnutrition of moderate degree Comment: - As evidenced by 12% wt loss in past six months, mild temporal muscle wasting, and suspected po intake <75% EEE x 1 month or more - Dietitian input appreciated. - Improving - Prealbumin 9 11/30/18, repeat 19 on 12/11/18. (7) Muscular deconditioning Comment: - Awaiting placement. (8) DVT prophylaxis Comment: - Lovenox. (9) Full code status Status and Disposition: [facility] care since 12/15/18. Stable for discharge, awaiting placement.
--- NOTE | 2018-12-19 17:03 | CONS ---
CONSULTATION REPORT: DATE OF CONSULT: 12/19/18 PRIMARY CARE PROVIDER: Dr. Keaton Malcolm. PROVIDER REQUESTING CONSULTATION: Dr. Pedro Pablo Cam. CONSULTING SERVICE: Infectious Disease. ATTENDING PHYSICIAN: Dr. Manuel Sarmiento * (dictated by Velia Gregory NP) REASON FOR CONSULT: Penile lesion. IMPRESSION: 1. Penile lesion. The patient has a small ulceration to the underside of his foreskin. Differential includes fixed drug reaction, candidiasis, herpes simplex virus or syphilis. His syphilis IgG is negative, but could be negative in primary syphilis. He denies any recent sexual activity. The appearance is not consistent with herpes simplex virus, chancre, syphilis or condyloma karey. 2. Streptococcus pneumococcal pneumoniae. Completed course of cefdinir. 3. Chronic obstructive pulmonary disease exacerbation, resolved. 4. Malnutrition. RECOMMENDATION/PLAN: Recommend miconazole for possible candidiasis and see if this clears up the area. HISTORY OF PRESENT ILLNESS: Mr. Mccarthy is a 63-year-old male with a past medical history significant for substance abuse, GI bleed secondary to a duodenal ulcer, alcohol abuse, thrombocytopenia, hypertension, hepatitis C, malnutrition, history of encephalopathy, tobacco abuse, and COPD, who presented to the emergency room with complaints of shortness of breath after having an acute onset of cough. Upon arrival of EMS, he was noted to be hypoxic with oxygen saturation of 83%. He was placed on BiPAP. While in the emergency room , he was able to be transitioned from BiPAP to the OxyMask. He received fluids , electrolyte replacements, Solu-Medrol, Levaquin, DuoNebs, albuterol, Tylenol. He was referred to the hospitalist service for further evaluation. During his hospitalization, his hypoxic respiratory failure resolved. He was treated for Strep pneumoniae and COPD exacerbation in the setting of his chronic illness. Two days ago, he noted a lesion on his foreskin. He has completed a course of antibiotics for his pneumonia. He was tested for syphilis IgG that was negative. He states that he has not been sexually active in quite some time. He has no known syphilis exposures. He denies pain, itching, or drainage from this site. He denies any recent travels. Reports feeling feverish today. Denies chills, shortness of breath, muscle pain, rash, diarrhea, urinary symptoms such as urgency, frequency, dysuria or recent travel. He does report lower back pain and pain in his right leg. PAST MEDICAL HISTORY: 1. Polysubstance abuse. 2. GI bleed secondary to duodenal ulcer. 3. Alcohol abuse. 4. Thrombocytopenia. 5. Hypertension. 6. History of hepatitis C. 7. Malnutrition. 8. Encephalopathy. 9. Tobacco abuse. 10. COPD. PAST SURGICAL HISTORY: Status post ORIF of his right leg. MEDICATIONS: Home medications: 1. Thiamine 100 mg by mouth daily. 2. Omeprazole 20 mg by mouth twice daily. 3. Magnesium oxide 800 mg by mouth daily. 4. Neurontin 300 mg by mouth twice daily. 5. Folic acid 1 mg by mouth daily. 6. Albuterol HFA inhaler 1 puff inhalation every 4 hours as needed for shortness of breath or wheeze. 7. Multivitamin 1 tablet by mouth daily. Hospital medications: 1. Acetaminophen 650 mg by mouth every 4 hours as needed for pain. 2. Acetaminophen 650 mg by mouth 4 times daily. 3. Albuterol nebulizer 2.5 mg/3 mL, 2.5 mg inhalation every 2 hours as needed for shortness of breath or wheeze. 4. Albuterol HFA inhaler 1 puff inhalation every 4 hours as needed for shortness of breath or wheeze. 5. Norvasc 5 mg by mouth daily. 6. Lovenox 40 mg subcutaneous daily. 7. Folic acid 1 mg by mouth daily. 8. Gabapentin 200 mg by mouth twice daily. 9. Magnesium oxide 800 mg by mouth daily. 10. Multivitamin 1 tablet by mouth daily. 11. Nicotine inhaler 10 mg inhalation every 2 hours as needed for nicotine craving. 12. Nicotine patch 14 mg 1 patch transdermal daily. 13. Zofran 4 mg IV every 4 hours as needed for nausea. 14. Protonix 40 mg by mouth twice daily. 15. Senna 1 tablet by mouth twice daily as needed for constipation. 16. Thiamine 100 mg by mouth daily. ALLERGIES: No known drug allergies. FAMILY HISTORY: Denies any family history of recurrent infections. He states that both of his parents are , but he is unsure of the cause of . He is also unsure of family history, but does not believe there is any family history of coronary artery disease, diabetes or cancer. SOCIAL HISTORY: He drinks 3 alcoholic beverages daily. He is a current smoker , smoking half a pack a day for the last 40 years. He reports using cocaine. He last used cocaine a few weeks prior to his admission. REVIEW OF SYSTEMS: I performed a 10-point review of systems, all the pertinent positives and negatives as mentioned in the history of present illness, remaining systems are negative. PHYSICAL EXAM: Vital Signs: Temperature 97.9, heart rate 95, respiratory rate 22, O2 sat 96% on room air, blood pressure 157/77. General Appearance: Appears to be in no acute distress. Head: Normocephalic, atraumatic. ENT: Pupils are equal and reactive to light. Extraocular movements are intact. Mucous membranes are moist. Neck: Supple, no lymphadenopathy noted. Neurological: Alert, oriented x4. Cranial nerves II through XII are grossly intact. Cardiovascular: Regular rate and rhythm. S1, S2 are present. No murmurs, rubs, or gallops heard. Respiratory: Lungs are clear to auscultation bilateral. Extremities: No lower extremity edema. DP, PT pulses are 2+ and symmetric. Musculoskeletal: No clubbing or cyanosis noted. The patient reports good strength in all extremities. Psychological: Calm and cooperative. Skin: He has an approximately 0.5 cm pink- colored lesion to the underside of his foreskin. No urethral discharge. No drainage from the lesion. DIAGNOSTIC STUDIES/LAB DATA: Labs from 12/11/18, sodium 137, potassium 4.3, chloride 104, CO2 28, BUN 21, creatinine 0.66, glucose 125. White blood cell count 8.7, hemoglobin 10.1, hematocrit 31, platelet count 205. Syphilis IgG antibody negative. HIV testing negative. Influenza A and B negative. Please see the impression and recommendations outlined above. Thank you for asking as to see Mr. Mccarthy in consultation. TIME SPENT: Time for this consultation was approximately 30 minutes, greater than half of that was spent with the patient discussing medications, past medical history, the events leading to his hospitalization, performing a physical examination. The case has been reviewed with the attending, Dr. Sarmiento, who agrees with the plan of care. Reviewed by VELIA GREGORY, TRAMAINE-C 12/22/18 1140 Seen, examined, discussed with Laure Gregory NP; I agree with her full note above. Impression/Plan: 1. penile lesion, no recent sexual contact; STI workup sent. As it is under foreskin will treat for Candidiasis and follow its evolution while here. [id number]/[facility] #: [id number] [facility]
[2018-12-19] MEDS: Nicotine Inhaler* 10 MG AMP INH PRN (20:26)
[2018-12-19] MEDS: Miconazole TOPICAL CREAM 2%* 30 GM TOPICAL SCH (20:26)
[2018-12-19] MEDS: Nicotine Patch Removal NOTE PATCH OFF SCH (20:30)
[2018-12-20] MEDS: Gabapentin CAP(*) 100 MG PO SCH ×2 (09:13→20:34)
[2018-12-20] MEDS: Acetaminophen TAB* 325 MG PO SCH ×4 (09:13→20:33)
[2018-12-20] MEDS: Multivitamins/Minerals TAB PO SCH (09:13)
[2018-12-20] MEDS: Pantoprazole TAB * 40 MG TAB PO SCH ×2 (09:13→20:34)
[2018-12-20] MEDS: Folic Acid TAB* 1 MG PO SCH (09:13)
[2018-12-20] MEDS: amLODIPine TAB* 5 MG PO SCH (09:14)
[2018-12-20] MEDS: Magnesium Oxide TAB* 400 MG PO SCH (09:14)
[2018-12-20] MEDS: Thiamine TAB* 100 MG TAB PO SCH (09:14)
[2018-12-20] MEDS: Nicotine PATCH 14 MG/24 HR* PATCH TRANSDERM SCH (09:14)
[2018-12-20] MEDS: Miconazole TOPICAL CREAM 2%* 30 GM TOPICAL SCH ×2 (12:21→20:35)
[2018-12-20] MEDS: Enoxaparin(*) 40 MG/0.4 ML SYR SUBCUT SCH (13:39)
[2018-12-20 16:06] VITALS: BP 116/66
[2018-12-20] MEDS: Nicotine Inhaler* 10 MG AMP INH PRN ×3 (16:11→22:07)
[2018-12-20] MEDS: Nicotine Patch Removal NOTE PATCH OFF SCH (20:37)
[2018-12-21] MEDS: Nicotine Inhaler* 10 MG AMP INH PRN (01:21)
[2018-12-21] MEDS: Folic Acid TAB* 1 MG PO SCH (07:43)
[2018-12-21] MEDS: Pantoprazole TAB * 40 MG TAB PO SCH (07:44)
[2018-12-21] MEDS: Thiamine TAB* 100 MG TAB PO SCH (07:44)
[2018-12-21] MEDS: Magnesium Oxide TAB* 400 MG PO SCH (07:44)
[2018-12-21] MEDS: Multivitamins/Minerals TAB PO SCH (07:44)
[2018-12-21] MEDS: amLODIPine TAB* 5 MG PO SCH (07:44)
[2018-12-21] MEDS: Nicotine PATCH 14 MG/24 HR* PATCH TRANSDERM SCH (07:44)
[2018-12-21] MEDS: Acetaminophen TAB* 325 MG PO SCH (07:45)
[2018-12-21] MEDS: Gabapentin CAP(*) 100 MG PO SCH (07:45)
[2018-12-21] MEDS: Miconazole TOPICAL CREAM 2%* 30 GM TOPICAL SCH (07:46)
--- NOTE | 2018-12-22 02:38 | DS ---
CC: Dr. Malcolm; Dr. Sarmiento * DISCHARGE SUMMARY: DATE OF ADMISSION: 11/30/18 DATE OF DISCHARGE: 12/21/18 PRIMARY CARE PROVIDER: Dr. Malcolm. DISCHARGE DIAGNOSES: 1. Sepsis. 2. Pneumococcal pneumonia. 3. Chronic obstructive pulmonary disease excerebration secondary to the above. 4. Alcohol withdrawal. 5. Moderate protein-calorie malnutrition. 6. Physical deconditioning. 7. Acute hypoxemic respiratory failure. 8. Homelessness. 9. Chronic back pain. SECONDARY DIAGNOSES: 1. Tobacco abuse. 2. Polysubstance abuse (alcohol and cocaine). 3. History of prior gastrointestinal bleed secondary to duodenal ulcer in 2014. 4. Hepatitis C, status post treatment. 5. Hypertension. MEDICATIONS: 1. Acetaminophen 650 mg p.o. q.6 hours p.r.n. pain or fever. 2. Albuterol HFA 1 puff inhaled q.4 hours p.r.n. shortness of breath. 3. Amlodipine 5 mg p.o. daily. 4. Folic acid 1 mg p.o. daily. 5. Gabapentin 200 mg p.o. b.i.d. 6. Magnesium oxide 800 mg p.o. daily. 7. Miconazole 2% topical to penis lesion twice a day. 8. Multivitamin 1 tablet p.o. daily. 9. Omeprazole 20 mg p.o. b.i.d. 10. Senna 1 tablet p.o. b.i.d. p.r.n. constipation. 11. Thiamine 100 mg p.o. daily. HOSPITAL COURSE: Mr. Mccarthy is a 63-year-old male with past medical history as stated above, who presented to the emergency room on 11/30/18 with complaints of shortness of breath, cough, abdominal pain. For more details of his presentation, I refer to his history and physical. In the emergency room, he was found to have oxygen saturation of 83% on room air and his chest x-ray showed multifocal consolidation. The patient was admitted for sepsis secondary to pneumonia. The patient was started on antibiotics empirically and his blood culture revealed no growth, but his pneumococcal antigen was positive in the urine. 1. Pneumococcal pneumonia. As described above, the patient had a chest x-ray showing multilobar consolidation and pneumococcal antigen was positive in the urine. He had been initially started on Zosyn and was later on transitioned to cefdinir and completed his treatment. 2. Acute hypoxemic respiratory failure. The patient had initial oxygen saturation of 83% in the emergency room and this was secondary to COPD exacerbation and pneumonia. The patient had progressive improvement and now he is back on room air. 3. Acute COPD exacerbation. The patient was treated with bronchodilators and steroids with improvement of his symptoms. 4. Alcohol withdrawal. The patient completed his WAM protocol. 5. Moderate malnutrition. The patient was found to have a 12% weight loss in the past 6 months with mild temporal muscle wasting. He had a fair appetite while in the hospital and was also eating his dietary supplements. His weight will need to be monitored as outpatient. 6. Penis lesion. The patient complained of a small ulceration on the underside of his foreskin. There was no discharge. The lesion was not painful. Syphilis serology was negative as well as HIV. He was seen in consultation by Infectious Disease (Dr. Sarmiento) and the impression was that this ulceration could be related to a yeast infection and recommendation was for miconazole cream to the area. If this lesion does not clear up, he will need a followup with Dr. Sarmiento for further workup for other etiologies. 7. Homelessness. The patient was homeless prior to this admission and early on during his hospital stay. The impression is that he would qualify for subacute rehab at a nursing facility. The patient was stable for discharge and application was sent to multiple facilities, but the patient was not offered a bed. At that point, he was back at his baseline and stable for discharge. On 12/15/18, the patient was transitioned to group home care while other housing options were pursued. While in group home care, the patient continue to make progress and his mobility was back at baseline. He continued to have complaints of chronic back pain, but this was controlled with acetaminophen and gabapentin. Social Work and case management efforts continued and the patient was offered a bed at assisted living in [facility], and he is medically stable for discharge today. PHYSICAL EXAMINATION: Vital Signs: Temperature is 97.6, heart rate is 82, respiratory rate is 18, oxygen saturation is 98% on room air, blood pressure is 116/66. General: The patient is an elderly gentleman, appears older than stated age, sitting up in bed, in no acute distress. CVS: Normal S1, S2. Regular rate and rhythm. Chest: Breath sounds bilaterally diminished with no added sounds. Neuro: He is alert and oriented x3. He moves all 4 extremities. DIET: Regular diet. ACTIVITIES: As tolerated. DISPOSITION: To [facility]. STATUS WHILE IN THE HOSPITAL: Inpatient. CONDITION AT THE TIME OF DISCHARGE: Fair. Please keep in mind, this is a summarized version of this patient's hospital stay. If you need more information, please feel free to call me at [phone] or please obtain the full medical records. TIME SPENT: Approximately 50 minutes was spent to complete this discharge. [id number]/[facility] #: [id number] BILL
== END 2018-12-21 08:20 | disposition home or self-care (01) | DRG 720 ==
LOC: ED 01:26 → ICU 05:13 → MEDTELE 12-02 00:44 → MED 12-05 17:11 → MEDTELE 12-09 06:43 → MED 12-09 06:43
PROVIDERS: ADMIT Pediatrics; ATTEND Internal Medicine
PROC: 5A09357 Assistance with Respiratory Ventilation, Less than 24 Consecutive Hours, Continuous Positive Airway Pressure (ICD-10-PCS; principal; 2018-11-30)
DX: A41.9 Sepsis, unspecified organism (principal); J13 Pneumonia due to Streptococcus pneumoniae; J96.01 Acute respiratory failure with hypoxia; J44.1 Chronic obstructive pulmonary disease with (acute) exacerbation; J44.0 Chronic obstructive pulmonary disease with (acute) lower respiratory infection; F10.239 Alcohol dependence with withdrawal, unspecified; E44.0 Moderate protein-calorie malnutrition; E87.2 Acidosis; B37.49 Other urogenital candidiasis; Z68.1 Body mass index [BMI] 19.9 or less, adult; G62.9 Polyneuropathy, unspecified; F03.90 Unspecified dementia, unspecified severity, without behavioral disturbance, psychotic disturbance, mood disturbance, and anxiety; F17.210 Nicotine dependence, cigarettes, uncomplicated; I10 Essential (primary) hypertension; Y90.9 Presence of alcohol in blood, level not specified; B19.20 Unspecified viral hepatitis C without hepatic coma; R29.898 Other symptoms and signs involving the musculoskeletal system; G89.29 Other chronic pain; M54.9 Dorsalgia, unspecified; F14.10 Cocaine abuse, uncomplicated; Z59.0 Homelessness
CPT/HCPCS: 36415; 70450; 71045; 74176; 80048; 80053; 80307; 80320; 82140; 82565; 82803; 83605; 83735; 83880; 84100; 84134; 84484; 84520; 85014; 85018; 85025; 85027; 85049; 85610; 85730; 86140; 86703; 86780; 87040; 87641; 87899; 93005; 93306; 99284; 99406; A9270-GY; G0480; G8978-GP-CL; G8979-GP-CI; G8987-GO-CK; G8988-GO-CI; J1644; J1650; J1940; J2060; J2405; J2543; J2930; J3411; J3475; J7512

== ENCOUNTER 2019-03-26 05:07 | Emergency (ER) | payer OTHER ==
--- NOTE | 2019-03-26 07:47 | ED ---
Lower Extremity - HPI Summary HPI Summary: Patient is a 63-year-old male with history of alcoholism and hepatitis with declining health presenting to the ED after a fall yesterday. He states he denies hitting his head or LOC. He is endorsing pain to his left ankle, but denies pain otherwise. Endorses ankle swelling, but denies any ecchymosis. There is a bilateral rash to the lower extremities, he states which is at his baseline. He denies itching or pain. He denies any fevers, sweats, chills. He denies any recent alcohol use. - History of Current Complaint Chief Complaint: EDExtremityLower Stated Complaint: FOOT PAIN PER EMS Time Seen by Provider: 03/26/19 05:48 Hx Obtained From: Patient Mechanism Of Injury: Twisted Severity Initially: Moderate Severity Currently: Moderate Pain Intensity: 7 Pain Scale Used: 0-10 Numeric Timing: Constant Location: Is Discrete @ - left ankle swelling Associated Signs And Symptoms: Positive: Swelling Aggravating Factor(s): Standing, Ambulation Alleviating Factor(s): Rest Able to Bear Weight: Yes - Risk Factors Gout Risk Factors: Negative DVT Risk Factors: Negative Septic Arthritis Risk Factor: Negative - Allergies/Home Medications Allergies/Adverse Reactions: Allergies Allergy/AdvReac Type Severity Reaction Status Date / Time No Known Allergies Allergy Verified 11/09/18 20:38 PMH/Surg Hx/FS Hx/Imm Hx Previously Healthy: Yes Endocrine/Hematology History: Denies: Hx Anticoagulant Therapy, Hx Blood Disorders, Hx Blood Transfusions, Hx Bone Marrow Disease, Hx Diabetes, Hx Systemic Lupus Erythematosus, Hx Sickle Cell Disease, Hx Thyroid Disease, Hx Unexplained Bleeding, Other Endocrine/ Hematological Disorders Cardiovascular History: Reports: Hx Hypertension Denies: Hx Pacemaker/ICD Respiratory History: Reports: Hx Asthma, Hx Chronic Obstructive Pulmonary Disease (COPD) GI History: Reports: Other GI Disorders - Hepatitis C, alcohol abuse Denies: Hx Cirrhosis, Hx Crohn's Disease, Hx Diverticulosis, Hx Gall Bladder Disease, Hx Gastroesophageal Reflux Disease, Hx Gastrointestinal Bleed, Hx Hiatal Hernia, Hx Irritable Bowel, Hx Jaundice, Hx Obstructive Bowel, Hx Ileostomy, Hx Pyloric Stenosis, Hx Ulcer History: Denies: Hx Acute Renal Failure, Hx Benign Prostatic Hyperplasia, Hx Chronic Renal Failure, Hx Dialysis, Hx Kidney Infection, Hx Kidney Stones, Hx Renal Disease, Other Problems/Disorders Musculoskeletal History: Denies: Hx Arthritis, Hx Back Problems, Hx Bursitis, Hx Congenital Bone Abnormalities, Hx Fibromyalgia, Hx Gout, Hx Orthopedic Injury, Hx Osteoporosis, Hx Scoliosis, Hx Tendonitis, Other Musculoskeletal History Sensory History: Denies: Hx Contacts or Glasses, Hx Hearing Aid Opthamlomology History: Denies: Hx Contacts or Glasses Neurological History: Reports: Other Neuro Impairments/Disorders - neuropathy Comment Only: Hx Dementia - unsure Psychiatric History: Reports: Hx Substance Abuse - alcohol Denies: Hx Attention Deficit Hyperactivity Disorder, Hx Eating Disorder, Hx Depression, Hx Panic Disorder, Hx Post Traumatic Stress Disorder, Hx Inpatient Treatment, Hx Community Mental Health Tx, Hx Schizophrenia, Hx Bipolar Disorder , Hx Suicide Attempt, Hx of Violent Episodes Against Others, Other Psychiatric Issues/Disorders - Surgical History Surgery Procedure, Year, and Place: right ankle-2000, Hx Anesthesia Reactions: No - Immunization History Date of Tetanus Vaccine: unk Date of Influenza Vaccine: utd Infectious Disease History: No Infectious Disease History: Reports: Hx Hepatitis - C Denies: Hx Clostridium Difficile, Hx Human Immunodeficiency Virus (HIV), Hx of Known/Suspected MRSA, Hx Shingles, Hx Tuberculosis, Hx Known/Suspected VRE, Hx Known/Suspected VRSA, History Other Infectious Disease, Traveled Outside the [place] in Last 30 Days - Family History Known Family History: Negative: Cardiac Disease - Social History Occupation: Employed Full-time Lives: Assisted Living Alcohol Use: Daily Alcohol Amount: 3pack and 1/2 pint of vodka, ETOH abuse Hx Substance Use: Yes Substance Use Type: Reports: Cocaine Substance Use Comment - Amount & Last Used: last used 1 week ago Hx Tobacco Use: Yes Smoking Status (MU): Heavy Every Day Tobacco Smoker Type: Cigarettes Amount Used/How Often: 8 cigs a day Have You Smoked in the Last Year: Yes Review of Systems Negative: Fever, Chills, Fatigue, Skin Diaphoresis Negative: Palpitations, Chest Pain Negative: Shortness Of Breath, Cough Positive: Arthralgia - left ankle swelling Skin: Negative Neurological: Negative All Other Systems Reviewed And Are Negative: Yes Physical Exam Triage Information Reviewed: Yes Vital Signs On Initial Exam: Initial Vitals Temp Pulse Resp BP Pulse Ox 98.7 F 67 16 148/78 97 03/26/19 05:12 03/26/19 05:12 03/26/19 05:12 03/26/19 05:12 03/26/19 05:12 Vital Signs Reviewed: Yes Appearance: Positive: Well-Appearing, Well-Nourished Skin: Positive: Warm, Skin Color Reflects Adequate Perfusion Head/Face: Positive: Normal Head/Face Inspection Eyes: Positive: EOMI Neck: Positive: Supple, No Lymphadenopathy Respiratory/Lung Sounds: Positive: Clear to Auscultation, Breath Sounds Present Cardiovascular: Positive: RRR, Pulses are Symmetrical in both Upper and Lower Extremities Musculoskeletal: Positive: Pain @ - left ankle sweling Neurological: Positive: Sensory/Motor Intact, Alert, Oriented to Person Place, Time, Speech Normal Psychiatric: Positive: Affect/Mood Appropriate Diagnostics - Vital Signs Vital Signs Temp Pulse Resp BP Pulse Ox 03/26/19 06:09 147/84 03/26/19 05:39 167/91 03/26/19 05:22 78 94 03/26/19 05:12 98.7 F 67 16 148/78 97 - Laboratory Lab Statement: Any lab studies that have been ordered have been reviewed, and results considered in the medical decision making process. Lower Extremity Course/Dx - Course Course Of Treatment: During the course of treatment, the patient's evaluated for left ankle pain and swelling without ecchymosis. After a fall yesterday. He states he has been ambulating. Denies any numbness or tingling. He denies any fevers, sweats, chills or recent alcohol use. He states he has been otherwise well. He is endorsing pain to the lateral ankle with tenderness to the touch. Bilateral lower extremity rash, patient states is at his baseline. Rash appears to be petechiae throughout without edema. Ankle x-ray obtained which shows no acute fracture. Patient is diagnosed with ankle strain. Patient is ambulating well. He is instructed to use ice and elevation. - Diagnoses Provider Diagnoses: Ankle swelling, Ankle strain Discharge - Sign-Out/Discharge Documenting (check all that apply): Patient Departure Patient Received Moderate/Deep Sedation with Procedure: No - Discharge Plan Condition: Stable Disposition: HOME Patient Education Materials: Ankle Strain (ED) Referrals: Keaton Malcolm MD [Primary Care Provider] - Additional Instructions: Ice and elevation - Billing Disposition and Condition Condition: STABLE Disposition: Home
[2019-03-26 08:05] VITALS: BP 139/96
== END 2019-03-26 08:03 | disposition home or self-care (01) ==
LOC: ED 05:07
DX: S96.912A Strain of unspecified muscle and tendon at ankle and foot level, left foot, initial encounter (principal); W19.XXXA Unspecified fall, initial encounter; Y92.9 Unspecified place or not applicable; I10 Essential (primary) hypertension; J44.9 Chronic obstructive pulmonary disease, unspecified; F17.210 Nicotine dependence, cigarettes, uncomplicated
CPT/HCPCS: 99282

== ENCOUNTER 2019-09-21 10:09 | Inpatient (IN) | payer MEDICARE, MEDICAID ==
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
[2019-09-21 13:13] LABS: Urine Appearance Clear; Urine Bilirubin Negative (Negative); Urine Blood Negative (Negative); Urine Color Yellow; Urine Glucose Negative (Negative); Urine Ketones Negative (Negative); Urine Nitrite Negative (Negative); Urine Protein Negative (Negative); Urine Specific Gravity 1.016 (1.010-1.030); Urine Urobilinogen Negative (Negative)
[2019-09-21 13:14] LABS: ABS Basophils 0.1 10^3/ul (0-0.2); ABS Lymphocytes 2.5 10^3/ul (1.0-4.8); ABS Monocytes 0.7 10^3/ul (0-0.8); ABS Neutrophils 2.6 10^3/ul (1.5-7.7); Eosinophil % 0.6 %; Hematocrit 42 % (42-52); Hemoglobin 14.5 g/dL (14.0-18.0); Lymphocyte % 42.1 %; Mean Corpuscular HGB Conc 34 g/dL (31-36); Mean Corpuscular Hemoglobin 34 pg (27-31); Mean Corpuscular Volume 100 fL (80-94); Mean Platelet Volume 7.2 fL (7.4-10.4); Nucleated Red Blood Cells % 0.2; Platelet Count 223 10^3/uL (150-450); Red Blood Count 4.23 10^6 /uL (4.18-5.48); Red Cell Distribution Width 13 % (10-15); White Blood Count 5.9 10^3/uL (3.5-10.8)
[2019-09-21 13:16] LABS: Urine Bacteria Absent (Absent); Urine Red Blood Cell Trace(0-2/hpf) (Absent); Urine Squamous Epithelial Cell Present (Absent); Urine White Blood Cell Trace(0-5/hpf) (Absent)
[2019-09-21 13:38] LABS: ALT 15 U/L (7-52); AST 21 U/L (13-39); Albumin 4.3 g/dL (3.2-5.2); Albumin/Globulin Ratio 1.2 (1-3); Alkaline Phosphatase 89 U/L (34-104); Anion Gap 7 mmol/L (2-11); Blood Urea Nitrogen 15 mg/dL (6-24); CO2 Carbon Dioxide 25 mmol/L (22-32); Calcium 9.7 mg/dL (8.6-10.3); Chloride 106 mmol/L (101-111); EGFR African American 119.1 (>60); EGFR Non-African American 98.4 (>60); Globulin 3.5 g/dL (2-4); Glucose 97 mg/dL (70-100); Potassium 4.3 mmol/L (3.5-5.0); Sodium 138 mmol/L (135-145); Total Protein 7.8 g/dL (6.4-8.9)
[2019-09-21 14:05] LABS: TSH (Thyroid Stimulating Horm) 1.84 mcIU/mL (0.34-5.60)
[2019-09-21 14:18] LABS: Alcohol < 10 mg/dL (<10)
[2019-09-21] MEDS ORDERED: Ondansetron INJ* 2 MG/ML VIAL IV PRN (15:43)
[2019-09-21] MEDS ORDERED: Acetaminophen TAB* 325 MG PO PRN (15:43)
[2019-09-21] MEDS ORDERED: Albuterol HFA INHALER* 8 gm MDI INH PRN (15:47)
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
[2019-09-21] MEDS: Gabapentin CAP(*) 300 MG PO SCH (20:28)
[2019-09-21] MEDS: Ferrous Sulfate TAB* 325 MG PO SCH (20:28)
[2019-09-21] MEDS: Miconazole TOPICAL CREAM 2%* 30 GM TOPICAL SCH (20:29)
[2019-09-22] MEDS: Pantoprazole TAB * 40 MG TAB PO SCH (07:57)
[2019-09-22] MEDS: Ferrous Sulfate TAB* 325 MG PO SCH (07:57)
[2019-09-22] MEDS: Folic Acid TAB* 1 MG PO SCH (07:57)
[2019-09-22] MEDS: Magnesium Oxide TAB* 400 MG PO SCH (07:58)
[2019-09-22] MEDS: Gabapentin CAP(*) 300 MG PO SCH ×2 (07:58→20:52)
[2019-09-22] MEDS: Multivitamins/Minerals TAB PO SCH (07:58)
[2019-09-22] MEDS: Thiamine TAB* 100 MG TAB PO SCH (07:58)
[2019-09-22] MEDS: Nicotine PATCH 21 MG/24 HR* PATCH TRANSDERM SCH (07:58)
[2019-09-22] MEDS: Miconazole TOPICAL CREAM 2%* 30 GM TOPICAL SCH ×2 (08:35→20:12)
[2019-09-22] MEDS ORDERED: Spironolactone TAB* 25 MG PO SCH (09:00)
[2019-09-22] MEDS: Nicotine* 4MG (FRUIT FLAVOR) GUM PO PRN (10:08)
[2019-09-22] MEDS ORDERED: Haloperidol INJ IV/IM* 5 MG/ML AMP IM PRN (14:29)
[2019-09-22] MEDS: Nicotine Patch Removal NOTE PATCH OFF SCH (20:12)
[2019-09-22] MEDS: amLODIPine TAB* 5 MG PO SCH (20:52)
[2019-09-23] MEDS: Multivitamins/Minerals TAB PO SCH (09:18)
[2019-09-23] MEDS: Miconazole TOPICAL CREAM 2%* 30 GM TOPICAL SCH ×2 (09:18→19:15)
[2019-09-23] MEDS: Pantoprazole TAB * 40 MG TAB PO SCH (09:18)
[2019-09-23] MEDS: Folic Acid TAB* 1 MG PO SCH (09:18)
[2019-09-23] MEDS: Magnesium Oxide TAB* 400 MG PO SCH (09:18)
[2019-09-23] MEDS: Thiamine TAB* 100 MG TAB PO SCH (09:18)
[2019-09-23] MEDS: Gabapentin CAP(*) 300 MG PO SCH ×2 (09:18→19:14)
[2019-09-23] MEDS: Nicotine PATCH 21 MG/24 HR* PATCH TRANSDERM SCH (09:22)
[2019-09-23] MEDS: Nicotine* 4MG (FRUIT FLAVOR) GUM PO PRN ×5 (09:30→22:15)
[2019-09-23] MEDS: amLODIPine TAB* 5 MG PO SCH (19:14)
[2019-09-23] MEDS: Nicotine Patch Removal NOTE PATCH OFF SCH (21:33)
[2019-09-24] MEDS: Thiamine TAB* 100 MG TAB PO SCH (07:42)
[2019-09-24] MEDS: Magnesium Oxide TAB* 400 MG PO SCH (07:42)
[2019-09-24] MEDS: Pantoprazole TAB * 40 MG TAB PO SCH (07:42)
[2019-09-24] MEDS: Gabapentin CAP(*) 300 MG PO SCH ×2 (07:42→21:59)
[2019-09-24] MEDS: Folic Acid TAB* 1 MG PO SCH (07:43)
[2019-09-24] MEDS: Multivitamins/Minerals TAB PO SCH (07:43)
[2019-09-24] MEDS: Nicotine PATCH 21 MG/24 HR* PATCH TRANSDERM SCH (07:47)
[2019-09-24] MEDS: Miconazole TOPICAL CREAM 2%* 30 GM TOPICAL SCH ×2 (07:48→21:59)
[2019-09-24] MEDS ORDERED: Ferrous Sulfate TAB* 325 MG PO SCH (09:00)
[2019-09-24] MEDS: Nicotine* 4MG (FRUIT FLAVOR) GUM PO PRN (09:57)
[2019-09-24] MEDS: amLODIPine TAB* 5 MG PO SCH (21:59)
[2019-09-24] MEDS: Nicotine Lozenge* mini 4 MG LOZNG.MINI MT PRN (21:59)
[2019-09-24] MEDS: Nicotine Patch Removal NOTE PATCH OFF SCH (21:59)
[2019-09-25] MEDS ORDERED: Nicotine Lozenge* mini 2 MG LOZNG.MINI MT PRN (07:28)
[2019-09-25] MEDS: Multivitamins/Minerals TAB PO SCH (08:15)
[2019-09-25] MEDS: Magnesium Oxide TAB* 400 MG PO SCH (08:15)
[2019-09-25] MEDS: Folic Acid TAB* 1 MG PO SCH (08:15)
[2019-09-25] MEDS: Thiamine TAB* 100 MG TAB PO SCH (08:16)
[2019-09-25] MEDS: Pantoprazole TAB * 40 MG TAB PO SCH (08:16)
[2019-09-25] MEDS: Gabapentin CAP(*) 300 MG PO SCH ×2 (08:16→23:22)
[2019-09-25] MEDS: Nicotine PATCH 21 MG/24 HR* PATCH TRANSDERM SCH (08:18)
[2019-09-25] MEDS: Miconazole TOPICAL CREAM 2%* 30 GM TOPICAL SCH ×2 (08:20→23:22)
[2019-09-25] MEDS: amLODIPine TAB* 5 MG PO SCH (23:22)
[2019-09-25] MEDS: Nicotine Patch Removal NOTE PATCH OFF SCH (23:24)
[2019-09-26] MEDS: Magnesium Oxide TAB* 400 MG PO SCH (12:35)
[2019-09-26] MEDS: Folic Acid TAB* 1 MG PO SCH (12:35)
[2019-09-26] MEDS: Thiamine TAB* 100 MG TAB PO SCH (12:35)
[2019-09-26] MEDS: Multivitamins/Minerals TAB PO SCH (12:35)
[2019-09-26] MEDS: Pantoprazole TAB * 40 MG TAB PO SCH (12:36)
[2019-09-26] MEDS: Nicotine PATCH 21 MG/24 HR* PATCH TRANSDERM SCH (12:36)
[2019-09-26] MEDS: Gabapentin CAP(*) 300 MG PO SCH ×2 (12:36→22:23)
[2019-09-26] MEDS: Miconazole TOPICAL CREAM 2%* 30 GM TOPICAL SCH ×2 (12:46→22:25)
[2019-09-26] MEDS: Nicotine Patch Removal NOTE PATCH OFF SCH (22:23)
[2019-09-26] MEDS: amLODIPine TAB* 5 MG PO SCH (22:24)
[2019-09-27] MEDS: Nicotine PATCH 21 MG/24 HR* PATCH TRANSDERM SCH (09:08)
[2019-09-27] MEDS: Gabapentin CAP(*) 300 MG PO SCH ×2 (09:10→21:20)
[2019-09-27] MEDS: Pantoprazole TAB * 40 MG TAB PO SCH (09:10)
[2019-09-27] MEDS: Magnesium Oxide TAB* 400 MG PO SCH (09:11)
[2019-09-27] MEDS: Folic Acid TAB* 1 MG PO SCH (09:11)
[2019-09-27] MEDS: Thiamine TAB* 100 MG TAB PO SCH (09:11)
[2019-09-27] MEDS: Multivitamins/Minerals TAB PO SCH (09:11)
[2019-09-27] MEDS: Miconazole TOPICAL CREAM 2%* 30 GM TOPICAL SCH ×2 (09:12→21:21)
[2019-09-27] MEDS: Nicotine* 2MG (FRUIT FLAVOR) GUM PO PRN ×4 (14:25→21:22)
[2019-09-27] MEDS: Nicotine Lozenge* mini 4 MG LOZNG.MINI MT PRN (17:18)
[2019-09-27] MEDS: Nicotine Patch Removal NOTE PATCH OFF SCH (21:20)
[2019-09-27] MEDS: amLODIPine TAB* 5 MG PO SCH (21:21)
[2019-09-28] MEDS: Nicotine PATCH 21 MG/24 HR* PATCH TRANSDERM SCH (09:31)
[2019-09-28] MEDS: Magnesium Oxide TAB* 400 MG PO SCH (09:31)
[2019-09-28] MEDS: Gabapentin CAP(*) 300 MG PO SCH (09:31)
[2019-09-28] MEDS: Multivitamins/Minerals TAB PO SCH (09:31)
[2019-09-28] MEDS: Pantoprazole TAB * 40 MG TAB PO SCH (09:31)
[2019-09-28] MEDS: Folic Acid TAB* 1 MG PO SCH (09:31)
[2019-09-28] MEDS: Thiamine TAB* 100 MG TAB PO SCH (09:31)
[2019-09-28] MEDS: Miconazole TOPICAL CREAM 2%* 30 GM TOPICAL SCH (09:32)
[2019-09-28 09:36] VITALS: BP 158/83
--- NOTE | 2019-09-28 11:21 | DS ---
CC: Dr. Malcolm * DISCHARGE SUMMARY: DATE OF ADMISSION: 09/21/19 DATE OF DISCHARGE: 09/28/19 PRIMARY CARE PROVIDER: Dr. Malcolm ATTENDING PHYSICIAN WHILE IN THE HOSPITAL: Dr. Frank Steiner * (dictated by SPENCER Morel). PRIMARY DIAGNOSIS: Aggressive behavior and memory loss likely dementia with behavioral disturbance. SECONDARY DIAGNOSES: 1. History of alcohol abuse. 2. Tobacco abuse. 3. Chronic obstructive pulmonary disease. 4. History of malnutrition. 5. History of nonhepatic encephalopathy. 6. Hepatitis C status post therapy. 7. History of duodenal bleed. 8. Thrombocytopenia. 9. Hypertension. 10. Prior history of cocaine use. PERTINENT STUDIES/LAB DATA: White blood cell count at admission 5.9. Unremarkable BMP. Unremarkable urinalysis with a negative urine culture. CT of the brain on 09/21/19. Impression: 1. No acute intracranial abnormalities identified. 2. Unchanged encephalomalacia at the junction of the left basal ganglia and external capsule. 3. Mild chronic small vessel disease. 4. Mild cerebral volume loss. Brain MRI on 09/21/19. Impression: 1. No acute intracranial process evident. 2. 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 HISTORY OF PRESENT ILLNESS/HOSPITAL COURSE: Mr. Noble Mccarthy is a 64-year- old black male with past medical history significant for alcohol use, COPD, thrombocytopenia, hypertension and nonhepatic encephalopathy who presented to the Emergency Department on 09/21/19, sent from the [facility] due to aggressive behavior. For further details regarding his admission please see History and Physical written by SPENCER Tai on 09/21/19. Patient has significant memory loss and does not recall his aggressive behavior or how he got into the hospital. He was admitted halfway admission to the hospital. research development manager and social work has been working on finding halfway residence for this patient. There have been no acute events or further aggressive behavior while he has been in the hospital. His home medications were continued and he was started on nicotine replacement therapy. He was found to be hypertensive while he was in the hospital and started on amlodipine 5 mg which has been found to manage his hypertension. This was utilized in lieu of his spironolactone and is working well especially considering spironolactone is a poor solitary agent for hypertension. Ultimately social work followed. The patient to be accepted at [facility] as a halfway resident. PHYSICAL EXAM ON THE DAY OF DISCHARGE: General: Thin black male lying upright on hospital bed, appearing comfortable, in no acute distress, eating breakfast. Eyes: PERRL. Sclerae anicteric. ENT: Mucous membranes moist. Lungs: Clear to auscultation throughout. Cardio: Regular rhythm without murmurs or gallops. Extremities: No clubbing, cyanosis, or edema. Skin: Warm, dry, and intact. DISCHARGE PLAN: Diet: Regular unrestricted diet. Activity: Patient may return to level of activity prior to admit. DISCHARGE MEDICATIONS: 1. Multivitamin 1 tab p.o. daily. 2. Ferrous sulfate 325 mg p.o. b.i.d. 3. Miconazole topical cream 2% 1 application topically b.i.d. 4. Gabapentin 300 mg p.o. b.i.d. 5. Albuterol 1 puff inhaled every 4 hours p.r.n. shortness of breath/wheezing. 6. Omeprazole 20 mg p.o. daily. 7. Folic acid 1 mg p.o. daily. 8. Thiamine 100 mg p.o. daily. 9. Magnesium oxide 300 mg p.o. daily. 10. Amlodipine 5 mg p.o. at bedtime. 11. Nicotine patch 25 mg per 24 hours 1 patch transdermally daily. 12. Nicotine gum 2 mg p.o. every 2 hours p.r.n. cravings. DISCHARGE INSTRUCTIONS: Patient should have his nicotine patch slowly tapered down to assist with smoking cessation. The patient should have his blood pressure monitored given his new medications while he is at [facility]. Patient should return to Emergency Department if experiencing fever, chills, chest pain , severe headache, visual changes, difficulty breathing or other concerning symptoms. CONDITION ON DISCHARGE: Stable. DISPOSITION: [facility] as a halfway resident. TIME SPENT: Approximately 30 minutes was spent on this discharge. SPENCER MOREL [id number]/[facility] #: [id number] BILL
== END 2019-09-28 13:20 | DRG 884 ==
LOC: ED 10:09 → MED 15:43 → OBSVTOIN 16:00
PROVIDERS: ADMIT Internal Medicine; ATTEND Internal Medicine
DX: F03.91 Unspecified dementia, unspecified severity, with behavioral disturbance (principal); E46 Unspecified protein-calorie malnutrition; I10 Essential (primary) hypertension; J44.9 Chronic obstructive pulmonary disease, unspecified; G62.9 Polyneuropathy, unspecified; F17.210 Nicotine dependence, cigarettes, uncomplicated; F10.10 Alcohol abuse, uncomplicated; Y90.9 Presence of alcohol in blood, level not specified; D69.6 Thrombocytopenia, unspecified; K26.9 Duodenal ulcer, unspecified as acute or chronic, without hemorrhage or perforation; Z68.1 Body mass index [BMI] 19.9 or less, adult
CPT/HCPCS: 36415; 70450; 70551; 80053; 80320; 81003; 81015; 82607; 84443; 85025; 87086; 99283; A9270-GY; G0480; J1630